=== PATIENT | male | born 1940 | race Caucasian/White ===

== ENCOUNTER 2017-06-04 10:59 | Emergency (ER) | payer MEDICARE, SELFPAY ==
[2017-06-04 11:00] VITALS: BP 137/68; PULSE 82; RESP 16; TEMP 36.9; O2SAT 97; BMI 31.2
--- NOTE | 2017-06-04 11:42 | VDLE_ITS ---
Reason For Study: LEG SWELLING Procedure LEFT Exam performed portable in ED. GSV is normal. A preliminary report was called and/or faxed CFV is compressible, spontaneous, phasic, to Dr. Reed. competent, and demonstrates normal augmentation. FV is compressible, spontaneous, phasic, competent and demonstrates normal augmentation. POP V is compressible, spontaneous, phasic, competent and demonstrates normal augmentation. T/P Trunk is compressible. PTV is compressible. LT PerV is compressible. Interpretation Summary Deep veins of the left lower extremity are patent and compressible segmentally. There is no evidence of left lower extremity deep vein thrombosis. Valvular competence appears intact within the proximal deep venous system on the left . The left greater saphenous vein appears patent and compressible segmentally. Ordering Physician: Azam Reed Referring Physician: Naveed Morton Performed By: Annelise Sandoval RVT
--- NOTE | 2017-06-04 12:13 | ED.VISSUMM ---
- ER Visit Summary Date of Service: 06/04/17 Chief Complaint: Swelling left lower extremity status post left hip total arthroplasty 6 days ago History of Present Illness: The patient is a 77 M was sent to the emergency department by his orthopedic surgeon because of swelling of his left lower extremity. He is postop day 6 from a left total hip arthroplasty. He denies chest pain. Denies shortness of breath. He denies leg pain. He has not been mobile. Past medical history of hypercholesterolemia, dysrhythmia. Per old records he was on Xarelto. Physical Examination: Is an elderly gentleman in no distress. Blood pressure slightly elevated 137/68. HEENT is unremarkable. Heart is regular without murmur, gallop or rub. S1 and S2 are normal. Lungs are clear to auscultation with good movement of air bilaterally. Abdomen soft nontender. The entire left lower extremity is swollen. There is no tenderness along the distribution deep venous system. The veins may be slightly more prominent on the left compared to the right. DP and PT pulses are diminished compared to the right secondary to the edema. Incision site looks well without evidence of infection. Test Results: His duplex study was interpreted as negative for DVT. Emergency Department Course and Treatment: Since patient is postop day 6 and has a well score for DVT of 3 a venous duplex study was obtained of the left lower extremity. Treatment Plan: Appropriate home-going instructions and elevation Disposition: Discharged to home in stable condition Impression: Lymphedema left lower extremity status post total hip arthroplasty This note was generated with [employer] dictation software. It may contain incorrect words, spelling, and punctuation that were not noted in review of the chart prior to signing ED Disposition - Plan for ED Patient: Disposition: Home or Assisted Living Chief Complaint: Edema Instructions: ED Lymphedema Referrals: Naveed Morton MD [Primary Care Provider] - As Needed
[2017-06-04 12:37] VITALS: BP 142/79; PULSE 83; RESP 22; O2SAT 97
--- NOTE | 2017-06-04 12:38 | ED.RN ---
THIS NURSE REVIEWED D/C INSTRUCTIONS WITH PT. PT VERBALIZED UNDERSTANDING OF INSTRUCTIONS. PT DENIES FURTHER QUESTIONS AT THIS TIME. PT ASSISTED TO VEHICLE VIA W/C
== END 2017-06-04 12:39 | disposition home or self-care (01) ==
PROVIDERS: Emergency Provider Emergency Medicine; Family Provider Family Medicine; PCP Family Medicine
DX: I89.0 Lymphedema, not elsewhere classified (principal); Z96.642 Presence of left artificial hip joint; E78.00 Pure hypercholesterolemia, unspecified; R03.0 Elevated blood-pressure reading, without diagnosis of hypertension; Z79.01 Long term (current) use of anticoagulants; Z79.82 Long term (current) use of aspirin; Z79.899 Other long term (current) drug therapy; Z87.891 Personal history of nicotine dependence
CPT/HCPCS: 93971; 99282; J7030

== ENCOUNTER 2017-08-29 07:00 | Outpatient (RCR) | payer MEDICARE, SELFPAY ==
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
--- NOTE | 2018-02-05 13:54 | HP.PT.NRP ---
HP - Discharge Summary (1) - Patient Information ARIANNE BOYER was seen in my office for initial evaluation on 08/01/17. The following Plan of Care was established for this patient: Initial Frequency: 3x /Week Initial Duration: 4 Weeks - Anticipated Interventions Patient/Client Instruction: Educate patient on: Benefits of Fitness Program For the Purpose of:: To improve performance and independence with ADL's Therapeutic Exercise to Include: Strength training, Endurance training, Balance training, Agility training, Body mechanics, Postural training, Flexibilty training, Scapular Strength/Stabilization For the Purpose of:: To improve muscle performance and motor function TENS: Yes Cryotherapy (ice pack, ice massage): Yes Thermo therapy (hot pack): Yes Ultrasound (thermal/non thermal): No For the Purpose of:: To decrease pain This patient was last seen in our office . Pertinent comments regarding their Physical therapy will appear below: Patient is I with HEP and doing well- Patient has not attended physical therapy in over 8 weeks. At this time patient is appropriate for d/c and return to MD as needed. At this point I will be discontinuing this patient from physical therapy. I would be happy to see this patient again in the future if found appropriate by the physician. Thank you! Margaret Tyler
== END 2017-08-29 19:00 | disposition home or self-care (01) ==
LOC: PT 07:00
PROVIDERS: Family Provider Family Medicine; PCP Family Medicine
DX: Z96.649 Presence of unspecified artificial hip joint (principal)
CPT/HCPCS: 97110; 97162

== ENCOUNTER 2018-06-09 09:34 | Emergency (ER) | payer MEDICARE, SELFPAY ==
[2018-06-09] VITALS (7 sets, daily range): BP systolic 113–136; BP diastolic 61–84; PULSE 67–72; RESP 12–18; TEMP 36.6; O2SAT 77–97; BMI 29.3
--- NOTE | 2018-06-09 09:40 | RAD_ITS ---
STUDY: X-RAY - RIGHT HIP REASON FOR EXAM: Male, 78 years old. Possible dislocation. TECHNIQUE: Single AP view of the hip. COMPARISON: None. FINDINGS: Limited view. There is evidence of a dislocation of the prosthetic hip joint. RAD/Hip 1 view with Pelvis IMPRESSION: Dislocation of the prosthetic hip joint. Limited examination. Electronically Signed: Sj Renee MD at 10:41 EST , Service support ,
[2018-06-09] MEDS: 0.9% Normal Saline 1,000 ML 1000 ML IV (09:48)
[2018-06-09] MEDS: Ondansetron 4 MG/2 ML Vial IV (09:49)
[2018-06-09] MEDS: morphine 8 MG/ML Syringe IV (09:49)
[2018-06-09] MEDS: Propofol 200 MG/20 ML Vial IV BOLUS (11:18)
--- NOTE | 2018-06-09 11:42 | RAD_ITS ---
STUDY: X-RAY - RIGHT HIP REASON FOR EXAM: Male, 78 years old. Post reduction of the right hip. TECHNIQUE: 2 views of the hip. COMPARISON: Comparison is made with prior study done earlier in the day. FINDINGS: The patient is status post bilateral hip replacement. There is satisfactory postreduction of the right prosthetic hip joint. RAD/HIP, UNI W/ Pelvis 2-3 Views IMPRESSION: Satisfactory reduction of the right prosthetic hip joint. Electronically Signed: Sj Renee MD at 12:31 EST , Service support ,
--- NOTE | 2018-06-09 12:56 | ED.DCSUM_ITS ---
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 He apparently lost his balance and his hip popped out. He is 10 weeks status post right hip arthroplasty by Dr. Wally Villarreal at the [facility]. He is presently complaining of right hip pain. He presents by ambulance with flexion and internal rotation of the hip. He last had something to eat and drink at 08: 3 0. He denied head trauma. No loss conscious. He is taking Xarelto because of history of paroxysmal atrial fib and stroke precaution. He denies cardiac respiratory symptoms. He denies nausea vomiting. He has no other complaints please read written note Physical Examination: Patient is in obvious discomfort. Head is atraumatic normocephalic. Pupils are equal round reactive. Extraocular muscles are intact. TMs are pearly white with landmarks noted. Nares patent with no drainage. Posterior pharynx without erythema or exudate. Uvula is midline. There is no dysphonia or dysphasia. Trachea is midline. There is no stridor with auscultation of the neck. Heart is regular without murmur, gallop or rub. S1 and S2 are normal. Lungs are clear to auscultation with good movement of air bilaterally. DP and PT pulses are palpable. He has obvious deformity of the right hip. There is no neurovascular compromise of the right lower extremity. Test Results: Patient was medicated with 4 mg of Zofran and 8 mg of morphine sulfate IV push. He is still complained of discomfort. Portable 1 view x-ray confirms dislocation of prosthetic right hip. Emergency Department Course and Treatment: IV was established. He was medicated. Patient was advised risk benefits of procedural sedation with propofol and need for reduction. He was given opportunity to ask questions. None were asked. He denies allergies to soy products or milk products. Treatment Plan: Patient was placed on a monitor. Written consent was obtained. He was on continuous monitor and oxygen supplementation. Total of 20 mg propofol was administered by me. Initial attempt to reduce by Dr. Julien using the [place] technique unsuccessful. Next attempt using monitor technique unsuccessful. She then applied traction up forward with slight internal rotation which resulted in successful reduction. Postreduction films were obtained and normal. Patient did desaturate to the mid 80s. Question if accurate since he was not cyanotic and waveform was not appropriate. He was reassessed afterwards. Total time of deep sedation by me 8.[address] Maryuri Julien. Patient was placed in a knee immobilizer. Dr. Britt Villarreal was made aware. He would like patient to call office today for an appointment next week. Disposition: Discharged home in stable improved condition Impression: 1. Posterior right prosthetic hip dislocation 2. Deep procedural sedation (8.5 minutes) 3. Reduction of prosthetic hip dislocation, by Dr. Maryuri Julien This note was generated with [employer] dictation software. It may contain incorrect words, spelling, and punctuation that were not noted in review of the chart prior to signing ED Disposition - Plan for ED Patient: Disposition: Home or Assisted Living Instructions: ED Hip Replace Dislocation Reduc Referrals: Naveed Morton MD [Primary Care Provider] - Additional Instructions: Call Dr. Wally Bañuelos's office today to be seen next week.
== END 2018-06-09 14:32 | disposition home or self-care (01) ==
PROVIDERS: Emergency Provider Emergency Medicine; Family Provider Family Medicine; PCP Family Medicine
DX: T84.020A Dislocation of internal right hip prosthesis, initial encounter (principal); I25.10 Atherosclerotic heart disease of native coronary artery without angina pectoris; I48.0 Paroxysmal atrial fibrillation; I10 Essential (primary) hypertension; Z79.01 Long term (current) use of anticoagulants; Z79.82 Long term (current) use of aspirin; Z79.899 Other long term (current) drug therapy; Z87.891 Personal history of nicotine dependence
CPT/HCPCS: 27265; 73501; 73502; 96361; 96374; 96375; 99152; 99285; J7030; A4216; J2405

== ENCOUNTER → 2018-08-11 12:47 | Outpatient (CLI) | payer MEDICARE, SELFPAY ==
[2018-08-05 15:52] VITALS: BMI 30.7
--- NOTE | 2018-08-11 12:49 | CDU_ITS ---
Reason For Study: vertigo Rt. Velocities/BP Lt. Velocities/BP Prox CCA 100.8/17.3 cm/sec. Prox CCA 81.6/17.9 cm/sec. Mid CCA 95.6/17.3 cm/sec. Mid CCA 90.4/23.4 cm/sec. Dist CCA 81.2/18.6 cm/sec. Dist CCA 70.6/12.4 cm/sec. Prox ICA 86.0/20.1 cm/sec. Prox ICA 66.2/15.7 cm/sec. Mid ICA 75.0/20.1 cm/sec. Mid ICA 65.1/22.3 cm/sec. Dist ICA 75.0/20.1 cm/sec. Dist ICA 72.8/21.2 cm/sec. Rt. ICA/CCA = .9. Lt. ICA/CCA = .8. Prox ECA 122.9/15.2 cm/sec. Prox ECA 72.8/11.3 cm/sec. Rt. Vert. 58.6/15.7 cm/sec. Lt. Vert. 43.2/8.0 cm/sec. Right Extracranial There is intimal thickening but no significant atherosclerotic plaque noted in the right common carotid artery. There is heterogeneous, irregular atherosclerotic plaque noted in the right internal carotid artery. There is intimal thickening but no significant atherosclerotic plaque noted in the right external carotid artery. Antegrade flow is noted in the right vertebral artery. Left Extracranial There is intimal thickening but no significant atherosclerotic plaque noted in the left common carotid artery. There is intimal thickening but no significant atherosclerotic plaque noted in the left internal carotid artery. There is intimal thickening but no significant atherosclerotic plaque noted in the left external carotid artery. Antegrade flow is noted in the left vertebral artery. Procedure Carotid Duplex 28964. The exam was diagnostic. Exam performed in department. Interpretation Summary Irregular plague at the proximal right internal carotid with <50% stenosis No significant plague at the proximal right external carotid with <50% stenosis No significant plague at the proximal left internal carotid with <50% stenosis. No significant plague at the proximal left external carotid with <50% stenosis. Patent and antegrade vertebrals bilaterally Ordering Physician: Jay Lambert Performed By: Elbert Larkin RVT
== END ==
PROVIDERS: Family Provider Family Medicine; PCP Family Medicine; Referring Provider Internal Medicine Cardiovascular Disease; Visit Provider Internal Medicine Cardiovascular Disease
DX: R09.89 Other specified symptoms and signs involving the circulatory and respiratory systems (principal)
CPT/HCPCS: 93880

== ENCOUNTER 2018-08-13 07:30 | Outpatient (RCR) | payer MEDICARE, SELFPAY ==
--- NOTE | 2018-04-27 16:11 | HP.PTEVAL_ITS ---
Patient's Visit Information ARIANNE BOYER is a 78 year old M referred to Physical Therapy by DEBBIE FREED with a diagnosis of R THR. Date of Evaluation: 04/27/18 Physical Therapist: Mark Busby, PT, LAYLA, SCS, CSCS - Visit Plan Frequency: 2x /Week Duration: 4-6 Weeks Plan: Continue to work on ROM, Strength, balance and GAIT - Subjective Findings: Mr Boyer is a pleasant 78 yo who was referred to our care by Dr Freed at [facility]. Tulio said that he is doing well not taking any pain meds or tylenol since two days after his R THR sx on 03.26.18. He has been released to drive and is ambulating with cane on his left side. He is not scheduled to RTD. - Pain Right Hip Pain Intensity (Out of 10): 1 Pain Intensity Range: 2 - Objective Mr. Boyer presents ambulating with a cane in his left hand, with a slower than expected gait with decrease stance time and hip ext on his right hip. R HIP extension is 5 degrees, hip abduction 25, all other deferred secondary to hip precautions at this time. Incision site is healing well no seepage or drainage. MMT. Hip Flexion R 20 L 35.6. Knee ext R 36.2 L 38.6. Knee FlexionR 27.5 L 29.6. able to perform a sidling R hip abduction vs gravity times 5. LLD will check next visit. - Goals Goal 1:: Able to walk household distances without cane Goal Time Frame: 2 Weeks Goal 2:: Improve strength with 10% of univolved side Goal Time Frame: 4-6 Weeks Goal 3:: Ascend/Descend steps with handrail Goal Time Frame: 4-6 Weeks - Rehabilitation Potential Physical Therapy Diagnosis: R THR with accompanying decreased ROM and MMT. Rehabilitation Potential: Excellent - Anticipated Interventions Patient/Client Instruction: Educate patient on: Condition, Plan of Care, Risk Factors For the Purpose of:: To increase ROM, To improve ability to perform ADL's, To improve ability of physical actions for home/community/work/leisure, To improve gait and locomotor functions Therapeutic Exercise to Include: Strength training, Endurance training, Balance training, Coordination, Gait and locomotor training Functional Training to Include: ADL Training For the Purpose of:: To improve ability of physical actions for home/community/work/leisure, To improve safety with gait Manual Therapy Techniques to Include: Mobilization, Passive ROM, Soft tissue mobilization For the Purpose of:: To decrease pain, To improve ability to perform ADL's, To improve ability of physical actions for home/community/work/leisure, To improve endurance Thank you for the opportunity to evaluate your patient. For Medicare and Medicare HMO plans, please review the plan of care and approve it. It will need to be FAXED BACK to us at [phone] for Medicare purposes. For Medicare only, by signing this I certify the plan of care. Please let me know if there are questions or concerns regarding this plan of care. Physician Sign ature: Date:
[2018-06-09 09:35] VITALS: BMI 29.3
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
== END 2018-08-13 19:00 | disposition home or self-care (01) ==
LOC: PT 07:30
PROVIDERS: Family Provider Family Medicine; PCP Family Medicine
DX: T84.029A Dislocation of unspecified internal joint prosthesis, initial encounter (principal); Z96.641 Presence of right artificial hip joint
CPT/HCPCS: 97014; 97035; 97110; 97124; 97161; G0283

== ENCOUNTER → 2018-11-23 11:46 | Outpatient (CLI) | payer MEDICARE, OTHER, SELFPAY ==
[2018-08-05 15:52] VITALS: BMI 30.7
--- NOTE | 2018-11-23 11:47 | CT_ITS ---
STUDY: CT ABDOMEN AND PELVIS WITH CONTRAST REASON FOR EXAM: Male, 78 years old. Left groin swelling. Lymphadenopathy. RADIATION DOSAGE (If Supplied By Facility): CTDIvol = ( 19.25 ) mGy, DLP = ( 1713.11 ) mGycm TECHNIQUE: Transaxial images were obtained from the dome of the diaphragm to the symphysis pubis with oral contrast. 100 ml of Isovue 300 contrast was administered. Sagittal and coronal images were reconstructed. Individualized dose optimization techniques were used for this CT. COMPARISON: None. FINDINGS: There is atelectasis at the lung bases. The visualized portions of the heart and pericardium are within normal limits. There are no calcified gallstones present. There are simple cysts noted in the liver. The spleen is normal in size. The pancreas is within normal limits. There is a 1.2 cm indeterminate left adrenal nodule. The right adrenal gland is within normal limits. There are no renal or ureteral stones. There is no hydronephrosis. There are multiple bilateral renal cysts. Normal visualized stomach. There is no bowel obstruction or inflammation. There is a large amount of stool in the colon, consistent with constipation The appendix is visualized and appears normal. The aorta is normal in caliber. There is no abdominal or pelvic free air, free fluid, fluid collection or lymphadenopathy. There is a 3.8 x 3.1 cm left inguinal lymph node noted. There are no destructive osseous lesions. The patient is status post bilateral hip arthroplasty. There are degenerative changes noted in the spine. CT/Abdomen/Pelvis WITH Contrast IMPRESSION: 3.8 x 3.1 cm left inguinal lymph node. Consider further evaluation with PET/CT or tissue diagnosis to exclude malignancy. No additional enlarged lymph nodes identified in the abdomen or pelvis. 1.2 cm indeterminate left adrenal nodule. No bowel obstruction or inflammation. Normal appendix. Constipation. Hepatic and renal cysts. Electronically Signed: Serjio Connors, at 14:36 EDT Tel , Service support ,
[2018-11-23 14:01] LABS: CREATININE FINGERSTICK < 0.6 mg/dL (0.70-1.30); EGFR FINGERSTICK > 60.0000 mL/min (>60)
== END ==
PROVIDERS: Family Provider Family Medicine; PCP Family Medicine; Referring Provider Surgery; Visit Provider Surgery
DX: R59.1 Generalized enlarged lymph nodes (principal)
CPT/HCPCS: 74177; Q9967

== ENCOUNTER 2018-11-24 11:29 | Day surgery (SDC) | payer MEDICARE, OTHER, SELFPAY ==
--- NOTE | 2018-11-24 | IMM_PTH ---
PATIENT: ARIANNE BOYER LOC: [facility] [place] U#:[id number] AGE/SX: 78/M ROOM: RE11/24/[address]: Dr. Eric Kaur MD : 1940 BED: DIS: 11/24/2018 SPEC #: [id number] RECD: 11/25/18 13:05 STATUS: LOUIS REQ #: [id number] DIEGO: 11/24/18 00:[address]: Eric Kaur DEPT: IMMUNOHISTOCHEMISTRY RECD BY: Peri Alexander ENTERED: 11/25/18 13:06 SP TYPE: IMMUNO OTHR DR: Dr. Naveed Morton MD Tissues: Inguinal lymph node, NOS Procedures: Synapto (add) CD56 (add) CHROMO (add) CK20 (add) CK7 (add) CK8 (add) KI-67 (add) P53 (add) TTF1 (add) Pankeratin (add) CD45 (initial) PHYSICIAN & INSTITUTION [address] [address] SPECIMEN INFORMATION: Tissue Source: Left inguinal lymph node, biopsy Clinical Info: Lymphoma of left inguinal region Specimen Number: [id number] #1 CPT code: 21917, 38779 x10 METHODOLOGY: Deparaffinized sections of prefer/formalin-fixed tissue or PAP/DQ stained slides are incubated with monoclonal/polyclonal antibodies/oligonucleotide probes. Localization is made via biotin free immunoperoxidase method. Appropriate controls are performed and reacted as expected. Results on target cell population are indicated in the following table: RESULTS: ANTIBODY / CLONE RESULT Block 1 CD45 (RP2/18) negative AE1-3 (AE1/AE3/PCK26) positive CK8 (17wxknH32) positive CK7 (OV-TL12/30) negative CK20 (KS20.8) positive TTF-1 (8G7G3/1) negative Chromo (LK2H10) positive Synapto (polyclonal) positive CD56 (123C3.D5) positive Ki-67 (30-9) positive, high P53 (DO-7) positive, a few cells These tests were developed and their performance characteristics determined by [facility]. They may not have been cleared or approved by the U.S. Food and Drug Administration. The FDA has determined that such clearance or approval is not necessary. INTERPRETATION: Left inguinal lymph node, biopsy: Consistent with metastatic poorly differentiated neuroendocrine carcinoma, with large cell morphology, favor Madi cell carcinoma. SJ:evette 11/26/18 Case has been reviewed in consultation with Dr. Sanford who concurs with the above diagnosis. IDC:AM
[2018-11-24 08:31] VITALS: BMI 30.7
--- NOTE | 2018-11-24 09:31 | PCM.HP.BLA ---
Problem List (1) Lymphoma of left inguinal region Status: Acute History and Physical Date of Admission: 11/24/18 Intake Vital Signs 11/24/18 Body Mass Index (BMI) 30.7 11/24/18 Height 6 ft 3 in 11/24/18 Weight: 241 lb 11/24/18 Body Mass Index (BMI) 30.1 11/24/18 Blood Pressure 138/74 H 11/24/18 Blood Pressure Location Rt brachial 11/24/18 Respiratory Rate 16 Intake Visit Reasons: Lymph node groin area/CT 11/23 Environmental Air Specialist Required: No Is patient in pain?: No Allergies No Known Allergies Allergy (Verified 11/24/18 08:29) Medications Ascorbic Acid [Vitamin C] 1,000 mg PO DAILY@0800 05/04/13 [History Confirmed 11/24/18] Aspirin [Aspirin, Baby] 81 mg PO DAILY@0800 05/04/13 [History Confirmed 11/24/18] Atorvastatin Calcium [Lipitor] 10 mg PO QHS 05/04/13 [History Confirmed 11/24/18] Ginseng 100 mg PO DAILY 05/04/13 [History Confirmed 11/24/18] Multivitamins,Therapeutic [Multivitamin] 1 tab PO DAILY 05/04/13 [History Confirmed 11/24/18] Rivaroxaban [Xarelto] 20 mg PO DAILY 05/04/13 [History Confirmed 11/24/18] Gabapentin [Neurontin] 900 mg PO TID 06/04/17 [History Confirmed 11/24/18] Alendronate Sodium [Fosamax] 70 mg PO Q7D@0700 06/09/18 [History Confirmed 11/24/18] Calcium Carbonate/Vitamin D3 [Calcium 500-Vit D3 600 Tablet] 1 ea PO DAILY 06/09/18 [History Confirmed 11/24/18] dofetilide 500 mcg capsule 500 mcg PO Q12H 08/03/18 [History Confirmed 11/24/18] metoprolol succinate ER 25 mg tablet,extended release 24 hr 25 mg PO DAILY 90 Days #90 tab 08/03/18 [History Confirmed 11/24/18] alpha lipoic acid 200 mg capsule 400 mg PO .QD cap 08/05/18 [History Confirmed 11/24/18] melatonin 5 mg capsule mg PO cap 08/05/18 [History Confirmed 11/24/18] PFSH Medical History Mitral annular calcification (Chronic) Abdominal aortic aneurysm (AAA) (Chronic) Paroxysmal atrial fibrillation (Chronic) Atherosclerosis of coronary artery of [place] heart 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) Hyperlipidemia (Chronic) Thoracic aortic aneurysm without rupture (Chronic) Adrenal adenoma (Chronic) Anemia (Chronic) 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) Hyperplastic colon polyp (Chronic) Lumbosacral spondylosis (Chronic) Obesity (Chronic) Obstructive sleep apnea (Chronic) Osteoarthritis (Chronic) Polyneuropathy (Chronic) Spinal stenosis (Chronic) History of non-ST elevation myocardial infarction (NSTEMI) (Resolved 2006) Surgical History History of coronary artery stent placement (Chronic 04/2006) History of open reduction and internal fixation (ORIF) procedure (Chronic) History of bilateral knee replacement (Resolved) History of cardioversion (Resolved 2013) History of cervical spinal arthrodesis (Resolved) History of left hip replacement (Resolved) History of lumbar laminectomy (Resolved) History of right hip replacement (Resolved 03/2018) Family History (Updated 11/24/18 @ 08:32 by Margaret August) Aunt Sudden cardiac age 63 Mother Colon cancer Father Colon cancer Sister Cancer Social History (Updated 11/24/18 @ 09:30 by Eric Kaur MD) Smoking Status: Former smoker quit date: 06/19/82 alcohol intake: former year quit: 2001 HPI HPI HPI: ARIANNE BOYER, is a 78 M who presents to the office today for HPI HPI HPI: ARIANNE BOYER, is a 78 M who presents to the office today for swollen left groin lymph node. Patient reports for the last month his left groin has had a bulge. It is nontender. He does not report any trauma or insect bites to the area. Does not report any cat bites or scratches. He is not having any fevers or chills or weight loss or gain. He has no history of malignancy. ROS General General: No weight change or fatigue Cardio Cardiovascular: Yes heart disease, atrial fibrillation, heart attack and heart stent; no murmur, pacemaker, high blood pressure, palpitations, shortness of breat with exertion or chest pain Psych Psychiatric: No depression or anxiety Resp Respiratory: No shortness of breath, Yes sleep apnea, No cough, No COPD, No asthma, No emphysema, No wheezing Gastro Gastrointestinal: No abdominal pain, No nausea or vomiting, No diarrhea, No constipation, No blood in stool, No acid reflux, No hemorrhoids, No ulcers, No gallbladder problem, No black,tarry stools Justin Hematologic: Yes blood thinners Exam Const General: cooperative Orientation: alert, oriented x3 Resp Effort & Inspection: normal respiratory effort Auscultation: clear to auscultation bilaterally Cardio Rate: regular rate Rhythm: regular rhythm Heart Sounds: no murmurs GI Inspection: non-distended Palpation: soft, nontender Musc Other: Patient has a mobile enlarged left lymph node Assessment & Plan Problems 1. Inguinal lymphadenopathy R59.0 Plan The patient has an enlarged left inguinal lymph node which measures over [address] scan performed yesterday. There are no other enlarged lymph nodes. I explained this is likely reactive but the radiologist recommends tissue diagnosis versus PET scan. The patient would like this excised. I discussed needle biopsy as well as excisional biopsy. The patient opts for excisional biopsy. I explained excisional biopsy the patient in detail. I explained the risks including but not limited to bleeding, infection, seroma formation, hematoma formation. The patient is on Xarelto and aspirin which have been held. Patient understands the risks and is willing to proceed with surgery. Eric Kaur MD Pager: [facility] [address] [place] [address], [address] [place] [address] Office:
[2018-11-24 12:18] VITALS: BP 107/70; PULSE 61; RESP 16; TEMP 36.6; O2SAT 96; BMI 29.5
[2018-11-24] MEDS: Cefazolin 2 GM in 0.9% Normal Saline 100 ML IV (13:10)
[2018-11-24] MEDS: Bupiv/Epi 0.25% 30 ML Vial (13:23)
--- NOTE | 2018-11-24 13:30 | LYMN_PTH ---
PATIENT: ARIANNE BOYER LOC: [facility] [place] U#:[id number] AGE/SX: 78/M ROOM: RE11/24/[address]: Dr. Eric Kaur MD : 1940 BED: DIS: 11/24/2018 SPEC #: [id number] RECD: 11/24/18 13:57 STATUS: [place] RU #: [id number] DIEGO: 11/24/18 13:[address]: Eric Kaur DEPT: SURGICAL PATHOLOGY RECD BY: Gil Galo ENTERED: 11/24/18 14:17 SP TYPE: LYMPH NODE OTHR DR: Dr. 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 See comment. GRIS:evette 11/26/18 COMMENT The specimen is evaluated at the time of procedure by Dr. Peoples. Immediate Evaluation = Numerous atypical large cells are noted. Immunohistochemistry ([id number]) supports the above diagnosis. Flow cytometry study from [facility] is pending at this time. This case is discussed with Dr. Kaur on 11/26/18. Case has been reviewed in consultation with Dr. Sanford who concurs with the above diagnosis. IDC:AM MICROSCOPIC DESCRIPTION Slides are reviewed. GROSS DESCRIPTION Received fresh for lymphoma protocol labeled with the patient's name is a specimen designated left inguinal lymph node. The specimen consists of an ovoid to slightly irregular nodule consistent with enlarged lymph node measuring 5 x 4.5 x 3 cm. Serial sections reveal focal fleshy cut surfaces. Textile Machine Operator sections are also submitted for flow cytometry study. Four touch imprints are prepared (two stained with Diff-Quick, two stained with H & E stain). Textile Machine Operator sections are submitted in six cassettes. / GRIS:evette 8/6/19 TC:0 CPT: 91866, 25248 ADDENDUM ADDENDUM ADDENDUM ADDENDUM ADDENDUM ADDENDUM ADDENDUM 11/27/2018 10:15 ADDENDUM 12/10/2018 08:53 ADDENDUM 11/27/2018 10:15 ADDENDUM 11/27/2018 10:15 ADDENDUM 11/27/2018 10:15 ADDENDUM 11/27/2018 10:15 FLOW CYTOMETERY REPORT FROM [facility] FLOW INTERPRETATION: No immunophenotypic evidence of a monoclonal B cell or aberrant T cell population detected. Please see complete report in e-chart or EMR for further details This addendum is added to incorporate an outside pathology consultation report. The case was examined at [facility] (#[id number]) and the following diagnosis was rendered. Lymph node, left inguinal lymph node, excisional biopsy: Metastatic [place] cell carcinoma. Please see complete above mentioned consultation report in EMR
[2018-11-24 13:55] VITALS: BP 107/70; BP 115/63; PULSE 67; RESP 18; TEMP 36.3; O2SAT 94
--- NOTE | 2018-11-24 13:58 | PCM.OPRPT ---
Problem List (1) Lymphoma of left inguinal region Status: Acute Report of Operation Date of Procedure: 11/24/18 Pre-Operative Diagnosis: Lymphadenopathy of the left groin Post-Operative Diagnosis: Same Surgery/Procedure Performed:: Excisional biopsy of left inguinal lymph node Specimen's removed: Left inguinal lymph node Description of Procedure: Patient was brought back to the operating room and MAC anesthesia was induced. The left groin was prepped and draped in usual sterile fashion. An incision was marked over the palpable lymph node. Next a mixture of lidocaine and Marcaine were injected into the skin. An incision was made with a scalpel and deepened to the lymph node using electrocautery. The lymph node was dissected free using electrocautery and blunt dissection. Any lymphatic ducts or blood vessels were clipped with medium clips. The lymph node was removed from the left groin. The lymph node was approximately 5 cm in length. It was sent for fresh dissection. Next the cavity was irrigated and packed with a gauze. The gauze was removed and hemostasis was obtained using electrocautery and clips. The cavity was irrigated once more and appeared hemostatic. The deep tissue was closed with interrupted 3-0 Vicryl sutures. The skin was closed with a running 4-0 Monocryl suture as well as Dermabond glue. Patient tolerated the procedure well was brought to PACU in stable condition. - Admit VTE Documentation VTE Mechan Device Prophylaxis: SCD's
[2018-11-24 14:00] VITALS: BP 107/70; BP 117/70; PULSE 68; RESP 18; O2SAT 94
[2018-11-24 14:05] VITALS: BP 107/70; BP 123/72; PULSE 66; RESP 16; O2SAT 94
--- NOTE | 2018-11-24 14:05 | DCINST_ITS ---
- Discharge Diagnoses Current Active Problems: Current Active and Chronic Problems (Last Reviewed 11/24/18 @ 08:28 by Margaret August) Lymphadenopathy, inguinal (Acute) You will use the following diet at home:: No restrictions, Regular Your food should be the consistency of: Regular Your liquids should be the consistency of: Regular/Thin Discharge Activity: No Restrictions, May Not Drive - for 24 hours or while on narcotic pain medications, May Shower - tomorrow Lifting Restrictions: 10 lbs for 1 week Call your doctor if your incision/area has: Continuous Slow Oozing, Sudden Increased Bleeding, Increased Pain/ Swelling, Increased Redness, Foul Smelling Discharge, Swelling at the incision site Call your doctor if you observe: Fever of 101 or Higher Cleanse incision/area with: Soap & Water Additional Instructions: Resume aspirin and Xarelto tomorrow evening as long as there is no swelling in the area. Allergies/Adverse Reactions: Allergies No Known Allergies Allergy (Verified 11/24/18 08:29) Medications to take at Discharge Ascorbic Acid [Vitamin C] 1,000 mg PO DAILY@0800 05/04/13 Aspirin [Aspirin, Baby] 81 mg PO DAILY@0800 05/04/13 Atorvastatin Calcium [Lipitor] 10 mg PO QHS 05/04/13 Ginseng 100 mg PO DAILY 05/04/13 Multivitamins,Therapeutic [Multivitamin] 1 tab PO DAILY 05/04/13 Rivaroxaban [Xarelto] 20 mg PO DAILY 05/04/13 Gabapentin [Neurontin] 900 mg PO TID 06/04/17 Alendronate Sodium [Fosamax] 70 mg PO Q7D@0700 06/09/18 Calcium Carbonate/Vitamin D3 [Calcium 500-Vit D3 600 Tablet] 1 ea PO DAILY 06/09/18 dofetilide 500 mcg capsule 500 mcg PO Q12H 08/03/18 metoprolol succinate ER 25 mg tablet,extended release 24 hr 25 mg PO DAILY 90 Days #90 tab 08/03/18 alpha lipoic acid 200 mg capsule 400 mg PO .QD cap 08/05/18 melatonin 5 mg capsule 5 mg PO QHS cap 08/05/18 Oxycodone HCl/Acetaminophen [Percocet 5/325] 1 - 2 tablet PO Q4H PRN PRN 7 Days #15 tablet 11/24/18 The following prescriptions were given: Oxycodone HCl/Acetaminophen [Percocet 5/325] 1 - 2 tablet PO Q4H PRN PRN 7 Days #15 tablet PRN Reason: Pain Transmission Status: Sent to [facility] Primary Care Physician: Naveed Morton MD [Primary Care Provider] - Test Results: Test results from this visit will be discussed in further detail at your follow- up appointment, if applicable. Please Follow Up With: Eric Kaur MD When: Patient is to call in follow-up on [phone]
[2018-11-24 14:11] VITALS: BP 107/70; BP 123/74; PULSE 66; RESP 18; TEMP 36.6; O2SAT 94
[2018-11-24 14:59] VITALS: BP 107/70
== END 2018-11-24 15:21 | disposition home or self-care (01) ==
LOC: SDC 11:32 → AC 11:33
PROVIDERS: Family Provider Family Medicine; PCP Family Medicine; Referring Provider Surgery; Visit Provider Surgery
PROC: (CPT 38500; principal; 2018-11-24 13:15)
DX: R59.0 Localized enlarged lymph nodes (principal); I48.0 Paroxysmal atrial fibrillation; I71.2 Thoracic aortic aneurysm, without rupture; I25.10 Atherosclerotic heart disease of native coronary artery without angina pectoris; I10 Essential (primary) hypertension; E78.5 Hyperlipidemia, unspecified; M19.90 Unspecified osteoarthritis, unspecified site; G47.30 Sleep apnea, unspecified; I25.2 Old myocardial infarction; Z79.82 Long term (current) use of aspirin; Z79.01 Long term (current) use of anticoagulants; Z79.899 Other long term (current) drug therapy; Z87.891 Personal history of nicotine dependence; Z96.653 Presence of artificial knee joint, bilateral; Z96.643 Presence of artificial hip joint, bilateral; Z95.5 Presence of coronary angioplasty implant and graft
CPT/HCPCS: 38500; 88305; 88341; 88342; J7120

== ENCOUNTER 2019-02-26 18:49 | Emergency (ER) | payer MEDICARE, OTHER, SELFPAY ==
[2018-12-31 08:49] VITALS: BMI 29.5
[2019-02-26] VITALS (10 sets, daily range): BP systolic 125–171; BP diastolic 68–87; PULSE 64–77; RESP 12–18; TEMP 36.4–36.7; O2SAT 91–97; BMI 29.3
[2019-02-26] MEDS: Morphine 4 MG/ML Syringe IV (19:10)
[2019-02-26] MEDS: Ondansetron 4 MG/2 ML Vial IV (19:10)
--- NOTE | 2019-02-26 19:35 | RAD_ITS ---
STUDY: X-RAY - PELVIS AND RIGHT HIP REASON FOR EXAM: Male, 79 years old. Fall with dislocation TECHNIQUE: 3 views of the pelvis and hip. COMPARISON: June 09, 2018 FINDINGS: Hip prosthesis is noted on the right with acute dislocation. Left hip prosthesis appears within normal limits. No evidence of fracture. RAD/HIP, UNI W/ Pelvis 2-3 Views IMPRESSION: Right hip prosthesis dislocation Electronically Signed: Antoine Irwin DO at 20:01 EST Tel , Service support ,
--- NOTE | 2019-02-26 19:50 | ED.VIS.GEN ---
History of Present Illness Chief Complaint: Lower Extremity Injury Detail of Chief Complaint: Dislocated prosthetic right hip Informant: Patient Onset: Today Context: Sudden Onset Timing: Continuous Quality: Pain right hip Location: Right hip Current Severity: Moderate Maximum Severity: Severe Worsened by: Any movement Relieved by: Nothing Associated Symptoms: No other symptoms Narrative: She is an elderly male who had a right total hip arthroplasty performed March 2018. He presents after he dislocated his hip. States he bent over. He felt the hip go out. The procedure was done by orthopedic surgeon at [facility]. He denies paresthesia, anesthesia motors. He has not had anything to eat or drink for the past several hours. He has no other complaints. He denies complications to anesthetic. He denies egg or soy product allergy. Prior similar symptoms: Yes Recent Illness/Hospitalization: No - Past Medical History (1) [place] cell carcinoma Status: Acute (2) Peripheral artery disease Status: Acute Comment: left femoral artery (3) Abdominal aortic aneurysm (AAA) Status: Chronic (4) History of coronary artery stent placement Status: Chronic Comment: [id number] 04/2006 (5) Hyperlipidemia Status: Chronic (6) Paroxysmal atrial fibrillation Status: Chronic Past Medical History - Allergies and Home Meds Allergies/Adverse Reactions: Allergies No Known Allergies Allergy (Verified 02/26/19 18:51) Primary Care Physician: Naveed Morton MD [Primary Care Provider] - Prior records reviewed: Yes Lives: Spouse/ Significant Other Smoking Status: Former smoker Alcohol: Rare Drugs: None Review of Systems Cardiovascular: Denies: Chest pain Respiratory: Denies: Dyspnea Gastrointestinal: Denies: Nausea, Vomiting Musculoskeletal: Reports: Extremity Pain. Denies: Myalgias, Arthralgias, Neck pain, Back pain, Swelling, -, - Skin: Denies: Rash, Wounds Neurological: Denies: Weakness, Parasthesia, Numbness Hematologic: Denies: Easy bruising, Easy bleeding Allergy: Denies: Uticaria, Swelling of the mouth Physical Exam Vital Signs/Narrative: Vital Signs Temp Pulse Resp BP Pulse Ox 02/26/19 18:51 97.5 F L 69 14 125/68 H 96 General: Well nourished, Well developed, Acute Distress Head: Normocephalic, Atraumatic Eyes: Perrl, EOMI ENT: Moist mucous membranes, No rhinorrhea Neck: Supple, Nontender Cardiovascular: Regular rate, Regular rhythm, No murmurs Respiratory: No distress, CTA bilaterally, Chest nontender Abdomen: Soft, Nontender, Nondistended, Normal bowel sounds Back: Nontender, Normal Inspection Extremities: No edema, - - His hip is flexed and slightly internally rotated consistent with a dislocation. Skin: Normal color, No rash Neurological: Alert, Oriented x3, Cranial nerves II-XII grossly intact, Normal Strength, Normal Sensation Psychological: Normal affect, Normal Mood Diagnostic/Tx/Re-eval Chest X-Ray - ED: Read by ED Physician, - - View x-ray of the hip was obtained which reveals a dislocation of the right prosthetic hip. - Medical Decision Making X-ray was obtained to confirm suspicion for prosthetic dislocation of right hip arthroplasty. This was confirmed. Attempted closed reduction using deep sedation was unsuccessful. Spoke with orthopedist drawer in stitch bonding machine. She informed me that she does not perform total hip arthroplasty and is reluctant to attempt reduction. Recommended transfer to [facility] where he had procedure by Dr. Wally Villarreal. Spoke with his partner Dr. Byrd who recommended that I speak with the ER. Spoke with ER physician. After he was made aware of patient's past medical history the fact that he became hypoxic he is stated patient would need to be admitted to orthopedic service. Patient was accepted by orthopedic service. Procedures Procedure(s): She was consented for deep sedation using propofol and closed reduction of prosthetic right total hip arthroplasty. Patient was informed of risk benefits of using propofol. He was informed of potential complications. He denies allergy to soy products or milk products. He was given opportunity ask questions none were asked. Patient was informed that I will attempt to reduce the right hip after he is sedated. He understood. Consent was signed for both deep sedation and closed reduction. Patient was placed on oxygen and monitor. He received aliquots of propofol. Once appropriate anesthesia was achieved attempted closed reduction was made by multiple techniques. Unsuccessful in moving the dislocated right prosthetic hip. Patient desaturated and procedure was aborted. He required bag valve ventilation. Total time I was in the room with patient 12 minutes 45 seconds. ED Disposition - Plan for ED Patient: Disposition: [facility] - Main Diagnosis: Dislocation of hip joint prosthesis Referrals: Naveed Morton MD [Primary Care Provider] -
[2019-02-26] MEDS: Propofol 200 MG/20 ML Vial IV BOLUS (20:03)
--- NOTE | 2019-02-26 20:18 | ED.RN ---
2008 pt's o2 sat at 78%,pt not breathing ,pt assisted with ambu bag.
[2019-02-26] MEDS: HYDROmorphone 1 MG/ML Syringe IV (20:45)
[2019-02-26] MEDS: HYDROmorphone 0.5 MG/0.5 ML SYRINGE IV ×2 (21:19→22:27)
== END 2019-02-26 23:25 | disposition short-term general hospital (02) ==
PROVIDERS: Emergency Provider Emergency Medicine; Family Provider Family Medicine; PCP Family Medicine
DX: T84.020A Dislocation of internal right hip prosthesis, initial encounter (principal); Y79.2 Prosthetic and other implants, materials and accessory orthopedic devices associated with adverse incidents; R09.02 Hypoxemia; Z53.8 Procedure and treatment not carried out for other reasons; I71.4 Abdominal aortic aneurysm, without rupture; I48.0 Paroxysmal atrial fibrillation; E78.5 Hyperlipidemia, unspecified; I73.9 Peripheral vascular disease, unspecified; Z79.01 Long term (current) use of anticoagulants; Z79.82 Long term (current) use of aspirin; Z79.899 Other long term (current) drug therapy; Z85.821 Personal history of Merkel cell carcinoma; Z87.891 Personal history of nicotine dependence; Z95.5 Presence of coronary angioplasty implant and graft
CPT/HCPCS: 27265; 73502; 96374; 96375; 96376; 99285; J7030; A4216; J2405

== ENCOUNTER 2019-04-07 11:50 | Day surgery (SDC) | payer MEDICARE, OTHER, SELFPAY ==
[2018-12-31 08:49] VITALS: BMI 29.5
[2019-02-26 18:51] VITALS: BMI 29.3
--- NOTE | 2019-04-06 18:42 | HP.PCM_ITS ---
History and Physical Date of Admission: 04/07/19 HISTORY AND PHYSICAL ? Alberto Ran Prado 1940 ? REFERRING PHYSICIAN: ??Naveed Morton MD ? CHIEF COMPLAINT: ??Consult ? HPI: The patient is a 78 year old male referred for endoscopy. ?Alberto notes personal history of colon polyps and family history of colon cancer.??He notes some constipation for which he uses dulcolax and prunes.??Patient denies any change in bowel habits, weight changes, blood in stools, black tarry stools or abdominal pain. ? ? The patient notes no upper GI complaints. ? Alberto?has??undergone prior endoscopy 01/20/[address] Scott with removal of benign colon polyps. ? 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 ?Patient has ?radiation treatment scheduled for the next few weeks and would like to postpone endoscopy until that is completed. ?Past medical history is also signidicant for hyperlipidemia, abdominal aortic aneurysm, atrial fibrillation, past UT, coronary artery disease, obstructive sleep apnea, adrenal adenoma ? ? PAST MEDICAL HISTORY PAST MEDICAL HISTORY Diagnosis Date ? AAA (abdominal aortic aneurysm) (HCC) ? ? none seen 01/31 ? Adrenal adenoma 01/2013 ? elected not to reimage. seen again in 2019. appears same size. ? Allergic rhinitis, cause unspecified ? ? Anemia, unspecified ? ? Atrial fibrillation (HCC) 06/29/2013 ? Coronary atherosclerosis of unspecified type of vessel, [place] or graft ? ? S/P BMS to OM1 on 04/27 ? Displacement of lumbar intervertebral disc without myelopathy 09/24/2005 ? Fracture ? ? left clavicle ? Hyperplastic colon polyp ? ? Lumbosacral spondylosis without myelopathy 09/24/2005 ? Myocardial infarct, old ? ? 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 CARRILLO (obstructive sleep apnea) 07/07/2013 ? D[facility] [place] ? Other and unspecified hyperlipidemia ? ? Polyneuropathy ? ? Primary localized osteoarthrosis, lower leg ? ? Psychosexual dysfunction with inhibited sexual excitement ? ? Spinal stenosis, lumbar region, without neurogenic claudication 09/24/2005 ? PAST SURGICAL HISTORY PAST SURGICAL HISTORY Procedure Laterality Date ? ANTERIOR INTERBODY FUSION, CERVICAL ? 06/2012 ? CATARACT SURGERY, COMPLEX ? 2011 ? bilateral ? COLONOSCOP W/ OR W/O [facility] SPEC ? 01/04/09 ? Colonoscopy ? COLONOSCOP W/ OR W/O [facility] SPEC ? 01/20/2014 ? Colonoscopy ? COLONOSCOPY ? 01/23/01 ? LAMINECTOMY,LUMBAR ? 01/23/06 ? Laminectomy, lumbar and fusion, Jake Eli MD ? PAST SURGICAL HISTORY OF ? 2006 ? cardiac cath ??stent placed ? PAST SURGICAL HISTORY OF ? 06/2011 ? Lt clavicle repaired ?plates placed ? REPAIR ING HERNIA,5+Y/O,REDUCIBL ? 10/30/2011 ? Hernia repair, inguinal ?Lap Rt inguinal repair ? TOTAL HIP REPLACEMENT ? 1996 ? left ? TOTAL HIP REPLACEMENT Right 03/26/2018 ? Dr. Wally Licea hip replacement ? TOTAL KNEE REPLACEMENT ? 04/27 ? bilateral ?knee replacements ? Current Outpatient Medications: rivaroxaban (XARELTO) 20 mg tablet Take 1 tablet by mouth once daily. VITAMIN E ORAL Take 400 Units by mouth once daily. dofetilide (TIKOSYN) 500 mcg capsule Take 500 mcg by mouth twice daily. HYDROcodone-acetaminophen (NORCO) 5-325 mg per tablet Take 1 tablet by mouth every 6 hours as needed for Pain. docusate sodium (COLACE) 100 mg capsule Take 1 capsule by mouth twice daily. gabapentin (NEURONTIN) 300 mg capsule TAKE 3 CAPSULES BY MOUTH 3 TIMES A DAY alendronate (FOSAMAX) 70 mg tablet Take 1 tablet by mouth once each week. Take with a full glass of water, on an empty stomach; do NOT lie down for 30minutes. calcium carbonate-vitamin D (OS-MOOSE 250 W/D) 250 (625)-125 mg-unit tab Take 1 tablet by mouth twice daily. metoprolol succinate ER (TOPROL XL) 25 mg 24 hr tablet Take 1 tablet by mouth once daily. atorvastatin (LIPITOR) 10 mg tablet TAKE 1 TABLET BY MOUTH EVERY DAY melatonin 5 mg tablet Take 5 mg by mouth daily at bedtime. alpha lipoic acid 200 mg cap Take 400 mg by mouth once daily. (Patient taking differently: Take 600 mg by mouth once daily. patient reports takin 600 mg) Aspirin 81 mg Tab Take 1 tablet by mouth once daily. OK to restart on postoperative day # 7. ascorbic acid(VITAMIN C 1,000 MG TAB) Take one(1) tablet daily. GINSENG 100 MG CAP Take one(1) tablet daily. MULTIVITAMIN TAB Take one(1) tablet daily. dofetilide (TIKOSYN) 500 mcg capsule Take 1 capsule by mouth every 12 hours. ? No current facility-administered medications for this visit.? ? ALLERGIES:?Patient has no known allergies. ? 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 [id number] ??Social Needs ?Financial resource strain: Not on file ?Food insecurity: ?Worry: Not on file ?Inability: Not on file ?Transportation needs: ?Medical: Not on file ?Non-medical: Not on file ??Tobacco Use ?Smoking status: Former Smoker ?Years: 20.00 ?Types: Pipe ?Quit date: 06/19/1982 ?Years since quittin.6 ?Smokeless tobacco: Never Used ??Substance and Sexual Activity ?Alcohol use: No ?Comment: quit 08/12/2001 ?Drug use: No ?Sexual activity: Not on file ??Lifestyle ?Physical activity: ?Days per week: Not on file ?Minutes per session: Not on file ?Stress: Not on file ??Relationships ?Social connections: ?Talks on phone: Not on file ?Gets together: Not on file ?Attends jain service: Not on file ?Active member of club or organization: Not on file ?Attends meetings of clubs or organizations: Not on file ?Relationship status: Not on file ?Intimate partner violence: ?Fear of current or ex partner: Not on file ?Emotionally abused: Not on file ?Physically abused: Not on file ?Forced sexual activity: Not on file ??Other Topics ?Concerns: ?Not on file ??Social History Narrative ?Not on file ?? ? FAMILY HISTORY:? FAMILY HISTORY FAMILY HISTORY Problem Relation Age of Onset ? other (bipolar) Brother ? ? Colon Cancer Father ? ? Colon Cancer Mother ? ? Stroke Mother ? ? Cancer Sister ?skin ? other (SCD) Maternal Aunt ? at age 63 ? ? REVIEW OF SYSTEMS GENERAL:?No weight loss, malaise or fevers HEENT:?Negative for frequent or significant headaches, No changes in hearing or vision, no nose bleeds or other nasal problems NECK:?Negative for lumps, goiter, pain and significant neck swelling RESPIRATORY:?Negative for cough, hemoptysis, wheezing, COPD, dyspnea or shortness of breath CARDIOVASCULAR:?Negative for chest pain, leg swelling, hypertension, CHF or palpitations GI:?No nausea, vomiting, or diarrhea SKIN:?Negative for lesions, rash, and itching HEMATOLOGY/LYMPHOLOGY:?See HPI ? ? PHYSICAL EXAMINATION: ? General: ?The patient is 78 year old male, well nourished, well hydrated in no acute distress. ?The patient is oriented to time, place, and person. ? VITALS:?Blood pressure 112/78, pulse 78, temperature 36.8 ?C (98.2 ?F), temperature source Temporal Artery, height 187 cm (6' 1.62), weight 109 kg (240 lb 6.4 oz), SpO2 94 %.?Body mass index is 31.18 kg/m?.? ? HEENT: ?Normal cephalic, ataumatic, pupils are equally round, sclera are anicteric, mucous membranes are moist, oropharynx is clear. ?Neck has no masses, asymmetry or lymphadenopathy. ? ? Respiratory: ?Clear to auscultation and percussion. ?Normal respiratory excursion and pattern. ? Cardiac: ?Examination is regular rate and rhythm. ?Normal S1/S2 ? Abdominal exam: ?Soft, nontender, ?with no palpable masses. ?No hepatospleno megaly. ?No palpable hernias. ? Extremities: ?no clubbing, cyanosis or edema. ?No adenopathy. ? LABORATORY VALUES: As Noted ? RADIOLOGIC STUDIES: ?As Noted ? ? Assessment ? IMPRESSION:?encounter for screening colonoscopy, high risk due to personal history of polyps and family history of colon cancer ? PLAN: ?I have reviewed my findings with the surgeon. ?Will plan for lowe r?endoscopy. ??We discussed the risks and benefits of the planned endoscopy. ?I have informed the patient that complications can occur including failure to complete the endoscopy and perforation. ?The patient had the opportunity to ask questions concerning the planned endoscopy. ?My staff has also explained the procedure to the patient in understandable terms and has given the patient printed material concerning the procedure. ?The patient freely consents to surgery. ? I plan to use?Golytely?bowel preparation ? We will plan for Monitored Anesthetic Care. ? ? Diagnoses:?(Z80.0) Family history of colon cancer ?(primary encounter diagnosis) (Z85.038) Personal history of colon cancer (Z12.11) Encounter for screening for malignant neoplasm of colon ? ? Nicki Gonzalez PA-C
[2019-04-07 12:20] VITALS: BP 122/80; PULSE 70; RESP 16; TEMP 37.1; O2SAT 94; BMI 29.5
[2019-04-07] MEDS: Lactated Ringers 1,000 ML 100 ML IV (12:29)
--- NOTE | 2019-04-07 13:24 | OP.COLON_ITS ---
Patient Name: Alberto Prado Procedure Date: 04/07/2019 12:52 PM Date of : 1940 Age: 79 Procedure: Colonoscopy Indications: High risk colon cancer surveillance: Personal history of colonic polyps, Family history of colon cancer in a first-degree relative Providers: David Castro MD Referring MD: Naveed Morton Medicines: Monitored Anesthesia Care Patient Profile: This is a 79 year old male. Refer to note in patient chart for documentation of history and physical. Last Colonoscopy: 5 years ago. Complications: No immediate complications. Procedure: Pre-Anesthesia Assessment: - Prior to the procedure, a History and Physical was performed, and patient medications and allergies were reviewed. The patient is competent. The risks and benefits of the procedure and the sedation options and risks were discussed with the patient. All questions were answered and informed consent was obtained. Patient identification and proposed procedure were verified by the physician, the nurse and the vp clinical in the procedure room. Mental Status Examination: alert and oriented. Airway Examination: normal oropharyngeal airway and neck mobility. Respiratory Examination: clear to auscultation. CV Examination: normal. Prophylactic Antibiotics: The patient does not require prophylactic antibiotics. Prior Anticoagulants: The patient has taken Xarelto (rivaroxaban), last dose was 1 day prior to procedure. ASA Grade Assessment: III - A patient with severe systemic disease. After reviewing the risks and benefits, the patient was deemed in satisfactory condition to undergo the procedure. The anesthesia plan was to use monitored anesthesia care (MAC). Immediately prior to administration of medications, the patient was re-assessed for adequacy to receive sedatives. The heart rate, respiratory rate, oxygen saturations, blood pressure, adequacy of pulmonary ventilation, and response to care were monitored throughout the procedure. The physical status of the patient was re-assessed after the procedure. After I obtained informed consent, the scope was passed under direct vision. Throughout the procedure, the patient's blood pressure, pulse, and oxygen saturations were monitored continuously. The Colonoscope was introduced through the anus and advanced to the cecum, identified by the appendiceal orifice, ileocecal valve and palpation. The colonoscopy was performed without difficulty. The patient tolerated the procedure well. The quality of the bowel preparation was good. Scope In: 12:57:36 PM Scope Withdrawal Time 0 hours 5 minutes 36 seconds Scope Out: 1:21:10 PM Total Procedure Duration Time 0 hours 23 minutes 34 seconds Findings: The perianal and digital rectal examinations were normal. The entire examined colon appeared normal on direct and retroflexion views. Impression: - The entire examined colon is normal on direct and retroflexion views. - No specimens collected. Recommendation: - Discharge patient to home. - Resume previous diet. - Continue present medications. - Repeat colonoscopy in 5 years for screening purposes. David Castro MD 04/07/2019 1:24:00 PM This report has been signed electronically. Number of Addenda: 0 Note Initiated On: 04/07/2019 12:52 PM
[2019-04-07 13:27] VITALS: BP 116/85; BP 122/80; PULSE 71; RESP 16; TEMP 36.4; O2SAT 96
[2019-04-07 13:31] VITALS: BP 111/72; BP 122/80; PULSE 73; RESP 16; O2SAT 95
[2019-04-07 13:35] VITALS: BP 122/80; BP 128/79; PULSE 68; RESP 16; O2SAT 98
[2019-04-07 13:39] VITALS: BP 122/80; BP 124/72; PULSE 61; RESP 16; TEMP 36.5; O2SAT 98
[2019-04-07 14:06] VITALS: BP 122/80
== END 2019-04-07 14:07 | disposition home or self-care (01) ==
LOC: EN 11:50 → AC 11:52
PROVIDERS: Family Provider Family Medicine; PCP Family Medicine; Referring Provider Family Medicine; Visit Provider Surgery
PROC: 0DJD8ZZ Inspection of Lower Intestinal Tract, Via Natural or Artificial Opening Endoscopic (ICD-10-PCS; CPT 45378; principal; 2019-04-07 12:40)
DX: Z12.11 Encounter for screening for malignant neoplasm of colon (principal); Z86.010 Personal history of colon polyps; Z80.0 Family history of malignant neoplasm of digestive organs; I25.10 Atherosclerotic heart disease of native coronary artery without angina pectoris; I73.9 Peripheral vascular disease, unspecified; I48.0 Paroxysmal atrial fibrillation; I25.2 Old myocardial infarction; I10 Essential (primary) hypertension; C4A.72 Merkel cell carcinoma of left lower limb, including hip; D64.9 Anemia, unspecified; E78.5 Hyperlipidemia, unspecified; I71.4 Abdominal aortic aneurysm, without rupture; D35.00 Benign neoplasm of unspecified adrenal gland; K59.00 Constipation, unspecified; G47.33 Obstructive sleep apnea (adult) (pediatric); G62.9 Polyneuropathy, unspecified; Z79.01 Long term (current) use of anticoagulants; Z79.82 Long term (current) use of aspirin; Z79.899 Other long term (current) drug therapy; Z87.891 Personal history of nicotine dependence
CPT/HCPCS: G0105; J7120

== ENCOUNTER 2019-06-14 12:04 | Outpatient (RCR) | payer MEDICARE, OTHER, SELFPAY ==
[2019-06-21 12:38] LABS: Absolute Lymphocyte Count 0.88 X10^3/uL (0.83-4.51); Absolute Neutrophil Count 6.1 X10^3/uL (2.0-7.7); Basophil# 0.04 X10^3/uL; Basophil% 0.5 % (0-1); Eosinophil# 0.64 X10^3/uL; Eosinophils% 7.6 % (0-5); Hematocrit 36.2 % (40-54); Hemoglobin 11.2 g/dL (13.0-16.5); Lymphocyte # 0.88 X10^3/ul (4.0); Lymphocyte % 10.4 % (19-41); Mean Corp Hgb Conc 30.9 g/dL (32-36); Mean Corpuscular Volume 93.8 fL (80-94); Monocyte% 8.3 % (0-10); NRBC Flagged by Analyzer 0 % (0-5); Neutrophil # 6.12 X10^3/uL (2.7-7.7); Neutrophil % 72.6 % (47-70); Platelet Count 387 K/mm3 (150-450); RBC Distribution Width CV 14.4 % (11.6-14.6); Red Blood Count 3.86 M/mm3 (4.6-6.2); White Blood Count 8.4 K/mm3 (4.4-11.0)
[2019-06-21 12:50] LABS: Creatinine, Serum 0.76 mg/dL (0.70-1.30); EST Glomerular Filtration Rate 105 mL/min (>60); Est Glom Filt Rate - Afr Amer 127 mL/min (>60)
== END 2019-06-19 23:59 ==
LOC: HHLAB 12:04
PROVIDERS: PCP Family Medicine
DX: Z95.2 Presence of prosthetic heart valve (principal); T84.52XA Infection and inflammatory reaction due to internal left hip prosthesis, initial encounter; B95.4 Other streptococcus as the cause of diseases classified elsewhere; T84.091D Other mechanical complication of internal left hip prosthesis, subsequent encounter; C4A.72 Merkel cell carcinoma of left lower limb, including hip; I25.10 Atherosclerotic heart disease of native coronary artery without angina pectoris; I25.2 Old myocardial infarction; I48.91 Unspecified atrial fibrillation; M47.12 Other spondylosis with myelopathy, cervical region; M48.061 Spinal stenosis, lumbar region without neurogenic claudication; G62.9 Polyneuropathy, unspecified; I89.0 Lymphedema, not elsewhere classified; M47.816 Spondylosis without myelopathy or radiculopathy, lumbar region; M51.36 Other intervertebral disc degeneration, lumbar region; D64.9 Anemia, unspecified; G47.33 Obstructive sleep apnea (adult) (pediatric); E78.5 Hyperlipidemia, unspecified; Z79.2 Long term (current) use of antibiotics; Z51.81 Encounter for therapeutic drug level monitoring; Z96.643 Presence of artificial hip joint, bilateral; Z79.01 Long term (current) use of anticoagulants; Z79.82 Long term (current) use of aspirin; Z96.653 Presence of artificial knee joint, bilateral; Z87.891 Personal history of nicotine dependence; Z86.718 Personal history of other venous thrombosis and embolism
CPT/HCPCS: 82565; 85025; 86140

== ENCOUNTER 2019-06-26 10:26 | Emergency (ER) | payer MEDICARE, OTHER, SELFPAY ==
[2019-06-26 10:27] VITALS: BP 138/82; PULSE 72; RESP 16; TEMP 36.3; O2SAT 97; BMI 28.8
--- NOTE | 2019-06-26 10:42 | ED.VISSUMM ---
- ER Visit Summary Date of Service: 06/26/19 Chief Complaint: PICC line clogged History of Present Illness: The patient is a [address] Morton. He had a PICC line placed 2 weeks ago due to an infected left hip arthroplasty at the [facility]. He sees Dr. Case, and infectious disease specialist, at the [facility]. He has been getting 2 g of Rocephin a day for his hip. He had a dose yesterday by the home health nurse without any difficulty. States that today he is unable to flush his PICC line. Patient denies any complaints. Reports that his left hip pain is actually improving. He denies any fever, chills, nausea, vomiting, or other constitutional symptoms. Physical Examination: Vitals: Stable. Afebrile. General: Well-nourished and well-developed. Head: Normocephalic atraumatic. Neck: Supple, no lymphadenopathy. No JVD. Nontender. Cardiovascular: Regular rate and rhythm. No murmurs. Respiratory: No respiratory distress. Clear to auscultation bilaterally. Abdominal: Soft, nontender, nondistended, normal bowel sounds. No guarding, rebound, or peritoneal signs. Back: Nontender. Extremities: Nontender, no edema. PICC line is in the right arm. There is no surrounding erythema. No induration or fluctuance. Skin: Normal color, no rash. Neurologic: Alert and oriented ?3. Cranial nerves II through XII are intact. Normal strength and sensation. Psych: Normal affect. Emergency Department Course and Treatment: Patient had alteplase placed in his PICC line. Is now flushed without any difficulty. Treatment Plan: Patient be discharged with instructions to continue his antibiotics as previously prescribed. Follow-up with his infectious disease specialist as previously directed. Return to the emergency department for any worsening symptoms. Disposition: To home in improved and stable condition. Impression: 1. PICC line malfunction. This note was generated with [employer] software. It may contain incorrect words, spelling, and punctuation that were not noted in review of the chart prior to signing ED Disposition - Plan for ED Patient: Instructions: Picc Line Care Referrals: Naveed Morton MD [Primary Care Provider] - As Needed
[2019-06-26] MEDS: Alteplase 2 MG/2 ML Vial IV (11:12)
== END 2019-06-26 11:48 | disposition home or self-care (01) ==
PROVIDERS: Emergency Provider Emergency Medicine; PCP Family Medicine
DX: T82.898A Other specified complication of vascular prosthetic devices, implants and grafts, initial encounter (principal); I25.10 Atherosclerotic heart disease of native coronary artery without angina pectoris; Z79.82 Long term (current) use of aspirin
CPT/HCPCS: 96374; 99282; J2997; A4216

== ENCOUNTER 2019-06-28 13:00 | Outpatient (RCR) | payer MEDICARE, OTHER, SELFPAY ==
[2019-06-28 13:32] LABS: Absolute Lymphocyte Count 0.79 X10^3/uL (0.83-4.51); Absolute Neutrophil Count 6.3 X10^3/uL (2.0-7.7); Basophil# 0.03 X10^3/uL; Basophil% 0.3 % (0-1); Eosinophil# 0.73 X10^3/uL; Eosinophils% 8.5 % (0-5); Hematocrit 34.9 % (40-54); Hemoglobin 10.9 g/dL (13.0-16.5); Lymphocyte # 0.79 X10^3/ul (4.0); Lymphocyte % 9.2 % (19-41); Mean Corp Hgb Conc 31.2 g/dL (32-36); Mean Corpuscular Volume 92.8 fL (80-94); Mean Platelet Vol. 9.4 fl (6.2-12.0); Monocyte# 0.67 X10^3/uL; Monocyte% 7.8 % (0-10); NRBC Flagged by Analyzer 0 % (0-5); Neutrophil # 6.31 X10^3/uL (2.7-7.7); Neutrophil % 73.6 % (47-70); Platelet Count 309 K/mm3 (150-450); RBC Distribution Width CV 14.7 % (11.6-14.6); RBC Distribution Width SD 50.7 fl (35.1-43.9); Red Blood Count 3.76 M/mm3 (4.6-6.2); White Blood Count 8.6 K/mm3 (4.4-11.0)
[2019-06-28 13:39] LABS: Creatinine, Serum 0.72 mg/dL (0.70-1.30); EST Glomerular Filtration Rate 113 mL/min (>60); Est Glom Filt Rate - Afr Amer 137 mL/min (>60)
== END 2019-06-28 18:00 | disposition home or self-care (01) ==
LOC: HHLAB 13:00
PROVIDERS: PCP Family Medicine
DX: Z45.2 Encounter for adjustment and management of vascular access device (principal); T84.52XA Infection and inflammatory reaction due to internal left hip prosthesis, initial encounter; B95.4 Other streptococcus as the cause of diseases classified elsewhere; T84.091D Other mechanical complication of internal left hip prosthesis, subsequent encounter; C4A.72 Merkel cell carcinoma of left lower limb, including hip; I25.10 Atherosclerotic heart disease of native coronary artery without angina pectoris; I25.2 Old myocardial infarction; I48.91 Unspecified atrial fibrillation; M47.12 Other spondylosis with myelopathy, cervical region; M48.061 Spinal stenosis, lumbar region without neurogenic claudication; G62.9 Polyneuropathy, unspecified; I89.0 Lymphedema, not elsewhere classified; M47.816 Spondylosis without myelopathy or radiculopathy, lumbar region; M51.36 Other intervertebral disc degeneration, lumbar region; D64.9 Anemia, unspecified; G47.33 Obstructive sleep apnea (adult) (pediatric); E78.5 Hyperlipidemia, unspecified; Z79.2 Long term (current) use of antibiotics; Z51.81 Encounter for therapeutic drug level monitoring; Z96.643 Presence of artificial hip joint, bilateral; Z79.01 Long term (current) use of anticoagulants; Z79.82 Long term (current) use of aspirin; Z96.653 Presence of artificial knee joint, bilateral; Z87.891 Personal history of nicotine dependence; Z86.718 Personal history of other venous thrombosis and embolism
CPT/HCPCS: 82565; 85025; 86140

== ENCOUNTER → 2019-07-02 12:50 | Outpatient (CLI) | payer MEDICARE, OTHER, SELFPAY ==
[2019-06-26 10:27] VITALS: BMI 28.8
[2019-07-02] MEDS: 0.9% Saline Lock 10 ML Syringe IV (13:00)
[2019-07-02 13:25] LABS: Absolute Lymphocyte Count 1.08 X10^3/uL (0.83-4.51); Absolute Neutrophil Count 4.3 X10^3/uL (2.0-7.7); Basophil# 0.04 X10^3/uL; Basophil% 0.6 % (0-1); Eosinophil# 1.15 X10^3/uL; Hemoglobin 11.1 g/dL (13.0-16.5); Lymphocyte # 1.08 X10^3/ul (4.0); Mean Corp Hgb Conc 31.7 g/dL (32-36); Mean Corpuscular Hgb 29.3 pg (27.0-32.0); Mean Corpuscular Volume 92.3 fL (80-94); Mean Platelet Vol. 8.6 fl (6.2-12.0); Monocyte# 0.58 X10^3/uL; NRBC Flagged by Analyzer 0 % (0-5); Neutrophil # 4.34 X10^3/uL (2.7-7.7); Neutrophil % 60.1 % (47-70); Platelet Count 293 K/mm3 (150-450); RBC Distribution Width CV 14.8 % (11.6-14.6); RBC Distribution Width SD 50.1 fl (35.1-43.9); Red Blood Count 3.79 M/mm3 (4.6-6.2); White Blood Count 7.2 K/mm3 (4.4-11.0)
[2019-07-02 13:41] LABS: Creatinine, Serum 0.87 mg/dL (0.70-1.30); EST Glomerular Filtration Rate 90 mL/min (>60); Est Glom Filt Rate - Afr Amer 109 mL/min (>60)
== END ==
PROVIDERS: PCP Family Medicine
DX: T84.50XA Infection and inflammatory reaction due to unspecified internal joint prosthesis, initial encounter (principal)
CPT/HCPCS: 36592; 82565; 85025; 86140; A4216

== ENCOUNTER → 2019-07-09 16:26 | Outpatient (CLI) | payer MEDICARE, OTHER, SELFPAY ==
[2019-06-26 10:27] VITALS: BMI 28.8
[2019-07-09] MEDS: 0.9% NaCl PICC Flush IV ×2 (16:35→16:54)
[2019-07-09 17:10] LABS: Absolute Lymphocyte Count 1.02 X10^3/uL (0.83-4.51); Absolute Neutrophil Count 4.9 X10^3/uL (2.0-7.7); Basophil# 0.04 X10^3/uL; Basophil% 0.5 % (0-1); Eosinophil# 0.65 X10^3/uL; Eosinophils% 8.8 % (0-5); Hematocrit 35.1 % (40-54); Hemoglobin 11.2 g/dL (13.0-16.5); Lymphocyte # 1.02 X10^3/ul (4.0); Lymphocyte % 13.9 % (19-41); Mean Corp Hgb Conc 31.9 g/dL (32-36); Mean Corpuscular Hgb 29.2 pg (27.0-32.0); Mean Corpuscular Volume 91.6 fL (80-94); Mean Platelet Vol. 9.1 fl (6.2-12.0); Monocyte# 0.73 X10^3/uL; Monocyte% 9.9 % (0-10); NRBC Flagged by Analyzer 0 % (0-5); Neutrophil % 66.6 % (47-70); Platelet Count 266 K/mm3 (150-450); RBC Distribution Width CV 14.7 % (11.6-14.6); RBC Distribution Width SD 49.2 fl (35.1-43.9); Red Blood Count 3.83 M/mm3 (4.6-6.2); White Blood Count 7.4 K/mm3 (4.4-11.0)
[2019-07-09 17:15] LABS: Creatinine, Serum 0.91 mg/dL (0.70-1.30); EST Glomerular Filtration Rate 86 mL/min (>60); Est Glom Filt Rate - Afr Amer 104 mL/min (>60)
== END ==
PROVIDERS: PCP Family Medicine
DX: T84.50XA Infection and inflammatory reaction due to unspecified internal joint prosthesis, initial encounter (principal)
CPT/HCPCS: 36592; 82565; 85025; 86140; A4216

== ENCOUNTER → 2019-07-16 10:06 | Outpatient (CLI) | payer MEDICARE, OTHER, SELFPAY ==
[2019-06-26 10:27] VITALS: BMI 28.8
[2019-07-16] MEDS: 0.9% NaCl PICC Flush IV (10:42)
[2019-07-16 11:12] LABS: Absolute Lymphocyte Count 1.03 X10^3/uL (0.83-4.51); Absolute Neutrophil Count 4.6 X10^3/uL (2.0-7.7); Basophil# 0.05 X10^3/uL; Basophil% 0.7 % (0-1); Eosinophil# 0.57 X10^3/uL; Eosinophils% 8.2 % (0-5); Hematocrit 37.3 % (40-54); Hemoglobin 11.7 g/dL (13.0-16.5); Lymphocyte # 1.03 X10^3/ul (4.0); Lymphocyte % 14.9 % (19-41); Mean Corp Hgb Conc 31.4 g/dL (32-36); Mean Corpuscular Hgb 28.5 pg (27.0-32.0); Monocyte# 0.62 X10^3/uL; NRBC Flagged by Analyzer 0 % (0-5); Neutrophil # 4.62 X10^3/uL (2.7-7.7); Neutrophil % 66.9 % (47-70); Platelet Count 312 K/mm3 (150-450); RBC Distribution Width CV 14.6 % (11.6-14.6); White Blood Count 6.9 K/mm3 (4.4-11.0)
[2019-07-16 11:42] LABS: Creatinine, Serum 0.79 mg/dL (0.70-1.30); EST Glomerular Filtration Rate 101 mL/min (>60); Est Glom Filt Rate - Afr Amer 122 mL/min (>60)
== END ==
PROVIDERS: PCP Family Medicine
DX: T84.50XA Infection and inflammatory reaction due to unspecified internal joint prosthesis, initial encounter (principal)
CPT/HCPCS: 36592; 82565; 85025; 86140; A4216

== ENCOUNTER → 2019-07-23 10:27 | Outpatient (CLI) | payer MEDICARE, OTHER, SELFPAY ==
[2019-06-26 10:27] VITALS: BMI 28.8
[2019-07-23] MEDS: 0.9% NaCl PICC Flush IV (10:46)
[2019-07-23 10:52] LABS: Absolute Lymphocyte Count 1.14 X10^3/uL (0.83-4.51); Absolute Neutrophil Count 4.2 X10^3/uL (2.0-7.7); Basophil# 0.05 X10^3/uL; Basophil% 0.7 % (0-1); Eosinophil# 0.87 X10^3/uL; Eosinophils% 12.4 % (0-5); Hematocrit 37.5 % (40-54); Hemoglobin 11.8 g/dL (13.0-16.5); Lymphocyte # 1.14 X10^3/ul (4.0); Lymphocyte % 16.2 % (19-41); Mean Corp Hgb Conc 31.5 g/dL (32-36); Mean Corpuscular Hgb 28.7 pg (27.0-32.0); Mean Corpuscular Volume 91.2 fL (80-94); Mean Platelet Vol. 8.7 fl (6.2-12.0); Monocyte# 0.73 X10^3/uL; Monocyte% 10.4 % (0-10); NRBC Flagged by Analyzer 0 % (0-5); Neutrophil # 4.24 X10^3/uL (2.7-7.7); Neutrophil % 60.2 % (47-70); Platelet Count 254 K/mm3 (150-450); RBC Distribution Width CV 14.6 % (11.6-14.6); RBC Distribution Width SD 48.8 fl (35.1-43.9); Red Blood Count 4.11 M/mm3 (4.6-6.2)
[2019-07-23 11:00] LABS: CRP 8.29 mg/L (0.0-3.0); Creatinine, Serum 0.74 mg/dL (0.70-1.30); EST Glomerular Filtration Rate 108 mL/min (>60); Est Glom Filt Rate - Afr Amer 130 mL/min (>60)
[2019-07-23 18:45] LABS: Xtra Tube EP Lab EXTRA TUBE
== END ==
PROVIDERS: PCP Family Medicine
DX: T84.50XA Infection and inflammatory reaction due to unspecified internal joint prosthesis, initial encounter (principal)
CPT/HCPCS: 36592; 82565; 85025; 86140; A4216

== ENCOUNTER → 2020-03-09 13:57 | Outpatient (CLI) | payer MEDICARE, OTHER, SELFPAY ==
[2020-03-01 11:55] VITALS: BMI 29.3
--- NOTE | 2020-03-09 13:58 | ECHODONC_ITS ---
Version 3 Reason For Study: CAD Procedure This was a 2D Doppler, Color Flow transthoracic echocardiogram. Myocardial strain analysis was performed in this exam to aid in the assessment of cardiac function. Scanned supine due to left hip prosthesis infection (pain). Exam performed in department. Left Ventricle Normal LV size. Left ventricular systolic function is normal. The estimated ejection fraction is 57 %. Stage 1 diastolic dysfunction. No regional wall motion abnormalities noted. Right Ventricle Normal RV size. Normal systolic function. Atria Normal left atrium. Normal right atrium. Mitral Valve Normal mitral valve. Trivial eccentric mitral valve insufficiency. Tricuspid Valve Normal tricuspid valve. Mild tricuspid valve insufficiency. Pulmonary artery systolic pressure is 30 mmHg. Aortic Valve Normal aortic valve. Trisinus/trileaflet aortic valve. Pulmonic Valve Normal pulmonic valve. Great Vessels Mildly dilated aortic root. The pulmonary artery is normal size. Normal inferior vena cava. Pericardium/Pleural No pericardial effusion. MMode/2D Measurements & Calculations LVIDd: 4.3 cm IVSd: 1.0 cm Ao root diam: 4.2 cm LVIDs: 3.1 cm LVPWd: 0.81 cm RVDd: 3.8 cm FS: 26.8 % LAV(MOD-bp): 70.1 ml LVAd ap4: 34.2 cm2 SV(MOD-sp4): 56.1 ml LAV(MOD-bp) Indexed: 30.4 ml/m2 EDV(MOD-sp4): 111.8 ml LAV(MOD-sp2): 81.8 ml EDV(sp4-el): 115.8 ml LAV(MOD-sp4): 57.4 ml LVAs ap4: 21.6 cm2 ESV(MOD-sp4): 55.7 ml ESV(sp4-el): 55.7 ml EF(MOD-sp4): 50.2 % EF(sp4-el): 51.9 % SV(sp4-el): 60.2 ml LA A4 area: 19.2 cm2 LA dimension(2D): 4.1 cm RA A4 area: 20.6 cm2 Time Measurements MV dec time: 0.28 sec Doppler Measurements & Calculations MV E max jhonny: 69.5 cm/sec Lat Peak E' Jhonny: 9.6 cm/sec Med Peak E' Jhonny: 5.6 cm/sec MV A max jhonny: 74.1 cm/sec E/E' lat: 7.3 E/E' med: 12.5 MV E/A: 0.94 Ao V2 max: 99.1 cm/sec LV V1 max: 90.1 cm/sec TR max jhonny: 255.3 cm/sec Ao max P.9 mmHg LV V1 max P.3 mmHg TR max P.1 mmHg Interpretation Summary Normal LV size. Left ventricular systolic function is normal. The estimated ejection fraction is 57 %. Pulmonary artery systolic pressure is 30 mmHg. Stage 1 diastolic dysfunction. The global longitudinal strain is normal. The global longitudinal strain = -20.3 % (normal). Ordering Physician: Jay Lambert Referring Physician: JULITA HILLIARD Performed By: Yeny Montejo, SHAZIA, RVT
== END ==
PROVIDERS: PCP Family Medicine; Referring Provider Internal Medicine Cardiovascular Disease; Visit Provider Internal Medicine Cardiovascular Disease
DX: I25.10 Atherosclerotic heart disease of native coronary artery without angina pectoris (principal); I34.0 Nonrheumatic mitral (valve) insufficiency
CPT/HCPCS: 93306; 93356

== ENCOUNTER → 2021-09-10 | Outpatient (CLI) | payer MEDICARE, OTHER, SELFPAY ==
--- NOTE | 2021-09-10 08:47 | ECHODONC_ITS ---
Reason For Study: ATRIAL FIB-FLUTTER Procedure This was a 2D Doppler, Color Flow transthoracic echocardiogram. Myocardial strain analysis was performed in this exam to aid in the assessment of cardiac function. The study was technically difficult. Exam performed in department. Left Ventricle Normal LV size. Left ventricular systolic function is normal. The estimated ejection fraction is 55 %. Stage 1 diastolic dysfunction. No regional wall motion abnormalities noted. Right Ventricle Normal RV size. Normal systolic function. Atria Normal left atrium. Normal right atrium. Mitral Valve Normal mitral valve. Tricuspid Valve Normal tricuspid valve. Aortic Valve Trisinus/trileaflet aortic valve. Pulmonic Valve Normal pulmonic valve. Great Vessels Normal aortic root. The pulmonary artery is normal size. Normal inferior vena cava. Pericardium/Pleural No pericardial effusion. MMode/2D Measurements & Calculations LVIDd: 4.4 cm IVSd: 1.0 cm Ao root diam: 3.8 cm LVIDs: 3.2 cm LVPWd: 1.0 cm RVDd: 3.5 cm FS: 29.0 % LAV(MOD-bp): 55.4 ml LVAd ap4: 41.0 cm2 SV(MOD-sp4): 84.1 ml LAV(MOD-bp) Indexed: 24.3 ml/m2 LVLd ap4: 9.6 cm LAV(MOD-sp2): 51.9 ml EDV(MOD-sp4): 145.2 ml LAV(MOD-sp4): 53.0 ml EDV(sp4-el): 149.0 ml LVAs ap4: 22.5 cm2 LVLs ap4: 7.4 cm ESV(MOD-sp4): 61.1 ml ESV(sp4-el): 58.2 ml EF(MOD-sp4): 57.9 % EF(sp4-el): 60.9 % SV(sp4-el): 90.8 ml LA A4 area: 19.4 cm2 LA dimension(2D): 3.9 cm RA A4 area: 15.6 cm2 Time Measurements MV dec time: 0.36 sec Doppler Measurements & Calculations MV E max jhonny: 66.3 cm/sec Lat Peak E' Jhonny: 9.7 cm/sec Med Peak E' Jhonny: 7.0 cm/sec MV A max jhonny: 92.9 cm/sec E/E' lat: 6.8 E/E' med: 9.5 MV E/A: 0.71 Ao V2 max: 176.5 cm/sec LV V1 max: 104.7 cm/sec PA V2 max: 111.5 cm/sec Ao max P.5 mmHg LV V1 max P.4 mmHg ECHO/ONC Echo Complete Interpretation Summary Normal LV size. Left ventricular systolic function is normal. The estimated ejection fraction is 55 %. Stage 1 diastolic dysfunction. Structurally normal valves. The global longitudinal strain is normal. The globa l longitudinal strain = -19.8 % (normal). Ordering Physician: Jay Lambert Referring Physician: JULITA HILLIARD Performed By: Nancy Bliss RDCS
== END | disposition home or self-care (01) ==
LOC: CVS 08:45
PROVIDERS: PCP Family Medicine; Visit Provider Internal Medicine Cardiovascular Disease
DX: I34.0 Nonrheumatic mitral (valve) insufficiency (principal)
CPT/HCPCS: 93306; 93356

== ENCOUNTER → 2022-02-14 | Outpatient (CLI) | payer MEDICARE, OTHER, SELFPAY ==
[2022-02-14 11:52] LABS: AST(SGOT) 20 U/L (15-37); Alanine Aminotransfer ALT/SGPT 24 U/L (16-61); Albumin, Serum 3.2 g/dL (3.2-5.0); Alkaline Phosphatase 43 U/L (45-117); Anion Gap 2 (5-15); BUN 12 mg/dL (7-18); Bilirubin, Direct 0.18 mg/dL (0.00-0.30); Chloride 106 mmol/L (98-107); Cholesterol 114 mg/dL (200); EST Glomerular Filtration Rate 99 mL/min (>60); Est Glom Filt Rate - Afr Amer 119 mL/min (>60); Globulin 2.9 g/dL (2.2-4.2); Glucose 89 mg/dL (74-106); High Density Lipoprotein 41 mg/dL; Potassium 4.3 mmol/L (3.5-5.1); Protein, Total 6.1 g/dL (6.4-8.2); Sodium Level 141 mmol/L (136-145); Triglycerides 69 mg/dL; Very Low Density Lipoprotein 14 mg/dL (5-40)
== END | disposition home or self-care (01) ==
LOC: LAB 09:44
PROVIDERS: PCP Family Medicine; Visit Provider Internal Medicine Cardiovascular Disease
DX: I71.20 Thoracic aortic aneurysm, without rupture, unspecified (principal); E78.5 Hyperlipidemia, unspecified; Z95.5 Presence of coronary angioplasty implant and graft
CPT/HCPCS: 36415; 80048; 80061; 80076

== ENCOUNTER → 2022-03-05 | Outpatient (CLI) | payer MEDICARE, OTHER, SELFPAY ==
--- NOTE | 2022-03-05 17:44 | STRESSREP ---
Stress Test Report Pharmacologic [place] area perfusion stress test. 82-year-old man with a history of coronary artery disease for preoperative cardiac evaluation. Stress protocol: Resting KG demonstrates sinus bradycardia with a rate of 53 bpm normal intervals are noted resting blood pressure is 110/60 mmHg. 0.4 mg of regadenoson was infused per usual protocol followed by wrap intravenous saline flush injection continuous EKG monitoring was performed. The maximum heart rate attained was 76 bpm which was 54% of max impacted heart rate the maximum workload was 1 metabolic equivalent. At rest there were no ST or T wave changes noted to suggest ischemia and at peak infusion nonspecific ST changes were noted with did not meet the criteria for ischemia. No clinical angina was noted the test was terminated due to completion of the protocol. Myocardial perfusion protocol. 8.7 mCi of technetium 99m sestamibi was injected at rest. 0.4 mg of regadenoson was infused per usual protocol. At peak infusion 31.8 mCi of technetium 99m sestamibi was injected stress images were obtained stress and rest images were reconstructed and compared in the short axis vertical long and horizontal long axis. Gated images were also obtained Perfusion SPECT analysis: Review of the stress images demonstrate a normal cardiac silhouette size. There is a small area in the mid to distal anterior wall with mildly reduced perfusion on the stress images with improvement on the resting images demonstrating a mild amount of mid to distal anterior ischemia and a small to medium size zone. The rest of the turcios appear to be normally perfused. There is a very small portion of the lateral wall which appears to have a persistent perfusion defect. Small old infarct cannot be completely excluded. Gated SPECT analysis: The gated ejection fraction is 50%. Conclusion: Mildly abnormal pharmacologic myocardial perfusion stress test with mild mid to distal anterior ischemia. Low normal ejection fraction.
== END | disposition home or self-care (01) ==
LOC: CVS 06:17
PROVIDERS: PCP Family Medicine; Visit Provider Internal Medicine Cardiovascular Disease
DX: I25.10 Atherosclerotic heart disease of native coronary artery without angina pectoris (principal); Z95.5 Presence of coronary angioplasty implant and graft
CPT/HCPCS: 78452; 93017; A9500; A4216; J2785

== ENCOUNTER → 2022-03-08 | Outpatient (CLI) | payer MEDICARE, OTHER, SELFPAY ==
--- NOTE | 2022-03-08 06:48 | RAD_ITS ---
INDICATION: for heart cath EXAMINATION/TECHNIQUE: X-RAY - XR Chest 2 Views COMPARISON: CT November 21, 2018. FINDINGS: LINES/DEVICES: None. LUNGS: Chronic elevation of the right hemidiaphragm with bowel interposed between liver and diaphragm. Small layering left effusion. No gross consolidation. No pneumothorax. MEDIASTINUM AND CARDIOVASCULAR STRUCTURES: Cardiac silhouette not enlarged. Mild aortic atherosclerosis. BONES AND SOFT TISSUES: Unremarkable. RAD/Chest PA and Lateral IMPRESSION: Small layering left effusion. No evidence of focal consolidation or florid edema. Chronic elevated right hemidiaphragm with colon just underneath the diaphragm, interposed between liver and anterior diaphragm/abdominal wall Electronically Signed: Cristofer Hilliard MD at 7:32 EST ,
[2022-03-08 07:36] LABS: Hematocrit 38.9 % (40-54); Hemoglobin 12.8 g/dL (13.0-16.5); Mean Corp Hgb Conc 32.9 g/dL (32-36); Mean Corpuscular Hgb 31.1 pg (27.0-32.0); Mean Corpuscular Volume 94.4 fL (80-94); Mean Platelet Vol. 9.5 fl (6.2-12.0); Platelet Count 220 K/mm3 (150-450); RBC Distribution Width CV 13.1 % (11.6-14.6); RBC Distribution Width SD 44.8 fl (35.1-43.9); Red Blood Count 4.12 M/mm3 (4.6-6.2); White Blood Count 5.4 K/mm3 (4.4-11.0)
[2022-03-08 07:57] LABS: International Normalized Ratio 1.4; Prothrombin Time (Protime)PT. 16.5 SECONDS (11.7-14.9)
== END | disposition home or self-care (01) ==
LOC: RAD 06:44
PROVIDERS: PCP Family Medicine; Visit Provider Internal Medicine Cardiovascular Disease
DX: I71.20 Thoracic aortic aneurysm, without rupture, unspecified (principal); I48.0 Paroxysmal atrial fibrillation; D64.9 Anemia, unspecified
CPT/HCPCS: 36415; 71046; 85027; 85610; 85730

== ENCOUNTER 2022-03-11 06:59 | Day surgery (SDC) | payer MEDICARE, OTHER, SELFPAY ==
[2022-03-08 07:31] VITALS: BMI 29.6
--- NOTE | 2022-03-11 10:25 | CL.D_ITS ---
Patient Name: ARIANNE BOYER Study Date: 03/11/2022 Performing: Jay Lambert MD Ht: 74 inches 187.96 cm : 1940 Wt: 231 lbs 104.78 kg Age: 82 Gender: male BSA: 2.31 PROCEDURE(S) PERFORMED [id number])[facility] CLINICAL PROFILE AND INDICATIONS Indications: Suspected CAD Heart Failure: None Stress/Imaging Date: 03/05/22Stress Test with SPECT MPI: Positive Low Risk CAD Presentations: No Sxs, no angina. CONCLUSIONS Non Obstructive coronary disease with previously placed stent in the ramus intermedius which is patent and mild disease noted with preserved ejection fraction RECOMMENDATIONS Medical therapy DESCRIPTION OF PROCEDURE The patient arrived to the procedure lab. The risks and benefits of the procedure as well as a full description of our services here and current unavailability of surgical backup were fully explained to the patient and/or their significant other prior to the catheterization. The Timeout was completed, verifying the correct patient and procedure. The patient's procedural site was prepped and draped in the usual fashion. Local anesthetic was given subcutaneously to right radial region with Lidocaine 2%. Using a modified Seldinger technique, arterial access was obtained via the right radial artery, a 6Fr sheath was inserted. Left Coronary Artery selective angiography was performed in multiple views using a 5 Fr. 4.0 [place] catheter. Right Coronary Artery selective angiography was then performed in multiple views using a 5 Fr. 4.0 [place] catheter. Right Coronary Artery selective angiography was then performed in multiple views using a 5 Fr. JR 5 catheter.The arterial sheath was pulled and a TR Band was applied for hemostasis w/ 12ml air CORONARY ANGIOGRAPHY DOMINANCE: Right Dominant LEFT HEART ASSESSMENT Left Ventricular Ejection Fraction: by Echo 55 % Normal LV wall motion Normal Left Ventricular systolic function LEFT MAIN: Angiographically normal LEFT ANTERIOR DESCENDING ARTERY: Mild luminal irregularities less than 30% CIRCUMFLEX ARTERY: Mild luminal irregularities RAMUS: Previously placed stent is patent RIGHT CORONARY ARTERY: Mild luminal irregularities COMPLICATIONS No Complications PROCEDURE MEDICATIONS Versed 1 mg IV Fentanyl 50 mcg IV Versed 1 mg IV Oxygen: 2 L/min via nasal cannula Heparin given IA 03/11/2022 08:20:13 Verapamil 2.5mg, Ntg 100mcgs, 3000 units of Heparin given IA 03/11/2022 08:20:13 SUMMARY OF HEMODYNAMIC DATA Time AIR REST ECG 07:26:34 AO 104/54 (77) SA 08:21:46 Signed By Jay Lambert MD On 03/11/2022 10:25:28 Signed By Jay Lambert MD On 03/11/2022 08:42:07 Jay Lambert MD
== END 2022-03-11 10:30 | disposition home or self-care (01) ==
LOC: CLSP 07:00
PROVIDERS: PCP Family Medicine; Referring Provider Internal Medicine Cardiovascular Disease; Visit Provider Internal Medicine Cardiovascular Disease
DX: I25.10 Atherosclerotic heart disease of native coronary artery without angina pectoris (principal); I48.0 Paroxysmal atrial fibrillation; E78.5 Hyperlipidemia, unspecified; I25.2 Old myocardial infarction; G47.33 Obstructive sleep apnea (adult) (pediatric); Z95.5 Presence of coronary angioplasty implant and graft; Z79.82 Long term (current) use of aspirin; Z79.899 Other long term (current) drug therapy; Z79.01 Long term (current) use of anticoagulants; Z87.891 Personal history of nicotine dependence
CPT/HCPCS: 93454; 99152; 99153; C1894; C1769; Q9967

== ENCOUNTER 2023-09-08 06:00 | Observation (INO) | payer MEDICARE, OTHER, SELFPAY ==
[2023-09-08 06:03] VITALS: BP 106/72; PULSE 60; RESP 16; TEMP 36.6; O2SAT 93; BMI 30.1
--- NOTE | 2023-09-08 06:24 | CT_ITS ---
EXAM: CT HEAD WITHOUT INTRAVENOUS CONTRAST CLINICAL INDICATION: head injury TECHNIQUE: Multiple axial images were obtained of the head without intravenous contrast. This CT exam was performed using one or more of the following dose reduction techniques: automated exposure control, adjustment of the mA and/or kV according to patient size, and/or use of iterative reconstruction technique. RADIATION DOSE: CTDIvol = 44.99 mGy, DLP = 880.47 mGy-cm COMPARISON: No relevant prior studies available. FINDINGS: BRAIN AND EXTRA-AXIAL SPACES: Hernan cisterna magna. Mild generalized atrophy. Mild low density bilaterally in the deep white matter. No intra- or extra-axial hemorrhage. No evidence of acute infarct. No intracranial mass or mass effect. There is preservation of the desouza/white matter interface. Posterior fossa structures are unremarkable. No hydrocephalus. BONES/JOINTS: Unremarkable. No discrete lytic or blastic abnormalities. SINUSES: Unremarkable as visualized. Clear. MASTOID AIR CELLS: Unremarkable. Clear. ORBITS: Visualized globes, extraocular muscles, optic nerves and retrobulbar fat appear unremarkable. CT/Brain/Head without Contrast IMPRESSION: 1. Mild generalized atrophy. Mild low density bilaterally in the deep white matter. This likely represents chronic small vessel ischemic changes in the deep white matter. 2. Hernan cisterna magna. 3. No acute intracranial abnormality. Electronically Signed: Adrian Kumar MD at 7:05 EDT ,
--- NOTE | 2023-09-08 06:24 | CT_ITS ---
EXAM: CT CERVICAL SPINE WITHOUT INTRAVENOUS CONTRAST CLINICAL INDICATION: injury TECHNIQUE: Helically acquired images were obtained of the cervical spine without intravenous contrast. 2D reformatted images were reviewed. This CT exam was performed using one or more of the following dose reduction techniques: automated exposure control, adjustment of the mA and/or kV according to patient size, and/or use of iterative reconstruction technique. RADIATION DOSE: CTDIvol = 24.76 mGy, DLP = 471.40 mGy-cm COMPARISON: No relevant prior studies available. FINDINGS: VERTEBRAE: Marked spondylosis C6-C7. Bilateral multilevel facet arthropathy. Extensive bilateral multilevel facet arthropathy. No fracture. No traumatic subluxation. No discrete lytic or blastic abnormality. Normal alignment. Normal craniocervical junction and cervicothoracic junction. DISCS/SPINAL CANAL/NEURAL FORAMINA: Anterior cervical fusion C3-C6 with plate and screw fixation and bone graft. No critical stenosis. SOFT TISSUES: Unremarkable. No prevertebral soft tissue swelling. LYMPH NODES: Unremarkable. No cervical adenopathy. LUNG APICES: Unremarkable as visualized. Clear. CT/Spine Cervical without Contras IMPRESSION: 1. Anterior cervical fusion C3-C6 with plate and screw fixation and bone graft. 2. Degenerative changes. No acute fractures or subluxations. Electronically Signed: Adrian Kumar MD at 7:06 EDT ,
[2023-09-08] MEDS: Acetaminophen 500 MG Tablet 1000 MG PO (06:27)
--- NOTE | 2023-09-08 06:40 | RAD_ITS ---
EXAM: XR LEFT HIP WITH PELVIS WHEN PERFORMED, 4 OR MORE VIEWS CLINICAL INDICATION: pain TECHNIQUE: Four or more views of the left hip with pelvis when performed. COMPARISON: No relevant prior studies available. FINDINGS: BONES/JOINTS: Bilateral total hip arthroplasties. Components appear well seated. Numerous spiral tacks overlying the right side of the pelvis pelvis. Extensive heterotopic bone above the left greater trochanter. No displaced fracture. No destructive or sclerotic lesions. Note that overlapping bowel shadows may however obscure fine detail. Sacroiliac joint is unremarkable. No widening of the pubic symphysis. SOFT TISSUES: Unremarkable. No soft tissue swelling or gas. RAD/HIP, UNI W/ Pelvis 2-3 Views IMPRESSION: 1. Extensive heterotopic bone above the left greater trochanter. 2. No acute abnormality. Electronically Signed: Adrian Kumar MD at 7:13 EDT ,
[2023-09-08 08:00] VITALS: BP 152/105; PULSE 69
--- NOTE | 2023-09-08 08:34 | NURSING ---
DR WHITE FOR DR GALLEGO
--- NOTE | 2023-09-08 08:48 | EDS_ITS ---
HPI History of Present Illness Chief Complaint: Fall Informant: patient and EMS Narrative Narrative: Patient is a 83-year-old male with past medical history of CAD as well as paroxysmal atrial fibrillation currently on Xarelto. He states he was working out this morning and as he went to lift the bar lost his balance and fell backwards striking the ground. He states he struck the back of his head and hit his left side on the floor. He denies any loss of consciousness but states that since the injury he has not been able to ambulate secondary to pain in the left hip. 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 Hyperplastic colon polyp Anemia Adrenal adenoma Obesity History of non-ST elevation myocardial infarction (NSTEMI) (2006) Abdominal aortic aneurysm (AAA) Paroxysmal atrial fibrillation Atherosclerosis of coronary artery of [place] heart without angina pectoris Hyperlipidemia Obstructive sleep apnea Home Medications ?Medication ?Instructions ?Recorded ?Last Taken ?Type ascorbic acid (vitamin C) 500 mg 1,000 mg PO DAILY@0800 05/04/13 05/04/13 History tablet aspirin 81 mg chewable tablet 81 mg PO DAILY@0800 05/04/13 03/11/22 History ginseng 100 mg capsule 100 mg PO DAILY 05/04/13 05/04/13 History multivitamin with folic acid 400 1 tab PO DAILY 05/04/13 05/04/13 History mcg tablet calcium carbonate 500 mg-vitamin 1 ea PO DAILY 06/09/18 Unknown History D3 15 mcg (600 unit) tablet acetaminophen 500 mg tablet 500 mg PO Q6H PRN Pain 02/29/20 Unknown History alendronate 70 mg tablet 70 mg PO Q7D@0700 03/01/20 Unknown History cephalexin 500 mg capsule 500 mg PO BID 05/30/20 Unknown History alpha lipoic acid 200 mg capsule 600 mg PO DAILY 01/01/21 Unknown History gabapentin 300 mg capsule 900 mg PO TID 02/11/23 Unknown History dofetilide 500 mcg capsule 500 mcg PO BID #180 caps 03/07/23 Unknown Rx atorvastatin 10 mg tablet See Rx Instructions .Route 03/18/23 Unknown Rx .COMPLEX #90 tabs rivaroxaban 20 mg tablet (Xarelto) See Rx Instructions .Route 04/28/23 Unknown Rx .COMPLEX #90 tabs metoprolol succinate 25 mg 12.5 mg (1/2 x 25 mg) PO DAILY #45 07/07/23 Unknown Rx tablet,extended release 24 hr TABLETS GI102 09/08/23 Unknown History Allergy/AdvReac Type Severity Reaction Status Date / Time No Known Allergies Allergy Verified 09/08/23 06:16 Family History Aunt Sudden cardiac age 63 Mother Colon cancer Father Colon cancer Sister Cancer Surgical History Excisional biopsy of left inguinal lymph node (11/24/18) History of bilateral knee replacement History of cardioversion (07/01/13) History of cervical spinal arthrodesis History of coronary artery stent placement (04/2006) History of left heart catheterization (03/11/22) History of left hip replacement History of lumbar laminectomy History of open reduction and internal fixation (ORIF) procedure History of right hip replacement (03/2018) Social History Smoking Status: Former smoker quit date: 06/19/82 alcohol intake: former year quit: 2001 caffeine: Yes Type: coffee Number of servings: 2 ROS ROS ED Constitutional Constitutional ED: Denies chills or fever(s) Eyes Eyes: Denies change in vision ENT ENT ED: Denies sore throat Cardiovascular Cardiovascular: Denies chest pain Respiratory/Chest Respiratory/Chest: Denies cough or dyspnea Gastrointestinal Gastrointestinal: Denies abdominal pain, diarrhea, nausea or vomiting Genitourinary Genitourinary ED: Denies dysuria Musculoskeletal Musculoskeletal: Reports other Details: Positive left hip pain ; Denies back pain or neck pain Integumentary Reports other Details: Positive scalp laceration Neurologic Neurologic: Denies headache(s) or paresthesias Hematologic/Lymphatic Hematologic/Lymphatic: Reports easy bleeding and easy bruising EXAM Physical Exam Const Vital Signs: 09/08/23 06:03 09/08/23 06:09 09/08/23 08:00 Temperature 97.9 F Temperature Source Temporal Pulse Rate 60 69 Respiratory Rate 16 Respiratory Effort Normal Blood Pressure 106/72 152/105 H Blood Pressure Mean 83 120 Pulse Ox 93 Oxygen Delivery Method Room Air Room Air Positive well nourished and well developed General Appearance ED: well developed HEENT HEENT Narrative: Patient has a 1 x 2 cm hematoma to the occipital portion of his scalp. There is a small approximately half centimeter dermal layer deep laceration in the center of this with mild ooze of blood. Otherwise no signs of depressed or basilar skull fracture Eyes PERRL and EOMs intact bilaterally Neck supple Neck Narrative: No bony deformity or step-off of the cervical spine no midline tenderness to palpation Chest Wall palpation of chest normal Chest Narrative: No bony deformity or crepitance noted Resp normal respiratory effort and clear to auscultation bilaterally Cardio regular rate and regular rhythm GI normal to inspection, nondistended, normoactive bowel sounds, non-tender, non- distended and no masses Auscultation: normoactive bowel sounds Palpation: soft Back/Spine Back/Spine Narrative: No bony deformity or step-off of the thoracic or lumbar spine no midline tenderness to palpation Extremity Extremity Narrative: Pelvis is stable there is no shortening or external rotation of either lower extremity. There is pain on palpation along the greater trochanter of the left hip. Pain worsens with external rotation and abduction. Remainder of the exam is normal Neuro oriented x3, CN's II-XII intact bilaterally and no sensory deficits noted Sensorium / Orientation: alert Psych mental status grossly normal Skin no rashes or lesions noted Skin Narrative: Hematoma with superficial scalp laceration as documented above MDM MDM MDM Narrative Medical decision making narrative: Patient presented to the ER with stable vitals and reported mechanical fall so there is no need for cardiac or syncope workup. He did strike the occipital portion of his scalp however and with his history of blood thinner use there is concern for subdural or subarachnoid hemorrhage. He denies any midline neck tenderness but based on the fall and his advanced age there is also concern for compression fracture or spondylolisthesis. The patient does not have any obvious signs of bony injury but as he cannot move or bear weight there is concern for hip fracture versus contusion so an x-ray of the left hip will be obtained. Patient CT scans revealed no signs of acute trauma. The official left hip x-ray documented the hardware to be intact and in place with no obvious fracture. However the patient could not walk with time or treatment and therefore the case was discussed with orthopedics on-call. They reviewed the films and feel that there is a new periprosthetic fracture which would correlate with his fall and inability to ambulate and pain location. They informed us that this is a nonsurgical fracture but that secondary to the pain it may take 1 or 2 days for the patient to be able to bear weight and therefore they recommend admission. The case was then discussed with medicine on-call who agrees accept the patient to the hospital at this time History & Record Review Discussion w/independent historian: Patient and Family Radiography Diagnostic Testing: Clinical Impression(s) from Imaging Studies Brain CT 09/08/23 06:24 IMPRESSION: 1. Mild generalized atrophy. Mild low density bilaterally in the deep white matter. This likely represents chronic small vessel ischemic changes in the deep white matter. 2. Hernan cisterna magna. 3. No acute intracranial abnormality. Electronically Signed: Adrian Kumar MD at 7:05 EDT Reading Location ID and State: [employer] [facility] [employer] Tel , Service support , Cervical Spine CT 09/08/23 06:24 IMPRESSION: 1. Anterior cervical fusion C3-C6 with plate and screw fixation and bone graft. 2. Degenerative changes. No acute fractures or subluxations. Electronically Signed: Adrian Kumar MD at 7:06 EDT Reading Location ID and State: [employer] [facility] [employer] Tel , Service support , Hip/Pelvis X-Ray 09/08/23 06:40 IMPRESSION: 1. Extensive heterotopic bone above the left greater trochanter. 2. No acute abnormality. Electronically Signed: Adrian Kumar MD at 7:13 EDT Reading Location ID and State: [employer] [facility] [employer] Tel , Service support , X-ray of the left hip with 1 view pelvis as interpreted by the emergency medicine physician reveals a new greater trochanter periprosthetic fracture with hardware to be intact and in place Discharge Plan Triage Chief Complaint: Fall ED Provider: Wilmar aHrvey Dx/Rx/DC Orders Clinical Impression: Periprosthetic fracture around internal prosthetic left hip joint, initial encounter, Paroxysmal atrial fibrillation, Inability to walk, Current use of penitentiary anticoagulation, Hematoma of occipital region of scalp Prescriptions: No Action acetaminophen 500 mg tablet 500 mg PO Q6H PRN (Reason: Pain) cephalexin 500 mg capsule 500 mg PO BID alpha lipoic acid 200 mg capsule 600 mg PO DAILY gabapentin 300 mg capsule 900 mg PO TID ginseng 100 MG capsule 100 mg PO DAILY ascorbic acid (vitamin C) 500 MG tablet 1,000 mg PO DAILY@0800 aspirin 81 MG tablet,chewable 81 mg PO DAILY@0800 multivitamin with folic acid 1 TABLET tablet 1 tab PO DAILY calcium carbonate-vitamin D3 1 EACH tablet 1 ea PO DAILY alendronate 70 mg tablet 70 mg PO Q7D@0700 [id number] Patient Comments: CLINICAL TRIAL dofetilide 500 mcg capsule 500 mcg PO BID Qty: 180 3RF atorvastatin 10 mg tablet See Rx Instructions .ROUTE .COMPLEX Qty: 90 3RF Dose Instruction: TAKE ONE TABLET BY MOUTH NIGHTLY AT BEDTIME Rx Instructions: TAKE ONE TABLET BY MOUTH NIGHTLY AT BEDTIME Xarelto 20 mg tablet See Rx Instructions .ROUTE .COMPLEX Qty: 90 3RF Dose Instruction: TAKE 1 TABLET BY MOUTH DAILY Rx Instructions: TAKE 1 TABLET BY MOUTH DAILY metoprolol succinate 25 mg tablet extended release 24 hr 12.5 mg PO DAILY Qty: 45 3RF Primary Care Provider: Naveed Morton Referrals: Naveed Morton MD [Primary Care Provider] - Print Language: Eritrean Disposition Disposition: Acute Care Hospital [facility]
--- NOTE | 2023-09-08 08:53 | NURSING ---
MED SURG OBS CHRISTOPHER LEFT HIP PERIPROSTETIC FRACTURE
[2023-09-08 09:31] VITALS: BP 147/100; PULSE 85; RESP 19; TEMP 36.8; O2SAT 97
[2023-09-08 09:31] LABS: Bacteria 0 SEEN /hpf (None Seen); Mucous, Urine 0 SEEN /hpf (<or=2+); Red Blood Cells-Urine 0 SEEN /hpf (0-5); Squamous Epithelial Cells - UA 0 SEEN /hpf (0-5); White Blood Cells 0 SEEN /hpf (0-5)
[2023-09-08 09:32] LABS: Absolute Lymphocyte Count 6.15 X10^3/uL (0.83-4.51); Absolute Neutrophil Count 3.5 X10^3/uL (2.0-7.7); Basophil# 0.04 X10^3/uL; Basophil% 0.4 % (0-1); Eosinophil# 0.32 X10^3/uL; Eosinophils% 3.1 % (0-5); Hematocrit 38.1 % (40-54); Hemoglobin 12.1 g/dL (13.0-16.5); Lymphocyte # 6.15 X10^3/ul (0.83-4.51); Lymphocyte % 59.1 % (19-41); Mean Corp Hgb Conc 31.8 g/dL (32-36); Mean Corpuscular Hgb 29.4 pg (27.0-32.0); Mean Corpuscular Volume 92.7 fL (80-94); Mean Platelet Vol. 9.2 fl (6.2-12.0); Monocyte% 3.8 % (0-10); NRBC Flagged by Analyzer 0 % (0-5); Neutrophil # 3.46 X10^3/uL (2.7-7.7); Neutrophil % 33.3 % (47-70); POSITIVE DIFFERENTIAL YES; POSITIVE MORPHOLOGY YES; Platelet Count 176 K/mm3 (150-450); RBC Distribution Width CV 15.1 % (11.6-14.6); RBC Distribution Width SD 51.7 fl (35.1-43.9); Red Blood Count 4.11 M/mm3 (4.6-6.2); White Blood Count 10.4 K/mm3 (4.4-11.0)
[2023-09-08 09:37] LABS: Differential Indicated SCAN CRITERIA MET
[2023-09-08 09:48] VITALS: BMI 29.4
[2023-09-08 09:48] LABS: International Normalized Ratio 1.3; Prothrombin Time (Protime)PT. 16.5 SECONDS (11.7-14.9)
[2023-09-08 09:49] VITALS: BP 108/68; PULSE 85; RESP 16; TEMP 36.9; O2SAT 96
[2023-09-08 09:49] LABS: Partial Thromboplast Time 34.6 Seconds (24.1-36.2)
[2023-09-08 10:00] LABS: Reactive Lymphocyte 2+
[2023-09-08 10:03] LABS: Color, Urine Yellow (Yellow); Glucose, Dipstick Normal (Normal); Ketone-Dipstick Negative (Negative); Leukocyte Esterase-Dipstick Negative /ul (Negative); Nitrite-Dipstick Negative (Negative); Occult Blood-Urine Negative /ul (Negative); Protein-Dipstick Negative (Negative); Specific Gravity, Urine 1.005 (1.002-1.030); Urine Bilirubin Dipstick Negative (Negative); Urine Clarity Clear (Clear); Urine Urobilinogen Normal (Normal)
[2023-09-08 12:07] LABS: ALB/GLOB Ratio 0.9 RATIO (0.9-2.4); AST(SGOT) 41 U/L (15-37); Alanine Aminotransfer ALT/SGPT 58 U/L (16-61); Albumin, Serum 3.2 g/dL (3.2-5.0); Alkaline Phosphatase 62 U/L (45-117); Anion Gap 4 (5-15); BUN 11 mg/dL (7-18); BUN/Creat Ratio 17.7 RATIO (10-20); Calcium,Total 8.8 mg/dL (8.5-10.1); Chloride 105 mmol/L (98-107); Creatinine, Serum 0.62 mg/dL (0.70-1.30); EST Glomerular Filtration Rate 131 mL/min (>60); Est Glom Filt Rate - Afr Amer 159 mL/min (>60); Estimated Creatinine Clearance 88.99 ml/min; Globulin 3.4 g/dL (2.2-4.2); Glucose 111 mg/dL (74-106); Potassium 3.9 mmol/L (3.5-5.1); Protein, Total 6.6 g/dL (6.4-8.2); Sodium Level 139 mmol/L (136-145)
--- NOTE | 2023-09-08 14:07 | HP.PCM.HOS_ITS ---
HPI - General General Date of Admission: 09/08/23 HPI Narrative ARIANNE BOYER, is a 83 M who presents to the hospital after mechanical fall at home. He was working out and stood up and lost his balance and fell down and hit the back of his head. He did not lose consciousness and the fall was mechanical. He does have a history of peripheral neuropathy that he takes gabapentin for, and he states that overworked the [facility] and they were not able to find a definitive diagnosis for his neuropathy. He is never done any physical therapy for his neuropathy either. 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 Hyperplastic colon polyp Anemia Adrenal adenoma Obesity History of non-ST elevation myocardial infarction (NSTEMI) (2006) Abdominal aortic aneurysm (AAA) Paroxysmal atrial fibrillation Atherosclerosis of coronary artery of [place] heart without angina pectoris Hyperlipidemia Obstructive sleep apnea Home Medications ?Medication ?Instructions ?Recorded ?Last Taken ?Type ascorbic acid (vitamin C) 500 mg 1,000 mg PO DAILY@0800 05/04/13 05/04/13 History tablet aspirin 81 mg chewable tablet 81 mg PO DAILY@0800 05/04/13 03/11/22 History ginseng 100 mg capsule 100 mg PO DAILY 05/04/13 05/04/13 History multivitamin with folic acid 400 1 tab PO DAILY 05/04/13 05/04/13 History mcg tablet calcium carbonate 500 mg-vitamin 1 ea PO DAILY 06/09/18 Unknown History D3 15 mcg (600 unit) tablet acetaminophen 500 mg tablet 500 mg PO Q6H PRN Pain 02/29/20 Unknown History alendronate 70 mg tablet 70 mg PO Q7D@0700 03/01/20 Unknown History cephalexin 500 mg capsule 500 mg PO BID 05/30/20 Unknown History alpha lipoic acid 200 mg capsule 600 mg PO DAILY 01/01/21 Unknown History gabapentin 300 mg capsule 900 mg PO TID 02/11/23 Unknown History dofetilide 500 mcg capsule 500 mcg PO BID #180 caps 03/07/23 Unknown Rx atorvastatin 10 mg tablet See Rx Instructions .Route 03/18/23 Unknown Rx .COMPLEX #90 tabs rivaroxaban 20 mg tablet (Xarelto) See Rx Instructions .Route 04/28/23 Unknown Rx .COMPLEX #90 tabs metoprolol succinate 25 mg 12.5 mg (1/2 x 25 mg) PO DAILY #45 07/07/23 Unknown Rx tablet,extended release 24 hr TABLETS GI102 09/08/23 09/02/23 History Allergy/AdvReac Type Severity Reaction Status Date / Time No Known Allergies Allergy Verified 09/08/23 06:16 Family History Aunt Sudden cardiac age 63 Mother Colon cancer Father Colon cancer Sister Cancer Surgical History Excisional biopsy of left inguinal lymph node (11/24/18) History of bilateral knee replacement History of cardioversion (07/01/13) History of cervical spinal arthrodesis History of coronary artery stent placement (04/2006) History of left heart catheterization (03/11/22) History of left hip replacement History of lumbar laminectomy History of open reduction and internal fixation (ORIF) procedure History of right hip replacement (03/2018) Social History Smoking Status: Former smoker quit date: 06/19/82 alcohol intake: former year quit: 2001 caffeine: Yes Type: coffee Number of servings: 2 ROS Constitutional Constitutional: Denies chills, fatigue, fever(s) or malaise Eyes Eyes: Denies blurry vision ENT HEENT: Denies headache(s) or nasal discharge Cardiovascular Cardiovascular: Denies chest pain, dyspnea on exertion or syncope Respiratory/Chest Respiratory/Chest: Denies cough, shortness of breath at rest or shortness of breath with exertion Gastrointestinal Gastrointestinal: Denies constipation, diarrhea, nausea or vomiting Genitourinary Genitourinary: Denies dysuria Musculoskeletal Musculoskeletal: Reports joint pain Neurologic Neurologic: Denies focal weakness, numbness or tremor(s) Psychiatric Psychiatric: Denies anxiety or depression Vital Signs Vital Signs Vital Signs: 09/08/23 06:03 09/08/23 06:09 09/08/23 08:00 Temperature 97.9 F Temperature Source Temporal Pulse Rate 60 69 Respiratory Rate 16 Respiratory Effort Normal Blood Pressure 106/72 152/105 H Blood Pressure Mean 83 120 Blood Pressure Source Blood Pressure Position Blood Pressure Location Pulse Ox 93 Oxygen Delivery Method Room Air Room Air 09/08/23 09:31 09/08/23 09:49 Temperature 98.2 F 98.4 F Temperature Source Temporal Pulse Rate 85 85 Respiratory Rate 19 H 16 Respiratory Effort Blood Pressure 147/100 H 108/68 Blood Pressure Mean 115 81 Blood Pressure Source Monitor Blood Pressure Position Semi-Fowlers Blood Pressure Location Right Arm Pulse Ox 97 96 Oxygen Delivery Method Room Air Weight Weight: 222 lb 14.197 oz Body Mass Index (BMI) 29.4 Physical Exam Narrative General: Alert, Oriented x3, Cooperative, No apparent distress HEENT: Atraumatic, PERRLA, EOMI, Normocephalic Oral: Moist Mucosa Neck: Supple, No JVD Lungs: Diminished, Normal air movement, No rhonchi, No wheeze, No rales Cardiovascular: Regular rate, Regular Rhythm, Normal S1, Normal S2, No murmurs Abdomen: Soft, Non Tender, Non-Distended, No Hepato-splenomegaly Extremities: No edema, Capillary Refill Less than 3 Seconds Skin: No rashes, No breakdown Musculoskeletal: Left hip pain to palpation Neurological: No focal neurological deficits, Motor Exam 5/5 strength throughout, Sensory exam intact to light touch and pain Psych/Mental Status: Normal Affect, Appropriate Results Lab / Micro Data 09/08/23 09:20 09/08/23 08:55 Labs: Laboratory Results - last 24 hr 09/08/23 08:55: Sodium 139, Potassium 3.9, Chloride 105, Carbon Dioxide 30.0, A nion Gap 4 L, BUN 11, Creatinine 0.62 L, Estim Creat Clear Calc 88.99, Est GFR (MDRD) Af Amer 159, Est GFR (MDRD) Non-Af 131, BUN/Creatinine Ratio 17.7, G lucose 111 H, Calcium 8.8, Total Bilirubin 1.10 H, AST 41 H, ALT 58, Alkaline Phosphatase 62, Total Protein 6.6, Albumin 3.2, Globulin 3.4, Albumin/Globulin Ratio 0.9 09/08/23 09:20: WBC 10.4, RBC 4.11 L, Hgb 12.1 L, Hct 38.1 L, MCV 92.7, MCH 29.4, MCHC 31.8 L, RDW Std Deviation 51.7 H, RDW Coeff of Susana 15.1 H, Plt Count 176, MPV 9.2, Immature Gran % (Auto) 0.300, Neut % (Auto) 33.3 L, Lymph % (Auto) 59.1 H, [place] % (Auto) 3.8, Eos % (Auto) 3.1, Baso % (Auto) 0.4, Absolute Neuts (auto) 3.5, Absolute Lymphs (auto) 6.15 H, Nucleated RBC % 0, Reactive Lymphocytes 2+, PT 16.5 H, INR 1.3, APTT 34.6 09/08/23 09:29: Urine Color Yellow, Urine Clarity Clear, Urine pH 7.0, Ur Specific [place] 1.005, Urine Protein Negative, Urine Glucose (UA) Normal, Urine Ketones Negative, Urine Occult Blood Negative, Urine Nitrite Negative, Urine Bilirubin Negative, Urine Urobilinogen Normal, Ur Leukocyte Esterase Negative, Urine RBC 0 SEEN, Urine WBC 0 SEEN, Ur Squamous Epith Cells 0 SEEN, Urine Bacteria 0 SEEN, Urine Mucus 0 SEEN Imaging Radiology Impression Brain CT 09/08/23 06:24 IMPRESSION: 1. Mild generalized atrophy. Mild low density bilaterally in the deep white matter. This likely represents chronic small vessel ischemic changes in the deep white matter. 2. Hernan cisterna magna. 3. No acute intracranial abnormality. Electronically Signed: Adrian Kumar MD at 7:05 EDT , Cervical Spine CT 09/08/23 06:24 IMPRESSION: 1. Anterior cervical fusion C3-C6 with plate and screw fixation and bone graft. 2. Degenerative changes. No acute fractures or subluxations. Electronically Signed: Adrian Kumar MD at 7:06 EDT , Hip/Pelvis X-Ray 09/08/23 06:40 IMPRESSION: 1. Extensive heterotopic bone above the left greater trochanter. 2. No acute abnormality. Electronically Signed: Adrian Kumar MD at 7:13 EDT , Assessment & Plan Assessment/Plan (1) Periprosthetic fracture around internal prosthetic left hip joint, initial encounter: (2) Inability to walk: PLAN: Plan 1. Periprosthetic fracture after mechanical fall nondisplaced/peripheral neuropathy ? He does have significant pain with ambulation ? It is nonoperative candidate ? Appreciate orthopedic surgery's assistance ? PT/OT ? May need placement, CT of the head and neck was negative for an acute fracture ? Continue with gabapentin ? Will continue with Keflex 500 mg p.o. twice daily that was started as an outpatient for his hip 2. CAD status post stent/essential HTN/paroxysmal A-fib/HLD ? Can resume his home blood pressure medications ? Continue with dofetilide ? Continue with Lipitor ? We will monitor make adjustments as necessary ? Continue with Xarelto DVT: Xarelto 75 minutes was spent on direct patient care, including documentation as well as chart review and collaboration with colleagues Charges/Coding Visit Charges Inpatient E&M: 74062 Init Hosp L3
[2023-09-08] MEDS: Senna/Docusate Sodium 1 Tablet 2 TABLET PO (14:19)
[2023-09-08] MEDS: Polyethylene Glycol 3350 17 GM PACKET PO (14:20)
[2023-09-08] MEDS: Gabapentin 300 MG Capsule 900 MG PO (16:36)
[2023-09-08] MEDS: Rivaroxaban 20 MG Tablet PO (16:36)
[2023-09-08 16:59] VITALS: BP 126/80; PULSE 54; RESP 16; TEMP 37.1; O2SAT 97
--- NOTE | 2023-09-08 17:18 | CON.PCM.OR_ITS ---
HPI Consult Data Date of Consult: 09/08/23 HPI Narrative Reason for Consultation: Left hip fracture HPI Narrative: ARIANNE BOYER, is a 83 M who presents after a mechanical fall at home this morning. Patient was exercising lifting weights and lost his balance. Patient has a history of peripheral neuropathy and has had history of falls. Patient attempted to sit on his desk chair but unfortunately the desk chair rolled causing him to fall onto his left side and subsequently onto his head. Patient was able to call 911 and was brought to the hospital emergency department. CT scan of his head and neck were unremarkable for acute process. Patient has a history of revision left total hip arthroplasty in the remote past. Surgery was performed at [facility]. He states he has been doing well with his left hip. He has been ambulating with a rollator due to his neuropathy and weakness. At this time, patient reports pain in his left hip. He did otherwise denies any new symptoms. 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 Hyperplastic colon polyp Anemia Adrenal adenoma Obesity History of non-ST elevation myocardial infarction (NSTEMI) (2006) Abdominal aortic aneurysm (AAA) Paroxysmal atrial fibrillation Atherosclerosis of coronary artery of [place] heart without angina pectoris Hyperlipidemia Obstructive sleep apnea Home Medications ?Medication ?Instructions ?Recorded ?Last Taken ?Type ascorbic acid (vitamin C) 500 mg 1,000 mg PO DAILY@0800 05/04/13 05/04/13 History tablet aspirin 81 mg chewable tablet 81 mg PO DAILY@0800 05/04/13 03/11/22 History ginseng 100 mg capsule 100 mg PO DAILY 05/04/13 05/04/13 History multivitamin with folic acid 400 1 tab PO DAILY 05/04/13 05/04/13 History mcg tablet calcium carbonate 500 mg-vitamin 1 ea PO DAILY 06/09/18 Unknown History D3 15 mcg (600 unit) tablet acetaminophen 500 mg tablet 500 mg PO Q6H PRN Pain 02/29/20 Unknown History alendronate 70 mg tablet 70 mg PO Q7D@0700 03/01/20 Unknown History cephalexin 500 mg capsule 500 mg PO BID 05/30/20 Unknown History alpha lipoic acid 200 mg capsule 600 mg PO DAILY 01/01/21 Unknown History gabapentin 300 mg capsule 900 mg PO TID 02/11/23 Unknown History dofetilide 500 mcg capsule 500 mcg PO BID #180 caps 03/07/23 Unknown Rx atorvastatin 10 mg tablet See Rx Instructions .Route 03/18/23 Unknown Rx .COMPLEX #90 tabs rivaroxaban 20 mg tablet (Xarelto) See Rx Instructions .Route 04/28/23 Unknown Rx .COMPLEX #90 tabs metoprolol succinate 25 mg 12.5 mg (1/2 x 25 mg) PO DAILY #45 07/07/23 Unknown Rx tablet,extended release 24 hr TABLETS GI102 09/08/23 09/02/23 History Allergy/AdvReac Type Severity Reaction Status Date / Time No Known Allergies Allergy Verified 09/08/23 06:16 Family History Aunt Sudden cardiac age 63 Mother Colon cancer Father Colon cancer Sister Cancer Surgical History Excisional biopsy of left inguinal lymph node (11/24/18) History of bilateral knee replacement History of cardioversion (07/01/13) History of cervical spinal arthrodesis History of coronary artery stent placement (04/2006) History of left heart catheterization (03/11/22) History of left hip replacement History of lumbar laminectomy History of open reduction and internal fixation (ORIF) procedure History of right hip replacement (03/2018) Social History Smoking Status: Former smoker quit date: 06/19/82 alcohol intake: former year quit: 2001 caffeine: Yes Type: coffee Number of servings: 2 ROS ROS Narrative 12 point review of systems obtained, negative unless otherwise noted in HPI. Vital Signs Vital Signs Vital Signs: 09/08/23 06:03 09/08/23 06:09 09/08/23 08:00 Temperature 97.9 F Temperature Source Temporal Pulse Rate 60 69 Respiratory Rate 16 Respiratory Effort Normal Blood Pressure 106/72 152/105 H Blood Pressure Mean 83 120 Blood Pressure Source Blood Pressure Position Blood Pressure Location Pulse Ox 93 Oxygen Delivery Method Room Air Room Air 09/08/23 09:31 09/08/23 09:49 09/08/23 16:59 Temperature 98.2 F 98.4 F 98.8 F Temperature Source Temporal Oral Pulse Rate 85 85 54 L Respiratory Rate 19 H 16 16 Respiratory Effort Blood Pressure 147/100 H 108/68 126/80 H Blood Pressure Mean 115 81 95 Blood Pressure Source Monitor Monitor Blood Pressure Position Semi-Fowlers Semi-Fowlers Blood Pressure Location Right Arm Right Arm Pulse Ox 97 96 97 Oxygen Delivery Method Room Air Room Air Weight Weight: 222 lb 14.197 oz Body Mass Index (BMI) 29.4 Physical Exam Narrative General -A&Ox3, NAD, appears stated age. Vital signs stable, afebrile. Respiratory -normal work of breathing, no intercostal retractions. CV -pulses regular, brisk capillary refill ?4 limbs. Abdomen-soft, nontender, nondistended. No guarding, rigidity, rebound tenderness. Musculoskeletal/neurologic -full range of motion nontender throughout bilateral upper extremities, right lower extremity with full sensation and strength in all dermatomes and myotomes. No midline cervical tenderness. Left lower extremity-no obvious deformity. Minimal pain with logroll of the left lower extremity. Tenderness to palpation left greater trochanter. Nontender throughout the left knee femoral shaft, tibial shaft and left foot/ankle. Brisk capillary refill. Sensation intact light touch L3-S1 dermatomes. DF, PF, EHL intact. DP, PT 2+. Pelvis is stable, nontender. Skin is intact without lacerations, abrasions. No ecchymosis noted. Lab / Micro Data 09/08/23 09:20 09/08/23 08:55 Labs: Laboratory Results - last 24 hr 09/08/23 08:55: Sodium 139, Potassium 3.9, Chloride 105, Carbon Dioxide 30.0, A nion Gap 4 L, BUN 11, Creatinine 0.62 L, Estim Creat Clear Calc 88.99, Est GFR (MDRD) Af Amer 159, Est GFR (MDRD) Non-Af 131, BUN/Creatinine Ratio 17.7, G lucose 111 H, Calcium 8.8, Total Bilirubin 1.10 H, AST 41 H, ALT 58, Alkaline Phosphatase 62, Total Protein 6.6, Albumin 3.2, Globulin 3.4, Albumin/Globulin Ratio 0.9 09/08/23 09:20: WBC 10.4, RBC 4.11 L, Hgb 12.1 L, Hct 38.1 L, MCV 92.7, MCH 29.4, MCHC 31.8 L, RDW Std Deviation 51.7 H, RDW Coeff of [place]ana 15.1 H, Plt Count 176, MPV 9.2, Immature Gran % (Auto) 0.300, Neut % (Auto) 33.3 L, Lymph % (Auto) 59.1 H, [place] % (Auto) 3.8, Eos % (Auto) 3.1, Baso % (Auto) 0.4, Absolute Neuts (auto) 3.5, Absolute Lymphs (auto) 6.15 H, Nucleated RBC % 0, Reactive Lymphocytes 2+, PT 16.5 H, INR 1.3, APTT 34.6 09/08/23 09:29: Urine Color Yellow, Urine Clarity Clear, Urine pH 7.0, Ur Specific [place] 1.005, Urine Protein Negative, Urine Glucose (UA) Normal, Urine Ketones Negative, Urine Occult Blood Negative, Urine Nitrite Negative, Urine Bilirubin Negative, Urine Urobilinogen Normal, Ur Leukocyte Esterase Negative, Urine RBC 0 SEEN, Urine WBC 0 SEEN, Ur Squamous Epith Cells 0 SEEN, Urine Bacteria 0 SEEN, Urine Mucus 0 SEEN Imaging Radiology Impression Brain CT 09/08/23 06:24 IMPRESSION: 1. Mild generalized atrophy. Mild low density bilaterally in the deep white matter. This likely represents chronic small vessel ischemic changes in the deep white matter. 2. Hernan cisterna magna. 3. No acute intracranial abnormality. Electronically Signed: Adrian Kumar MD at 7:05 EDT , Cervical Spine CT 09/08/23 06:24 IMPRESSION: 1. Anterior cervical fusion C3-C6 with plate and screw fixation and bone graft. 2. Degenerative changes. No acute fractures or subluxations. Electronically Signed: Adrian Kumar MD at 7:06 EDT , Hip/Pelvis X-Ray 09/08/23 06:40 IMPRESSION: 1. Extensive heterotopic bone above the left greater trochanter. 2. No acute abnormality. Electronically Signed: Adrian Kumar MD at 7:13 EDT , Assessment & Plan Assessment/Plan (1) Periprosthetic fracture around internal prosthetic left hip joint, initial encounter: PLAN: X-rays reviewed 09/08/2023. Compared to x-rays in 2019, there appears to be an acute fracture of the transverse at the greater trochanter of the left hip. The prosthesis appears stable. This consistent with a [employer] fracture. I recommend nonsurgical treatment in the form of weightbearing as tolerated left lower extremity with no active abduction of the left hip x 6 weeks. I suspect patient will benefit from convalescence at a care home facility. PT/OT has been ordered by primary service. I would recommend follow- up with myself in approximately 2 weeks for repeat x-rays. I will sign off at this time. Please not hesitate to call if any questions or concerns arise.
[2023-09-08] MEDS: Atorvastatin Calcium 10 MG Tablet PO (21:09)
[2023-09-08] MEDS: Cephalexin 500 MG Capsule PO (21:09)
[2023-09-08 21:10] VITALS: BP 144/74; PULSE 50; RESP 16; TEMP 37.2; O2SAT 96
[2023-09-08] MEDS: Dofetilide 250 MCG Capsule 500 MCG PO (21:10)
[2023-09-09] MEDS: Dofetilide 250 MCG Capsule 500 MCG PO (06:24)
[2023-09-09 06:27] VITALS: BP 142/81; PULSE 76; RESP 16; TEMP 36.9; O2SAT 95
[2023-09-09 06:42] LABS: Absolute Lymphocyte Count 5.32 X10^3/uL (0.83-4.51); Absolute Neutrophil Count 2.5 X10^3/uL (2.0-7.7); Basophil# 0.04 X10^3/uL; Basophil% 0.5 % (0-1); Eosinophils% 4.6 % (0-5); Hematocrit 33.7 % (40-54); Hemoglobin 11.1 g/dL (13.0-16.5); Lymphocyte # 5.32 X10^3/ul (0.83-4.51); Lymphocyte % 61.6 % (19-41); Mean Corp Hgb Conc 32.9 g/dL (32-36); Mean Corpuscular Hgb 30.2 pg (27.0-32.0); Mean Corpuscular Volume 91.8 fL (80-94); Mean Platelet Vol. 9.2 fl (6.2-12.0); Monocyte# 0.33 X10^3/uL; Monocyte% 3.8 % (0-10); NRBC Flagged by Analyzer 0 % (0-5); Neutrophil # 2.52 X10^3/uL (2.7-7.7); Neutrophil % 29.3 % (47-70); POSITIVE DIFFERENTIAL YES; Platelet Count 174 K/mm3 (150-450); RBC Distribution Width CV 15.3 % (11.6-14.6); RBC Distribution Width SD 51.3 fl (35.1-43.9); Red Blood Count 3.67 M/mm3 (4.6-6.2); White Blood Count 8.6 K/mm3 (4.4-11.0)
[2023-09-09 07:04] LABS: Differential Indicated SCAN CRITERIA MET
[2023-09-09 07:18] LABS: Anion Gap 3 (5-15); BUN 14 mg/dL (7-18); BUN/Creat Ratio 20.2 RATIO (10-20); Calcium,Total 8.4 mg/dL (8.5-10.1); Chloride 104 mmol/L (98-107); Creatinine, Serum 0.69 mg/dL (0.70-1.30); EST Glomerular Filtration Rate 116 mL/min (>60); Est Glom Filt Rate - Afr Amer 140 mL/min (>60); Estimated Creatinine Clearance 88.99 ml/min; Glucose 104 mg/dL (74-106); Potassium 3.9 mmol/L (3.5-5.1); Sodium Level 137 mmol/L (136-145)
[2023-09-09] MEDS: Aspirin 81 MG TAB.CHEW PO (07:59)
[2023-09-09] MEDS: Gabapentin 300 MG Capsule 900 MG PO ×2 (07:59→12:17)
[2023-09-09] MEDS: Ascorbic Acid 500 MG Tablet 1000 MG PO (07:59)
--- NOTE | 2023-09-09 09:22 | PN.HOSP_ITS ---
Subjective Subjective Doing well, has little bit of pain in his left hip. Difficulty with PT yesterday with placement Objective Data Objective Data Vital Signs: Vital Signs Temp Pulse Resp BP Pulse Ox O2 Del Method 98.5 F 76 16 142/81 H 95 Room Air 09/09/23 06:27 09/09/23 06:27 09/09/23 06:27 09/09/23 06:27 09/09/23 06:27 09/09/23 06:27 Oxygen Delivery Method Room Air Weight: 222 lb 14.197 oz Body Mass Index (BMI) 29.4 Intake & Output: Intake and Output for Last 24 Hours 09/08/23 09/09/23 09/10/23 03:59 03:59 03:59 Output Total 975 / 975 Balance -975 / -975 Lab / Micro Data 09/09/23 05:36 09/09/23 05:36 Labs: Laboratory Results - last 24 hr 09/08/23 08:55: Sodium 139, Potassium 3.9, Chloride 105, Carbon Dioxide 30.0, A nion Gap 4 L, BUN 11, Creatinine 0.62 L, Estim Creat Clear Calc 88.99, Est GFR (MDRD) Af Amer 159, Est GFR (MDRD) Non-Af 131, BUN/Creatinine Ratio 17.7, G lucose 111 H, Calcium 8.8, Total Bilirubin 1.10 H, AST 41 H, ALT 58, Alkaline Phosphatase 62, Total Protein 6.6, Albumin 3.2, Globulin 3.4, Albumin/Globulin Ratio 0.9 09/08/23 09:20: WBC 10.4, RBC 4.11 L, Hgb 12.1 L, Hct 38.1 L, MCV 92.7, MCH 29.4, MCHC 31.8 L, RDW Std Deviation 51.7 H, RDW Coeff of [place] 15.1 H, Plt Count 176, MPV 9.2, Immature Gran % (Auto) 0.300, Neut % (Auto) 33.3 L, Lymph % (Auto) 59.1 H, [place] % (Auto) 3.8, Eos % (Auto) 3.1, Baso % (Auto) 0.4, Absolute Neuts (auto) 3.5, Absolute Lymphs (auto) 6.15 H, Nucleated RBC % 0, Reactive Lymphocytes 2+, PT 16.5 H, INR 1.3, APTT 34.6 09/08/23 09:29: Urine Color Yellow, Urine Clarity Clear, Urine pH 7.0, Ur Specific [place] 1.005, Urine Protein Negative, Urine Glucose (UA) Normal, Urine Ketones Negative, Urine Occult Blood Negative, Urine Nitrite Negative, Urine Bilirubin Negative, Urine Urobilinogen Normal, Ur Leukocyte Esterase Negative, Urine RBC 0 SEEN, Urine WBC 0 SEEN, Ur Squamous Epith Cells 0 SEEN, Urine Bacteria 0 SEEN, Urine Mucus 0 SEEN 09/09/23 05:36: WBC 8.6, RBC 3.67 L, Hgb 11.1 L, Hct 33.7 L, MCV 91.8, MCH 30.2, MCHC 32.9, RDW Std Deviation 51.3 H, RDW Coeff of [place] 15.3 H, Plt Count 174, MPV 9.2, Immature Gran % (Auto) 0.200, Neut % (Auto) 29.3 L, Lymph % (Auto) 61.6 H, [place] % (Auto) 3.8, Eos % (Auto) 4.6, Baso % (Auto) 0.5, Absolute Neuts (auto) 2.5, Absolute Lymphs (auto) 5.32 H, Nucleated RBC % 0, Sodium 137, Potassium 3.9, Chloride 104, Carbon Dioxide 30.0, Anion Gap 3 L, BUN 14, Creatinine 0.69 L , Estim Creat Clear Calc 88.99, Est GFR (MDRD) Af Amer 140, Est GFR (MDRD) Non- Af 116, BUN/Creatinine Ratio 20.2 H, Glucose 104, Calcium 8.4 L Physical Exam Narrative General: Alert, Oriented x3, Cooperative, No apparent distress HEENT: Atraumatic, PERRLA, EOMI, Normocephalic Oral: Moist Mucosa Neck: Supple, No JVD Lungs: Diminished, Normal air movement, No rhonchi, No wheeze, No rales Cardiovascular: Regular rate, Regular Rhythm, Normal S1, Normal S2, No murmurs Abdomen: Soft, Non Tender, Non-Distended, No Hepato-splenomegaly Extremities: No edema, Capillary Refill Less than 3 Seconds Skin: No rashes, No breakdown Musculoskeletal: Left hip pain to palpation Neurological: No focal neurological deficits, Motor Exam 5/5 strength throughout, Sensory exam intact to light touch and pain Psych/Mental Status: Normal Affect, Appropriate Assessment & Plan Assessment/Plan (1) Periprosthetic fracture around internal prosthetic left hip joint, initial encounter: (2) Inability to walk: PLAN: Plan 1. Periprosthetic fracture after mechanical fall nondisplaced/peripheral neuropathy ? He does have significant pain with ambulation ? It is nonoperative candidate ? Appreciate orthopedic surgery's assistance ? PT/OT, he does have separate longterm insurance apparently ? May need placement, CT of the head and neck was negative for an acute fracture ? Continue with gabapentin ? Will continue with Keflex 500 mg p.o. twice daily that was started as an outpatient for his hip 2. CAD status post stent/essential HTN/paroxysmal A-fib/HLD ? Can resume his home blood pressure medications ? Continue with dofetilide ? Continue with Lipitor ? We will monitor make adjustments as necessary ? Continue with Xarelto DVT: Xarelto Charges/Coding Visit Charges Inpatient E&M: 75481 Subs Hosp L2
--- NOTE | 2023-09-09 10:15 | CASEMGMT ---
RN?CM?FIELD ARTILLERY RADAR OPERATOR?CM?to room to meet with patient for initial transition planning/care coordination?assessment.?RN?CM?introduced self and role at [facility].? Pt voices understanding and consents to?assessment?at this time.? Pt resting in bed in no distress at this time.? Pt is A/O at this time and answers all questions appropriately.?? Care providers, pharmacy, and demographics verified/updated at this time. PCP: Dr Morton Specialists: Dr Lambert-internet webmaster, Dr Keene-oncologist @ [facility], floor tiling professional Preferred Pharmacy: [facility] Insurance: [facility], AARP Prescription Benefit:?yes LNOK: , [place] Living Arrangements: Lives w/ in one-story w/3 steps to enter. Independent prior to fall/injury. Transportation:?Pt and both drive. DME: States has the following DME:?shower chair, TSR, RTS, cane, grab bars, rollator, CPAP thru [employer] (in pt's room). ?Pt states no need for further DME at this time.? HHC/SNF: No hx. Pt states he would like to go to [facility] or [facility] as his 1st preferences and list of other options not required at this time. A referral has already been made to [facility] and pt has been accepted. He was made aware and that he will discharge there today. He voices appreciation. Pt voices no further concerns/needs at this time.? Advised pt to ask for?CM?if any further questions/concerns/needs arise.? Voices understanding. PLAN:??[facility] ANGELICA GUAJARDON?RN?CM
--- NOTE | 2023-09-09 10:15 | CASEMGMT ---
Addendum entered by Evita Joaquin 09/09/23 10:56: Social Work SW spoke w/pt and , confirmed plan for rehab. SW educated pt and on Medicare coverage for rehab and for nursing home facility. Both state understanding. SW spoke w/them about pt's clinical trial. explains pt goes to [facility] every three weeks for an infusion. She states the next infusion is September 21 and she will take him up there herself on September 21. SW communicated this information to inpt rehab. Physician discharging pt today, pt to inpt rehab sometime today. MANUEL Ramos Original Note: Social Work Pt agreeable to go to rehab today as per CM, and rehab can accept. SW let physician know. List of rehabs not given as not needed, pt agreeable to [facility] inpt rehab. Pt to be d/c to inpt rehab, today. MANUEL Ramos
[2023-09-09 10:16] VITALS: BP 111/71; PULSE 70; RESP 16; TEMP 36.7; O2SAT 93
--- NOTE | 2023-09-09 10:19 | TREXTCAR_ITS ---
Diet Diet Order/Speech Therapy: 09/08/23 12:11 Diet: Cardiac - Heart Healthy Is pt able to select menu?: Yes Routine Orders/Code Status Routine Lab Work: CBC and BMP Code Status: Full Code Wound(s) post head: Wound Type: Laceration Therapies Physical Therapy: Eval and Treat Occupational Therapy: Eval and Treat Problem/Diagnosis (1) Periprosthetic fracture around internal prosthetic left hip joint, initial encounter: Status: Acute Code(s): M97.02XA - Periprosthetic fracture around internal prosthetic left hip joint, initial encounter (2) Inability to walk: Status: Acute Code(s): R26.2 - Difficulty in walking, not elsewhere classified Plan 1. Periprosthetic fracture after mechanical fall nondisplaced/peripheral neuropathy ? He does have significant pain with ambulation ? It is nonoperative candidate ? Appreciate orthopedic surgery's assistance ? PT/OT, he does have separate prison insurance apparently ? May need placement, CT of the head and neck was negative for an acute fracture ? Continue with gabapentin ? Will continue with Keflex 500 mg p.o. twice daily that was started as an outpatient for his hip 2. CAD status post stent/essential HTN/paroxysmal A-fib/HLD ? Can resume his home blood pressure medications ? Continue with dofetilide ? Continue with Lipitor ? We will monitor make adjustments as necessary ? Continue with Xarelto DVT: Xarelto Allergies/Procedures Done in Hospital Allergies No Known Allergies Allergy (Verified 09/08/23 06:16) Procedures: None Type of Care/Length of Stay Estimated LOS: Convalescent Care Less Than 30 days Type of Care Needed: Skilled Rehab Potential: Good Prognosis: Good Additional Orders/Day of Discharge Day of Discharge: 09/09/23 Discharge Plan Admission Admit Date/Time: 09/08/23 08:35 Attending Provider: Gilberto Box Primary Care Provider: Naveed Morton Consulting Providers: Gliberto Duggan Discharge Orders/Prescriptions Prescriptions: Continued acetaminophen 500 mg tablet 500 mg PO Q6H PRN (Reason: Pain) cephalexin 500 mg capsule 500 mg PO BID alpha lipoic acid 200 mg capsule 600 mg PO DAILY gabapentin 300 mg capsule 900 mg PO TID ginseng 100 MG capsule 100 mg PO DAILY ascorbic acid (vitamin C) 500 MG tablet 1,000 mg PO DAILY@0800 aspirin 81 MG tablet,chewable 81 mg PO DAILY@0800 multivitamin with folic acid 1 TABLET tablet 1 tab PO DAILY calcium carbonate-vitamin D3 1 EACH tablet 1 ea PO DAILY alendronate 70 mg tablet 70 mg PO Q7D@0700 GI102 Patient Comments: CLINICAL KBARD-zbvxzxzfbcrdh-ugdn dose September dofetilide 500 mcg capsule 500 mcg PO 0600,1800 Rx Instructions: 500 mcg orally; takes at 0600, 1800 atorvastatin 10 mg tablet See Rx Instructions .ROUTE .COMPLEX Qty: 90 3RF Dose Instruction: TAKE ONE TABLET BY MOUTH NIGHTLY AT BEDTIME Rx Instructions: TAKE ONE TABLET BY MOUTH NIGHTLY AT BEDTIME Xarelto 20 mg tablet See Rx Instructions .ROUTE .COMPLEX Qty: 90 3RF Dose Instruction: TAKE 1 TABLET BY MOUTH DAILY Rx Instructions: TAKE 1 TABLET BY MOUTH DAILY metoprolol succinate 25 mg tablet extended release 24 hr 12.5 mg PO DAILY Qty: 45 3RF Referrals / Follow Up: Naveed Morton MD [Primary Care Provider] - Disposition Disposition (needs filled in before D/C Order can be placed): Nursing Home Facility
[2023-09-09 10:28] VITALS: PULSE 70
[2023-09-09] MEDS: Cephalexin 500 MG Capsule PO (10:28)
[2023-09-09] MEDS: Metoprolol(XL)Succ 25 MG Tablet 12.5 MG PO (10:28)
[2023-09-09] MEDS: Senna/Docusate Sodium 1 Tablet 2 TABLET PO (10:28)
--- NOTE | 2023-09-09 10:36 | PHA.DC.MR.R ---
Pharmacy [place] Med Reconciliation Pharmacy Service has performed discharge medication reconciliation for this patient. The patient's discharge medication list was reviewed for discrepancies and discrepancies were resolved. Medications at Discharge Home Medications ascorbic acid (vitamin C) 500 mg tablet 1,000 mg PO DAILY@0800 05/04/13 aspirin 81 mg chewable tablet 81 mg PO DAILY@0800 05/04/13 ginseng 100 mg capsule 100 mg PO DAILY 05/04/13 multivitamin with folic acid 400 mcg tablet 1 tab PO DAILY 05/04/13 calcium carbonate 500 mg-vitamin D3 15 mcg (600 unit) tablet 1 ea PO DAILY 06/09/18 acetaminophen 500 mg tablet 500 mg PO Q6H PRN Pain 02/29/20 alendronate 70 mg tablet 70 mg PO Q7D@0700 03/01/20 cephalexin 500 mg capsule 500 mg PO BID 05/30/20 alpha lipoic acid 200 mg capsule 600 mg PO DAILY 01/01/21 gabapentin 300 mg capsule 900 mg PO TID 02/11/23 atorvastatin 10 mg tablet See Rx Instructions .Route .COMPLEX #90 tabs 03/18/23 rivaroxaban 20 mg tablet (Xarelto) See Rx Instructions .Route .COMPLEX #90 tabs 04/28/23 metoprolol succinate 25 mg tablet,extended release 24 hr 12.5 mg (1/2 x 25 mg) PO DAILY #45 TABLETS 07/07/23 GI102 09/08/23 dofetilide 500 mcg capsule 500 mcg PO 0600,1800 heart 09/09/23
--- NOTE | 2023-09-09 11:34 | DCINST_ITS ---
Discharge Instructions Diet Discharge Diet: Low fat / Low cholesterol Activity Discharge Activity: Return to Normal Activity Dressing / Incision Call your doctor if you observe: Fever of 101 or Higher, Shortness of breath, Dizziness, Fainting spells, Swelling in the ankles, Chest pain and Increased palpitations (irregular heartbeat) Follow Up Care Test Results: Test results from this visit will be discussed in further detail at your follow- up appointment, if applicable. Discharge Plan Admission Admit Date/Time: 09/08/23 08:35 Attending Provider: Gilberto Box Primary Care Provider: Naveed Morton Consulting Providers: Gilberto Duggan Discharge Orders/Prescriptions Prescriptions: Continued acetaminophen 500 mg tablet 500 mg PO Q6H PRN (Reason: Pain) cephalexin 500 mg capsule 500 mg PO BID alpha lipoic acid 200 mg capsule 600 mg PO DAILY gabapentin 300 mg capsule 900 mg PO TID ginseng 100 MG capsule 100 mg PO DAILY ascorbic acid (vitamin C) 500 MG tablet 1,000 mg PO DAILY@0800 aspirin 81 MG tablet,chewable 81 mg PO DAILY@0800 multivitamin with folic acid 1 TABLET tablet 1 tab PO DAILY calcium carbonate-vitamin D3 1 EACH tablet 1 ea PO DAILY alendronate 70 mg tablet 70 mg PO Q7D@0700 GI102 Patient Comments: CLINICAL YADHH-cvxuwinubamzz-qbrz dose September dofetilide 500 mcg capsule 500 mcg PO 0600,1800 Rx Instructions: 500 mcg orally; takes at 0600, 1800 atorvastatin 10 mg tablet See Rx Instructions .ROUTE .COMPLEX Qty: 90 3RF Dose Instruction: TAKE ONE TABLET BY MOUTH NIGHTLY AT BEDTIME Rx Instructions: TAKE ONE TABLET BY MOUTH NIGHTLY AT BEDTIME Xarelto 20 mg tablet See Rx Instructions .ROUTE .COMPLEX Qty: 90 3RF Dose Instruction: TAKE 1 TABLET BY MOUTH DAILY Rx Instructions: TAKE 1 TABLET BY MOUTH DAILY metoprolol succinate 25 mg tablet extended release 24 hr 12.5 mg PO DAILY Qty: 45 3RF Referrals / Follow Up: Naveed Morton MD [Primary Care Provider] - Disposition Disposition (needs filled in before D/C Order can be placed): Inpatient Rehab Unit/Facility
--- NOTE | 2023-09-09 11:47 | DS.PCM_ITS ---
Providers Date of Admission: 09/08/23 Primary Care Physician: Dr. Naveed Morton MD Consultations 09/08/23 18:14 Consult: Orthopedics Routine Consulting Provider: Gilberto Duggan Reason for Consult: left hip pain EMERGENT Consult: No MD Notified: Yes Date Notified: 09/08/23 Time Notified: 08:14 Method of Notification: ED Physician Initiated Reason For Visit: FALL Diagnosis Discharge Diagnosis (1) Periprosthetic fracture around internal prosthetic left hip joint, initial encounter: Status: Acute Code(s): M97.02XA - Periprosthetic fracture around internal prosthetic left hip joint, initial encounter (2) Inability to walk: Status: Acute Code(s): R26.2 - Difficulty in walking, not elsewhere classified Medications at Discharge Home Medications ascorbic acid (vitamin C) 500 mg tablet 1,000 mg PO DAILY@0800 05/04/13 aspirin 81 mg chewable tablet 81 mg PO DAILY@0800 05/04/13 ginseng 100 mg capsule 100 mg PO DAILY 05/04/13 multivitamin with folic acid 400 mcg tablet 1 tab PO DAILY 05/04/13 calcium carbonate 500 mg-vitamin D3 15 mcg (600 unit) tablet 1 ea PO DAILY 06/09/18 acetaminophen 500 mg tablet 500 mg PO Q6H PRN Pain 02/29/20 alendronate 70 mg tablet 70 mg PO Q7D@0700 03/01/20 cephalexin 500 mg capsule 500 mg PO BID 05/30/20 alpha lipoic acid 200 mg capsule 600 mg PO DAILY 01/01/21 gabapentin 300 mg capsule 900 mg PO TID 02/11/23 atorvastatin 10 mg tablet See Rx Instructions .Route .COMPLEX #90 tabs 03/18/23 rivaroxaban 20 mg tablet (Xarelto) See Rx Instructions .Route .COMPLEX #90 tabs 04/28/23 metoprolol succinate 25 mg tablet,extended release 24 hr 12.5 mg (1/2 x 25 mg) PO DAILY #45 TABLETS 07/07/23 GI102 09/08/23 dofetilide 500 mcg capsule 500 mcg PO 0600,1800 heart 09/09/23 Hospital Course Operations None Procedures None Summary of Care Provided Minutes Spent on Discharge: 35 Hospital Course: Per HPI: ARIANNE BOYER, is a 83 M who presents to the hospital after mechanical fall at home. He was working out and stood up and lost his balance and fell down and hit the back of his head. He did not lose consciousness and the fall was mechanical. He does have a history of peripheral neuropathy that he takes gabapentin for, and he states that overworked the [facility] and they were not able to find a definitive diagnosis for his neuropathy. He is never done any physical therapy for his neuropathy either. 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 He was having significant pain in the ER with ambulation so he was admitted for physical therapy and observation Hospital Course: 1. Nondisplaced periprosthetic fracture after mechanical fall with peripheral neuropathy?83-year-old male presented to the hospital after having mechanical fall at home. His prosthesis is seated well and is nonoperative in terms of a nondisplaced periprosthetic fracture. Orthopedic surgery was consulted and felt that he was weightbearing as tolerated but given the significant pain proceeded with potential discharge to rehab. I discussed with him the plan for discharge today he expressed understanding of the risk and benefits of going to the rehab facility he would like to go today. He states that he is on Keflex 500 mg p.o. twice daily now started on 08/26/2023 for 90 days secondary to possible hip infection, this will be continued on discharge. 2. Coronary artery disease status post stent, essential hypertension, paroxysmal A-fib, hyperlipidemia are all chronic medical conditions which complicate his care. His home medications were continued where appropriate Physical Exam Narrative General: Alert, Oriented x3, Cooperative, No apparent distress HEENT: Atraumatic, PERRLA, EOMI, Normocephalic Oral: Moist Mucosa Neck: Supple, No JVD Lungs: Diminished, Normal air movement, No rhonchi, No wheeze, No rales Cardiovascular: Regular rate, Regular Rhythm, Normal S1, Normal S2, No murmurs Abdomen: Soft, Non Tender, Non-Distended, No Hepato-splenomegaly Extremities: No edema, Capillary Refill Less than 3 Seconds Skin: No rashes, No breakdown Musculoskeletal: Left hip pain to palpation Neurological: No focal neurological deficits, Motor Exam 5/5 strength throughout, Sensory exam intact to light touch and pain Psych/Mental Status: Normal Affect, Appropriate Weight / BMI Weight Weight: 222 lb 14.197 oz Body Mass Index (BMI) 29.4 ABG / Lab / Microbiology Data 09/09/23 05:36 09/09/23 05:36 Laboratory: Laboratory Results - last 24 hr 09/08/23 08:55: Sodium 139, Potassium 3.9, Chloride 105, Carbon Dioxide 30.0, A nion Gap 4 L, BUN 11, Creatinine 0.62 L, Estim Creat Clear Calc 88.99, Est GFR (MDRD) Af Amer 159, Est GFR (MDRD) Non-Af 131, BUN/Creatinine Ratio 17.7, G lucose 111 H, Calcium 8.8, Total Bilirubin 1.10 H, AST 41 H, ALT 58, Alkaline Phosphatase 62, Total Protein 6.6, Albumin 3.2, Globulin 3.4, Albumin/Globulin Ratio 0.9 09/09/23 05:36: WBC 8.6, RBC 3.67 L, Hgb 11.1 L, Hct 33.7 L, MCV 91.8, MCH 30.2, MCHC 32.9, RDW Std Deviation 51.3 H, RDW Coeff of Susana 15.3 H, Plt Count 174, MPV 9.2, Immature Gran % (Auto) 0.200, Neut % (Auto) 29.3 L, Lymph % (Auto) 61.6 H, Nicholas % (Auto) 3.8, Eos % (Auto) 4.6, Baso % (Auto) 0.5, Absolute Neuts (auto) 2.5, Absolute Lymphs (auto) 5.32 H, Nucleated RBC % 0, Sodium 137, Potassium 3.9, Chloride 104, Carbon Dioxide 30.0, Anion Gap 3 L, BUN 14, Creatinine 0.69 L , Estim Creat Clear Calc 88.99, Est GFR (MDRD) Af Amer 140, Est GFR (MDRD) Non- Af 116, BUN/Creatinine Ratio 20.2 H, Glucose 104, Calcium 8.4 L D/C Instructions Discharge Diet: Low fat / Low cholesterol Call your doctor if you observe: Fever of 101 or Higher, Shortness of breath, Dizziness, Fainting spells, Swelling in the ankles, Chest pain and Increased palpitations (irregular heartbeat) Meaningful Use Info Meaningful Use Meaningful Use Diagnoses (Choose all that apply): None applicable Ischemic Stroke Statin Dosing Therapy Reference: STATIN DOSE THERAPY REFERENCE: * Patients > 75 years receive moderate or high dose statin therapy. * Patients 75 years or YOUNGER should receive HIGH intensity statin dose unless contraindicated. You will be required to document reason for non-treatment if statin daily dose does not meet guidelines. HIGH DOSE STATIN THERAPY DAILY Atorvastatin > than or = to 40 mg Rosuvastatin > than or = to 20 mg Amlodipine + Atorvastatin > than or = to 2.5/40 mg Ezetimibe + Simvastatin 10/80 mg Simvastatin 80mg Discharge Plan Admission Admit Date/Time: 09/08/23 08:35 Attending Provider: Gilberto Box Primary Care Provider: Naveed Morton Consulting Providers: Gilberto Duggan Discharge Orders/Prescriptions Prescriptions: Continued acetaminophen 500 mg tablet 500 mg PO Q6H PRN (Reason: Pain) cephalexin 500 mg capsule 500 mg PO BID alpha lipoic acid 200 mg capsule 600 mg PO DAILY gabapentin 300 mg capsule 900 mg PO TID ginseng 100 MG capsule 100 mg PO DAILY ascorbic acid (vitamin C) 500 MG tablet 1,000 mg PO DAILY@0800 aspirin 81 MG tablet,chewable 81 mg PO DAILY@0800 multivitamin with folic acid 1 TABLET tablet 1 tab PO DAILY calcium carbonate-vitamin D3 1 EACH tablet 1 ea PO DAILY alendronate 70 mg tablet 70 mg PO Q7D@0700 GI102 Patient Comments: CLINICAL PNXKW-rdpyiylvusubr-bvfu dose September dofetilide 500 mcg capsule 500 mcg PO 0600,1800 Rx Instructions: 500 mcg orally; takes at 0600, 1800 atorvastatin 10 mg tablet See Rx Instructions .ROUTE .COMPLEX Qty: 90 3RF Dose Instruction: TAKE ONE TABLET BY MOUTH NIGHTLY AT BEDTIME Rx Instructions: TAKE ONE TABLET BY MOUTH NIGHTLY AT BEDTIME Xarelto 20 mg tablet See Rx Instructions .ROUTE .COMPLEX Qty: 90 3RF Dose Instruction: TAKE 1 TABLET BY MOUTH DAILY Rx Instructions: TAKE 1 TABLET BY MOUTH DAILY metoprolol succinate 25 mg tablet extended release 24 hr 12.5 mg PO DAILY Qty: 45 3RF Referrals / Follow Up: Naveed Morton MD [Primary Care Provider] - Disposition Disposition (needs filled in before D/C Order can be placed): Inpatient Rehab Unit/Facility Charges/Coding Visit Charges Inpatient E&M: 62428 Disch Hosp >30min
== END 2023-09-09 14:08 ==
LOC: ED 08:43 → MS3 08:50
PROVIDERS: Admitting Provider Family Medicine; Emergency Provider Emergency Medicine; PCP Family Medicine; Visit Provider Family Medicine
DX: M97.02XA Periprosthetic fracture around internal prosthetic left hip joint, initial encounter (principal); I48.0 Paroxysmal atrial fibrillation; S00.03XA Contusion of scalp, initial encounter; Z79.82 Long term (current) use of aspirin; Z79.01 Long term (current) use of anticoagulants; I10 Essential (primary) hypertension; E78.5 Hyperlipidemia, unspecified; I25.10 Atherosclerotic heart disease of native coronary artery without angina pectoris; R26.2 Difficulty in walking, not elsewhere classified; Z87.891 Personal history of nicotine dependence; W07.XXXA Fall from chair, initial encounter; Z96.643 Presence of artificial hip joint, bilateral; G62.9 Polyneuropathy, unspecified; Z79.899 Other long term (current) drug therapy; G47.33 Obstructive sleep apnea (adult) (pediatric); R29.6 Repeated falls; Y93.B3 Activity, free weights; Y92.009 Unspecified place in unspecified non-institutional (private) residence as the place of occurrence of the external cause
CPT/HCPCS: 99283; 36415; 70450; 72125; 73502; 80048; 80053; 81001; 85025; 85610; 85730; 97162; 97166; 99221; G0378

== ENCOUNTER 2023-09-09 14:30 | Inpatient (IN) | payer MEDICARE, OTHER, SELFPAY ==
--- NOTE | 2023-09-09 14:52 | PCM.HP.STD ---
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 He struck his head but denied any loss of consciousness. CT scan of the brain revealed no acute findings. CT of the cervical spine showed an anterior cervical fusion at C3-C6 but no acute fractures or subluxations. X-ray of the left hip showed extensive heterotopic bone above the left greater trochanter with no acute abnormality. Patient was unable to ambulate so orthopedics was consulted by the emergency room physician and they felt he had a periprosthetic fracture. He was admitted to the hospitalist service and consultation was obtained with Dr. Duggan from orthopedics. Dr. Duggan compared x-rays done in 2019 with the acute x-rays and there appeared to be an acute fracture of the transverse at the greater trochanter of the left hip. The prosthesis appeared stable. Nonsurgical treatment was recommended in the form of weightbearing as tolerated to the left lower extremity with no active abduction of the hip for 6 weeks. Mr. Boyer was transferred to the acute inpatient rehab unit at [facility] on 09/09/2023 for 3 hours of therapy daily to restore function/independence at or near his level prior to the recent fall. He has peripheral neuropathy and generalized weakness on a chronic basis and uses a rollator for ambulation. All lab drawn this morning was personally reviewed. The white blood cell count is normal. Hemoglobin is decreased at 11.8 which is his baseline. Which is within his baseline. Platelets are within normal limits. Sodium is 137 and the potassium is 3.9. The BUN is 14 with a creatinine of 0.69 which is within his baseline. Calcium is 8.4 which is mildly low. LFTs were normal yesterday with the exception of a mildly increased bilirubin at 1.1. UA had no pyuria and no hematuria. Tells me that he did not sleep well last night. Pain increases with weight bearing. [facility] Medical History (Updated 09/09/23 @ 16:[address] 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 Hyperplastic colon polyp Adrenal adenoma Obesity History of non-ST elevation myocardial infarction (NSTEMI) (2006) Abdominal aortic aneurysm (AAA) Paroxysmal atrial fibrillation Atherosclerosis of coronary artery of [place] heart without angina pectoris Hyperlipidemia Obstructive sleep apnea Home Medications ?Medication ?Instructions ?Recorded ?Last Taken ?Type ascorbic acid (vitamin C) 500 mg 1,000 mg PO DAILY@0800 vitamin 05/04/13 05/04/13 History tablet aspirin 81 mg chewable tablet 81 mg PO DAILY@0800 heart 05/04/13 03/11/22 History ginseng 100 mg capsule 100 mg PO DAILY 05/04/13 05/04/13 History multivitamin with folic acid 400 1 tab PO DAILY 05/04/13 05/04/13 History mcg tablet calcium carbonate 500 mg-vitamin 1 ea PO DAILY vitamin 06/09/18 Unknown History D3 15 mcg (600 unit) tablet acetaminophen 500 mg tablet 500 mg PO Q6H PRN Pain 02/29/20 Unknown History alendronate 70 mg tablet 70 mg PO Q7D@0700 03/01/20 Unknown History cephalexin 500 mg capsule 500 mg PO BID atb 05/30/20 Unknown History alpha lipoic acid 200 mg capsule 600 mg PO DAILY 01/01/21 Unknown History gabapentin 300 mg capsule 900 mg PO TID 02/11/23 Unknown History metoprolol succinate 25 mg 12.5 mg (1/2 x 25 mg) PO DAILY #45 07/07/23 Unknown Rx tablet,extended release 24 hr TABLETS GI102 09/08/23 09/02/23 History atorvastatin 10 mg tablet 10 mg PO QHS cholesterol 09/09/23 Unknown History dofetilide 500 mcg capsule 500 mcg PO 0600,1800 heart 09/09/23 Unknown History rivaroxaban 20 mg tablet (Xarelto) 20 mg PO DAILY blood thinner 09/09/23 Unknown History Allergy/AdvReac Type Severity Reaction Status Date / Time No Known Allergies Allergy Verified 09/08/23 06:16 Family History Aunt Sudden cardiac age 63 Mother Colon cancer Father Colon cancer Sister Cancer Surgical History History of left heart catheterization (03/11/22) Excisional biopsy of left inguinal lymph node (11/24/18) History of bilateral knee replacement History of left hip replacement History of open reduction and internal fixation (ORIF) procedure History of lumbar laminectomy History of cervical spinal arthrodesis History of right hip replacement (03/2018) History of coronary artery stent placement (04/2006) History of cardioversion (07/01/13) Social History (Updated 09/09/23 @ 16:[address] Judy Kay DO) household members: spouse housing: other details: They are all on 1 floor. BR has a walk in shower. number of children: 4 current occupational status: retired pets and animals: No Smoking Status: Former smoker quit date: 06/19/82 alcohol intake: former year quit: 2001 caffeine: Yes Type: coffee Number of servings: 2 what type of physical activity do you participate in: weight training ROS Review of Systems ROS Unobtainable: Denies due to encephalopathy, due to endotracheal tube, due to mental condition or due to mental status Constitutional Constitutional: Reports fatigue, weakness and other Details: He is on a trial for Merkels cell tx and it started about 6 months ago. It makes him tired.......miesha for the first few days after the infusion and then it improves. [facility] an [facility] ; Denies anorexia, change in weight, chills, fever(s) or night sweats Eyes Eyes: Denies blurry vision, change in vision, eye pain or loss of vision ENT HEENT: Denies abnormal hearing, dysphagia, headache(s), hearing loss, nasal congestion or sore throat Cardiovascular Cardiovascular: Reports dyspnea on exertion, pedal edema and weakness in extremities; Denies chest pain, edema, lightheadedness, orthopnea, palpitations, paroxysmal nocturnal dyspnea or syncope Respiratory/Chest Respiratory/Chest: Reports shortness of breath with exertion; Denies cough, dyspnea, shortness of breath at rest or wheezing Gastrointestinal Gastrointestinal: Reports constipation; Denies abdominal pain, diarrhea, dyspepsia, hematemesis, hematochezia, nausea or vomiting Genitourinary Genitourinary: Reports nocturia; Denies dysuria, hematuria, urinary frequency, urinary hesitancy, urinary incontinence or urinary urgency Musculoskeletal Musculoskeletal: Reports joint pain; Denies back pain, joint swelling or neck pain Integumentary Integumentary: Reports dry skin and nail changes; Denies jaundice or rash Neurologic Neurologic: Reports paresthesias and other Details: Has peripheral neuropathy in the LE's ; Denies confusion, disequilibrium, dizziness, focal weakness, headache(s), seizures or tremor(s) Psychiatric Psychiatric: Denies anxiety, depression, homicidal ideation or suicidal ideation Endocrine Endocrinology: Denies change in body appearance, polydipsia or polyuria Hematologic/Lymphatic Hematologic/Lymphatic: Reports easy bruising; Denies easy bleeding or lymphadenopathy Allergic/Immunologic Allergic/Immunologic: Denies rhinitis, eczemia or asthma Physical Exam Const alert, oriented x3, no apparent distress, healthy appearing and well nourished General Appearance: cooperative, comfortable and well kempt HEENT normocephalic, head/scalp atraumatic, hearing grossly normal bilaterally and moist oral mucous membranes HEENT Narrative: No evidence of thrush There is a small bluish discoloration on the buccal mucosa on the left side inferior to the last molar. Denies pain and tells me that he never noticed this before. Eyes PERRL, EOMs intact bilaterally, conjunctivae normal and no scleral icterus Eyes Narrative: No discharge from the eyes and no mattering of the eyelashes. General Eye: normal appearance of both eyes Neck supple, no JVD, No nodes and no carotid bruits General: trachea midline Chest Chest: symmetrical chest wall rise Resp normal respiratory effort, normal air movement, no use of accessory muscles and clear to auscultation bilaterally Effort and Inspection: able to speak in complete sentences Cardio regular rate, regular rhythm, S1 normal heart sound, S2 normal heart sound, no murmurs, no rub and no gallops Cardio Narrative: No ectopy GI normal to inspection, nondistended, normoactive bowel sounds, soft to palpation and non-tender GI Narrative: No guarding with palpation Extremity no calf tenderness Extremity Narrative: He has pitting edema of both ankles. In the left lower extremity there is some pitting edema in the left posterior thigh and calf. He has superficial varicosities in both lower extremities. He normally wears a thigh-high compression stocking on the left lower extremity. The skin over the feet and distal lower extremities is dry. No openings in the skin. Dorsalis pedis pulses are +2 bilaterally. Radial pulses are +2 bilaterally. Skin no jaundice, no petechiae and no mottling General Skin Exam: no breakdown Rashes: no rashes Neuro oriented x3, CN's II-XII intact bilaterally and moves all extremities Psych mental status grossly normal, thought process normal, cooperative, affect normal, speech normal and denies suicidal ideation Appearance: grossly normal, appropriate and well kempt Attitude: calm Activity / Motor Behavior: appropriate eye contact Assessment & Plan Assessment/Plan (1) Physical debility: (2) Fall: QUALIFIERS: Encounter type: subsequent encounter Qualified Code(s): W19.XXXD - Unspecified fall, subsequent encounter PLAN: Ground-level fall with no loss of consciousness. (3) Periprosthetic fracture around internal prosthetic left hip joint, initial encounter: (4) Normochromic normocytic anemia: PLAN: Hemoglobin is stable. (5) Madi cell carcinoma: PLAN: Receives immunotherapy every 3 weeks at [facility] (6) Paroxysmal atrial fibrillation: PLAN: Patient is in sinus rhythm on Tikosyn. (7) Atherosclerosis of coronary artery of [place] heart without angina pectoris: (8) Current use of terminal carman anticoagulation: PLAN: Xarelto (9) Chronic antibiotic suppression: (10) Hyperbilirubinemia: PLAN: Has been normal in the past. Possible Gilbert's? Will recheck in a few days. PLAN: Plan PLAN PT for gait stability OT for ADL's Analgesics as needed - Encouraged him to take Oxy at HS to help with sleep. Will schedule tylenol 1,000 Q8H. Bowel protocol Fall precautions Assess for Anxiety/Depression GI prophylaxis -not necessary at this time. He denies a history of peptic ulcer disease and also denies nausea/vomiting/epigastric pain/heartburn. DVT prophylaxis with Xarelto 10 mg daily Follow up with Dr. Duggan following DC from [facility] Rehab AM lab including CMP, CBC, Mag and Phos - personally reviewed. Trazodone 50 mg PRN for insomnia His next immunotherapy infusion in September 21. Will DC prior to that. Will need routine follow up CT scans on , prior to the next chemotherapy. Charges/Coding Visit Charges Inpatient E&M: 11383 Init Hosp L2
[2023-09-09 14:54] VITALS: BP 133/79; PULSE 70; RESP 16; TEMP 36.7; O2SAT 95; BMI 30.5
[2023-09-09] MEDS: Dofetilide 250 MCG Capsule 500 MCG PO (17:08)
[2023-09-09] MEDS: Rivaroxaban 20 MG Tablet PO (17:09)
[2023-09-09 19:36] VITALS: BP 120/57; PULSE 80; RESP 17; TEMP 36.7; O2SAT 98
[2023-09-09] MEDS: Menthol/Lanolin/Calamine/Znox 113 GM Tube 1 APPLIC TOPICAL (20:35)
[2023-09-09] MEDS: Acetaminophen 500 MG Tablet 1000 MG PO (20:37)
[2023-09-09] MEDS: Gabapentin 300 MG Capsule 900 MG PO (20:37)
[2023-09-09] MEDS: Atorvastatin Calcium 10 MG Tablet PO (20:37)
[2023-09-09] MEDS: Cephalexin 500 MG Capsule PO (20:39)
[2023-09-09 20:46] VITALS: PULSE 80
[2023-09-10] MEDS: Acetaminophen 500 MG Tablet 1000 MG PO ×3 (05:20→21:10)
[2023-09-10] MEDS: Gabapentin 300 MG Capsule 900 MG PO ×3 (05:20→21:14)
[2023-09-10] MEDS: Dofetilide 250 MCG Capsule 500 MCG PO ×2 (05:20→17:10)
[2023-09-10] MEDS: Menthol/Lanolin/Calamine/Znox 113 GM Tube 1 APPLIC TOPICAL ×2 (05:21→21:09)
[2023-09-10] MEDS: 0.9% Saline Lock 10 ML Syringe IV (07:00)
[2023-09-10 07:29] VITALS: BP 131/75; PULSE 67; RESP 16; TEMP 36.6; O2SAT 93
[2023-09-10 08:24] VITALS: O2SAT 92
[2023-09-10 09:13] VITALS: BP 131/75; PULSE 67
[2023-09-10] MEDS: Metoprolol(XL)Succ 25 MG Tablet 12.5 MG PO (09:13)
[2023-09-10] MEDS: Multivitamins,Therapeutic Tablet 1 TABLET PO (09:13)
[2023-09-10] MEDS: Ascorbic Acid 500 MG Tablet 1000 MG PO (09:13)
[2023-09-10] MEDS: Calcium Carb/Vitamin D 1 TABLET Tablet PO (09:14)
[2023-09-10] MEDS: Cephalexin 500 MG Capsule PO ×2 (09:14→21:10)
[2023-09-10] MEDS: Aspirin 81 MG TAB.CHEW PO (09:14)
[2023-09-10] MEDS: Rivaroxaban 20 MG Tablet PO (17:10)
[2023-09-10 19:29] VITALS: BP 143/79; PULSE 71; RESP 16; TEMP 36.5; O2SAT 95
[2023-09-10] MEDS: Senna/Docusate Sodium 1 Tablet 2 TABLET PO (21:10)
[2023-09-10] MEDS: Atorvastatin Calcium 10 MG Tablet PO (21:10)
[2023-09-11] MEDS: Acetaminophen 500 MG Tablet 1000 MG PO ×4 (06:01→23:02)
[2023-09-11] MEDS: Gabapentin 300 MG Capsule 900 MG PO ×3 (06:01→20:39)
[2023-09-11] MEDS: Dofetilide 250 MCG Capsule 500 MCG PO ×2 (06:01→17:55)
[2023-09-11] MEDS: Menthol/Lanolin/Calamine/Znox 113 GM Tube 1 APPLIC TOPICAL ×2 (06:04→20:40)
[2023-09-11 08:06] VITALS: O2SAT 93
[2023-09-11 08:11] VITALS: BP 153/66; PULSE 66; RESP 18; TEMP 36.5; O2SAT 94
[2023-09-11] MEDS: Ascorbic Acid 500 MG Tablet 1000 MG PO (08:31)
[2023-09-11] MEDS: Aspirin 81 MG TAB.CHEW PO (08:31)
[2023-09-11] MEDS: Multivitamins,Therapeutic Tablet 1 TABLET PO (08:31)
[2023-09-11 08:32] VITALS: PULSE 66
[2023-09-11] MEDS: Cephalexin 500 MG Capsule PO ×2 (08:32→20:39)
[2023-09-11] MEDS: Calcium Carb/Vitamin D 1 TABLET Tablet PO (08:32)
[2023-09-11] MEDS: Metoprolol(XL)Succ 25 MG Tablet 12.5 MG PO (08:32)
[2023-09-11] MEDS: Senna/Docusate Sodium 1 Tablet 2 TABLET PO ×2 (08:33→20:39)
--- NOTE | 2023-09-11 11:07 | PN_ITS ---
Subjective Subjective Afebrile VSS -systolic blood pressure is mildly elevated but diastolics are within goal. Systolic has ranged from 1 20-1 53 since he has been on rehab. Maintaining appropriate oxygen saturation on RA Oral intake - FOOD good FLUIDS adequate Discussed with nursing - no problems that need addressed Reviewed the THERAPY notes Medication list reviewed. I got a message from PT that pain is limiting his ability to do therapy but, PT today says he is doing better. Alberto tells me that he is sleeping much better at night with the addition of Trazodone to the drug regimen. He denies lightheadedness, chest pain, palpitations, shortness of breath, orthopnea, paroxysmal nocturnal dyspnea, nausea/vomiting/abdominal pain, dysuria and calf tenderness. Objective Data Objective Data Vital Signs: Vital Signs Temp Pulse Resp BP Pulse Ox O2 Del Method 97.7 F L 66 18 153/66 H 94 Room Air 09/11/23 08:11 09/11/23 08:32 09/11/23 08:11 09/11/23 08:11 09/11/23 08:11 09/11/23 08:11 Oxygen Delivery Method Room Air Weight: 231 lb 7.766 oz Body Mass Index (BMI) 30.5 Intake & Output: Intake and Output for Last 24 Hours 09/09/23 09/10/23 09/11/23 23:59 23:59 23:59 Intake Total 750 / 750 1360 / 1360 360 / 360 Output Total 1750 / 2100 2250 / 2250 400 / 400 Balance -1000 / -1350 -890 / -890 -40 / -40 Lab / Micro Data 09/15/23 05:16 09/15/23 05:16 Physical Exam Const alert, oriented x3 and no apparent distress General Appearance: cooperative and comfortable Resp normal respiratory effort, normal air movement, no use of accessory muscles and clear to auscultation bilaterally Effort and Inspection: able to speak in complete sentences Cardio regular rate, regular rhythm, S1 normal heart sound, S2 normal heart sound, no murmurs, no rub and no gallops Cardio Narrative: No ectopy GI normal to inspection, nondistended, normoactive bowel sounds, soft to palpation and non-tender GI Narrative: No guarding with palpation Extremity no calf tenderness Skin General Skin Exam: no breakdown Rashes: no rashes Assessment & Plan Assessment/Plan (1) Physical debility: (2) Fall: QUALIFIERS: Encounter type: subsequent encounter Qualified Code(s): W19.XXXD - Unspecified fall, subsequent encounter (3) Periprosthetic fracture around internal prosthetic left hip joint, initial encounter: (4) Normochromic normocytic anemia: (5) [place] cell carcinoma: (6) Paroxysmal atrial fibrillation: (7) Atherosclerosis of coronary artery of [place] heart without angina pectoris: (8) Current use of rodent exterminator anticoagulation: (9) Chronic antibiotic suppression: (10) Hyperbilirubinemia: PLAN: Plan 1. Continue therapy 2. Increase acetaminophen to 1 g p.o. every 6 hours for the next 5 to 7 days for better pain relief. He prefers to avoid narcotics if possible. 3. He will check with the [facility] and Alberto is okay to take tramadol. In my opinion patient would do better with therapy if he had better pain control. After talking with occupational therapy he is still somewhat unsteady and leaning heavily because the hip hurts with weightbearing. Will start a low- dose of tramadol, 25 mg every morning. Charges/Coding Visit Charges Inpatient E&M: 63707 [facility] Hosp L1
--- NOTE | 2023-09-11 11:16 | REHABEVAL_ITS ---
Admission Information Primary Diagnosis:: Debility secondary to a fall with hip fracture Status Changes from Prescreening?: No changes Identified Actual Problem List:: Falls, Pain, ALteration in Cmfrt, Bowel, Constipation, Alteration in Sleep, Mobility Impaired, Self Care Deficit and Alteration-Leisure Activ. Potential Problem List:: DVT, Bleeding, Infection, UTI, Aspiration, Falls, Skin Integrity and Depression Risk of Complications DVT: REINALDO Hose and - (Xarelto) Bleeding: Monitor Lab Values, Nursing to Teach Precautions for anti-coagulation therapy., Wound, if applicable, to be assessed every shift. and Stroke patients assessed for lethargy or change in status. Infection: Clinical Staff to Monitor for S/S of infection: and S/S of infection include fever, redness, warmth, etc. Urinary Tract Infection: Monitor for frequency, burning, discomfort, or incontinence. and Nursing will obtain urine sample for urinalysis and C&S when ordered. Aspiration: Clinical staff will monitor for coughing, drooling, congestion., Speech will evaluate swallowing and dsyphasia. and Nursing will monitor patient swallowing during meals. Falls: Patient will be evaluated for Fall Precautions and Patient will be placed on Fall Precautions as indicated per protocol. Skin Breakdown: Nursing will assess skin daily using assessment tool. and Nursing will place on Skin Breakdown Precautions as indicated. Pain: Clinical staff will assess patient's pain level per protocol., Medications will be given, if needed, and the pain level reassessed. and Other methods: Massage, distraction, decrease stimulus, etc. used PRN. Plan of Care Patient requires physician specializing in physical medicine and rehab oversight to provide close medical supervision of rehab issues including: Pain Management, Sleep Problems, Bowel and Bladder, Medical and co-morbidity Management, DVT prophylaxis, Rehabilitation Leadership and Coordination of treatment team Patient needs Physical Therapy: For a minimum of 1 hour and At least 5 out of 7 days Patient needs Physical Therapy to improve:: Mobility, Strengthening, Transfers, Stretching, ROM, Endurance, Stairs, Gait and Balance Patient needs Occupational Therapy: For a minimum of 1 hour and At least 5 out of 7 days Patient needs Occupational Therapy to improve ADL's incl.: Eating, Grooming, Bathing, Dressing, Toileting, Toilet transfers, Community Reintegration, Higher functioning activities, Household tasks, Adaptive Equipment, Splinting and Other activities as determined Patient requires 24/ Rehabilitation Nursing for: Pain Issues, Identifying and preventing risk factors, Monitoring and reporting current medical conditions, Assisting with ambulation, transfer, and all ADL's, Teaching patients about disease process and medications, Family teaching, Providing safe environment, Bowel and Bladder Issues, Skin integrity and Medication Management Patient needs Confidential Investigator/ Case Management for: Discharge Planning, Arranging Home Equipment or Services and Family Interventions Patient needs Dietary and Nutrition Services for: Adequate Nutrition, Nutritional Supplements and Nutritional Education Goals Goals Patient will remain: free from falls Patient will perform eating at: MOD I level of assist. Patient will perform bed mobility at: MOD I level of assist. Patient will complete transfers from bed to chair at: MOD I level of assist. Patient will ambulate: - (225 feet with least restrictive device at mod I on various surfaces) Patient will complete upper body dressing at: MOD I level of assist. Patient will complete lower body dressing at: MOD I level of assist. Patient will complete toilet transfer at: MOD I level of assist. Patient will complete toileting at: MOD I level of assist. Patient will perform bathing at: MOD I level of assist. (With adaptive equipment as needed for lower body thoroughness) Patient will perform Tub/Shower transfer at: - (Supervision for the first 10 to 14 days at home.) Patient will complete grooming at: MOD I level of assist. Patient will achieve: - (3 steps with 1 handrail and the least restrictive device at contact-guard assist) Patient will have pain level of: of 3 or less Patient's skin will: remain intact Patient will receive: adequate nutrition. Discharge Planning Pt Prognosis for Sig. Practical Improv. w/in Reasonable Time: Good Estimated Length of stay (days): 21 Anticipated D/C Destination: Home with Home Health Was Preadmission Assessment Accurate?: Yes
[2023-09-11] MEDS: Polyethylene Glycol 3350 17 GM PACKET PO (13:22)
[2023-09-11] MEDS: Rivaroxaban 20 MG Tablet PO (17:55)
[2023-09-11 19:43] VITALS: BP 124/67; PULSE 58; RESP 14; TEMP 36.7; O2SAT 96
[2023-09-11] MEDS: Atorvastatin Calcium 10 MG Tablet PO (20:38)
[2023-09-11] MEDS: traZODone 50 MG Tablet PO (20:40)
[2023-09-12 06:00] VITALS: BMI 30.2
[2023-09-12] MEDS: Dofetilide 250 MCG Capsule 500 MCG PO ×2 (06:38→17:07)
[2023-09-12] MEDS: Gabapentin 300 MG Capsule 900 MG PO ×3 (06:38→21:12)
[2023-09-12] MEDS: Acetaminophen 500 MG Tablet 1000 MG PO ×3 (06:38→17:07)
[2023-09-12] MEDS: Menthol/Lanolin/Calamine/Znox 113 GM Tube 1 APPLIC TOPICAL (06:38)
[2023-09-12 07:33] VITALS: O2SAT 92
[2023-09-12 07:44] VITALS: BP 120/71; PULSE 73; RESP 18; TEMP 36.4; O2SAT 94
[2023-09-12] MEDS: Multivitamins,Therapeutic Tablet 1 TABLET PO (07:54)
[2023-09-12] MEDS: Ascorbic Acid 500 MG Tablet 1000 MG PO (07:54)
[2023-09-12] MEDS: Calcium Carb/Vitamin D 1 TABLET Tablet PO (07:54)
[2023-09-12] MEDS: Aspirin 81 MG TAB.CHEW PO (07:54)
[2023-09-12] MEDS: traMADol 50 MG Tablet 25 MG PO (07:54)
[2023-09-12] MEDS: Polyethylene Glycol 3350 17 GM PACKET PO (10:09)
[2023-09-12] MEDS: Cephalexin 500 MG Capsule PO ×2 (10:09→21:12)
[2023-09-12] MEDS: Senna/Docusate Sodium 1 Tablet 2 TABLET PO ×2 (10:09→21:12)
[2023-09-12 10:10] VITALS: PULSE 67
[2023-09-12] MEDS: Metoprolol(XL)Succ 25 MG Tablet 12.5 MG PO (10:10)
[2023-09-12] MEDS: Rivaroxaban 20 MG Tablet PO (17:06)
--- NOTE | 2023-09-12 17:25 | CASEMGMT ---
Social Work- Admit Note SW met with patient at bedside to complete initial intake assessment. SW introduced self and role. Patient confirmed demographics and emergency contact. Patient confirmed code status as Full Code. Patient has Advanced Directive and Living Will located in medical charts. Patient's is list as medical decision maker in case of emergency. SSW educated patient on Medicare coverage and benefits; anticipates discharge 09/24/2023. SW discussed discharge goals. Patient would like to return when appropriate. Pending functional status patient is amendable to home health care or outpatient therapy. Patient informed SW that he would prefer outpatient therapy. Patient has care plan meeting scheduled 09/15 SW will continue to monitor for discharge planning. KARL Del Toro
[2023-09-12 20:42] VITALS: BP 122/61; PULSE 60; RESP 20; TEMP 36.4; O2SAT 93
[2023-09-12] MEDS: Atorvastatin Calcium 10 MG Tablet PO (21:12)
[2023-09-13] MEDS: Dofetilide 250 MCG Capsule 500 MCG PO ×2 (06:07→17:08)
[2023-09-13] MEDS: Acetaminophen 500 MG Tablet 1000 MG PO ×4 (06:08→23:20)
[2023-09-13] MEDS: Gabapentin 300 MG Capsule 900 MG PO ×3 (06:09→20:46)
[2023-09-13 07:30] VITALS: BP 126/64; PULSE 62; RESP 16; TEMP 37.2; O2SAT 93
[2023-09-13] MEDS: traMADol 50 MG Tablet 25 MG PO (07:54)
[2023-09-13] MEDS: Aspirin 81 MG TAB.CHEW PO (07:54)
[2023-09-13] MEDS: Multivitamins,Therapeutic Tablet 1 TABLET PO (07:54)
[2023-09-13] MEDS: Calcium Carb/Vitamin D 1 TABLET Tablet PO (07:54)
[2023-09-13] MEDS: Cephalexin 500 MG Capsule PO ×2 (09:27→20:46)
[2023-09-13] MEDS: Senna/Docusate Sodium 1 Tablet 2 TABLET PO (09:27)
[2023-09-13] MEDS: Ascorbic Acid 500 MG Tablet 1000 MG PO (09:27)
[2023-09-13] MEDS: Polyethylene Glycol 3350 17 GM PACKET PO (09:28)
[2023-09-13 09:29] VITALS: PULSE 70
[2023-09-13] MEDS: Metoprolol(XL)Succ 25 MG Tablet 12.5 MG PO (09:29)
[2023-09-13] MEDS: Magnesium Hydroxide 30 ML UDC PO (17:08)
[2023-09-13] MEDS: Rivaroxaban 20 MG Tablet PO (17:08)
[2023-09-13 20:44] VITALS: BP 126/63; PULSE 61; RESP 16; TEMP 36.7; O2SAT 96
[2023-09-13] MEDS: Atorvastatin Calcium 10 MG Tablet PO (20:46)
[2023-09-14] MEDS: Gabapentin 300 MG Capsule 900 MG PO ×3 (05:56→20:55)
[2023-09-14] MEDS: Dofetilide 250 MCG Capsule 500 MCG PO ×2 (05:57→18:02)
[2023-09-14] MEDS: Alendronate Sodium 70 MG Tablet PO (06:07)
[2023-09-14] MEDS: Acetaminophen 500 MG Tablet 1000 MG PO ×4 (06:18→23:30)
[2023-09-14 07:00] VITALS: BP 131/62; PULSE 64; RESP 18; TEMP 37.1; O2SAT 94
[2023-09-14] MEDS: traMADol 50 MG Tablet 25 MG PO (08:14)
[2023-09-14 08:15] VITALS: PULSE 70
[2023-09-14] MEDS: Calcium Carb/Vitamin D 1 TABLET Tablet PO (08:15)
[2023-09-14] MEDS: Aspirin 81 MG TAB.CHEW PO (08:15)
[2023-09-14] MEDS: Cephalexin 500 MG Capsule PO ×2 (08:15→20:56)
[2023-09-14] MEDS: Ascorbic Acid 500 MG Tablet 1000 MG PO (08:15)
[2023-09-14] MEDS: Multivitamins,Therapeutic Tablet 1 TABLET PO (08:15)
[2023-09-14] MEDS: Metoprolol(XL)Succ 25 MG Tablet 12.5 MG PO (08:15)
[2023-09-14] MEDS: Rivaroxaban 20 MG Tablet PO (18:03)
[2023-09-14 19:13] VITALS: BP 127/67; PULSE 56; RESP 16; TEMP 36.4; O2SAT 95
[2023-09-14] MEDS: Atorvastatin Calcium 10 MG Tablet PO (20:56)
[2023-09-15 05:27] LABS: Hematocrit 31.7 % (40-54); Hemoglobin 10.1 g/dL (13.0-16.5); Mean Corp Hgb Conc 31.9 g/dL (32-36); Mean Corpuscular Hgb 29.4 pg (27.0-32.0); Mean Corpuscular Volume 92.4 fL (80-94); Mean Platelet Vol. 8.4 fl (6.2-12.0); Platelet Count 182 K/mm3 (150-450); RBC Distribution Width CV 15.1 % (11.6-14.6); RBC Distribution Width SD 51.2 fl (35.1-43.9); Red Blood Count 3.43 M/mm3 (4.6-6.2); White Blood Count 5.6 K/mm3 (4.4-11.0)
[2023-09-15 06:05] LABS: Anion Gap 5 (5-15); BUN 12 mg/dL (7-18); BUN/Creat Ratio 18.7 RATIO (10-20); Calcium,Total 8.8 mg/dL (8.5-10.1); Chloride 105 mmol/L (98-107); Creatinine, Serum 0.64 mg/dL (0.70-1.30); EST Glomerular Filtration Rate 127 mL/min (>60); Est Glom Filt Rate - Afr Amer 154 mL/min (>60); Estimated Creatinine Clearance 90.16 ml/min; Glucose 98 mg/dL (74-106); Potassium 4.2 mmol/L (3.5-5.1); Sodium Level 137 mmol/L (136-145)
[2023-09-15] MEDS: Gabapentin 300 MG Capsule 900 MG PO ×3 (06:34→20:19)
[2023-09-15] MEDS: Acetaminophen 500 MG Tablet 1000 MG PO ×4 (06:34→23:41)
[2023-09-15] MEDS: Dofetilide 250 MCG Capsule 500 MCG PO ×2 (06:34→17:55)
[2023-09-15 07:42] VITALS: BP 118/53; PULSE 61; RESP 17; TEMP 36.6; O2SAT 96
[2023-09-15 08:24] VITALS: BP 118/53; PULSE 61
[2023-09-15] MEDS: Multivitamins,Therapeutic Tablet 1 TABLET PO (08:24)
[2023-09-15] MEDS: Ascorbic Acid 500 MG Tablet 1000 MG PO (08:24)
[2023-09-15] MEDS: Calcium Carb/Vitamin D 1 TABLET Tablet PO (08:24)
[2023-09-15] MEDS: Metoprolol(XL)Succ 25 MG Tablet 12.5 MG PO (08:24)
[2023-09-15] MEDS: Cephalexin 500 MG Capsule PO ×2 (08:24→20:21)
[2023-09-15] MEDS: Aspirin 81 MG TAB.CHEW PO (08:24)
[2023-09-15] MEDS: traMADol 50 MG Tablet 25 MG PO (08:27)
[2023-09-15] MEDS: Rivaroxaban 20 MG Tablet PO (17:56)
[2023-09-15 19:32] VITALS: BP 136/72; PULSE 60; RESP 17; TEMP 36.7; O2SAT 94
[2023-09-15 20:15] VITALS: PULSE 61; RESP 16; O2SAT 96
[2023-09-15] MEDS: Atorvastatin Calcium 10 MG Tablet PO (20:25)
[2023-09-16] MEDS: Menthol/Lanolin/Calamine/Znox 113 GM Tube 1 APPLIC TOPICAL (05:22)
[2023-09-16] MEDS: Dofetilide 250 MCG Capsule 500 MCG PO ×2 (05:22→17:06)
[2023-09-16] MEDS: Gabapentin 300 MG Capsule 900 MG PO ×3 (05:25→20:57)
[2023-09-16 07:08] VITALS: BP 149/76; PULSE 67; RESP 16; TEMP 36.6; O2SAT 93
[2023-09-16] MEDS: Acetaminophen 500 MG Tablet 1000 MG PO ×3 (07:21→17:06)
[2023-09-16] MEDS: Ascorbic Acid 500 MG Tablet 1000 MG PO (09:13)
[2023-09-16] MEDS: traMADol 50 MG Tablet 25 MG PO ×2 (09:13→21:01)
[2023-09-16 09:14] VITALS: BP 149/76; PULSE 67
[2023-09-16] MEDS: Metoprolol(XL)Succ 25 MG Tablet 12.5 MG PO (09:14)
[2023-09-16] MEDS: Calcium Carb/Vitamin D 1 TABLET Tablet PO (09:14)
[2023-09-16] MEDS: Cephalexin 500 MG Capsule PO ×2 (09:14→20:58)
[2023-09-16] MEDS: Aspirin 81 MG TAB.CHEW PO (09:15)
[2023-09-16] MEDS: Multivitamins,Therapeutic Tablet 1 TABLET PO (09:16)
--- NOTE | 2023-09-16 12:04 | PN_ITS ---
Subjective Subjective Alberto was seen on team rounds today. His Radha was present in the room for rounds. Afebrile VSS - Maintaining appropriate oxygen saturation on RA Oral intake - FOOD good FLUIDS good Discussed with nursing - no problems that need addressed Reviewed the THERAPY notes Medication list reviewed. Has been refusing trazodone at at bedtime because he thinks it keeps him awake. Will discontinue. All lab from yesterday was personally reviewed. White blood cell count is normal at 5.6. Hemoglobin is 10.1 which is down from 11.1 on 09/09/2023 however he is better hydrated. Platelets are within normal limits. Sodium is stable at 137 and the potassium is 4.2. BUN is 12 and the creatinine is 0.64. Calcium is normal today. He went to ascend a step this AM with PT and his R leg buckled. Alberto tells me that he is sleeping well at night without an assistive medication. He denies cephalgia, lightheadedness, chest pain, palpitations, shortness of breath, cough, nausea/vomiting/abdominal pain, he complains that sometimes he is constipated and other times he is having loose stool. Has been refusing polyethylene glycol and senna. Objective Data Objective Data Vital Signs: Vital Signs Temp Pulse Resp BP Pulse Ox O2 Del Method 97.8 F 67 16 149/76 H 93 Room Air 09/16/23 07:08 09/16/23 09:14 09/16/23 07:08 09/16/23 09:14 09/16/23 07:08 09/16/23 07:08 Oxygen Delivery Method Room Air Weight: 229 lb 4.492 oz Body Mass Index (BMI) 30.2 Intake & Output: Intake and Output for Last 24 Hours 09/14/23 09/15/23 09/16/23 23:59 23:59 23:59 Intake Total 2720 / 2720 2860 / 2860 1030 / 1030 Output Total 1950 / 1950 2525 / 2525 1350 / 1350 Balance 770 / 770 335 / 335 -320 / -320 Lab / Micro Data 09/15/23 05:16 09/15/23 05:16 Physical Exam Const alert, oriented x3 and no apparent distress General Appearance: cooperative and comfortable Resp normal respiratory effort, normal air movement, no use of accessory muscles and clear to auscultation bilaterally Effort and Inspection: able to speak in complete sentences Cardio regular rate, regular rhythm, S1 normal heart sound, S2 normal heart sound, no murmurs, no rub and no gallops Cardio Narrative: No ectopy GI normal to inspection, nondistended, normoactive bowel sounds, soft to palpation and non-tender GI Narrative: No guarding with palpation Extremity no calf tenderness Skin General Skin Exam: no breakdown Rashes: no rashes Assessment & Plan Assessment/Plan (1) Physical debility: (2) Fall: QUALIFIERS: Encounter type: subsequent encounter Qualified Code(s): W19.XXXD - Unspecified fall, subsequent encounter (3) Periprosthetic fracture around internal prosthetic left hip joint, initial encounter: (4) Normochromic normocytic anemia: (5) [place] cell carcinoma: (6) Paroxysmal atrial fibrillation: (7) Atherosclerosis of coronary artery of [place] heart without angina pectoris: (8) Current use of shelter anticoagulation: (9) Chronic antibiotic suppression: (10) Hyperbilirubinemia: PLAN: Plan 1. Continue therapy 2. Increase Tramadol to 50 mg Q AM and add 25 mg Q6H PRN pain 4 or greater. Alberto is more receptive to taking pain medication at this time because he realizes that uncontrolled pain is contributing to performance with therapy. At this point in time [facility] would not be able to provide the assistance he needs. He has 2-3 steps to enter his home and he is not able to do steps at this time. 3. He is in a clinical trial for tx of [place] cell carcinoma at the [facility]. [facility] was able to delay his next treatment for a few days and he is now going to have CT scans on 09/24/53 and the immuno infusion on 09/26/2023. He generally gets very weak for a few days after the infusion and he was barely able to get up the steps at home even prior to the fx after the infusion. Depending on his progress over the next 10 days he may need to go to an SNF at [place] from rehab. Plans for DC will be an ongoing discussion as we see how he progresses in therapy. [facility] is going to look into getting a second HR put up for the steps from the garage into the house. At some point they may need to consider a ramp. 4. Change the polyethylene glycol and senna to as needed. If he gets constipated would like to avoid using laxatives. Would consider using Metamucil 1-2 times daily rather than senna or MiraLAX. Charges/Coding Visit Charges Inpatient E&M: 59175 Subs Hosp L2
--- NOTE | 2023-09-16 13:16 | CASEMGMT ---
Social Work IDT met with patient and Gissel at bedside to complete care planning. Discussed patient progress with therapy. Patient continues to progress with therapy (PT/OT) and nursing. Patient continues to progress with therapy ambulating 100ft with therapy; going up 1 step. During therapy patient buckled in his left leg causing concern for pain management and safety going up steps in home. Patient pain medications has been adjusted to control pain. SW educated patient on Medicare coverage and benefits; anticipated discharge date 09/24/2023. Patient is currently in clinical trial for immunotherapy. Patient has CT scheduled on 09/24 and immunotherapy on 09/25. Patient's goal is to return home. Physician expressed concerns for patient return home due to buckling on steps and concerns for significant debility post immunotherapy. Discussed patient going home with home health care, if recommended. In addition, team discussed patient transitioning to TCU on discharge from rehab to assist with patient continued rehab. Patient's will be meeting with therapy on Friday to do family teaching. Patient's expressed that she likes the options to support patient with transition to TCU. Patient would like to revisit discussion for discharge pending progress with therapy. Patient goal is to return home, but he is open to transitioning to TCU, if required for short term rehabilitation prior to return home. KARL Del Toro
[2023-09-16] MEDS: Rivaroxaban 20 MG Tablet PO (17:06)
[2023-09-16] MEDS: Atorvastatin Calcium 10 MG Tablet PO (20:58)
[2023-09-16 22:00] VITALS: BP 126/83; PULSE 54; PULSE 64; RESP 16; TEMP 36.7; O2SAT 95
[2023-09-17] MEDS: Acetaminophen 500 MG Tablet 1000 MG PO ×4 (00:57→17:40)
[2023-09-17] MEDS: Gabapentin 300 MG Capsule 900 MG PO ×3 (06:20→20:31)
[2023-09-17] MEDS: Dofetilide 250 MCG Capsule 500 MCG PO ×2 (06:20→17:37)
[2023-09-17] MEDS: Ascorbic Acid 500 MG Tablet 1000 MG PO (07:30)
[2023-09-17] MEDS: traMADol 50 MG Tablet PO ×2 (07:30→20:50)
[2023-09-17] MEDS: Aspirin 81 MG TAB.CHEW PO (07:30)
[2023-09-17] MEDS: Multivitamins,Therapeutic Tablet 1 TABLET PO (09:15)
[2023-09-17] MEDS: Calcium Carb/Vitamin D 1 TABLET Tablet PO (09:15)
[2023-09-17 09:16] VITALS: PULSE 63
[2023-09-17] MEDS: Cephalexin 500 MG Capsule PO ×2 (09:16→20:46)
[2023-09-17] MEDS: Metoprolol(XL)Succ 25 MG Tablet 12.5 MG PO (09:16)
--- NOTE | 2023-09-17 09:23 | CT_ITS ---
CT LEFT LOWER EXTREMITY WITH 3-D IMAGING CLINICAL INDICATION: Hip pain. TECHNIQUE: Axial CT images of the LEFT lower extremity was performed IV contrast material. Coronal and sagittal reformats were provided. The protocol utilizes one or more of the following dose reduction techniques: automated exposure control, adjustment of mA and/or kV according to patient size,and/or use of iterative reconstruction technique. RADIATION DOSAGE (If Supplied By Facility): CTDIvol = ( 18.22 ) mGy, DLP = ( 794.91 ) mGycm COMPARISON: Prior study dated: Left hip x-ray from September 08, 2023. FINDINGS: Bones: The patient is status post left total hip replacement. There is good alignment. Soft Tissues: Well-defined bony densities are seen in the surrounding soft tissues overlying the region of the greater trochanter most likely representing either myositis ossificans or residual bone from prior fracture. Overlying soft tissue swelling. CT/Extremity Lower without Contra IMPRESSION: Status post left total hip replacement. There is good alignment. Overlying soft tissue swelling most likely postoperative in nature. 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 Electronically Signed: Sj Renee MD at 10:34 EDT ,
[2023-09-17 10:00] VITALS: BP 130/94; PULSE 63; RESP 16; TEMP 36.8; O2SAT 94
--- NOTE | 2023-09-17 11:40 | PN_ITS ---
Subjective Subjective Afebrile VSS - Maintaining appropriate oxygen saturation on RA Oral intake - FOOD good FLUIDS good Discussed with nursing - no problems that need addressed Reviewed the THERAPY notes Medication list reviewed. He is c/o a dull achey pain in the L anterior thigh. Tells me the pain is worse today than yesterday. It increases with stretching the quadriceps muscle. Improved somewhat with massage. The pain at rest is a 1-2 but, it gets much worse with weight bearing. Only ambulated 6 feet with PT today. The pain is not burning or shock like. He has no pain in the Left buttock or radiating down below the knee. Denies calf tenderness. Denies any hx of DVT. He is chronically anticoagulated with Xarelto. Denies pain in the medial thigh. Denies chest pain, palpitations, shortness of breath. Denies night sweats or shaking chills. Slept well last night. CT of the L hip was done this AM and it showed good alignment of the left prosthetic hip. There was soft tissue swelling present. There were well- defined bony densities seen in the surrounding soft tissues overlying the region of the greater trochanter most likely representing myositis ossificans. No fracture was mentioned but, I reviewed the plain XRAY and the CT and I do see the periprosthetic fracture that Dr. Duggan was talking about. Objective Data Objective Data Vital Signs: Vital Signs Temp Pulse Resp BP Pulse Ox O2 Del Method 98.3 F 63 16 130/94 H 94 Room Air 09/17/23 10:00 09/17/23 10:00 09/17/23 10:00 09/17/23 10:00 09/17/23 10:00 09/17/23 10:00 Oxygen Delivery Method Room Air Weight: 229 lb 4.492 oz Body Mass Index (BMI) 30.2 Intake & Output: Intake and Output for Last 24 Hours 09/15/23 09/16/23 09/17/23 23:59 23:59 23:59 Intake Total 2860 / 2860 2300 / 2300 250 / 250 Output Total 2525 / 2525 2150 / 3050 1800 / 1800 Balance 335 / 335 150 / -750 -1550 / -1550 Lab / Micro Data 09/23/23 05:04 09/23/23 05:04 Radiography Diagnostic Testing: Radiology Impression Lower Extremity CT 09/17/23 09:23 IMPRESSION: Status post left total hip replacement. There is good alignment. Overlying soft tissue swelling most likely postoperative in nature. 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 Electronically Signed: Sj Renee MD at 10:34 EDT , Physical Exam Const alert, oriented x3 and no apparent distress Constitutional Narrative: No distress while sitting in the recliner but, when he is up and bearing weight he grimaces and is in obvious pain. General Appearance: cooperative Orientation / Consciousness: Negative for confused Resp clear to auscultation bilaterally Effort and Inspection: Negative for tachypneic, respiratory distress or labored Cardio regular rate and regular rhythm Cardio Narrative: No ectopy GI normal to inspection, nondistended, normoactive bowel sounds, soft to palpation and non-tender Extremity no calf tenderness Extremity Narrative: the left thigh is swollen circumferentially. Tissue is boggy to palpation. Compression stocking is in place on the left. No swelling or pain in the left calf. General Extremity: Negative for clubbing Skin General Skin Exam: no breakdown Rashes: no rashes Assessment & Plan Assessment/Plan (1) Physical debility: (2) Fall: QUALIFIERS: Encounter type: subsequent encounter Qualified Code(s): W19.XXXD - Unspecified fall, subsequent encounter (3) Periprosthetic fracture around internal prosthetic left hip joint, initial encounter: (4) Current use of [employer] anticoagulation: PLAN: Continue Xarelto 20 mg daily (5) Chronic antibiotic suppression: PLAN: Chronically on Keflex for suppression of infection Left hip. (6) Neuropathy: PLAN: Continue gabapentin 900 mg 3 times daily. (7) Hyperlipidemia: QUALIFIERS: Hyperlipidemia type: unspecified Qualified Code(s): E 78.5 - Hyperlipidemia, unspecified PLAN: Continue atorvastatin 10 mg nightly (8) Constipation: QUALIFIERS: Constipation type: drug induced constipation Q ualified Code(s): K59.03 - Drug induced constipation PLAN: Continue senna and MiraLAX. PLAN: Plan 1. Continue therapy 2. Increase the tramadol to 50 mg every 6 hours as needed pain 4-6 and 100 mg pain 7-10. Will give a dose every morning in preparation for therapy. 3. Start compounded arthritis cream containing baclofen, lidocaine and Voltaren 3 times daily to the left anterior thigh. Will continue stretching the quad to improve the ROM. 4. Has been refusing Senna and Miralax but, I encouraged him to take at least scheduled Senna since we are increasing the pain medication and it causes constipation. He is agreeable to taking Senna. 5. Continue Xarelto Charges/Coding Visit Charges Inpatient E&M: 41519 Subs Hosp L1
[2023-09-17] MEDS: Arthritis Pain Compound 60 CLICK TUBE TOPICAL ×2 (13:15→20:48)
[2023-09-17] MEDS: traMADol 50 MG Tablet 100 MG PO (14:50)
[2023-09-17] MEDS: Rivaroxaban 20 MG Tablet PO (17:36)
[2023-09-17 20:30] VITALS: BP 150/73; PULSE 55; RESP 16; TEMP 37; O2SAT 94
[2023-09-17] MEDS: Atorvastatin Calcium 10 MG Tablet PO (20:46)
[2023-09-18] MEDS: Acetaminophen 500 MG Tablet 1000 MG PO ×3 (01:10→17:44)
[2023-09-18] MEDS: Gabapentin 300 MG Capsule 900 MG PO ×3 (06:29→20:48)
[2023-09-18] MEDS: Arthritis Pain Compound 60 CLICK TUBE TOPICAL ×2 (06:29→20:45)
[2023-09-18] MEDS: Dofetilide 250 MCG Capsule 500 MCG PO ×2 (06:30→17:43)
[2023-09-18] MEDS: traMADol 50 MG Tablet PO ×3 (06:36→20:45)
[2023-09-18] MEDS: Cephalexin 500 MG Capsule PO ×2 (08:11→20:47)
[2023-09-18] MEDS: Multivitamins,Therapeutic Tablet 1 TABLET PO (08:11)
[2023-09-18] MEDS: Aspirin 81 MG TAB.CHEW PO (08:11)
[2023-09-18] MEDS: Calcium Carb/Vitamin D 1 TABLET Tablet PO (08:11)
[2023-09-18 08:12] VITALS: BP 117/61; PULSE 65
[2023-09-18] MEDS: Metoprolol(XL)Succ 25 MG Tablet 12.5 MG PO (08:12)
[2023-09-18] MEDS: Ascorbic Acid 500 MG Tablet 1000 MG PO (08:16)
[2023-09-18 08:22] VITALS: BP 117/64; PULSE 66; RESP 16; O2SAT 94
[2023-09-18] MEDS: Polyethylene Glycol 3350 17 GM PACKET PO (12:02)
[2023-09-18] MEDS: Rivaroxaban 20 MG Tablet PO (17:43)
[2023-09-18 20:00] VITALS: BP 122/61; PULSE 51; RESP 16; TEMP 37.2; O2SAT 96
[2023-09-18] MEDS: Atorvastatin Calcium 10 MG Tablet PO (20:48)
[2023-09-19 06:00] VITALS: BMI 31.0
[2023-09-19] MEDS: traMADol 50 MG Tablet PO (06:07)
[2023-09-19] MEDS: Gabapentin 300 MG Capsule 900 MG PO ×3 (06:07→20:44)
[2023-09-19] MEDS: Acetaminophen 500 MG Tablet 1000 MG PO ×4 (06:07→23:16)
[2023-09-19] MEDS: Dofetilide 250 MCG Capsule 500 MCG PO ×2 (06:08→17:40)
[2023-09-19] MEDS: Calcium Carb/Vitamin D 1 TABLET Tablet PO (08:49)
[2023-09-19] MEDS: Ascorbic Acid 500 MG Tablet 1000 MG PO (08:50)
[2023-09-19] MEDS: Aspirin 81 MG TAB.CHEW PO (08:50)
[2023-09-19] MEDS: Cephalexin 500 MG Capsule PO ×2 (08:50)
[2023-09-19] MEDS: Multivitamins,Therapeutic Tablet 1 TABLET PO (08:50)
[2023-09-19 08:51] VITALS: BP 114/79; PULSE 65
[2023-09-19] MEDS: Metoprolol(XL)Succ 25 MG Tablet 12.5 MG PO (08:51)
[2023-09-19] MEDS: Arthritis Pain Compound 60 CLICK TUBE TOPICAL ×2 (08:52→20:46)
[2023-09-19] MEDS: Polyethylene Glycol 3350 17 GM PACKET PO (09:06)
[2023-09-19 10:00] VITALS: BP 114/79; PULSE 65; RESP 15; TEMP 37.1; O2SAT 96
[2023-09-19] MEDS: Senna/Docusate Sodium 1 Tablet 2 TABLET PO ×2 (13:37→20:45)
[2023-09-19] MEDS: Rivaroxaban 20 MG Tablet PO (17:41)
[2023-09-19 20:00] VITALS: BP 133/92; PULSE 51; RESP 16; TEMP 37.3; O2SAT 96
[2023-09-19] MEDS: Atorvastatin Calcium 10 MG Tablet PO (20:41)
[2023-09-20] MEDS: Dofetilide 250 MCG Capsule 500 MCG PO ×2 (05:10→17:16)
[2023-09-20] MEDS: Gabapentin 300 MG Capsule 900 MG PO ×3 (05:15→21:26)
[2023-09-20] MEDS: Arthritis Pain Compound 60 CLICK TUBE TOPICAL ×2 (05:15→21:26)
[2023-09-20] MEDS: Acetaminophen 500 MG Tablet 1000 MG PO ×4 (06:20→23:21)
[2023-09-20 07:31] VITALS: BP 136/71; PULSE 67; RESP 18; TEMP 37.3; O2SAT 97
[2023-09-20] MEDS: Aspirin 81 MG TAB.CHEW PO (07:45)
[2023-09-20] MEDS: Multivitamins,Therapeutic Tablet 1 TABLET PO (07:47)
[2023-09-20] MEDS: Calcium Carb/Vitamin D 1 TABLET Tablet PO (07:47)
[2023-09-20] MEDS: Ascorbic Acid 500 MG Tablet 1000 MG PO (07:48)
[2023-09-20] MEDS: Cephalexin 500 MG Capsule PO ×2 (07:49→21:27)
[2023-09-20 07:50] VITALS: PULSE 67
[2023-09-20] MEDS: Metoprolol(XL)Succ 25 MG Tablet 12.5 MG PO (07:50)
[2023-09-20] MEDS: Polyethylene Glycol 3350 17 GM PACKET PO (11:23)
[2023-09-20] MEDS: Senna/Docusate Sodium 1 Tablet 2 TABLET PO (11:25)
[2023-09-20] MEDS: Rivaroxaban 20 MG Tablet PO (17:16)
[2023-09-20] MEDS: Magnesium Hydroxide 30 ML UDC PO (17:19)
[2023-09-20] MEDS: Atorvastatin Calcium 10 MG Tablet PO (21:26)
[2023-09-20 21:32] VITALS: BP 143/97; PULSE 96; RESP 16; TEMP 37.1; O2SAT 56
[2023-09-20 22:00] VITALS: PULSE 60; RESP 16; O2SAT 96
[2023-09-21] MEDS: Senna/Docusate Sodium 1 Tablet 2 TABLET PO ×2 (06:10→21:11)
[2023-09-21] MEDS: Gabapentin 300 MG Capsule 900 MG PO ×3 (06:10→21:11)
[2023-09-21] MEDS: Dofetilide 250 MCG Capsule 500 MCG PO ×2 (06:10→16:46)
[2023-09-21] MEDS: Acetaminophen 500 MG Tablet 1000 MG PO ×4 (06:11→23:43)
[2023-09-21] MEDS: Menthol/Lanolin/Calamine/Znox 113 GM Tube 1 APPLIC TOPICAL (06:12)
[2023-09-21] MEDS: Alendronate Sodium 70 MG Tablet PO (06:14)
[2023-09-21 07:41] VITALS: BP 149/72; PULSE 62; RESP 18; TEMP 36.9; O2SAT 94
[2023-09-21 08:29] VITALS: BP 149/72; PULSE 62
[2023-09-21] MEDS: Cephalexin 500 MG Capsule PO ×2 (08:29→21:11)
[2023-09-21] MEDS: Metoprolol(XL)Succ 25 MG Tablet 12.5 MG PO (08:29)
[2023-09-21] MEDS: Ascorbic Acid 500 MG Tablet 1000 MG PO (08:29)
[2023-09-21] MEDS: Multivitamins,Therapeutic Tablet 1 TABLET PO (08:29)
[2023-09-21] MEDS: Calcium Carb/Vitamin D 1 TABLET Tablet PO (08:30)
[2023-09-21] MEDS: Aspirin 81 MG TAB.CHEW PO (08:30)
[2023-09-21] MEDS: Rivaroxaban 20 MG Tablet PO (16:46)
[2023-09-21 19:22] VITALS: BP 114/62; PULSE 61; RESP 17; TEMP 36.2; O2SAT 97
[2023-09-21] MEDS: Atorvastatin Calcium 10 MG Tablet PO (21:11)
[2023-09-21] MEDS: Arthritis Pain Compound 60 CLICK TUBE TOPICAL (21:11)
[2023-09-21 22:00] VITALS: PULSE 60; RESP 16; O2SAT 97
[2023-09-22] MEDS: Gabapentin 300 MG Capsule 900 MG PO ×3 (05:58→21:06)
[2023-09-22] MEDS: Dofetilide 250 MCG Capsule 500 MCG PO ×2 (05:59→17:08)
[2023-09-22] MEDS: Acetaminophen 500 MG Tablet 1000 MG PO ×3 (05:59→17:08)
[2023-09-22 07:19] VITALS: BP 109/71; PULSE 69; RESP 16; TEMP 36.4; O2SAT 99
[2023-09-22 08:57] VITALS: PULSE 69
[2023-09-22] MEDS: Metoprolol(XL)Succ 25 MG Tablet 12.5 MG PO (08:57)
[2023-09-22] MEDS: Multivitamins,Therapeutic Tablet 1 TABLET PO (08:57)
[2023-09-22] MEDS: Cephalexin 500 MG Capsule PO ×2 (08:57→21:06)
[2023-09-22] MEDS: Aspirin 81 MG TAB.CHEW PO (08:57)
[2023-09-22] MEDS: Calcium Carb/Vitamin D 1 TABLET Tablet PO (08:58)
[2023-09-22] MEDS: Ascorbic Acid 500 MG Tablet 1000 MG PO (09:43)
--- NOTE | 2023-09-22 10:29 | PN_ITS ---
Subjective Subjective Afebrile VSS - Maintaining appropriate oxygen saturation on RA Oral intake - FOOD good FLUIDS good Discussed with nursing - no problems that need addressed Reviewed the THERAPY notes Medication list reviewed. Sleeping well at night with good appetite. Pain is adequately controlled. Denies CP, SOB, Palpitations, N/V/abd pain, dysuria and calf pain. Feeling like he wants to be doing more exercise and has been requesting the nurses walk with him when he is not doing therapy. Objective Data Objective Data Vital Signs: Vital Signs Temp Pulse Resp BP Pulse Ox O2 Del Method 97.6 F L 69 16 109/71 99 Room Air 09/22/23 07:19 09/22/23 08:57 09/22/23 07:19 09/22/23 07:19 09/22/23 07:19 09/22/23 07:19 Oxygen Delivery Method Room Air Weight: 235 lb 2 oz Body Mass Index (BMI) 31.0 Intake & Output: Intake and Output for Last 24 Hours 09/20/23 09/21/23 09/22/23 23:59 23:59 23:59 Intake Total 2810 / 2810 2059 / 2059 1979 / 1979 Output Total 4450 / 4450 4125 / 4125 1200 / 1200 Balance -1640 / -1640 -2064 / -2064 780 / 780 Lab / Micro Data 09/23/23 05:04 09/23/23 05:04 Physical Exam Const alert, oriented x3 and no apparent distress General Appearance: cooperative Orientation / Consciousness: Negative for confused HEENT moist oral mucous membranes Resp Resp Narrative: Few coarse crackles in the R base. No wheezes, not tachypneic. No cough with deep breathing Cardio regular rate, regular rhythm and no gallops GI normal to inspection, nondistended, normoactive bowel sounds, soft to palpation and non-tender Extremity no calf tenderness Extremity Narrative: Has some edema of the LLE. Compression stocking is in place. Skin General Skin Exam: no breakdown Rashes: no rashes Assessment & Plan Assessment/Plan (1) Physical debility: (2) Fall: QUALIFIERS: Encounter type: subsequent encounter Qualified Code(s): W19.XXXD - Unspecified fall, subsequent encounter (3) Periprosthetic fracture around internal prosthetic left hip joint, initial encounter: (4) Neuropathy: PLAN: Plan 1. Continue therapy 2. CBC and CMP in the a.m. 3. will work on car transfer today. If he is not able to do the car transfer with his will need to have WC transport to [facility] for his immune infusion on 09/26/23. Charges/Coding Visit Charges Inpatient E&M: 90812 Subs Hosp L1
[2023-09-22] MEDS: Polyethylene Glycol 3350 17 GM PACKET PO (11:55)
--- NOTE | 2023-09-22 13:29 | CASEMGMT ---
Social Work- TEAMS Meeting IDT met with patient and Gissel at bedside to complete care planning. Discussed patient progress with therapy (PT/OT) and nursing. Patient requires min A with ambulation up to 65ft before pain sets in. Patient requires continued therapy. Patient expressed concerns for lower extremity dressing. SW educated patient and of Medicare coverage and benefits; anticipates discharge 09/23 to TCU. SW discussed transition of care plans for patient to transfer to TCU. Patient's expressed goals for patient to be as independent as possible to complete ADLS; IADLS prior to returning home. Patient ordered for wheelchair. Patient informed SW that he would like to received some support for grooming and activities on TCU. Patient to remain NPO prior to CT. Patient has CT scheduled on 09/25/23 at Noon. Patient has Clinical Trial Infusion taking place on 09/26/2023 at 9A. SW will continue to follow to assist with discharge planning. KARL Del Toro
[2023-09-22] MEDS: Rivaroxaban 20 MG Tablet PO (17:08)
[2023-09-22 19:08] VITALS: BP 167/78; PULSE 52; RESP 16; TEMP 36.7; O2SAT 94
[2023-09-22] MEDS: Senna/Docusate Sodium 1 Tablet 2 TABLET PO (21:06)
[2023-09-22] MEDS: Atorvastatin Calcium 10 MG Tablet PO (21:06)
[2023-09-22 22:00] VITALS: PULSE 57; RESP 16; O2SAT 97
[2023-09-23 05:45] LABS: Hematocrit 38.9 % (40-54); Hemoglobin 12.4 g/dL (13.0-16.5); Mean Corp Hgb Conc 31.9 g/dL (32-36); Mean Corpuscular Hgb 29.6 pg (27.0-32.0); Mean Corpuscular Volume 92.8 fL (80-94); Mean Platelet Vol. 8.3 fl (6.2-12.0); Platelet Count 270 K/mm3 (150-450); RBC Distribution Width CV 15.1 % (11.6-14.6); RBC Distribution Width SD 51.8 fl (35.1-43.9); Red Blood Count 4.19 M/mm3 (4.6-6.2); White Blood Count 7.2 K/mm3 (4.4-11.0)
[2023-09-23 05:49] LABS: Scan Indicated on CBC? Y/N NO
[2023-09-23 06:08] LABS: ALB/GLOB Ratio 0.9 RATIO (0.9-2.4); AST(SGOT) 19 U/L (15-37); Alanine Aminotransfer ALT/SGPT 19 U/L (16-61); Albumin, Serum 3.5 g/dL (3.2-5.0); Alkaline Phosphatase 60 U/L (45-117); Anion Gap 3 (5-15); BUN 10 mg/dL (7-18); BUN/Creat Ratio 13.2 RATIO (10-20); Calcium,Total 9.1 mg/dL (8.5-10.1); Chloride 104 mmol/L (98-107); Creatinine, Serum 0.76 mg/dL (0.70-1.30); EST Glomerular Filtration Rate 105 mL/min (>60); Est Glom Filt Rate - Afr Amer 127 mL/min (>60); Estimated Creatinine Clearance 91.23 ml/min; Globulin 3.8 g/dL (2.2-4.2); Glucose 97 mg/dL (74-106); Potassium 4.1 mmol/L (3.5-5.1); Protein, Total 7.3 g/dL (6.4-8.2); Sodium Level 137 mmol/L (136-145)
[2023-09-23] MEDS: Dofetilide 250 MCG Capsule 500 MCG PO ×2 (06:45→17:11)
[2023-09-23] MEDS: Gabapentin 300 MG Capsule 900 MG PO ×3 (06:45→20:58)
[2023-09-23] MEDS: Acetaminophen 500 MG Tablet 1000 MG PO ×2 (06:45→17:11)
[2023-09-23 07:24] VITALS: BP 129/73; PULSE 59; RESP 16; TEMP 37; O2SAT 92
[2023-09-23] MEDS: Aspirin 81 MG TAB.CHEW PO (09:10)
[2023-09-23] MEDS: Cephalexin 500 MG Capsule PO ×2 (09:10→20:58)
[2023-09-23] MEDS: Ascorbic Acid 500 MG Tablet 1000 MG PO (09:10)
[2023-09-23] MEDS: Multivitamins,Therapeutic Tablet 1 TABLET PO (09:10)
[2023-09-23] MEDS: Calcium Carb/Vitamin D 1 TABLET Tablet PO (09:10)
[2023-09-23 09:11] VITALS: BP 129/73; PULSE 62
[2023-09-23] MEDS: Metoprolol(XL)Succ 25 MG Tablet 12.5 MG PO (09:11)
[2023-09-23] MEDS: Polyethylene Glycol 3350 17 GM PACKET PO (09:12)
[2023-09-23] MEDS: Senna/Docusate Sodium 1 Tablet 2 TABLET PO ×2 (09:13→20:58)
[2023-09-23] MEDS: Lactobacillis Acidophilus 1 CAP PO (09:14)
[2023-09-23] MEDS: Rivaroxaban 20 MG Tablet PO (17:10)
[2023-09-23 19:28] VITALS: BP 123/78; PULSE 64; RESP 15; TEMP 36.6; O2SAT 97
[2023-09-23] MEDS: Atorvastatin Calcium 10 MG Tablet PO (20:58)
[2023-09-23 22:00] VITALS: PULSE 64; RESP 16; O2SAT 97
[2023-09-24] MEDS: Dofetilide 250 MCG Capsule 500 MCG PO (06:46)
[2023-09-24] MEDS: Gabapentin 300 MG Capsule 900 MG PO ×2 (06:46→13:17)
[2023-09-24] MEDS: Calcium Carb/Vitamin D 1 TABLET Tablet PO (07:46)
[2023-09-24] MEDS: Lactobacillis Acidophilus 1 CAP PO (07:46)
[2023-09-24] MEDS: Multivitamins,Therapeutic Tablet 1 TABLET PO (07:46)
[2023-09-24] MEDS: Aspirin 81 MG TAB.CHEW PO (07:46)
[2023-09-24] MEDS: Ascorbic Acid 500 MG Tablet 1000 MG PO (07:46)
[2023-09-24] MEDS: Polyethylene Glycol 3350 17 GM PACKET PO (07:46)
[2023-09-24] MEDS: Cephalexin 500 MG Capsule PO (07:47)
[2023-09-24 07:48] VITALS: PULSE 64
[2023-09-24] MEDS: Metoprolol(XL)Succ 25 MG Tablet 12.5 MG PO (07:48)
[2023-09-24] MEDS: Senna/Docusate Sodium 1 Tablet 2 TABLET PO (07:51)
[2023-09-24 09:03] VITALS: BP 113/70; PULSE 64; RESP 16; TEMP 36.8; O2SAT 93
--- NOTE | 2023-09-24 13:40 | PCM.TXEXTCAR ---
Diet Diet Order/Speech Therapy: 09/09/23 15:40 Diet: Cardiac - Heart Healthy Is pt able to select menu?: Yes Routine Orders/Code Status Enema Type: Fleetz Enema Frequency: Daily PRN Suppository Type: Dulcolax 10mg Suppository Frequency: Daily PRN O2 Liters per Minute: 1-2 O2 Frequency: PRN Keep PO Greater than or Equal to (%): 90 Code Status: Full Code Wound(s) back of head: Wound Type: Laceration Therapies Weight Bearing: Weight bearing as tolerated (has a periprosthetic fx of the Left hip) Extremity Affected:: Left Lower Physical Therapy: Eval and Treat Occupational Therapy: Eval and Treat Problem/Diagnosis (1) Physical debility: Status: Acute Code(s): R53.81 - Other malaise Comment: Due to a fall with periprosthetic fracture of the left hip (2) Fall: Status: Acute Code(s): W19.XXXA - Unspecified fall, initial encounter Plan: Ground-level fall, no syncope. (3) Periprosthetic fracture around internal prosthetic left hip joint, initial encounter: Status: Acute Code(s): M97.02XA - Periprosthetic fracture around internal prosthetic left hip joint, initial encounter (4) Hematoma of occipital region of scalp: Status: Resolved Code(s): S00.03XA - Contusion of scalp, initial encounter (5) Normochromic normocytic anemia: Status: Chronic Code(s): D64.9 - Anemia, unspecified Plan: Hemoglobin is stable at 12.4 at the time of discharge. (6) Madi cell carcinoma: Status: Chronic Code(s): C4A.9 - Madi cell carcinoma, unspecified Plan: Treated at [facility]. Comment: completed 1 year of treatment with pembrolizumab 05/2021, will continue therapy. continue pembrolizumab until January 2023; (7) Paroxysmal atrial fibrillation: Status: Chronic Code(s): I48.0 - Paroxysmal atrial fibrillation Plan: Continue Xarelto. Continue Tikosyn. Has been in a regular rhythm for the duration of his stay on rehab. 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 (12) History of coronary artery stent placement: Status: Chronic Code(s): Z95.5 - Presence of coronary angioplasty implant and graft Comment: [id number] W/ 3.5 X 15 MM Vision 04/2006 (13) Thoracic aortic aneurysm (TAA): Status: Chronic Code(s): I71.2 - Thoracic aortic aneurysm, without rupture Comment: Stable ectasia of the ascending aorta which measures 4.5 cm in its mid segment. CT 01/14/2022 (14) Neuropathy: Status: Chronic Code(s): G62.9 - Polyneuropathy, unspecified Plan: Continue gabapentin 900 mg 3 times daily. (15) Hyperlipidemia: Status: Chronic Code(s): E78.5 - Hyperlipidemia, unspecified Plan: Continue atorvastatin 10 mg nightly (16) Constipation: Status: Acute Code(s): K59.00 - Constipation, unspecified Plan: Continue senna and MiraLAX. Plan 1. Transfer to transitional care unit today for additional therapy prior to returning home 2. His will transport him to the [facility] in [place] to have CT scans on 09/25/2023. 3. His will transport him to [facility] on 09/26/2023 for immuno infusion treatment of Madi cell carcinoma 4. Will return to transitional care unit following completion of the immuno infusion on 09/26/2023. 5. Has not taken any tramadol since 09/19/2023 but will continue as needed for pain. Allergies/Procedures Done in Hospital Allergies No Known Allergies Allergy (Verified 09/08/23 06:16) Procedures: None Type of Care/Length of Stay Estimated LOS: Convalescent Care Less Than 30 days Type of Care Needed: Skilled Rehab Potential: Good Prognosis: Good Additional Orders/Day of Discharge H&P will serve as current which was dated: 09/09/23 Day of Discharge: 09/24/23 Dietary and Speech Recommendations Dietitian Recommendations/Changes: Continue Cardiac diet to manage medical conditions. Follow Up Care Please follow up with your Primary Care Physician in: Dr. Morton-following discharge from TCU Please Follow Up With: [facility] oncology Please Follow Up With: Gilberto Duggan DO When: following Dc from TCU Discharge Plan Admission Admit Date/Time: 09/09/23 14:30 Primary Reason for Your Visit: Debility secondary to left hip fracture Attending Provider: Judy Kay Primary Care Provider: Naveed Morton Instructions Additional Instructions / Restrictions: 1. Patience is a virtue. I know from personal experience that are bodies do not heal as quickly as we age and you need to be patient. Overdoing will only increase pain and possible cause a setback in your recovery. 2. Be cautiously adventuresome! Don't do crazy things that are likely to cause injuries. We loved having you on rehab but, I do not think you want to have follow up visits here. 3. Take the pain medication if you need it........it can help you to tolerate therapy better so you can progress and get home. If your pain is 4 or > you should be taking something for pain. I am discharging you on Tylenol 1 GM TID (3X's a day). 4. Sleep is very important in the healing process........if pain is keeping you awake at night take a Tramadol at Bedtime. 5. It has been a pleasure meeting you and I have greatly enjoyed our conversations! Take care of yourself and be gentle with your body.......do not put it in harms way. Stay out of the hospital and keep your adventurous spirit but, temper that with common sense!!! 6. If you or Gissel have any questions after you leave rehab please do not hesitate to call me. OFFICE: [phone] CELL: [phone] Discharge Orders/Prescriptions Prescriptions: New acetaminophen 500 mg Tablet 1,000 mg PO TID Qty: 1 0RF Arthritis Pain Compound 3 click topical TID PRN (Reason: L anterior thigh pain) Qty: 1 0RF Rx Instructions: Apply to the left anterior thigh calcium carbonate-vitamin D3 [Oyster Shell Calcium-Vit D3] 500 mg-5 mcg (200 unit) Tablet 1 tab PO DAILYCM Qty: 1 0RF L.acidoph,saliva-B.bif-S.therm 175 mg Capsule 1 cap PO DAILY Qty: 1 0RF magnesium hydroxide 400 mg/5 mL Suspension 30 ml PO X1 PRN (Reason: Constipation) Qty: 30 0RF menthol-zinc oxide [Calmoseptine] 0.44-20.6 % Ointment 1 applic topical BID@0600,2200 Qty: 113 0RF Protocol: *Topical Application Instructions APPLICATION INSTRUCTIONS: buttocks multivitamin Tablet 1 tab PO DAILYCM Qty: 1 0RF sennosides-docusate sodium [Stool Softener-Stimulant Laxat] 8.6-50 mg Tablet 2 tab PO BID Qty: 1 0RF tramadol 50 mg Tablet 50 - 100 mg PO Q6H PRN PRN (Reason: Pain Score 4-10) 7 Days Qty: 20 0RF polyethylene glycol 3350 [Miralax] 17 gram/dose powder 17 g PO DAILY Qty: 119 0RF Continued cephalexin 500 mg capsule 500 mg PO BID alpha lipoic acid 200 mg capsule 600 mg PO DAILY gabapentin 300 mg capsule 900 mg PO TID ginseng 100 MG capsule 100 mg PO DAILY ascorbic acid (vitamin C) 500 MG tablet 1,000 mg PO DAILY@0800 aspirin 81 MG tablet,chewable 81 mg PO DAILY@0800 alendronate 70 mg tablet 70 mg PO Q7D@0700 dofetilide 500 mcg capsule 500 mcg PO 0600,1800 Rx Instructions: 500 mcg orally; takes at 0600, 1800 atorvastatin 10 mg tablet 10 mg PO QHS Rx Instructions: TAKE ONE TABLET BY MOUTH NIGHTLY AT BEDTIME Xarelto 20 mg tablet 20 mg PO DAILY Rx Instructions: TAKE 1 TABLET BY MOUTH DAILY metoprolol succinate 25 mg tablet extended release 24 hr 12.5 mg PO DAILY Qty: 45 3RF Discontinued acetaminophen 500 mg tablet 500 mg PO Q6H PRN (Reason: Pain) multivitamin with folic acid 1 TABLET tablet 1 tab PO DAILY calcium carbonate-vitamin D3 1 EACH tablet 1 ea PO DAILY No Action GI102 Patient Comments: CLINICAL [id number] dose September Referrals / Follow Up: Naveed Morton MD [Primary Care Provider] - Disposition Disposition (needs filled in before D/C Order can be placed): Senior Living Facility (2) Fall Qualifiers: Encounter type: subsequent encounter Qualified Code(s): W19.XXXD - Unspecified fall, subsequent encounter (8) Atherosclerosis of coronary artery of [place] heart without angina pectoris Qualifiers: Coronary Disease-Associated Artery/Lesion type: [place] artery Qualified Code(s): I25.10 - Atherosclerotic heart disease of [place] coronary artery without angina pectoris (15) Hyperlipidemia Qualifiers: Hyperlipidemia type: unspecified Qualified Code(s): E78.5 - Hyperlipidemia, unspecified (16) Constipation Qualifiers: Constipation type: drug induced constipation Qualified Code(s): K59.03 - Drug induced constipation
--- NOTE | 2023-09-24 14:19 | PCM.DC.SUM ---
Providers Date of Admission: 09/09/23 Date of Discharge: 09/24/23 Primary Care Physician: Dr. Naveed Morton MD Reason For Visit: LEFT HIP FRACTURE Diagnosis Discharge Diagnosis (1) Physical debility: Status: Acute Code(s): R53.81 - Other malaise (2) Fall: Status: Acute Code(s): W19.XXXA - Unspecified fall, initial encounter Qualifiers: Encounter type: subsequent encounter Qualified Code(s): W19.XXXD - Unspecified fall, subsequent encounter Plan: Ground-level fall, no syncope. (3) Periprosthetic fracture around internal prosthetic left hip joint, initial encounter: Status: Acute Code(s): M97.02XA - Periprosthetic fracture around internal prosthetic left hip joint, initial encounter Plan: Will follow-up with Dr. Duggan in the office postdischarge from TCU. (4) Hematoma of occipital region of scalp: Status: Resolved Code(s): S00.03XA - Contusion of scalp, initial encounter (5) Normochromic normocytic anemia: Status: Chronic Code(s): D64.9 - Anemia, unspecified Plan: Hemoglobin is stable at 12.4 at the time of discharge. (6) Madi cell carcinoma: Status: Chronic Code(s): C4A.9 - Madi cell carcinoma, unspecified Plan: Treated at [facility]. He is in a research protocol. Gets immunotherapy infusion every 3 weeks at [facility]. (7) Paroxysmal atrial fibrillation: Status: Chronic Code(s): I48.0 - Paroxysmal atrial fibrillation Plan: Continue Xarelto. Continue Tikosyn. Has been in a regular rhythm for the duration of his stay on rehab. (8) Atherosclerosis of coronary artery of [place] heart without angina pectoris: Status: Chronic Code(s): I25.10 - Atherosclerotic heart disease of [place] coronary artery without angina pectoris Qualifiers: Coronary Disease-Associated Artery/Lesion type: [place] artery Qualified Code(s): I25.10 - Atherosclerotic heart disease of [place] coronary artery without angina pectoris (9) Current use of [facility] anticoagulation: Status: Chronic Code(s): Z79.01 - [facility] (current) use of anticoagulants Plan: Continue Xarelto 20 mg daily (10) Chronic antibiotic suppression: Status: Acute Code(s): Z79.2 - [facility] (current) use of antibiotics Plan: Chronically on Keflex for suppression of infection Left hip. 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 (12) History of coronary artery stent placement: Status: Chronic Code(s): Z95.5 - Presence of coronary angioplasty implant and graft Plan: April 2006. (13) Thoracic aortic aneurysm (TAA): Status: Chronic Code(s): I71.2 - Thoracic aortic aneurysm, without rupture Qualifiers: Presence of rupture: without rupture Thoracic aorta location: unspecified Qualified Code(s): I71.20 - Thoracic aortic aneurysm, without rupture, unspecified (14) Neuropathy: Status: Chronic Code(s): G62.9 - Polyneuropathy, unspecified Plan: Continue gabapentin 900 mg 3 times daily. (15) Hyperlipidemia: Status: Chronic Code(s): E78.5 - Hyperlipidemia, unspecified Qualifiers: Hyperlipidemia type: unspecified Qualified Code(s): E78.5 - Hyperlipidemia, unspecified Plan: Continue atorvastatin 10 mg nightly (16) Constipation: Status: Acute Code(s): K59.00 - Constipation, unspecified Qualifiers: Constipation type: drug induced constipation Qualified Code(s): K59.03 - Drug induced constipation Plan: Continue senna and MiraLAX. (17) Obstructive sleep apnea: Status: Acute Code(s): G47.33 - Obstructive sleep apnea (adult) (pediatric) Plan 1. Transfer to transitional care unit today for additional therapy prior to returning home 2. His will transport him to the [facility] in [place] to have CT scans on 09/25/2023. 3. His will transport him to [facility] on 09/26/2023 for immuno infusion treatment of Madi cell carcinoma 4. Will return to transitional care unit following completion of the immuno infusion on 09/26/2023. 5. Has not taken any tramadol since 09/19/2023 but will continue as needed for pain. Medications at Discharge Home Medications ascorbic acid (vitamin C) 500 mg tablet 1,000 mg PO DAILY@0800 vitamin 05/04/13 aspirin 81 mg chewable tablet 81 mg PO DAILY@0800 heart 05/04/13 ginseng 100 mg capsule 100 mg PO DAILY vitamin 05/04/13 alendronate 70 mg tablet 70 mg PO Q7D@0700 bones 03/01/20 cephalexin 500 mg capsule 500 mg PO BID atb 05/30/20 alpha lipoic acid 200 mg capsule 600 mg PO DAILY vitamin 01/01/21 gabapentin 300 mg capsule 900 mg PO TID nerve pain 02/11/23 metoprolol succinate 25 mg tablet,extended release 24 hr 12.5 mg (1/2 x 25 mg) PO DAILY bp #45 TABLETS 07/07/23 GI102 09/08/23 atorvastatin 10 mg tablet 10 mg PO QHS cholesterol 09/09/23 dofetilide 500 mcg capsule 500 mcg PO 0600,1800 heart 09/09/23 rivaroxaban 20 mg tablet (Xarelto) 20 mg PO DAILY blood thinner 09/09/23 Arthritis Pain Compound 3 click topical TID PRN L anterior thigh pain #1 applic 09/24/23 L.acidophil,salivari-Bifido bifidum-Strep thermoph 175 mg capsule 1 cap PO DAILY #1 cap 09/24/23 acetaminophen 500 mg tablet 1,000 mg (2 x 500 mg) PO TID #1 TAB 09/24/23 calcium carbonate 500 mg-vitamin D3 5 mcg (200 unit) tablet (Oyster Shell Calcium-Vitamin D3) 1 tab PO DAILYCM #1 TAB 09/24/23 magnesium hydroxide 400 mg/5 mL oral suspension 30 ml PO X1 PRN Constipation #30 mL 09/24/23 menthol 0.44 %-zinc oxide 20.6 % topical ointment (Calmoseptine) 1 applic topical BID@0600,2200 #113 grams 09/24/23 multivitamin 1 tab PO DAILYCM #1 TAB 09/24/23 polyethylene glycol 3350 17 gram/dose oral powder (Miralax) 17 g PO DAILY #119 grams 09/24/23 sennosides 8.6 mg-docusate sodium 50 mg tablet (Stool Softener-Stimulant Laxative) 2 tab PO BID #1 TAB 09/24/23 tramadol 50 mg tablet 50 - 100 mg (1 - 2 x 50 mg) PO Q6H PRN PRN Pain Score 4-10 7 days #20 tabs 09/24/23 Hospital Course Operations None Procedures None Summary of Care Provided Minutes Spent on Discharge: 40 Hospital Course: ARIANNE BOYER, is a 83-year-old M with a past medical history of neurogenic claudication, lumbar canal stenosis, cervical canal stenosis, peripheral neuropathy, peripheral vascular disease, 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 He struck his head but denied any loss of consciousness. CT scan of the brain revealed no acute findings. CT of the cervical spine showed an anterior cervical fusion at C3-C6 but no acute fractures or subluxations. X-ray of the left hip showed extensive heterotopic bone above the left greater trochanter with no acute abnormality. Patient was unable to ambulate so orthopedics was consulted by the emergency room physician and they felt he had a periprosthetic fracture. He was admitted to the hospitalist service and consultation was obtained with Dr. Duggan from orthopedics. Dr. Duggan compared x-rays done in 2019 with the acute x-rays and there appeared to be an acute fracture of the transverse at the greater trochanter of the left hip. The prosthesis appeared stable. Nonsurgical treatment was recommended in the form of weightbearing as tolerated to the left lower extremity with no active abduction of the hip for 6 weeks. Mr. Boyer was transferred to the acute inpatient rehab unit at [facility] on 09/09/2023 for 3 hours of therapy daily to restore function/independence at or near his level prior to the recent fall. He has peripheral neuropathy and generalized weakness on a chronic basis and uses a rollator for ambulation. Tulio has been getting stronger with therapy and he is able to ambulate longer distances with a FWW but, ambulation is limited by pain. HE initiailly was placed on scheduled Tylenol and Tramadol was later added. The further we get away from the fall the better the pain gets. He has not had any tramadol since 09/19/2023. He is sleeping well at night and the pain is much more tolerable with weightbearing. At the time of DC from rehab Tulio has a new complaint of cough productive of sputum. The cough is off and on throughout the day. Cough is not associated with eating or drinking but, he thinks he may be having difficulty with swallowing. He denies post nasal drip. He denies sore throat and he has no hx of allergies. This is a new problem. The nose is not particularly congested. The throat has no injection and no exudates. The EAC BL are partially occluded with cerumen. He has a hearing aid in the left ear. Auscultation of the lungs reveals coarse crackles in the right base that persisted after several deep breaths. There is no wheezing. He has good air exchange. Not tachypneic and no conversational dyspnea. PA and LAT XRAY has been ordered and I will follow up on this. He was instructed to use the IS for 10 breaths every hour he is awake. Will order a ST eval for swallowing. He has not been febrile and he denies night sweats and shaking chills. He also denies CP. Tulio has done well with therapy but, he can not yet get up the steps into his home and ambulation with FWW is limited by pain. He is making good progress. He is being discharged to TCU for additional therapy prior to returning home. A ramp is being installed at his home so that he will not have to climb steps. Tulio is in a research trial at the [facility] for treatment of [place] cell carcinoma. He is being treated with immunotherapy and gets an infusion every 3 weeks. Prior to the infusion he has CT scans done. He will have CT scans done at [facility] on 09/25/2023 and then return to TCU. He will go to the [facility] on 09/26/2023 for his immunotherapy infusion. He generally has fevers and is very weak for 2 to 3 days following the immune infusion. His is not able to provide the type of assistance he will need after his infusion on Friday. Following the infusion he will return to the transitional care unit. Physical Exam Const alert, oriented x3, no apparent distress and well nourished General Appearance: cooperative and well developed Orientation / Consciousness: Negative for confused HEENT moist oral mucous membranes HEENT Narrative: The hematoma and small laceration over the occiput have healed. No evidence of thrush. The EAC are partially occluded with cerumen BL. He has a hearing aid he wears in the R ear. could not visualize the TM's well due to the cerumen. There is no purulent DC in the canal and he had no pain with traction on the ear lobes. The nose has no significant congestion and there is no DC from the nose. The posterior pharynx is not erythematous and has no exudate. Eyes PERRL and EOMs intact bilaterally Eyes Narrative: No scleral icterus, no conjunctival injection, no discharge from the eyes and no mattering of the eyelashes. Neck No nodes and no carotid bruits General: trachea midline Resp normal respiratory effort and normal air movement Resp Narrative: No conversational dyspnea. He has persistent coarse crackles in the right base even after several deep breaths. He did not cough with taking deep breaths. He denied chest pain. No wheezing. Effort and Inspection: Negative for tachypneic, respiratory distress or labored Cardio regular rate, regular rhythm, S1 normal heart sound, S2 normal heart sound, no murmurs, no rub and no gallops Cardio Narrative: No ectopy GI normal to inspection, nondistended, normoactive bowel sounds, soft to palpation and non-tender GI Narrative: No guarding with palpation. Bowels are moving well now that he has been taking the stool softeners as prescribed. Extremity no calf tenderness Extremity Narrative: He has chronic edema of the left lower extremity and wears a thigh-high compression stocking chronically. There is no pain with compression of the calf on either side or dorsiflexion of the foot. Both feet are warm to the touch. Dorsalis pedis pulses are +2 bilaterally and radial pulses are +2 bilaterally. There are no openings in the skin of the lower extremities. He has superficial varicosities. General Extremity: Negative for clubbing Skin General Skin Exam: no breakdown Rashes: no rashes Neuro CN's II-XII intact bilaterally and no focal motor deficits Neuro Narrative: He does have sensory deficits in the lower extremities secondary to peripheral neuropathy for which he takes gabapentin 900 3 times daily. Coordination / Balance: dvrbxe-sy-nglq test normal and qibr-ca-rhid test normal Speech: speech normal Motor Exam: general weakness Psych affect normal, denies homicidal ideation and denies suicidal ideation Appearance: appropriate Attitude: No agitated Mood & Affect: Negative for depressed or anxious Weight / BMI Weight Weight: 235 lb 2 oz Body Mass Index (BMI) 31.0 ABG / Lab / Microbiology Data 09/23/23 05:04 09/23/23 05:04 D/C Instructions Please Follow Up With: [facility] oncology Meaningful Use Info Meaningful Use Meaningful Use Diagnoses (Choose all that apply): None applicable Ischemic Stroke Statin Dosing Therapy Reference: STATIN DOSE THERAPY REFERENCE: * Patients > 75 years receive moderate or high dose statin therapy. * Patients 75 years or YOUNGER should receive HIGH intensity statin dose unless contraindicated. You will be required to document reason for non-treatment if statin daily dose does not meet guidelines. HIGH DOSE STATIN THERAPY DAILY Atorvastatin > than or = to 40 mg Rosuvastatin > than or = to 20 mg Amlodipine + Atorvastatin > than or = to 2.5/40 mg Ezetimibe + Simvastatin 10/80 mg Simvastatin 80mg Discharge Plan Admission Admit Date/Time: 09/09/23 14:30 Primary Reason for Your Visit: Debility secondary to left hip fracture Attending Provider: Judy Kay Primary Care Provider: Naveed Morton Instructions Additional Instructions / Restrictions: 1. Patience is a virtue. I know from personal experience that are bodies do not heal as quickly as we age and you need to be patient. Overdoing will only increase pain and possible cause a setback in your recovery. 2. Be cautiously adventuresome! Don't do crazy things that are likely to cause injuries. We loved having you on rehab but, I do not think you want to have follow up visits here. 3. Take the pain medication if you need it........it can help you to tolerate therapy better so you can progress and get home. If your pain is 4 or > you should be taking something for pain. I am discharging you on Tylenol 1 GM TID (3X's a day). 4. Sleep is very important in the healing process........if pain is keeping you awake at night take a Tramadol at Bedtime. 5. It has been a pleasure meeting you and I have greatly enjoyed our conversations! Take care of yourself and be gentle with your body.......do not put it in harms way. Stay out of the hospital and keep your adventurous spirit but, temper that with common sense!!! 6. If you or Gissel have any questions after you leave rehab please do not hesitate to call me. OFFICE: [phone] CELL: [phone] Discharge Orders/Prescriptions Prescriptions: New acetaminophen 500 mg Tablet 1,000 mg PO TID Qty: 1 0RF Arthritis Pain Compound 3 click topical TID PRN (Reason: L anterior thigh pain) Qty: 1 0RF Rx Instructions: Apply to the left anterior thigh calcium carbonate-vitamin D3 [Oyster Shell Calcium-Vit D3] 500 mg-5 mcg (200 unit) Tablet 1 tab PO DAILYCM Qty: 1 0RF L.acidoph,saliva-B.bif-S.therm 175 mg Capsule 1 cap PO DAILY Qty: 1 0RF magnesium hydroxide 400 mg/5 mL Suspension 30 ml PO X1 PRN (Reason: Constipation) Qty: 30 0RF menthol-zinc oxide [Calmoseptine] 0.44-20.6 % Ointment 1 applic topical BID@0600,2200 Qty: 113 0RF Protocol: *Topical Application Instructions APPLICATION INSTRUCTIONS: buttocks multivitamin Tablet 1 tab PO DAILYCM Qty: 1 0RF sennosides-docusate sodium [Stool Softener-Stimulant Laxat] 8.6-50 mg Tablet 2 tab PO BID Qty: 1 0RF tramadol 50 mg Tablet 50 - 100 mg PO Q6H PRN PRN (Reason: Pain Score 4-10) 7 Days Qty: 20 0RF polyethylene glycol 3350 [Miralax] 17 gram/dose powder 17 g PO DAILY Qty: 119 0RF Continued cephalexin 500 mg capsule 500 mg PO BID alpha lipoic acid 200 mg capsule 600 mg PO DAILY gabapentin 300 mg capsule 900 mg PO TID ginseng 100 MG capsule 100 mg PO DAILY ascorbic acid (vitamin C) 500 MG tablet 1,000 mg PO DAILY@0800 aspirin 81 MG tablet,chewable 81 mg PO DAILY@0800 alendronate 70 mg tablet 70 mg PO Q7D@0700 dofetilide 500 mcg capsule 500 mcg PO 0600,1800 Rx Instructions: 500 mcg orally; takes at 0600, 1800 atorvastatin 10 mg tablet 10 mg PO QHS Rx Instructions: TAKE ONE TABLET BY MOUTH NIGHTLY AT BEDTIME Xarelto 20 mg tablet 20 mg PO DAILY Rx Instructions: TAKE 1 TABLET BY MOUTH DAILY metoprolol succinate 25 mg tablet extended release 24 hr 12.5 mg PO DAILY Qty: 45 3RF Discontinued acetaminophen 500 mg tablet 500 mg PO Q6H PRN (Reason: Pain) multivitamin with folic acid 1 TABLET tablet 1 tab PO DAILY calcium carbonate-vitamin D3 1 EACH tablet 1 ea PO DAILY No Action GI102 Patient Comments: CLINICAL TRPLZ-fxzkztmfvweza-abgk dose September Referrals / Follow Up: Naveed Morton MD [Primary Care Provider] - Disposition Disposition (needs filled in before D/C Order can be placed): Nursing Home Facility Charges/Coding Visit Charges Inpatient E&M: 22607 Disch Hosp >30min
--- NOTE | 2023-09-24 14:55 | RAD_ITS ---
STUDY: X-RAY CHEST REASON FOR EXAM: Male, 83 years old. Coarse crackles in the right base. TECHNIQUE: Frontal and lateral views of the chest. COMPARISON: March 08, 2022 FINDINGS: Stable mild hyperinflation of the left lung with diffuse mild interstitial prominence. Elevation of the right hemidiaphragm with right basilar atelectasis. Mild diffuse interstitial pattern in the right lung, unchanged. Stable cardiomegaly. Normal mediastinum and florentin. Normal visualized pulmonary arteries. Aortic tortuosity with calcification unchanged. Thoracic osteopenia with diffuse moderate thoracic spondylosis. Normal visualized ribs, clavicles, and shoulders. No abnormality of the visualized soft tissue structures of the upper abdomen. RAD/Chest PA and Lateral IMPRESSION: Stable cardiomegaly, hyperinflation of the left lung with mild diffuse interstitial prominence, elevation of the right hemidiaphragm with right basilar atelectasis and mild diffuse interstitial pattern of the right lung. No interval development of an acute or emergent finding. Electronically Signed: Tee Nguyen MD at 15:11 EDT ,
== END 2023-09-24 14:56 | disposition skilled nursing facility (03) | DRG 561 ==
PROVIDERS: Admitting Provider Internal Medicine; PCP Family Medicine; Referring Provider Internal Medicine; Visit Provider Internal Medicine
DX: M97.02XD Periprosthetic fracture around internal prosthetic left hip joint, subsequent encounter (principal); C4A.9 Merkel cell carcinoma, unspecified; D64.9 Anemia, unspecified; E78.5 Hyperlipidemia, unspecified; E80.4 Gilbert syndrome; I48.0 Paroxysmal atrial fibrillation; G62.9 Polyneuropathy, unspecified; I25.10 Atherosclerotic heart disease of native coronary artery without angina pectoris; K59.03 Drug induced constipation; G47.33 Obstructive sleep apnea (adult) (pediatric); M60.859 Other myositis, unspecified thigh; W19.XXXD Unspecified fall, subsequent encounter; I71.20 Thoracic aortic aneurysm, without rupture, unspecified; S00.03XD Contusion of scalp, subsequent encounter; Z79.01 Long term (current) use of anticoagulants; G47.00 Insomnia, unspecified; Z98.1 Arthrodesis status; Z79.82 Long term (current) use of aspirin; Z95.5 Presence of coronary angioplasty implant and graft; Z79.899 Other long term (current) drug therapy; Z87.891 Personal history of nicotine dependence
CPT/HCPCS: 36415; 70450; 71046; 72125; 73502; 73700; 80048; 80053; 81001; 85025; 85027; 85610; 85730; 94668; 97110; 97112; 97116; 97129; 97140; 97162; 97166; 97530; 97535; 97542; 97802; 99221; 99283; A4216; G0378

== ENCOUNTER 2023-09-24 15:05 | Inpatient (IN) | payer MEDICARE, OTHER, SELFPAY ==
[2023-09-24 15:36] VITALS: PULSE 56; RESP 16; O2SAT 94
[2023-09-24 15:51] VITALS: BP 143/66; PULSE 56; RESP 16; TEMP 36.8; O2SAT 94
[2023-09-24] MEDS: Dofetilide 250 MCG Capsule 500 MCG PO (17:10)
[2023-09-24] MEDS: Rivaroxaban 20 MG Tablet PO (17:10)
--- NOTE | 2023-09-24 17:58 | HP.PCM_ITS ---
HPI - General General Date of Admission: 09/24/23 Date of Service: 09/24/23 Chief Complaint: Here for rehabilitation. HPI Narrative 09/08/2023 ARIANNE BOYER, is a 83 Male who presents to [facility] ED with fall, left hip pain. CT brain negative, CT cervical spine negative fracture, dislocation. X-ray left hip showed heterotopic bone, negative for fracture. Unable to walk, admit to [facility]. Dr. Duggan noted periprosthetic left hip fracture, no surgery recommended. 09/09/2023 Admit to [facility]. PT/OT, Tylenol, Oxycodone for left hip fracture. Xarelto 10mg daily for DVT prophylaxis. 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 09/16/2023 Stop Trazodone, keeps him awake at night. Refusing senna, Miralax. Increase Tramadol for pain control. [facility] for metastatic madi cell cancer, immunotherapy 09/26/2023. 09/17/2023 Left anterior thigh pain, walked [address] left hip showed good alignment left prosthetic hip. Tramadol, Arthritis cream, Baclofen, Lidocaine, Voltaren for left anterior thigh pain. 09/22/2023 Work on car transfer today. [facility] immunotherapy infusion 09/26/2023 for metastatic madi cell cancer. 09/24/2023 Admit to TCU with debility, here for rehabilitation, strengthening, prior to discharge home with . 09/26/2023 [facility] immunotherapy infusion 09/26/2023 for metastatic madi cell cancer. [facility] Medical History (Updated 09/24/23 @ 18:[address] 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 Hyperplastic colon polyp Adrenal adenoma Obesity History of non-ST elevation myocardial infarction (NSTEMI) (2006) Paroxysmal atrial fibrillation Atherosclerosis of coronary artery of [place] heart without angina pectoris Hyperlipidemia Obstructive sleep apnea Home Medications ?Medication ?Instructions ?Recorded ?Last Taken ?Type ascorbic acid (vitamin C) 500 mg 1,000 mg PO DAILY@0800 vitamin 05/04/13 09/24/23 07:45 History tablet aspirin 81 mg chewable tablet 81 mg PO DAILY@0800 heart 05/04/13 09/24/23 07:45 History ginseng 100 mg capsule 100 mg PO DAILY vitamin 05/04/13 05/04/13 History alendronate 70 mg tablet 70 mg PO Q7D@0700 bones 03/01/20 09/21/23 06:15 History cephalexin 500 mg capsule 500 mg PO BID atb 05/30/20 Unknown History alpha lipoic acid 200 mg capsule 600 mg PO DAILY vitamin 01/01/21 Unknown History gabapentin 300 mg capsule 900 mg PO TID nerve pain 02/11/23 09/24/23 13:20 History metoprolol succinate 25 mg 12.5 mg (1/2 x 25 mg) PO DAILY bp 07/07/23 09/24/23 07:45 Rx tablet,extended release 24 hr #45 TABLETS GI102 Immunotherapy 09/08/23 09/02/23 History atorvastatin 10 mg tablet 10 mg PO QHS cholesterol 09/09/23 09/23/23 History dofetilide 500 mcg capsule 500 mcg PO 0600,1800 heart 09/09/23 09/24/23 06:45 History rivaroxaban 20 mg tablet (Xarelto) 20 mg PO DAILY blood thinner 09/09/23 09/23/23 17:10 History Arthritis Pain Compound 3 click topical TID PRN L anterior 09/24/23 09/21/23 Rx thigh pain #1 applic L.acidophil,salivari-Bifido 1 cap PO DAILY Probiotic #1 cap 09/24/23 09/24/23 07:45 Rx bifidum-Strep thermoph 175 mg capsule acetaminophen 500 mg tablet 1,000 mg (2 x 500 mg) PO TID Pain 09/24/23 09/23/23 Rx #1 TAB calcium carbonate 500 mg-vitamin 1 tab PO DAILYCM Supplement #1 TAB 09/24/23 09/24/23 07:45 Rx D3 5 mcg (200 unit) tablet (Oyster Shell Calcium-Vitamin D3) magnesium hydroxide 400 mg/5 mL 30 ml PO X1 PRN Constipation #30 mL 09/24/23 09/20/23 Rx oral suspension menthol 0.44 %-zinc oxide 20.6 % 1 applic topical BID@0600,2200 09/24/23 Unknown Rx topical ointment (Calmoseptine) Skin #113 grams multivitamin 1 tab PO DAILYCM Supplement #1 TAB 09/24/23 09/24/23 07:45 Rx polyethylene glycol 3350 17 17 g PO DAILY Constipation #119 09/24/23 Unknown Rx gram/dose oral powder (Miralax) grams sennosides 8.6 mg-docusate sodium 2 tab PO BID Constipation #1 TAB 09/24/23 09/24/23 Rx 50 mg tablet (Stool Softener-Stimulant Laxative) tramadol 50 mg tablet 50 - 100 mg (1 - 2 x 50 mg) PO Q6H 09/24/23 09/19/23 Rx PRN PRN Pain Score 4-10 7 days #20 tabs Allergy/AdvReac Type Severity Reaction Status Date / Time No Known Allergies Allergy Verified 09/08/23 06:16 Family History Aunt Sudden cardiac age 63 Mother Colon cancer Father Colon cancer Sister Cancer Surgical History History of left heart catheterization (03/11/22) Excisional biopsy of left inguinal lymph node (11/24/18) History of bilateral knee replacement History of left hip replacement History of open reduction and internal fixation (ORIF) procedure History of lumbar laminectomy History of cervical spinal arthrodesis History of right hip replacement (03/2018) History of coronary artery stent placement (04/2006) History of cardioversion (07/01/13) Social History household members: spouse housing: other details: They are all on 1 floor. BR has a walk in shower. number of children: 4 current occupational status: retired pets and animals: No Smoking Status: Former smoker quit date: 06/19/82 alcohol intake: former year quit: 2001 caffeine: Yes Type: coffee Number of servings: 2 what type of physical activity do you participate in: weight training ROS Constitutional Constitutional: Reports fatigue and weakness; Denies chills, fever(s) or weight gain ENT HEENT: Denies headache(s), nasal congestion or nasal discharge Cardiovascular Cardiovascular: Denies chest pain or palpitations Respiratory/Chest Respiratory/Chest: Denies cough, excessive phlegm production or shortness of breath with exertion Gastrointestinal Gastrointestinal: Denies abdominal pain, nausea or vomiting Genitourinary Genitourinary: Denies dysuria Musculoskeletal Musculoskeletal: Denies joint pain or joint swelling Integumentary Integumentary: Denies rash or wounds Neurologic Neurologic: Denies focal weakness, numbness or tingling Psychiatric Psychiatric: Denies anxiety, auditory hallucinations, depression, homicidal ideation or suicidal ideation Vital Signs Vital Signs Vital Signs: 09/24/23 15:51 Temperature 98.2 F Temperature Source Temporal Pulse Rate 56 L Respiratory Rate 16 Blood Pressure 143/66 H Blood Pressure Mean 91 Blood Pressure Source Monitor Pulse Ox 94 Oxygen Delivery Method Room Air Physical Exam Const alert General Appearance: cooperative HEENT normocephalic Eyes PERRL and EOMs intact bilaterally Neck supple, no JVD and no carotid bruits Resp normal respiratory effort, normal air movement and clear to auscultation bilaterally Cardio regular rate and regular rhythm GI normal to inspection, nondistended, normoactive bowel sounds, non-tender and non-distended Extremity normal capillary refill General Extremity: Negative for edema Skin no rashes or lesions noted General Skin Exam: no breakdown Psych affect normal Appearance: appropriate Assessment & Plan Assessment/Plan (1) Debility: (2) Periprosthetic fracture around internal prosthetic left hip joint: (3) Lumbar stenosis: (4) Cervical spinal stenosis: (5) Lumbar radiculopathy: (6) Peripheral neuropathy: (7) PVD (peripheral vascular disease): (8) Austin cell carcinoma: (9) Osteoarthritis: (10) Atrial fibrillation: (11) Abdominal aortic aneurysm (AAA): (12) Hyperlipidemia: QUALIFIERS: Hyperlipidemia type: unspecified Qualified Code(s): E78.5 - Hyperlipidemia, unspecified (13) Coronary artery disease: (14) Obstructive sleep apnea: PLAN: Plan 83 year old male with below past medical history hospitalized for left periprosthetic hip fracture, treated non-operatively, admitted to [facility], then admitted to TCU with debility, here for rehabilitation, strengthening, prior to discharge home with . * Debility - PT/OT. * Pain - Tylenol 1000mg tid, Arthritis pain 3 click topical tid prn, tramadol 50mg to 100mg q6 prn. * Bowel - Miralax 17gm daily, senna/colace 2 tablets bid, Dulcolax 10mg pr x 1 prn, MOM 30ml po x 1 prn. * Adult immunization - Administer pneumonia vaccine, covid vaccine, flu vaccine as appropriate. * DVT prophylaxis - on Xarelto. * Madi cell cancer - immunotherapy at [facility] 09/26/2023, resident will have fever, fatigue, somnolence, weakness, debility, after infusion, will give supportive care. * Osteoporosis - Alendronate 70mg qweek. * Vitamin C deficiency - Vitamin C 1000mg daily. * Coronary artery disease - Metoprolol succinate 12.5mg daily, Aspirin 81mg daily. * Hyperlipidemia - Atorvastatin 10mg qhs. * Calcium deficiency - Calcium D 1 tablet daily. * Left periprosthetic hip fracture - Keflex 500mg bid thru 11/26/2023 for presumed left hip infection. * Atrial fibrillation - Metoprolol succinate 12.5mg daily, Tikosyn 500mg bid, Xarelto 20mg daily. * Peripheral neuropathy - Gabapentin 900mg tid. * GI prophylaxis - Lactobacillus 1 capsule daily. * Skin irritation - Calmoseptine topical bid. * Nutrition - MVI 1 tablet daily.
[2023-09-24] MEDS: Atorvastatin Calcium 10 MG Tablet PO (21:42)
[2023-09-24] MEDS: Gabapentin 300 MG Capsule 900 MG PO (21:42)
[2023-09-24] MEDS: Cephalexin 500 MG Capsule PO (21:42)
[2023-09-24] MEDS: Acetaminophen 500 MG Tablet 1000 MG PO (21:43)
[2023-09-24] MEDS: Menthol/Lanolin/Calamine/Znox 113 GM Tube 1 APPLIC TOPICAL (21:45)
[2023-09-25 05:59] LABS: Absolute Lymphocyte Count 2.13 X10^3/uL (0.83-4.51); Absolute Neutrophil Count 2.5 X10^3/uL (2.0-7.7); Basophil# 0.03 X10^3/uL; Basophil% 0.6 % (0-1); Eosinophil# 0.31 X10^3/uL; Eosinophils% 5.9 % (0-5); Hematocrit 38.4 % (40-54); Hemoglobin 12.3 g/dL (13.0-16.5); Lymphocyte # 2.13 X10^3/ul (0.83-4.51); Lymphocyte % 40.5 % (19-41); Mean Corpuscular Hgb 29.6 pg (27.0-32.0); Mean Corpuscular Volume 92.5 fL (80-94); Mean Platelet Vol. 8.5 fl (6.2-12.0); Monocyte% 5.7 % (0-10); NRBC Flagged by Analyzer 0 % (0-5); Neutrophil # 2.48 X10^3/uL (2.7-7.7); Neutrophil % 47.1 % (47-70); Platelet Count 255 K/mm3 (150-450); RBC Distribution Width SD 51.3 fl (35.1-43.9); Red Blood Count 4.15 M/mm3 (4.6-6.2); White Blood Count 5.3 K/mm3 (4.4-11.0)
[2023-09-25] MEDS: Gabapentin 300 MG Capsule 900 MG PO ×3 (06:07→20:57)
[2023-09-25] MEDS: Acetaminophen 500 MG Tablet 1000 MG PO ×3 (06:08→20:58)
[2023-09-25] MEDS: Dofetilide 250 MCG Capsule 500 MCG PO ×2 (06:08→17:16)
[2023-09-25] MEDS: Menthol/Lanolin/Calamine/Znox 113 GM Tube 1 APPLIC TOPICAL ×2 (06:09→20:59)
[2023-09-25 06:34] LABS: Anion Gap 5 (5-15); BUN 13 mg/dL (7-18); BUN/Creat Ratio 17.9 RATIO (10-20); Calcium,Total 8.9 mg/dL (8.5-10.1); Chloride 104 mmol/L (98-107); Creatinine, Serum 0.73 mg/dL (0.70-1.30); EST Glomerular Filtration Rate 110 mL/min (>60); Est Glom Filt Rate - Afr Amer 133 mL/min (>60); Estimated Creatinine Clearance 89.93 ml/min; Glucose 103 mg/dL (74-106); Potassium 3.9 mmol/L (3.5-5.1); Sodium Level 135 mmol/L (136-145)
[2023-09-25 09:16] VITALS: BP 114/73; PULSE 64
[2023-09-25] MEDS: Lactobacillis Acidophilus 1 CAP PO (09:16)
[2023-09-25] MEDS: Carbamide Peroxide 15 ML Bottle 2 DRP OTIC ×2 (09:16→20:59)
[2023-09-25] MEDS: Metoprolol(XL)Succ 25 MG Tablet 12.5 MG PO (09:16)
[2023-09-25] MEDS: Calcium Carb/Vitamin D 1 TABLET Tablet PO (09:16)
[2023-09-25] MEDS: Cephalexin 500 MG Capsule PO ×2 (09:16→20:57)
[2023-09-25] MEDS: Ascorbic Acid 500 MG Tablet 1000 MG PO (09:16)
[2023-09-25] MEDS: Aspirin 81 MG TAB.CHEW PO (09:17)
[2023-09-25] MEDS: Multivitamins,Therapeutic Tablet 1 TABLET PO (09:17)
[2023-09-25 11:21] VITALS: O2SAT 95
--- NOTE | 2023-09-25 12:04 | NURSING ---
Pt off unit went to CT appt at [facility].
--- NOTE | 2023-09-25 14:34 | NURSING ---
Returned from CT appt at [facility].
[2023-09-25] MEDS: Tuberculin,Purif.prot.deriv. 50 TU/ML Vial 0.1 ML ID (14:41)
[2023-09-25 15:32] VITALS: BP 146/60; PULSE 57; RESP 17; TEMP 36.4; O2SAT 95
[2023-09-25] MEDS: Rivaroxaban 20 MG Tablet PO (17:16)
[2023-09-25] MEDS: Senna/Docusate Sodium 1 Tablet 2 TABLET PO (20:58)
[2023-09-25] MEDS: Atorvastatin Calcium 10 MG Tablet PO (20:59)
--- NOTE | 2023-09-25 21:08 | NURSING ---
Patient requested HS meds earlier, requesting they be given at 1999. This nurse sent communication order to pharmacy requesting this change be made. Administered HS meds to patient.
[2023-09-26] MEDS: Dofetilide 250 MCG Capsule 500 MCG PO ×2 (05:38→18:50)
[2023-09-26] MEDS: Acetaminophen 500 MG Tablet 1000 MG PO ×3 (05:39→23:29)
[2023-09-26] MEDS: Gabapentin 300 MG Capsule 900 MG PO ×2 (05:39→18:49)
[2023-09-26] MEDS: Menthol/Lanolin/Calamine/Znox 113 GM Tube 1 APPLIC TOPICAL ×2 (05:40→18:50)
[2023-09-26 07:38] VITALS: PULSE 72
[2023-09-26] MEDS: Aspirin 81 MG TAB.CHEW PO (07:38)
[2023-09-26] MEDS: Metoprolol(XL)Succ 25 MG Tablet 12.5 MG PO (07:38)
[2023-09-26] MEDS: Cephalexin 500 MG Capsule PO ×2 (07:38→18:49)
[2023-09-26] MEDS: Ascorbic Acid 500 MG Tablet 1000 MG PO (07:38)
[2023-09-26] MEDS: Calcium Carb/Vitamin D 1 TABLET Tablet PO (07:38)
[2023-09-26] MEDS: Multivitamins,Therapeutic Tablet 1 TABLET PO (07:38)
--- NOTE | 2023-09-26 08:41 | NS ---
MST score = 1
--- NOTE | 2023-09-26 10:05 | PCM.PN.DRR ---
TCU RX Drug Regimen Review Subjective/Objective Subjective/Objective: Subjective: DN is a 83 YOM initially admitted to [facility] ED with a concern of left hip pain secondary to a fall on 09/08/23 with a periprosthetic fracture around the internal prosthetic left hip joint. He has been admitted to TCU for rehabilitation and strengthening prior to discharge home where he resides with his . Objective: Allergies No Known Allergies Allergy (Verified 09/08/23 06:16) Current Medications Generic Name Dose Route Start Last Admin Trade Name Freq PRN Reason Stop Dose Admin Acetaminophen 1,000 mg 09/26/23 06:00 09/26/23 05:39 Acetaminophen 500 Mg Tablet PO 1,000 mg 00,1399,1999 [facility] Administration Alendronate Sodium 70 mg 09/28/23 06:00 Alendronate Sodium 70 Mg Tablet PO Q7D@0600 [facility] Ascorbic Acid 1,000 mg 09/25/23 08:00 09/26/23 07:38 Ascorbic Acid 500 Mg Tablet PO 1,000 mg DAILYCM [facility] Administration Aspirin 81 mg 09/25/23 08:00 09/26/23 07:38 Asp[facility] 81 Mg [facility]w [facility] Atorvastatin Calcium 10 mg 09/26/23 20:00 Atorvastatin Calcium 10 Mg Tablet PO 1999 [facility] Bisacodyl 10 mg 09/24/23 15:48 Bisacodyl 10 Mg Suppository RC X1 PRN Constipation Calamine/Phenol 1 applic 09/26/23 06:00 09/26/23 05:40 Menthol/Lanolin/Calamine/Znox 113 Gm Tube TOPICAL 1 applic BID@ [facility] Administration Protocol Calcium/Vitamin D 1 tablet 09/25/23 08:00 09/26/23 07:38 Calcium Carb/Vitamin D 1 Tablet Tablet [facility] Carbamide Perox/Anhydrous Glycerin 2 drp 09/26/23 10:00 Carbamide Peroxide 15 Ml Bottle OTIC 10/01/23 20:01 999,1999 [facility] Cephalexin 500 mg 09/26/23 10:00 09/26/23 07:38 Cephalexin 500 Mg Capsule PO 11/26/23 20:01 500 mg 1000,1999 [facility] Administration Compound Med 3 click 09/24/23 15:53 Arthritis Pain Compound 60 Click Tube TOPICAL TID PRN L anterior thigh pain Dofetilide 500 mcg 09/24/23 18:00 09/26/23 05:38 Dofetilide 250 Mcg Capsule PO 500 mcg 0600,1800 [facility] Administration Gabapentin 900 mg 09/26/23 06:00 09/26/23 05:39 Gabapentin 300 Mg Capsule PO 900 mg 0600,1400,2000 [facility] Administration Magnesium Hydroxide 30 ml 09/24/23 15:43 Magnesium Hydroxide 30 Ml Udc PO X1 PRN Constipation Metoprolol Succinate 12.5 mg 09/25/23 10:00 09/26/23 07:38 Metoprolol(Xl)Succ 25 Mg Tablet PO 12.5 mg DAILY [facility] Administration Protocol Multivitamins 1 tablet 09/25/23 08:00 09/26/23 07:38 Multivitamins,Therapeutic Tablet PO 1 tablet DAILYCM [facility] Administration Polyethylene Glycol 17 gm 09/25/23 10:00 09/25/23 09:18 Polyethylene Glycol 3350 17 Gm Packet PO Not Given DAILY [facility] Rivaroxaban 20 mg 09/24/23 17:00 09/25/23 17:16 Rivaroxaban 20 Mg Tablet PO 20 mg DINNER [facility] Administration Senna/Docusate Sodium 2 tablet 09/26/23 10:00 Senna/Docusate Sodium 1 Tablet PO 1000,2000 [facility] Tramadol HCl 50 - 100 mg 09/24/23 15:46 Tramadol 50 Mg Tablet PO Q6H PRN PRN Pain Score 4-10 Tuberculin PPD 0.1 ml 10/02/23 10:00 Tuberculin,Purif.Prot.Deriv. 50 Tu/Ml Vial ID 10/02/23 10:01 X1 ONE Problem List Coronary artery disease (Acute) Atrial fibrillation (Acute) Abdominal aortic aneurysm (AAA) (Acute) Osteoarthritis (Acute) PVD (peripheral vascular disease) (Acute) Peripheral neuropathy (Acute) Lumbar radiculopathy (Acute) Cervical spinal stenosis (Acute) Lumbar stenosis (Acute) Periprosthetic fracture around internal prosthetic left hip joint (Acute) Debility (Acute) Obstructive sleep apnea (Acute) Hyperlipidemia (Chronic) Madi cell carcinoma (Chronic) Vital Signs Temp Pulse Resp BP Pulse Ox O2 Del Method 97.6 F L 72 17 146/60 H 95 Room Air 09/25/23 15:32 09/26/23 07:38 09/25/23 15:32 09/25/23 15:32 09/25/23 15:32 09/25/23 15:32 Oxygen Delivery Method Room Air Weight: 103.419 kg Body Mass Index (BMI) 30.0 Sodium 135 mmol/L (136-145) L 09/25/23 05:48 Potassium 3.9 mmol/L (3.5-5.1) 09/25/23 05:48 Chloride 104 mmol/L (98-107) 09/25/23 05:48 Carbon Dioxide 26.0 mmol/L (21.0-32.0) 09/25/23 05:48 Anion Gap 5 (5-15) 09/25/23 05:48 BUN 13 mg/dL (7-18) 09/25/23 05:48 Creatinine 0.73 mg/dL (0.70-1.30) 09/25/23 05:48 Est GFR (MDRD) Af Amer 133 mL/min (>60) 09/25/23 05:48 Est GFR (MDRD) Non-Af 110 mL/min (>60) 09/25/23 05:48 BUN/Creatinine Ratio 17.9 RATIO (10-20) 09/25/23 05:48 Glucose 103 mg/dL (74-106) 09/25/23 05:48 Assessment/Plan: 1. Atrial fibrillation- Toprol XL 12.5mg PO daily, Tikosyn 500mg PO BID, Xarelto 20mg PO Daily. Please continue to monitor BP (range 113-143/66-73), pulse (range 56-64), renal function (CrCl 90mL/min on 09/24), potassium (last 3.9 on 09/24), EKG (no QTc on file per EMR review.) 2. Coronary artery disease - Toprol XL 12.5mg PO Daily, Aspirin 81mg PO Daily. Please continue to monitor BP (range 113-143/66-73), pulse (range 56-64), S/S bleeding/bruising, H/H (hgb 12.3, Hct 38.4 on 09/24). 3. Pain - Tylenol 1000mg PO TID, Arthritis pain click topical TID PRN, Tramadol 50-100mg Q6H PO PRN pain 4-10. Please continue to monitor for S/S increased/decreased pain, PRN medication usage, AST&ALT (19 09/23/23 504). Tramadol is a Beers criteria medication known to increase the risk of falls. Pt was admitted with a recent history of falls. If patient starts using tramadol, please monitor closely for falls. - To date, the patient has not utilized any does of PRN Tramadol. pain appears managed at this time with current therapy. 4. Left periprosthetic hip fracture infection suppression - Keflex 500mg BID. Please monitor for signs of infection, CrCl (90 mL/min on 09/24), N/V/D. 5. Peripheral neuropathy - Gabapentin 900mg PO TID. Please continue to monitor renal function (CrCl 90mL/min on 09/24), oversedation. Gabapentin is a Beers criteria medication known to increase the risk of falls. Pt was admitted with a recent history of falls. Please evaluate for the appropriateness of continued use. 6. Bowel - Miralax 17gm PO QD, Senna/docusate 17.2/100mg PO BID, Dulcolax 10mg ID PRN, Milk of Magnesia PO PRN. Please continue to monitor for increased/decreased constipation and/or diarrhea. - The patient had 1 documented bowel movement 09/25/23 (diarrhea) 7. Osteoporosis - Alendronate 70mg PO once weekly. Please continue to monitor Serum Calcium (8.9 on 09/24), mineral bone density as clinically indicated. Please make sure patient does not lie down within 30 minutes after Fosamax administration. 8. Hyperlipidemia - Lipitor 10mg PO QHS. Please continue to monitor lipid panel (TG 69, TC 114, LDL 59, HDL 41 as of 02/14/22). Patient's last lipid panel completed >1 year ago, please consider obtaining a new lipid panel if clinically indicated, thank you. 9. Skin Irritation - Calmoseptine to affected area TID. Please monitor for signs of infection and increasing irritation or rash. 10. General Wellness - Multivitamin PO Daily, Vitamin C 1000mg PO Daily, Calcium Vitamin D 1 tablet PO Daily, Lactobacillus 1 capsule PO Daily. Assessment/Plan for indications treated with psychotropic medications: The patient is not currently being maintained on any psychotropic medications at time of medication list review. Medical chart and medication regimen reviewed. The following medication irregularities or issues were identified: 1. Patient is on Tikosyn, per EMR review, No QTc on file. Patient has a drug interaction with Keflex and Tikosyn (level 1- Increased risk of QTc Prolongation). Patient has been on this combo for quite some time, appears stable. In light of this, please consider obtaining an EKG if clinically indicated, thank you. 2. patient on Lipitor for hyperlipidemia. Lipid panel completed >1 year ago. please consider obtaining a new lipid panel if clinically indicated, thank you. 3. The patient has had documented diarrhea and has scheduled bowel regimen. Please consider changing scheduled dosing of Miralax and Senna-S to PRN if diarrhea persists, thank you. Date Date of Note:: 09/26/23
--- NOTE | 2023-09-26 16:02 | PCA ---
Patient called at 1600 and stated that [facility] computer system worldwide shut down for 1 1/2 hours today so he will return to unit at approximately [phone] instead of the [phone] as originally anticipated.
[2023-09-26 18:43] VITALS: BP 162/78; PULSE 67; RESP 18; TEMP 36.8; O2SAT 95
[2023-09-26] MEDS: Atorvastatin Calcium 10 MG Tablet PO (18:50)
[2023-09-26] MEDS: Rivaroxaban 20 MG Tablet PO (18:50)
--- NOTE | 2023-09-26 18:56 | NURSING ---
pt returned from [facility] after receiving investigational drug GI102 for [employer] cell CA. pt states that he will run a fever next few days, have increased fatigue and difficulty walking. This is his 11th dose[address] Kay in to see pt and requested tylenol order be changed to Q6hrs.
[2023-09-26] MEDS: Carbamide Peroxide 15 ML Bottle 2 DRP OTIC (23:30)
[2023-09-27] MEDS: Acetaminophen 500 MG Tablet 1000 MG PO ×4 (05:49→23:36)
[2023-09-27] MEDS: Gabapentin 300 MG Capsule 900 MG PO ×3 (05:49→20:06)
[2023-09-27] MEDS: Dofetilide 250 MCG Capsule 500 MCG PO ×2 (05:49→17:51)
[2023-09-27] MEDS: Menthol/Lanolin/Calamine/Znox 113 GM Tube 1 APPLIC TOPICAL ×2 (05:51→20:07)
[2023-09-27] MEDS: Ascorbic Acid 500 MG Tablet 1000 MG PO (09:13)
[2023-09-27] MEDS: Aspirin 81 MG TAB.CHEW PO (09:13)
[2023-09-27] MEDS: Lactobacillis Acidophilus 1 CAP PO (09:14)
[2023-09-27] MEDS: Multivitamins,Therapeutic Tablet 1 TABLET PO (09:14)
[2023-09-27] MEDS: Calcium Carb/Vitamin D 1 TABLET Tablet PO (09:14)
[2023-09-27] MEDS: Cephalexin 500 MG Capsule PO ×2 (09:15→20:06)
[2023-09-27 09:16] VITALS: BP 124/59; PULSE 67
[2023-09-27] MEDS: Metoprolol(XL)Succ 25 MG Tablet 12.5 MG PO (09:16)
[2023-09-27] MEDS: Carbamide Peroxide 15 ML Bottle 2 DRP OTIC ×2 (09:19→20:06)
[2023-09-27 12:50] VITALS: BP 124/59; PULSE 67; RESP 18; TEMP 36.3; O2SAT 91
[2023-09-27] MEDS: Rivaroxaban 20 MG Tablet PO (17:50)
[2023-09-27] MEDS: Atorvastatin Calcium 10 MG Tablet PO (20:06)
[2023-09-28] MEDS: Dofetilide 250 MCG Capsule 500 MCG PO ×2 (05:56→17:31)
[2023-09-28] MEDS: Alendronate Sodium 70 MG Tablet PO (05:56)
[2023-09-28] MEDS: Acetaminophen 500 MG Tablet 1000 MG PO ×2 (05:56→12:15)
[2023-09-28] MEDS: Gabapentin 300 MG Capsule 900 MG PO ×3 (05:58→20:39)
[2023-09-28] MEDS: Menthol/Lanolin/Calamine/Znox 113 GM Tube 1 APPLIC TOPICAL ×2 (06:04→20:40)
[2023-09-28 06:31] VITALS: PULSE 76; O2SAT 91
[2023-09-28] MEDS: Cephalexin 500 MG Capsule PO ×2 (08:57→20:39)
[2023-09-28] MEDS: Lactobacillis Acidophilus 1 CAP PO (08:57)
[2023-09-28 08:58] VITALS: BP 112/65; PULSE 78
[2023-09-28] MEDS: Metoprolol(XL)Succ 25 MG Tablet 12.5 MG PO (08:58)
[2023-09-28] MEDS: Multivitamins,Therapeutic Tablet 1 TABLET PO (08:58)
[2023-09-28] MEDS: Aspirin 81 MG TAB.CHEW PO (08:58)
[2023-09-28] MEDS: Senna/Docusate Sodium 1 Tablet 2 TABLET PO (08:58)
[2023-09-28] MEDS: Calcium Carb/Vitamin D 1 TABLET Tablet PO (08:58)
[2023-09-28] MEDS: Ascorbic Acid 500 MG Tablet 1000 MG PO (08:59)
[2023-09-28 14:53] VITALS: BP 112/65; PULSE 78; RESP 16; TEMP 36.6; O2SAT 96
[2023-09-28] MEDS: Rivaroxaban 20 MG Tablet PO (17:31)
[2023-09-28] MEDS: Atorvastatin Calcium 10 MG Tablet PO (20:39)
[2023-09-28] MEDS: Carbamide Peroxide 15 ML Bottle 2 DRP OTIC (20:40)
--- NOTE | 2023-09-28 21:53 | NURSING ---
Spoke w/ Dr. Coombs via phone after report received that resident is requesting scheduled Tylenol be changed to PRN. New orders received and read back for Tylenol 1000 mg po every 6 hours PRN pain.
[2023-09-29] MEDS: Gabapentin 300 MG Capsule 900 MG PO ×3 (06:05→21:18)
[2023-09-29] MEDS: Dofetilide 250 MCG Capsule 500 MCG PO ×2 (06:05→17:59)
[2023-09-29] MEDS: Menthol/Lanolin/Calamine/Znox 113 GM Tube 1 APPLIC TOPICAL ×2 (06:06→21:22)
[2023-09-29 08:13] VITALS: BP 125/66; PULSE 78; RESP 16; TEMP 36.8; O2SAT 94
[2023-09-29 08:16] VITALS: PULSE 78
[2023-09-29] MEDS: Metoprolol(XL)Succ 25 MG Tablet 12.5 MG PO (08:16)
[2023-09-29] MEDS: Ascorbic Acid 500 MG Tablet 1000 MG PO (08:17)
[2023-09-29] MEDS: Calcium Carb/Vitamin D 1 TABLET Tablet PO (08:17)
[2023-09-29] MEDS: Aspirin 81 MG TAB.CHEW PO (08:17)
[2023-09-29] MEDS: Multivitamins,Therapeutic Tablet 1 TABLET PO (08:17)
[2023-09-29] MEDS: Cephalexin 500 MG Capsule PO ×2 (08:20→21:14)
[2023-09-29] MEDS: Lactobacillis Acidophilus 1 CAP PO (08:20)
--- NOTE | 2023-09-29 09:30 | SP.MBSS_ITS ---
Modified Barium Swallow Patient Information Study Date: 09/29/23 Study Time: 10:30 Diagnosis: Gore cell carcinoma C4A.9; Peripheral neuropathy G62.9; M48.02 Referring Physician: Alexandr Coombs Chi Reason for Referral: Objectively assess swallow function, assess risk for aspiration, and determine recommendations for least restrictive diet textures and compensatory strategies to improve safety of swallow. Medical History: 09/08/2023 Patient presented to [facility] ED with fall, left hip pain. CT brain negative, CT cervical spine negative fracture, dislocation. X-ray left hip showed heterotopic bone, negative for fracture. Unable to walk, admit to [facility]. Dr. Duggan noted periprosthetic left hip fracture, no surgery recommended. ?09/09/2023 Admit to for PT/OT. Pt needing more rehab at discharge from . 09/24/2023 Admit to TCU with debility, here for rehabilitation, strengthening, prior to discharge home with . During stays on RU and TCU, he goes to [facility] for metastatic [place] cell cancer, immunotherapy. He was referred for ST consult by Dr. Kay due to coughing after meals and presence of RLL crackles towards end of stay on rehab and start of stay on TCU. GR[employer] CENTER MARKER recommended MBSS prior to BSE as the patient has not been having any reported overt s/s of aspiration with oral intake. PMH: AAA, Chronic antibiotic suppression, Normochromic normocytic anemia, Neurogenic claudication, Infection of prosthetic hip joint, Lumbar stenosis, Cervical spinal stenosis, Neuropathy, Pulmonary ossification, TAA, PAD, Gore cell carcinoma, Metastasis to lymph nodes, Neuroendocrine carcinoma of unknown origin, Lymphadenopathy (inguinal), Mitral annular calcification, Osteoarthritis, Polyneuropathy, Spinal stenosis, Lumbosacral spondylosis, Displ acement of lumbar intervertebral disc with myelopathy, Hyperplastic colon polyp, Adrenal adenoma, Obesity, NSTEMI, A fib, Atherosclerosis of coronary artery of [place] heart without angina pectoris, HLD, CARRILLO. Current Diet Ordered: Regular textures / Thin liquids Respiratory Status: Oxygenating on Room Air Penetration-Aspiration Scale Penetration-Aspiration Scale: OBJECTIVE ASSESSMENT OF SWALLOW FUNCTION (QUANTITATIVE ? PER TRIAL): PENETRATION / ASPIRATION SCALE (MATHIS): 1 = does not enter airway 2 = enters airway/above vocal folds/ejected 3 = enters airway/above vocal folds/not ejected 4 = enters airway/contacts vocal folds/ejected 5 = enters airway/contacts vocal folds/not ejected 6 = enters airway/below vocal folds/ejected 7 = enters airway/below vocal folds/not ejected despite effort 8 = enters airway/below vocal folds/no effort VIDEOFLOROSCOPIC SCALE SCORE (MATHIS): Grade I = aspiration of material that has penetrated into the laryngeal vestibule, intact cough reflex Grade II = aspiration < 10 % of the bolus, intact cough reflex Grade III = aspiration of < 10 % of the bolus, reduced cough reflex or aspiration of > 10 % of the bolus, intact cough reflex Grade IV = aspiration of > 10 % of the bolus, reduced cough reflex Diagnosis/Impression Diagnosis: Mild oropharyngeal dysphagia R13.12; Esophageal dysphagia R13.14 Recommendations Diet: Regular Textures and Thin Liquids Comment: STOP food/drink and resume at a later time if increased s/s of aspiration, sensation of retention, or sensation of reflux and resume food/drink at a later time. Compensatory Strategies: Small Bites, Small Sips, Slow Rate, Alternate bites/solids and sips/liquids (1:1 ratio), Sitting upright and Remain sitting upright for 30 minutes after PO intake (30-60min after meal) Recommend Repeat Modified Barium Swallow: No Need for Skilled Speech Therapy Services: Yes Comment: Dysphagia treatment (3X/week X2-3 weeks) to address mild oropharyngeal dysphagia. -Train the patient in use of strategies to decrease risk for aspiration and reflux aspiration. -Ongoing assessment of diet tolerance of recommended textures. -Train the patient in oropharyngeal exercise program to improve . Recommended Referrals: GI Consult (Esophageal retention of pudding, delayed coughing episodes reported following meals) Education Completed: 1. Described result of evaluation. and 2. Pt understands evaluation & agrees with goals and treatment plan. Status Active ST Patient: Active Contact Information [facility] Speech Therapy:: Marium Mccracken M.A. CCC-GRADE AND CENTER MARKER? Speech-Language Pathologist?? [facility] [address] [place] [address]? [email or web address]?? [phone]
--- NOTE | 2023-09-29 09:30 | ST.MBS ---
Modified Barium Swallow Patient Information Study Date: 09/29/23 Study Time: 10:30 Direct Billable Minutes: 79 Total Minutes procedure & reportin Diagnosis: Madi cell carcinoma C4A.9; Peripheral neuropathy G62.9; M48.02 Referring Physician: Alexandr Coombs Chi Reason for Referral: Objectively assess swallow function, assess risk for aspiration, and determine recommendations for least restrictive diet textures and compensatory strategies to improve safety of swallow. Medical History: 09/08/2023 Patient presented to [facility] ED with fall, left hip pain. CT brain negative, CT cervical spine negative fracture, dislocation. X-ray left hip showed heterotopic bone, negative for fracture. Unable to walk, admit to [facility]. Dr. Duggan noted periprosthetic left hip fracture, no surgery recommended. ?09/09/2023 Admit to for PT/OT. Pt needing more rehab at discharge from . 09/24/2023 Admit to TCU with debility, here for rehabilitation, strengthening, prior to discharge home with . During stays on RU and TCU, he goes to [facility] for metastatic madi cell cancer, immunotherapy. He was referred for ST consult by Dr. Kay due to coughing after meals and presence of RLL crackles towards end of stay on rehab and start of stay on TCU. VARYING EXCEPTIONALITIES TEACHER recommended MBSS prior to BSE as the patient has not been having any reported overt s/s of aspiration with oral intake. Patient reports coughing productive of phlegm throughout his day. 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 Current Diet Ordered: Regular textures / Thin liquids Dentition: WNL and Natural Teeth Mental Status: WNL Respiratory Status: Oxygenating on Room Air Penetration-Aspiration Scale Penetration-Aspiration Scale: OBJECTIVE ASSESSMENT OF SWALLOW FUNCTION (QUANTITATIVE ? PER TRIAL): PENETRATION / ASPIRATION SCALE (MATHIS): 1 = does not enter airway 2 = enters airway/above vocal folds/ejected 3 = enters airway/above vocal folds/not ejected 4 = enters airway/contacts vocal folds/ejected 5 = enters airway/contacts vocal folds/not ejected 6 = enters airway/below vocal folds/ejected 7 = enters airway/below vocal folds/not ejected despite effort 8 = enters airway/below vocal folds/no effort VIDEOFLOROSCOPIC SCALE SCORE (MATHIS): Grade I = aspiration of material that has penetrated into the laryngeal vestibule, intact cough reflex Grade II = aspiration < 10 % of the bolus, intact cough reflex Grade III = aspiration of < 10 % of the bolus, reduced cough reflex or aspiration of > 10 % of the bolus, intact cough reflex Grade IV = aspiration of > 10 % of the bolus, reduced cough reflex Penetration-Aspiration Scale Score Thin Liquid via teaspoon: Result: 2= enter airway/above vocal folds/ejected Thin Liquid via teaspoon Trial 2: Result: 2= enter airway/above vocal folds/ejected Thin Liquid via small single sip: cup: Result: 1= does not enter airway Thin Liquid via sequential sips: cup: Result: 2= enter airway/above vocal folds/ejected [place] Thick Liquid via large single sip: cup: Result: 2= enter airway/above vocal folds/ejected Comment: Prior to the swallow, trace barium in the laryngeal vestibule, which is likely residue from previous trial. This trace residue had SILENT aspiration during the nectar/mildly thick liquid trial. Pudding via teaspoon: Result: 1= does not enter airway Comment: Esophageal Screen - Retention of pudding throughout the esophagus with patient experiencing no sensation of retention. Cued cough and re-swallow after this trial to clear any trace residues remaining in the laryngeal vestibule. Thin Liquid via single sip: straw: Result: 1= does not enter airway Comment: Esophageal screen - Somewhat effective in clearing pudding residue from the esophagus. 1/2 Cookie: Result: 1= does not enter airway Thin Liquid via single sip: straw Trial 2: Result: 1= does not enter airway Comment: Esophageal screen - Minimal esophageal retention of this trial and previous trial. Oral Phase Labial Seal: No Labial Escape Tongue Control During Bolus Hold: Cohesive bolus between tongue to palatal seal Bolus Preparation/Mastication: Timely and efficient chewing and mashing Bolus Transport/Lingual Motion: Brisk tongue motion Oral Residue: Residue collection on oral structures Pharyngeal Phase Initiation of Pharyngeal Swallow: Bolus head in valleculae Soft Palate Elevation: Trace column of contrast/air between soft palate and pharyngeal wall Laryngeal Elevation: Comp. Superior move thyroid cart w/comp. apprx arytenoid cart-epig pet Anterior Hyoid Excursion: Complete anterior movement Epiglottic Movement: Complete inversion Laryngeal Vestibule Closure at Height of Swallow: Complete; no air/contrast in laryngeal vestibule Pharyngeal Stripping Wave: Present - diminished Pharyngoesophageal Segment Opening: Parital distension and partial duration; parital obstruction of flow Tongue Base Retraction: Narrow column of contrast between tongue base & post. pharyngeal wall Pharyngeal Residue: Collection of residue within or on pharyngeal structures Esophageal Phase Esophageal Clearance: Esophageal retention w/ retrograde flow through pharyngoesophageal seg Diagnosis/Impression Diagnosis: Mild pharyngeal dysphagia R13.13; Esophageal dysphagia R13.14 Impression: The pharyngeal phase is primarily marked by... -Mildly decreased tongue base retraction, pharyngeal stripping wave, and UES opening/duration with resulting trace-mild pharyngeal residues most notable with thicker textures. -Trace SILENT aspiration of residues of thin liquids via sequential straw sip observed during mildly thick liquid trial possibly due to spillage of trace pharyngeal residue to the laryngeal vestibule after the swallow. The esophageal phase is primarily marked by... -Trace retention of thin liquid via cup in the upper esophagus with retrograde flow through the UES. -Retention of pudding throughout the esophagus, which somewhat cleared with thin liquid wash. Patient had no sensation of esophageal retention. Recommendations Diet: Regular Textures and Thin Liquids Comment: STOP food/drink and resume at a later time if increased s/s of aspiration, sensation of retention, or sensation of reflux and resume food/drink at a later time. Compensatory Strategies: Small Bites, Small Sips, Slow Rate, Alternate bites/solids and sips/liquids (1:1 ratio), Sitting upright and Remain sitting upright for 30 minutes after PO intake (30-60min after meal) Recommend Repeat Modified Barium Swallow: No Need for Skilled Speech Therapy Services: Yes Comment: Dysphagia treatment (3X/week X2-3 weeks) to address mild pharyngeal dysphagia. -Train the patient in use of strategies to decrease risk for aspiration and reflux aspiration. -Ongoing assessment of diet tolerance of recommended textures. -Train the patient in oropharyngeal exercise program to improve tongue base retraction, pharyngeal contraction, and UES opening/duration ([place], Effortful, Radames). Recommended Referrals: GI Consult (Esophageal retention of pudding, delayed coughing episodes reported following meals) Education Completed: 1. Described result of evaluation. and 2. Pt understands evaluation & agrees with goals and treatment plan. Status Active ST Patient: Active Contact Information [facility] Speech Therapy:: Marium Mccracken M.A. CCC-VARYING EXCEPTIONALITIES TEACHER? Speech-Language Pathologist?? [facility] [address] [place] [address]? [email or web address]?? [phone]
[2023-09-29 10:00] VITALS: O2SAT 94
--- NOTE | 2023-09-29 11:31 | NURSING ---
Offered covid vaccine, VIS provided. Patient refuses at this time.
--- NOTE | 2023-09-29 11:41 | CASEMGMT ---
Social Work SW met with patient at bedside to complete initial intake assessment. SW introduced self and role. Patient was previously on Rehab unit. Patient confirmed demographics and contact information. Patient confirmed code status: Full Code. Patient informed SW that he has a an advance directive; , Gissel Prado is his primary decision maker. Patient informed SW that his goal is to return home when medically appropriate. Patient informed SW that he would like to transition from wheelchair to walker prior to discharge home. Patient is open to recommendation for home health care services. SW educated patient on Medicare coverage and benefits. Patient informed SW that he would like to discharge prior to 20th day on 10/13. Patient informed SW that he has next infusion scheduled for 10/12. SW will continue to monitor to support discharge planning. KARL Del Toro
[2023-09-29] MEDS: Rivaroxaban 20 MG Tablet PO (17:59)
[2023-09-29] MEDS: Carbamide Peroxide 15 ML Bottle 2 DRP OTIC (21:14)
[2023-09-29] MEDS: Atorvastatin Calcium 10 MG Tablet PO (21:15)
[2023-09-30] MEDS: Dofetilide 250 MCG Capsule 500 MCG PO ×2 (06:22→17:49)
[2023-09-30] MEDS: Gabapentin 300 MG Capsule 900 MG PO ×3 (06:22→19:54)
[2023-09-30] MEDS: Menthol/Lanolin/Calamine/Znox 113 GM Tube 1 APPLIC TOPICAL ×2 (06:25→19:54)
[2023-09-30] MEDS: Multivitamins,Therapeutic Tablet 1 TABLET PO (09:18)
[2023-09-30] MEDS: Aspirin 81 MG TAB.CHEW PO (09:18)
[2023-09-30] MEDS: Calcium Carb/Vitamin D 1 TABLET Tablet PO (09:18)
[2023-09-30] MEDS: Ascorbic Acid 500 MG Tablet 1000 MG PO (09:19)
[2023-09-30] MEDS: Lactobacillis Acidophilus 1 CAP PO (09:19)
[2023-09-30] MEDS: Cephalexin 500 MG Capsule PO ×2 (09:19→19:54)
[2023-09-30 09:20] VITALS: BP 120/71; PULSE 76
[2023-09-30] MEDS: Metoprolol(XL)Succ 25 MG Tablet 12.5 MG PO (09:20)
--- NOTE | 2023-09-30 12:37 | NURSING ---
Patient informed that another patient on unit tested positive for Covid today. He stated he will inform family.
[2023-09-30 13:57] VITALS: BP 120/71; PULSE 76; RESP 16; TEMP 36.8; O2SAT 95
[2023-09-30 14:59] VITALS: BMI 30.2
--- NOTE | 2023-09-30 16:35 | EX.PCM.CON.G ---
HPI Consult Data Date of Consult: 10/01/23 HPI Narrative Reason for Consultation: Esophageal dysphagia HPI Narrative: ARIANNE BOYER, is a 83 M who presented to the hospital after mechanical fall at home. He was working out and stood up and lost his balance and fell down and hit the back of his head. He did not lose consciousness and the fall was mechanical. He does have a history of peripheral neuropathy that he takes gabapentin for, and he states that overworked the [facility] and they were not able to find a definitive diagnosis for his neuropathy. He is never done any physical therapy for his neuropathy either. 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 He was having significant pain in the ER with ambulation so he was admitted for physical therapy and observation. He was diagnosed with 83-year-old male presented to the hospital after having mechanical fall at home. His prosthesis is seated well and is nonoperative in terms of a nondisplaced periprosthetic fracture. Orthopedic surgery was consulted and felt that he was weightbearing as tolerated but given the significant pain proceeded with potential discharge to rehab. There was some concern about possible aspiration or esophageal dysphagia so he underwent evaluation by speech therapy. He was diagnosed with mild pharyngeal dysphagia and moderate esophageal dysphagia. His esophageal dysphagia was defined by retention of pudding throughout the esophagus that cleared with liquid wash but patient had no sensation of regurgitation. [facility] Medical History (Updated 10/01/23 @ 13:[address] 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 Hyperplastic colon polyp Adrenal adenoma Obesity History of non-ST elevation myocardial infarction (NSTEMI) (2006) Paroxysmal atrial fibrillation Atherosclerosis of coronary artery of [place] heart without angina pectoris Hyperlipidemia Obstructive sleep apnea Home Medications ?Medication ?Instructions ?Recorded ?Last Taken ?Type ascorbic acid (vitamin C) 500 mg 1,000 mg PO DAILY@0800 vitamin 05/04/13 09/24/23 07:45 History tablet aspirin 81 mg chewable tablet 81 mg PO DAILY@0800 heart 05/04/13 09/24/23 07:45 History ginseng 100 mg capsule 100 mg PO DAILY vitamin 05/04/13 05/04/13 History alendronate 70 mg tablet 70 mg PO Q7D@0700 bones 03/01/20 09/21/23 06:15 History cephalexin 500 mg capsule 500 mg PO BID atb 05/30/20 Unknown History alpha lipoic acid 200 mg capsule 600 mg PO DAILY vitamin 01/01/21 Unknown History gabapentin 300 mg capsule 900 mg PO TID nerve pain 02/11/23 09/24/23 13:20 History metoprolol succinate 25 mg 12.5 mg (1/2 x 25 mg) PO DAILY bp 07/07/23 10/01/23 Rx tablet,extended release 24 hr #45 TABLETS GI102 Immunotherapy 09/08/23 09/02/23 History atorvastatin 10 mg tablet 10 mg PO QHS cholesterol 09/09/23 09/23/23 History dofetilide 500 mcg capsule 500 mcg PO 0600,1800 heart 09/09/23 09/24/23 06:45 History rivaroxaban 20 mg tablet (Xarelto) 20 mg PO DAILY blood thinner 09/09/23 09/23/23 17:10 History Arthritis Pain Compound 3 click topical TID PRN L anterior 09/24/23 09/21/23 Rx thigh pain #1 applic L.acidophil,salivari-Bifido 1 cap PO DAILY Probiotic #1 cap 09/24/23 09/24/23 07:45 Rx bifidum-Strep thermoph 175 mg capsule acetaminophen 500 mg tablet 1,000 mg (2 x 500 mg) PO TID Pain 09/24/23 09/23/23 Rx #1 TAB calcium carbonate 500 mg-vitamin 1 tab PO DAILYCM Supplement #1 TAB 09/24/23 09/24/23 07:45 Rx D3 5 mcg (200 unit) tablet (Oyster Shell Calcium-Vitamin D3) magnesium hydroxide 400 mg/5 mL 30 ml PO X1 PRN Constipation #30 mL 09/24/23 09/20/23 Rx oral suspension menthol 0.44 %-zinc oxide 20.6 % 1 applic topical BID@0600,2200 09/24/23 Unknown Rx topical ointment (Calmoseptine) Skin #113 grams multivitamin 1 tab PO DAILYCM Supplement #1 TAB 09/24/23 09/24/23 07:45 Rx polyethylene glycol 3350 17 17 g PO DAILY Constipation #119 09/24/23 Unknown Rx gram/dose oral powder (Miralax) grams sennosides 8.6 mg-docusate sodium 2 tab PO BID Constipation #1 TAB 09/24/23 09/24/23 Rx 50 mg tablet (Stool Softener-Stimulant Laxative) tramadol 50 mg tablet 50 - 100 mg (1 - 2 x 50 mg) PO Q6H 09/24/23 10/01/23 Rx PRN PRN Pain Score 4-10 7 days #20 tabs Allergy/AdvReac Type Severity Reaction Status Date / Time No Known Allergies Allergy Verified 10/01/23 12:28 Family History Aunt Sudden cardiac age 63 Mother Colon cancer Father Colon cancer Sister Cancer Surgical History History of left heart catheterization (03/11/22) Excisional biopsy of left inguinal lymph node (11/24/18) History of bilateral knee replacement History of left hip replacement History of open reduction and internal fixation (ORIF) procedure History of lumbar laminectomy History of cervical spinal arthrodesis History of right hip replacement (03/2018) History of coronary artery stent placement (04/2006) History of cardioversion (07/01/13) Social History household members: spouse housing: other details: They are all on 1 floor. BR has a walk in shower. number of children: 4 current occupational status: retired pets and animals: No Smoking Status: Former smoker quit date: 06/19/82 alcohol intake: former year quit: 2001 caffeine: Yes Type: coffee Number of servings: 2 what type of physical activity do you participate in: weight training ROS Constitutional Constitutional: Reports fatigue and weakness; Denies chills, fever(s) or weight gain ENT HEENT: Denies headache(s), nasal congestion or nasal discharge Cardiovascular Cardiovascular: Denies chest pain or palpitations Respiratory/Chest Respiratory/Chest: Denies cough, excessive phlegm production or shortness of breath with exertion Gastrointestinal Gastrointestinal: Denies abdominal pain, nausea or vomiting Genitourinary Genitourinary: Denies dysuria Musculoskeletal Musculoskeletal: Denies joint pain or joint swelling Integumentary Integumentary: Denies rash or wounds Neurologic Neurologic: Denies focal weakness, numbness or tingling Psychiatric Psychiatric: Denies anxiety, auditory hallucinations, depression, homicidal ideation or suicidal ideation Physical Exam Const alert General Appearance: cooperative HEENT normocephalic Eyes PERRL and EOMs intact bilaterally Neck supple, no JVD and no carotid bruits Resp normal respiratory effort, normal air movement and clear to auscultation bilaterally Cardio regular rate and regular rhythm GI normal to inspection, nondistended, normoactive bowel sounds, non-tender and non-distended Extremity normal capillary refill General Extremity: Negative for edema Skin no rashes or lesions noted General Skin Exam: no breakdown Psych affect normal Appearance: appropriate Lab / Micro Data 09/25/23 05:48 09/25/23 05:48 Assessment & Plan Assessment/Plan (1) Dysphagia: PLAN: 83-year-old gentleman with coronary artery disease, aortic aneurysm, peripheral artery disease, 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 His swallow study had revealed mild oropharyngeal dysphagia and moderate esophageal dysphagia. He does complain of intermittent problems with food bolus transfer into the esophagus and on occasion he has gotten food stuck. He has lost about 8 pounds. He does not notice any problems with pills. He has no history of smoking. He has not had any antibiotics recently or any iron products. His imaging did not show any signs of cervical lymphadenopathy. He has never had upper endoscopy previously. He does have a history of intermittent gastroesophageal reflux disease that he said is controlled on medicines. He denied any hematemesis or melena. He does have a abdominal aortic aneurysm but there is no known history of thoracic aortic aneurysm. Differential diagnosis for his esophageal dysphagia does include achalasia with pseudo achalasia secondary to his Madi cell lymphoma, esophageal web, esophageal ring, esophageal stricture. He should undergo an upper endoscopy to evaluate his upper GI tract. He was explained alternatives, risk, benefits include not withstanding bleeding, infection, sepsis, perforation, need for emergent urgent . He will have an ASA of 3. Charges/Coding Visit Charges Inpatient E&M: 68667 SNF Init L2
[2023-09-30] MEDS: Rivaroxaban 20 MG Tablet PO (17:48)
[2023-09-30] MEDS: Atorvastatin Calcium 10 MG Tablet PO (19:54)
[2023-09-30] MEDS: Carbamide Peroxide 15 ML Bottle 2 DRP OTIC (19:55)
[2023-09-30 20:15] VITALS: PULSE 64; RESP 16; O2SAT 94
[2023-10-01] MEDS: Dofetilide 250 MCG Capsule 500 MCG PO ×2 (05:26→18:03)
[2023-10-01] MEDS: Cephalexin 500 MG Capsule PO ×2 (05:26→20:54)
[2023-10-01] MEDS: Menthol/Lanolin/Calamine/Znox 113 GM Tube 1 APPLIC TOPICAL ×2 (05:27→20:53)
[2023-10-01 08:09] VITALS: BP 133/63; PULSE 55
[2023-10-01] MEDS: Metoprolol(XL)Succ 25 MG Tablet 12.5 MG PO (08:09)
--- NOTE | 2023-10-01 08:36 | NURSING ---
Requisition Approver Note; MDS for 10/01/2023 Complete
[2023-10-01] MEDS: traMADol 50 MG Tablet PO (10:30)
--- NOTE | 2023-10-01 13:08 | NURSING ---
Patient taken down for EGD at 1215.
--- NOTE | 2023-10-01 13:56 | NURSING ---
Return from EGD at this time. Patient tolerated well. Biopsies taken and esophagus stretched. Patient able to return to regular diet. Meal ordered after patient return per patient request.
--- NOTE | 2023-10-01 14:14 | NURSING ---
This nurse entered room and patient was self-transferring from the bed to the chair. Discussed with patient that though he feels ready to be ad arianne, therapy has not cleared him to self transfer and that he still needs to call us before transferring. Patient expressed understanding.
--- NOTE | 2023-10-01 14:15 | CASEMGMT ---
Social Work- Care Planning IDT met with patient at bedside to complete care planning. Discussed patient progress with therapy (PT/OT/ST), activities, and dietary. Patient has no needs for activities. Patient is on a cardiac diet; no meat except fish. Patient had a modified barium swallow and EGD. Patient is ambulating 800ft and walking up 13 steps with walker and contact guard/ SBA. Patient will require assistance with lower body dressing with mayuri hose. Patient's goal is to return home with home health. Patient informed ÁNGEL that he would like to discharge on 10/11/2023 prior to next infusion. SW inquired about home health care and outpatient therapy. Patient informed ÁNGEL that he would like to review discuss that with his , Gissel. ÁNGEL will continue to support discharge planning. KARL Del Toro
[2023-10-01 14:16] VITALS: BP 156/70; PULSE 58; RESP 16; TEMP 36.6; O2SAT 93
[2023-10-01] MEDS: Aspirin 81 MG TAB.CHEW PO (14:26)
[2023-10-01] MEDS: Ascorbic Acid 500 MG Tablet 1000 MG PO (14:26)
[2023-10-01] MEDS: Calcium Carb/Vitamin D 1 TABLET Tablet PO (14:26)
[2023-10-01] MEDS: Lactobacillis Acidophilus 1 CAP PO (14:26)
[2023-10-01] MEDS: Multivitamins,Therapeutic Tablet 1 TABLET PO (14:26)
[2023-10-01] MEDS: Gabapentin 300 MG Capsule 900 MG PO ×2 (14:27→20:59)
[2023-10-01] MEDS: Rivaroxaban 20 MG Tablet PO (18:03)
--- NOTE | 2023-10-01 19:14 | DS.PCM_ITS ---
Providers Date of Admission: 09/24/23 Primary Care Physician: Dr. Naveed Morton MD Consultations 09/29/23 17:28 Consult: Gastroenterology Routine Consulting Provider: [facility] Reason for Consult: ST noted esophageal retention. EMERGENT Consult: No MD Notified: Yes Date Notified: 09/30/23 Time Notified: 08:12 Method of Notification: Text Reason For Visit: LEFT HIP FRACTURE Diagnosis Discharge Diagnosis (1) Dysphagia: Status: Acute Code(s): R13.10 - Dysphagia, unspecified Plan 83 year old male with below past medical history hospitalized for left periprosthetic hip fracture, treated non-operatively, admitted to RU, then admitted to TCU with debility, here for rehabilitation, strengthening, prior to discharge home with . * Debility - PT/OT. * Pain - Tylenol 1000mg tid, Arthritis pain 3 click topical tid prn, tramadol 50mg to 100mg q6 prn. * Bowel - Miralax 17gm daily, senna/colace 2 tablets bid, Dulcolax 10mg pr x 1 prn, MOM 30ml po x 1 prn. * Adult immunization - Administer pneumonia vaccine, covid vaccine, flu vaccine as appropriate. * DVT prophylaxis - on Xarelto. 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 * Osteoporosis - Alendronate 70mg qweek. * Vitamin C deficiency - Vitamin C 1000mg daily. * Coronary artery disease - Metoprolol succinate 12.5mg daily, Aspirin 81mg daily. * Hyperlipidemia - Atorvastatin 10mg qhs. * Calcium deficiency - Calcium D 1 tablet daily. * Left periprosthetic hip fracture - Keflex 500mg bid thru 11/26/2023 for presumed left hip infection. * Atrial fibrillation - Metoprolol succinate 12.5mg daily, Tikosyn 500mg bid, Xarelto 20mg daily. * Peripheral neuropathy - Gabapentin 900mg tid. * GI prophylaxis - Lactobacillus 1 capsule daily. * Skin irritation - Calmoseptine topical bid. * Nutrition - MVI 1 tablet daily. Medications at Discharge Home Medications ascorbic acid (vitamin C) 500 mg tablet 1,000 mg PO DAILY@0800 vitamin 05/04/13 aspirin 81 mg chewable tablet 81 mg PO DAILY@0800 heart 05/04/13 ginseng 100 mg capsule 100 mg PO DAILY vitamin 05/04/13 alendronate 70 mg tablet 70 mg PO Q7D@0700 bones 03/01/20 alpha lipoic acid 200 mg capsule 600 mg PO DAILY vitamin 01/01/21 gabapentin 300 mg capsule 900 mg PO TID nerve pain 02/11/23 metoprolol succinate 25 mg tablet,extended release 24 hr 12.5 mg (1/2 x 25 mg) PO DAILY bp #45 TABLETS 07/07/23 GI102 Immunotherapy 09/08/23 atorvastatin 10 mg tablet 10 mg PO QHS cholesterol 09/09/23 dofetilide 500 mcg capsule 500 mcg PO 0600,1800 heart 09/09/23 rivaroxaban 20 mg tablet (Xarelto) 20 mg PO DAILY blood thinner 09/09/23 L.acidophil,salivari-Bifido bifidum-Strep thermoph 175 mg capsule 1 cap PO DAILY Probiotic #1 cap 09/24/23 calcium carbonate 500 mg-vitamin D3 5 mcg (200 unit) tablet (Oyster Shell Calcium-Vitamin D3) 1 tab PO DAILYCM Supplement #1 TAB 09/24/23 multivitamin 1 tab PO DAILYCM Supplement #1 TAB 09/24/23 cephalexin 500 mg capsule 500 mg PO 1000,2000 30 days #60 caps 10/01/23 tramadol 50 mg tablet 50 - 100 mg (1 - 2 x 50 mg) PO Q6H PRN PRN Pain Score 4-10 7 days #56 tabs 10/01/23 Hospital Course Operations None Procedures EGD Summary of Care Provided Minutes Spent on Discharge: 35 Hospital Course: 83 year old male with below past medical history hospitalized for left periprosthetic hip fracture, treated non-operatively, admitted to RU, then admitted to TCU with debility, here for rehabilitation, strengthening, prior to discharge home with . 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 10/01/2023 Dr. Wells EGD: Impressions : - Abnormal esophageal motility, suspicious for achalasia. Dilated. - Z-line irregular, 40 cm from the incisors. Biopsied. - Medium-sized hiatal hernia. - No gross lesions in the first portion of the duodenum. Keflex 500mg bid thru 11/26/2023 for presumed left hip infection per Ortho. Discharge home with 10/11/2023, Outpatient PT/OT/ST. Physical Exam Const alert General Appearance: cooperative HEENT normocephalic Eyes PERRL and EOMs intact bilaterally Neck supple, no JVD and no carotid bruits Resp normal respiratory effort, normal air movement and clear to auscultation bilaterally Cardio regular rate and regular rhythm GI normal to inspection, nondistended, normoactive bowel sounds, non-tender and non-distended Extremity normal capillary refill General Extremity: Negative for edema Skin no rashes or lesions noted General Skin Exam: no breakdown Psych affect normal Appearance: appropriate Weight / BMI Weight Weight: 103.929 kg Body Mass Index (BMI) 30.2 ABG / Lab / Microbiology Data 09/25/23 05:48 09/25/23 05:48 Microbiology: Microbiology 09/26/23 20:00 Nasal Secretion SARS-CoV-2 Antigen (Rapid) - Final D/C Instructions Discharge Diet: No restrictions Discharge Activity: Return to Normal Activity, May Shower and Use Walker Weight Bearing Status: Weight bearing as tolerated Call your doctor if you observe: Fever of 101 or Higher, Inability to urinate, Inability to have a bowel movement, Shortness of breath, Dizziness, Fainting spells, Swelling in the ankles, Chest pain and Uncontrolled pain Additional Instructions: Discharge home with 10/11/2023, Outpatient PT/OT/ST. Meaningful Use Info Meaningful Use Meaningful Use Diagnoses (Choose all that apply): None applicable Ischemic Stroke Statin Dosing Therapy Reference: STATIN DOSE THERAPY REFERENCE: * Patients > 75 years receive moderate or high dose statin therapy. * Patients 75 years or YOUNGER should receive HIGH intensity statin dose unless contraindicated. You will be required to document reason for non-treatment if statin daily dose does not meet guidelines. HIGH DOSE STATIN THERAPY DAILY Atorvastatin > than or = to 40 mg Rosuvastatin > than or = to 20 mg Amlodipine + Atorvastatin > than or = to 2.5/40 mg Ezetimibe + Simvastatin 10/80 mg Simvastatin 80mg Discharge Plan Admission Admit Date/Time: 09/24/23 15:05 Primary Reason for Your Visit: Debility. Attending Provider: Alexandr Coombs Chi Primary Care Provider: Naveed Morton Instructions Additional Instructions / Restrictions: Discharge home with 10/11/2023, Outpatient PT/OT/ST. Discharge Orders/Prescriptions Prescriptions: New tramadol 50 mg Tablet 50 - 100 mg PO Q6H PRN PRN (Reason: Pain Score 4-10) 7 Days Qty: 56 0RF cephalexin 500 mg Capsule 500 mg PO 999,1999 30 Days Qty: 60 0RF Continued alpha lipoic acid 200 mg capsule 600 mg PO DAILY gabapentin 300 mg capsule 900 mg PO TID ginseng 100 MG capsule 100 mg PO DAILY ascorbic acid (vitamin C) 500 MG tablet 1,000 mg PO DAILY@0800 aspirin 81 MG tablet,chewable 81 mg PO DAILY@0800 alendronate 70 mg tablet 70 mg PO Q7D@0700 GI102 Patient Comments: CLINICAL TJJHI-yxiogsiplvokk-udvo dose September dofetilide 500 mcg capsule 500 mcg PO 0600,1800 Rx Instructions: 500 mcg orally; takes at 0600, 1800 atorvastatin 10 mg tablet 10 mg PO QHS Rx Instructions: TAKE ONE TABLET BY MOUTH NIGHTLY AT BEDTIME Xarelto 20 mg tablet 20 mg PO DAILY Rx Instructions: TAKE 1 TABLET BY MOUTH DAILY calcium carbonate-vitamin D3 [Oyster Shell Calcium-Vit D3] 500 mg-5 mcg (200 unit) Tablet 1 tab PO DAILYCM Qty: 1 0RF L.acidoph,saliva-B.bif-S.therm 175 mg Capsule 1 cap PO DAILY Qty: 1 0RF multivitamin Tablet 1 tab PO DAILYCM Qty: 1 0RF metoprolol succinate 25 mg tablet extended release 24 hr 12.5 mg PO DAILY Qty: 45 3RF Discontinued cephalexin 500 mg capsule 500 mg PO BID acetaminophen 500 mg Tablet 1,000 mg PO TID Qty: 1 0RF Arthritis Pain Compound 3 click topical TID PRN (Reason: L anterior thigh pain) Qty: 1 0RF Rx Instructions: Apply to the left anterior thigh magnesium hydroxide 400 mg/5 mL Suspension 30 ml PO X1 PRN (Reason: Constipation) Qty: 30 0RF menthol-zinc oxide [Calmoseptine] 0.44-20.6 % Ointment 1 applic topical BID@0600,2200 Qty: 113 0RF Protocol: *Topical Application Instructions APPLICATION INSTRUCTIONS: buttocks sennosides-docusate sodium [Stool Softener-Stimulant Laxat] 8.6-50 mg Tablet 2 tab PO BID Qty: 1 0RF tramadol 50 mg Tablet 50 - 100 mg PO Q6H PRN PRN (Reason: Pain Score 4-10) 7 Days Qty: 20 0RF polyethylene glycol 3350 [Miralax] 17 gram/dose powder 17 g PO DAILY Qty: 119 0RF Referrals / Follow Up: Naveed Morton MD [Primary Care Provider] - Disposition Disposition (needs filled in before D/C Order can be placed): Home, Self Care
[2023-10-01] MEDS: Atorvastatin Calcium 10 MG Tablet PO (20:54)
[2023-10-01] MEDS: Carbamide Peroxide 15 ML Bottle 2 DRP OTIC (20:55)
[2023-10-02] MEDS: Gabapentin 300 MG Capsule 900 MG PO ×3 (05:27→20:11)
[2023-10-02] MEDS: Menthol/Lanolin/Calamine/Znox 113 GM Tube 1 APPLIC TOPICAL ×2 (05:28→20:17)
[2023-10-02] MEDS: Dofetilide 250 MCG Capsule 500 MCG PO ×2 (05:28→17:24)
[2023-10-02 05:30] LABS: Absolute Lymphocyte Count 4.79 X10^3/uL (0.83-4.51); Absolute Neutrophil Count 1.5 X10^3/uL (2.0-7.7); Basophil# 0.05 X10^3/uL; Basophil% 0.7 % (0-1); Eosinophil# 0.56 X10^3/uL; Eosinophils% 7.6 % (0-5); Hematocrit 31.8 % (40-54); Hemoglobin 10.2 g/dL (13.0-16.5); Lymphocyte # 4.79 X10^3/ul (0.83-4.51); Lymphocyte % 64.9 % (19-41); Mean Corp Hgb Conc 32.1 g/dL (32-36); Mean Corpuscular Hgb 29.6 pg (27.0-32.0); Mean Corpuscular Volume 92.2 fL (80-94); Mean Platelet Vol. 8.9 fl (6.2-12.0); Monocyte# 0.45 X10^3/uL; Monocyte% 6.1 % (0-10); NRBC Flagged by Analyzer 0 % (0-5); Neutrophil # 1.51 X10^3/uL (2.7-7.7); Neutrophil % 20.4 % (47-70); POSITIVE MORPHOLOGY YES; Platelet Count 129 K/mm3 (150-450); RBC Distribution Width CV 15.4 % (11.6-14.6); RBC Distribution Width SD 52.5 fl (35.1-43.9); Red Blood Count 3.45 M/mm3 (4.6-6.2); White Blood Count 7.4 K/mm3 (4.4-11.0)
[2023-10-02 05:41] LABS: Differential Indicated SCAN CRITERIA MET
[2023-10-02 06:16] LABS: Differential Comment SCANNED
[2023-10-02 06:29] LABS: Anion Gap 1 (5-15); BUN 13 mg/dL (7-18); BUN/Creat Ratio 17.7 RATIO (10-20); Calcium,Total 8.4 mg/dL (8.5-10.1); Chloride 103 mmol/L (98-107); Creatinine, Serum 0.74 mg/dL (0.70-1.30); EST Glomerular Filtration Rate 108 mL/min (>60); Est Glom Filt Rate - Afr Amer 131 mL/min (>60); Estimated Creatinine Clearance 90.13 ml/min; Glucose 96 mg/dL (74-106); Potassium 4.1 mmol/L (3.5-5.1); Sodium Level 136 mmol/L (136-145)
[2023-10-02] MEDS: Calcium Carb/Vitamin D 1 TABLET Tablet PO (07:49)
[2023-10-02] MEDS: Multivitamins,Therapeutic Tablet 1 TABLET PO (07:49)
[2023-10-02] MEDS: Ascorbic Acid 500 MG Tablet 1000 MG PO (07:49)
[2023-10-02] MEDS: Lactobacillis Acidophilus 1 CAP PO (07:50)
[2023-10-02] MEDS: Aspirin 81 MG TAB.CHEW PO (07:50)
[2023-10-02] MEDS: Cephalexin 500 MG Capsule PO ×2 (07:51→20:11)
[2023-10-02 07:52] VITALS: PULSE 69
[2023-10-02] MEDS: Metoprolol(XL)Succ 25 MG Tablet 12.5 MG PO (07:52)
[2023-10-02] MEDS: traMADol 50 MG Tablet PO (07:57)
[2023-10-02] MEDS: Tuberculin,Purif.prot.deriv. 50 TU/ML Vial 0.1 ML ID (09:15)
[2023-10-02 09:48] VITALS: BP 119/69; PULSE 69; RESP 18; TEMP 36.3; O2SAT 93
--- NOTE | 2023-10-02 10:34 | CASEMGMT ---
Social Work SW met with patient at bedside to complete MDS. Patient BIM () and PhQ-2 (1). Patient informed SW that he felt he had situational depression. Patient informed SW that he felt down yesterday due to missing out [place] time [place]. Patient informed SW that he understands why he has to be in rehab at this time, but he was sad about missing time with his grandchildren. SW reviewed discharge plan with patient. Patient informed SW that he spoke with his regarding request to discharge home on 10/11/2023. Patient informed SW that he and his decided that discharge would be best on 10/12/2023. SW inquired about patient discussion about home health care v. outpatient therapy. Patient informed SW that he did not discuss home health or outpatient therapy with his . Patient informed SW to follow up. SW completed Notice of Medicare Non-Coverage letter for current [facility] services will end date 10/11/2023. Patient provided verbal understanding of NOMNC; provided signature. A copy of NOMNC was left at bedside and placed in medical charts. Patient anticipates discharge on 10/12/2023. KARL Del Toro
--- NOTE | 2023-10-02 16:43 | PN.GI_ITS ---
Subjective Subjective Patient is doing very well. He underwent upper endoscopy yesterday for an abnormal video swallow. He was discovered to have narrowing at the distal esophagus suspicious for achalasia. This was dilated and biopsied. He is doing very well without any problems with his diet today. Objective Data Objective Data Vital Signs: Vital Signs Temp Pulse Resp BP Pulse Ox O2 Del Method 97.3 F L 69 18 119/69 93 Room Air 10/02/23 09:48 10/02/23 09:48 10/02/23 09:48 10/02/23 09:48 10/02/23 09:48 10/02/23 09:48 Oxygen Delivery Method Room Air Weight: 229 lb 2 oz Body Mass Index (BMI) 30.2 Intake & Output: Intake and Output for Last 24 Hours 09/30/23 10/01/23 10/02/23 23:59 23:59 23:59 Intake Total 1490 / 1490 120 / 120 460 / 460 Output Total 450 / 450 120 / 120 Balance 1040 / 1040 0 / 0 460 / 460 Lab / Micro Data 10/02/23 05:15 10/02/23 05:15 Labs: Laboratory Results - last 24 hr 10/02/23 05:15: WBC 7.4, RBC 3.45 L, Hgb 10.2 L, Hct 31.8 L, MCV 92.2, MCH 29.6, MCHC 32.1, RDW Std Deviation 52.5 H, RDW Coeff of Susana 15.4 H, Plt Count 129 L, MPV 8.9, Immature Gran % (Auto) 0.300, Neut % (Auto) 20.4 L, Lymph % (Auto) 64.9 H, Lynn % (Auto) 6.1, Eos % (Auto) 7.6 H, Baso % (Auto) 0.7, Absolute Neuts (auto) 1.5 L, Absolute Lymphs (auto) 4.79 H, Nucleated RBC % 0, Differential Comment SCANNED, Sodium 136, Potassium 4.1, Chloride 103, Carbon Dioxide 32.0, A nion Gap 1 L, BUN 13, Creatinine 0.74, Estim Creat Clear Calc 90.13, Est GFR (MDRD) Af Amer 131, Est GFR (MDRD) Non-Af 108, BUN/Creatinine Ratio 17.7, Glucose 96, Calcium 8.4 L Micro: Microbiology 09/26/23 20:00 Nasal Secretion SARS-CoV-2 Antigen (Rapid) - Final Physical Exam Const alert General Appearance: cooperative HEENT normocephalic Eyes PERRL and EOMs intact bilaterally Neck supple, no JVD and no carotid bruits Resp normal respiratory effort, normal air movement and clear to auscultation bilaterally Cardio regular rate and regular rhythm GI normal to inspection, nondistended, normoactive bowel sounds, non-tender and non-distended Extremity normal capillary refill General Extremity: Negative for edema Skin no rashes or lesions noted General Skin Exam: no breakdown Psych affect normal Appearance: appropriate Assessment & Plan Assessment/Plan (1) Dysphagia: PLAN: Findings: Abnormal motility was noted in the lower third of the esophagus. The cricopharyngeus was abnormal. There is a decrease in motility of the esophageal body. The distal esophagus/lower esophageal sphincter is spastic, but gives up passage to the endoscope. Primary peristaltic waves are noted. A guidewire was placed and the scope was withdrawn. Dilation was performed with a Savary dilator with no resistance at 54 Fr. The dilation site was examined and showed moderate improvement in luminal narrowing. The Z-line was irregular and was found 40 cm from the incisors. Biopsies were taken with a cold forceps for histology. Verification of patient identification for the specimen was done. Estimated blood loss was minimal. A medium-sized hiatal hernia was present. No gross lesions were noted in the first portion of the duodenum. Impression: - Abnormal esophageal motility, suspicious for achalasia. Dilated. - Z-line irregular, 40 cm from the incisors. Biopsied. - Medium-sized hiatal hernia. - No gross lesions in the first portion of the duodenum. Recommendation: -Omeprazole 40 mg p.o. twice daily and repeat upper endoscopy in approximately 3 months. - Advance diet as tolerated. - Continue present medications. - Await pathology results. Charges/Coding Visit Charges Inpatient E&M: [address] [facility] Subs L3
[2023-10-02] MEDS: Rivaroxaban 20 MG Tablet PO (17:24)
[2023-10-02 17:25] VITALS: BP 134/62
[2023-10-02] MEDS: Atorvastatin Calcium 10 MG Tablet PO (20:11)
--- NOTE | 2023-10-02 22:38 | NURSING ---
Patient requested this nurse look at his left hip. Left hip, thigh noted to be edematous, non-pitting. No redness or warmth noted. No pain noted. Patient does wear compression hose to left leg due to prior removal of lymph nodes. Will continue to monitor.
[2023-10-03] MEDS: Gabapentin 300 MG Capsule 900 MG PO ×3 (05:25→21:05)
[2023-10-03] MEDS: Dofetilide 250 MCG Capsule 500 MCG PO ×2 (05:25→17:14)
[2023-10-03] MEDS: Menthol/Lanolin/Calamine/Znox 113 GM Tube 1 APPLIC TOPICAL (05:26)
--- NOTE | 2023-10-03 06:33 | ED.RN ---
Patient request that the best orthopedist in [facility], Adrian Duggan evaluate his hip and consider a hip x ray. Will pass on to rounding Doctor.
[2023-10-03] MEDS: Calcium Carb/Vitamin D 1 TABLET Tablet PO (08:55)
[2023-10-03] MEDS: Multivitamins,Therapeutic Tablet 1 TABLET PO (08:55)
[2023-10-03] MEDS: Aspirin 81 MG TAB.CHEW PO (08:55)
[2023-10-03] MEDS: Cephalexin 500 MG Capsule PO ×2 (08:56→21:06)
[2023-10-03] MEDS: Lactobacillis Acidophilus 1 CAP PO (08:56)
[2023-10-03] MEDS: Ascorbic Acid 500 MG Tablet 1000 MG PO (08:56)
[2023-10-03 08:57] VITALS: BP 124/66; PULSE 65
[2023-10-03] MEDS: Metoprolol(XL)Succ 25 MG Tablet 12.5 MG PO (08:57)
[2023-10-03] MEDS: traMADol 50 MG Tablet PO ×2 (09:05→21:07)
[2023-10-03] MEDS: Acetaminophen 500 MG Tablet 1000 MG PO ×2 (09:05→21:06)
[2023-10-03 09:26] VITALS: BP 124/68; PULSE 67; RESP 16; TEMP 36.9; O2SAT 95
--- NOTE | 2023-10-03 13:28 | RAD_ITS ---
INDICATION: Increasing pain. EXAMINATION/TECHNIQUE: X-RAY - XR Hip Unilateral with Pelvis when performed; 2-3 Views COMPARISON: September 08, 2023 FINDINGS: PELVIC BONES: No displaced fracture, destructive or sclerotic lesions. Note that overlapping bowel shadows may however obscure fine detail. Sacroiliac joints are unremarkable. There are degenerative changes of the pubic symphysis. HIPS: There are stable bilateral hip arthroplasties in place. There is a radiolucency within the left greater trochanter with bony bridging suggestive of a healing fracture. SOFT TISSUES: There are surgical verónica projecting over the left inguinal region. There are coils projecting over the lower abdomen suggestive of prior anterior abdominal wall repair. RAD/HIP, UNI W/ Pelvis 2-3 Views IMPRESSION: Stable bilateral total hip arthroplasties. Electronically Signed: Daysi Melendez MD at 16:38 EDT ,
[2023-10-03] MEDS: Rivaroxaban 20 MG Tablet PO (17:14)
[2023-10-03] MEDS: Polyethylene Glycol 3350 17 GM PACKET PO (21:04)
[2023-10-03] MEDS: Atorvastatin Calcium 10 MG Tablet PO (21:06)
[2023-10-04] MEDS: Gabapentin 300 MG Capsule 900 MG PO ×3 (05:50→19:44)
[2023-10-04] MEDS: Dofetilide 250 MCG Capsule 500 MCG PO ×2 (05:55→17:36)
[2023-10-04 05:58] VITALS: BP 114/56; PULSE 63
--- NOTE | 2023-10-04 06:30 | NURSING ---
Resident completed an unassisted transfer and was starting to ambulate from room into hallway using rollator walker. Instructed resident to call for staff assist. Gait slow and slightly unsteady. Returned to room and supervised transfer to w/c. Call light w/ in reach. Will continue to monitor.
[2023-10-04 10:04] VITALS: BP 126/95; PULSE 55; RESP 16; TEMP 36.7; O2SAT 93
[2023-10-04] MEDS: Aspirin 81 MG TAB.CHEW PO (10:07)
[2023-10-04 10:08] VITALS: PULSE 55
[2023-10-04] MEDS: Metoprolol(XL)Succ 25 MG Tablet 12.5 MG PO (10:08)
[2023-10-04] MEDS: Ascorbic Acid 500 MG Tablet 1000 MG PO (10:08)
[2023-10-04] MEDS: Lactobacillis Acidophilus 1 CAP PO (10:08)
[2023-10-04] MEDS: Cephalexin 500 MG Capsule PO ×2 (10:08→19:45)
[2023-10-04] MEDS: Multivitamins,Therapeutic Tablet 1 TABLET PO (10:08)
[2023-10-04] MEDS: Calcium Carb/Vitamin D 1 TABLET Tablet PO (10:08)
[2023-10-04] MEDS: Polyethylene Glycol 3350 17 GM PACKET PO (10:14)
[2023-10-04] MEDS: Acetaminophen 500 MG Tablet 1000 MG PO ×2 (10:14→19:48)
--- NOTE | 2023-10-04 10:26 | NURSING ---
PT found up in BR w/out assistance using urinal. explained the importance of calling for assistance d/t risk of injury. pt verbalized understanding, will continue to monitor. Therapy notified and will assess whether pt safe enough to ambulate w/out assistance.
--- NOTE | 2023-10-04 10:32 | PCA ---
patient walked from from his room to kitchen area in the [facility] by himself without aid . director dance went to him and told him he was not to be walking by himself with out someone with him and walked him back to his room with use of his walker and told him to next time to call us if he needed anything he said ok . as i set him up for a shower i again before i left his room i again reminded him to call if he needs something not to get up with out help he said ok .
--- NOTE | 2023-10-04 12:55 | NURSING ---
therapy ok with pt being ad arianne in room and halls, pt updated on all and reminded to call for assistance if needed.
[2023-10-04] MEDS: Rivaroxaban 20 MG Tablet PO (17:36)
[2023-10-04] MEDS: Atorvastatin Calcium 10 MG Tablet PO (19:44)
[2023-10-04 20:05] VITALS: RESP 16; O2SAT 92
--- NOTE | 2023-10-04 20:33 | NURSING ---
Up ad arianne, requests assist with all ADLs
[2023-10-05] MEDS: Alendronate Sodium 70 MG Tablet PO (05:13)
[2023-10-05] MEDS: Gabapentin 300 MG Capsule 900 MG PO ×3 (06:49→19:54)
[2023-10-05] MEDS: Dofetilide 250 MCG Capsule 500 MCG PO ×2 (06:49→17:01)
[2023-10-05] MEDS: Ascorbic Acid 500 MG Tablet 1000 MG PO (08:26)
[2023-10-05] MEDS: Multivitamins,Therapeutic Tablet 1 TABLET PO (08:26)
[2023-10-05] MEDS: Aspirin 81 MG TAB.CHEW PO (08:26)
[2023-10-05] MEDS: Calcium Carb/Vitamin D 1 TABLET Tablet PO (08:26)
[2023-10-05 08:27] VITALS: BP 117/50; PULSE 65
[2023-10-05] MEDS: Cephalexin 500 MG Capsule PO ×2 (08:27→19:54)
[2023-10-05] MEDS: Lactobacillis Acidophilus 1 CAP PO (08:27)
[2023-10-05] MEDS: Metoprolol(XL)Succ 25 MG Tablet 12.5 MG PO (08:27)
[2023-10-05] MEDS: traMADol 50 MG Tablet PO (08:32)
[2023-10-05 08:36] VITALS: BP 117/50; PULSE 65
[2023-10-05 15:19] VITALS: BP 118/58; PULSE 64; RESP 18; TEMP 36.6; O2SAT 91
[2023-10-05] MEDS: Rivaroxaban 20 MG Tablet PO (17:00)
[2023-10-05 19:45] VITALS: RESP 18; O2SAT 97
[2023-10-05] MEDS: Atorvastatin Calcium 10 MG Tablet PO (19:54)
[2023-10-05] MEDS: Acetaminophen 500 MG Tablet 1000 MG PO (19:58)
[2023-10-06] MEDS: Dofetilide 250 MCG Capsule 500 MCG PO ×2 (06:30→17:00)
[2023-10-06] MEDS: Gabapentin 300 MG Capsule 900 MG PO ×3 (06:30→20:13)
[2023-10-06] MEDS: Calcium Carb/Vitamin D 1 TABLET Tablet PO (08:31)
[2023-10-06] MEDS: Ascorbic Acid 500 MG Tablet 1000 MG PO (08:31)
[2023-10-06] MEDS: Multivitamins,Therapeutic Tablet 1 TABLET PO (08:31)
[2023-10-06] MEDS: Lactobacillis Acidophilus 1 CAP PO (08:32)
[2023-10-06] MEDS: Cephalexin 500 MG Capsule PO ×2 (08:32→20:13)
[2023-10-06 08:33] VITALS: BP 115/53; PULSE 61
[2023-10-06] MEDS: Metoprolol(XL)Succ 25 MG Tablet 12.5 MG PO (08:33)
[2023-10-06 08:34] LABS: Mucous, Urine 0 SEEN /hpf (<or=2+); Squamous Epithelial Cells - UA 0 SEEN /hpf (0-5); White Blood Cells 0 SEEN /hpf (0-5)
[2023-10-06 08:37] LABS: Color, Urine Yellow (Yellow); Glucose, Dipstick Normal (Normal); Ketone-Dipstick Negative (Negative); Leukocyte Esterase-Dipstick Negative /ul (Negative); Nitrite-Dipstick Negative (Negative); Occult Blood-Urine 10 /ul (Negative); Protein-Dipstick Negative (Negative); Urine Bilirubin Dipstick Negative (Negative); Urine Clarity Sl. Cloudy (Clear); Urine Urobilinogen Normal (Normal)
[2023-10-06] MEDS: Pantoprazole Sodium 40 MG Tablet PO ×2 (08:37→20:13)
[2023-10-06] MEDS: traMADol 50 MG Tablet PO (08:41)
[2023-10-06 08:56] LABS: Bacteria 1+ /hpf (None Seen); Red Blood Cells-Urine 0 SEEN /hpf (0-5)
[2023-10-06 09:00] VITALS: BP 115/53; PULSE 61
[2023-10-06 09:12] LABS: Absolute Lymphocyte Count 2.95 X10^3/uL (0.83-4.51); Absolute Neutrophil Count 2.7 X10^3/uL (2.0-7.7); Basophil# 0.03 X10^3/uL; Basophil% 0.5 % (0-1); Eosinophil# 0.44 X10^3/uL; Hematocrit 35.3 % (40-54); Hemoglobin 11.5 g/dL (13.0-16.5); Lymphocyte # 2.95 X10^3/ul (0.83-4.51); Lymphocyte % 46.6 % (19-41); Mean Corp Hgb Conc 32.6 g/dL (32-36); Mean Corpuscular Volume 92.2 fL (80-94); Mean Platelet Vol. 8.8 fl (6.2-12.0); Monocyte# 0.22 X10^3/uL; Monocyte% 3.5 % (0-10); NRBC Flagged by Analyzer 0 % (0-5); Neutrophil # 2.68 X10^3/uL (2.7-7.7); Neutrophil % 42.2 % (47-70); Platelet Count 219 K/mm3 (150-450); RBC Distribution Width CV 15.4 % (11.6-14.6); RBC Distribution Width SD 51.6 fl (35.1-43.9); Red Blood Count 3.83 M/mm3 (4.6-6.2); White Blood Count 6.3 K/mm3 (4.4-11.0)
--- NOTE | 2023-10-06 10:13 | NURSING ---
PT ORDER FOR A CT W/CONTRAST FOR HEMATURIA AND PAULA CELL CANCER.
--- NOTE | 2023-10-06 11:56 | NURSING ---
IN [facility] CALLED AND NOTIFIED OF RESULTS BEING SENT TO HIM FROM ABDOMINAL AND PELVIC RESULTS FROM TODAY. OUR CT DEPARTMENT WAS SENDING. GIFTY AWARE
--- NOTE | 2023-10-06 15:09 | NURSING ---
Images from CT scan sent to [facility] system per radiology. Patient wanted to update his doctor that the images were there. He notified office staff for Dr. Fernando Pichardo.
[2023-10-06 15:38] VITALS: BP 130/50; PULSE 51; RESP 16; TEMP 36.6; O2SAT 94
[2023-10-06] MEDS: Rivaroxaban 20 MG Tablet PO (16:59)
[2023-10-06] MEDS: Atorvastatin Calcium 10 MG Tablet PO (20:13)
[2023-10-06] MEDS: Acetaminophen 500 MG Tablet 1000 MG PO (20:13)
[2023-10-06 20:15] VITALS: PULSE 58; O2SAT 92
[2023-10-07] MEDS: Gabapentin 300 MG Capsule 900 MG PO ×3 (05:32→20:09)
[2023-10-07] MEDS: Dofetilide 250 MCG Capsule 500 MCG PO ×2 (05:32→18:09)
[2023-10-07] MEDS: Calcium Carb/Vitamin D 1 TABLET Tablet PO (08:06)
[2023-10-07 08:07] VITALS: BP 141/76; PULSE 61
[2023-10-07] MEDS: Metoprolol(XL)Succ 25 MG Tablet 12.5 MG PO (08:07)
[2023-10-07] MEDS: Ascorbic Acid 500 MG Tablet 1000 MG PO (08:07)
[2023-10-07] MEDS: Lactobacillis Acidophilus 1 CAP PO (08:07)
[2023-10-07] MEDS: Pantoprazole Sodium 40 MG Tablet PO ×2 (08:07→20:10)
[2023-10-07] MEDS: Multivitamins,Therapeutic Tablet 1 TABLET PO (08:07)
[2023-10-07] MEDS: Cephalexin 500 MG Capsule PO ×2 (08:07→20:10)
[2023-10-07 09:05] VITALS: BMI 30.2
[2023-10-07 10:37] VITALS: BP 141/76; PULSE 61; RESP 16; TEMP 36.6
--- NOTE | 2023-10-07 11:26 | MDS.RN ---
Information for the MDS was obtained from review of the clinical record, interview of resident, staff, and direct observation of resident?s care.
[2023-10-07] MEDS: Acetaminophen 500 MG Tablet 1000 MG PO (14:21)
--- NOTE | 2023-10-07 15:32 | CASEMGMT ---
Social Work SW met with pt and to discuss discharge plan. Pt is planning on returning home on Friday10/12/23. is available to assist as needed and to provide needed transportation. Therapy is recommending outpt PT and pt is choosing to go to [facility]. Referral to [facility] who will in turn call pt's to set up an appointment for PT evaluation. Pt states he has all needed DME but a shower chair. Pt and notified that insurance does not cover this item and pt's will purchase one. Pt questioning if he cand drive at time of discharge and SW encouraged pt to speak with physician regarding this. Pt with no other dc needs. DC Date: 10/11 DC Disposition: Home with , outpt PT at [facility] DANNI Echavarria
[2023-10-07 18:25] VITALS: RESP 16; O2SAT 97
[2023-10-07] MEDS: Atorvastatin Calcium 10 MG Tablet PO (20:10)
[2023-10-08] MEDS: Gabapentin 300 MG Capsule 900 MG PO ×3 (06:31→19:49)
[2023-10-08] MEDS: Dofetilide 250 MCG Capsule 500 MCG PO ×2 (06:31→18:12)
[2023-10-08 09:12] VITALS: PULSE 67
[2023-10-08] MEDS: Metoprolol(XL)Succ 25 MG Tablet 12.5 MG PO (09:12)
[2023-10-08] MEDS: Pantoprazole Sodium 40 MG Tablet PO (09:12)
[2023-10-08] MEDS: Cephalexin 500 MG Capsule PO ×2 (09:12→19:49)
[2023-10-08] MEDS: Lactobacillis Acidophilus 1 CAP PO (09:12)
[2023-10-08] MEDS: Ascorbic Acid 500 MG Tablet 1000 MG PO (09:12)
[2023-10-08] MEDS: Calcium Carb/Vitamin D 1 TABLET Tablet PO (09:13)
[2023-10-08] MEDS: Multivitamins,Therapeutic Tablet 1 TABLET PO (09:13)
[2023-10-08] MEDS: Acetaminophen 500 MG Tablet 1000 MG PO (09:18)
[2023-10-08 10:00] VITALS: PULSE 68; RESP 18; O2SAT 96
[2023-10-08] MEDS: Polyethylene Glycol 3350 17 GM PACKET PO (11:47)
[2023-10-08 13:48] VITALS: BP 130/91; PULSE 59; RESP 14; TEMP 36.4; O2SAT 94
[2023-10-08] MEDS: Atorvastatin Calcium 10 MG Tablet PO (19:51)
[2023-10-09] MEDS: Gabapentin 300 MG Capsule 900 MG PO ×3 (05:05→19:40)
[2023-10-09] MEDS: Dofetilide 250 MCG Capsule 500 MCG PO ×2 (05:05→17:22)
[2023-10-09 05:22] LABS: Absolute Neutrophil Count 1.6 X10^3/uL (2.0-7.7); Basophil# 0.02 X10^3/uL; Basophil% 0.4 % (0-1); Eosinophil# 0.34 X10^3/uL; Eosinophils% 7.1 % (0-5); Hematocrit 34.4 % (40-54); Hemoglobin 11.2 g/dL (13.0-16.5); Lymphocyte % 52.5 % (19-41); Mean Corp Hgb Conc 32.6 g/dL (32-36); Mean Corpuscular Hgb 29.8 pg (27.0-32.0); Mean Corpuscular Volume 91.5 fL (80-94); Mean Platelet Vol. 8.4 fl (6.2-12.0); Monocyte# 0.29 X10^3/uL; Monocyte% 6.1 % (0-10); NRBC Flagged by Analyzer 0 % (0-5); Neutrophil # 1.59 X10^3/uL (2.7-7.7); Neutrophil % 33.5 % (47-70); Platelet Count 206 K/mm3 (150-450); RBC Distribution Width CV 15.2 % (11.6-14.6); RBC Distribution Width SD 50.4 fl (35.1-43.9); Red Blood Count 3.76 M/mm3 (4.6-6.2); White Blood Count 4.8 K/mm3 (4.4-11.0)
[2023-10-09 05:42] LABS: Anion Gap 4 (5-15); BUN 10 mg/dL (7-18); BUN/Creat Ratio 12.9 RATIO (10-20); Calcium,Total 8.7 mg/dL (8.5-10.1); Chloride 106 mmol/L (98-107); Creatinine, Serum 0.77 mg/dL (0.70-1.30); EST Glomerular Filtration Rate 102 mL/min (>60); Est Glom Filt Rate - Afr Amer 124 mL/min (>60); Estimated Creatinine Clearance 90.09 ml/min; Glucose 109 mg/dL (74-106); Potassium 4.2 mmol/L (3.5-5.1); Sodium Level 139 mmol/L (136-145)
[2023-10-09 08:13] VITALS: PULSE 63
[2023-10-09] MEDS: Metoprolol(XL)Succ 25 MG Tablet 12.5 MG PO (08:13)
[2023-10-09] MEDS: Multivitamins,Therapeutic Tablet 1 TABLET PO (08:13)
[2023-10-09] MEDS: Calcium Carb/Vitamin D 1 TABLET Tablet PO (08:13)
[2023-10-09] MEDS: Lactobacillis Acidophilus 1 CAP PO (08:14)
[2023-10-09] MEDS: Cephalexin 500 MG Capsule PO ×2 (08:14→19:41)
[2023-10-09] MEDS: Pantoprazole Sodium 40 MG Tablet PO ×2 (08:15→19:41)
[2023-10-09] MEDS: Ascorbic Acid 500 MG Tablet 1000 MG PO (08:15)
[2023-10-09 08:16] VITALS: BP 118/61; PULSE 63; RESP 16; TEMP 36.6; O2SAT 96
[2023-10-09] MEDS: Polyethylene Glycol 3350 17 GM PACKET PO (08:23)
[2023-10-09] MEDS: Rivaroxaban 20 MG Tablet PO (17:22)
[2023-10-09] MEDS: Magnesium Hydroxide 30 ML UDC PO (19:40)
[2023-10-09] MEDS: Atorvastatin Calcium 10 MG Tablet PO (19:41)
[2023-10-10] MEDS: Gabapentin 300 MG Capsule 900 MG PO ×3 (06:23→20:07)
[2023-10-10] MEDS: Polyethylene Glycol 3350 17 GM PACKET PO ×3 (06:23→20:08)
[2023-10-10] MEDS: Dofetilide 250 MCG Capsule 500 MCG PO ×2 (06:24→17:05)
--- NOTE | 2023-10-10 06:32 | NURSING ---
patient requests Miralax be increased to BID to promote bowel movement, milk of mag ineffective, patient refuses any other bowel stimulant other than miralax at this time, patient encouraged to accept alternative PRN if miralax ineffective this date, patient verbalizes understanding. A&Ox4. Written communication left for Dr. Coombs regarding patient request.
--- NOTE | 2023-10-10 09:20 | MDS.RN ---
MDS pain interview complete.
[2023-10-10 09:43] VITALS: BP 134/67; PULSE 61
[2023-10-10] MEDS: Metoprolol(XL)Succ 25 MG Tablet 12.5 MG PO (09:43)
[2023-10-10] MEDS: Calcium Carb/Vitamin D 1 TABLET Tablet PO (09:45)
[2023-10-10] MEDS: Cephalexin 500 MG Capsule PO ×2 (09:45→20:08)
[2023-10-10] MEDS: Multivitamins,Therapeutic Tablet 1 TABLET PO (09:45)
[2023-10-10] MEDS: Pantoprazole Sodium 40 MG Tablet PO ×2 (09:45→20:07)
[2023-10-10] MEDS: Ascorbic Acid 500 MG Tablet 1000 MG PO (09:46)
[2023-10-10] MEDS: Lactobacillis Acidophilus 1 CAP PO (09:46)
[2023-10-10] MEDS: Magnesium Hydroxide 30 ML UDC PO (10:58)
[2023-10-10] MEDS: Senna/Docusate Sodium 1 Tablet 2 TABLET PO (10:59)
[2023-10-10 11:20] VITALS: BP 134/67; PULSE 61; RESP 16; TEMP 36.8; O2SAT 94
--- NOTE | 2023-10-10 14:30 | CASEMGMT ---
Social Work Speech Therapist requesting outpt ST be added to pt's home going needs and that pt is agreeable. Physician notified and agreeable. New order for ST faxed to [facility]. DANNI Porras
[2023-10-10] MEDS: Rivaroxaban 20 MG Tablet PO (17:04)
--- NOTE | 2023-10-10 18:19 | CASEMGMT ---
BIMS () and PHQ9 () interviews completed on this date for MDS assessment. DANNI Echavarria
[2023-10-10] MEDS: Atorvastatin Calcium 10 MG Tablet PO (20:07)
[2023-10-11 06:40] VITALS: BP 107/65; PULSE 63
[2023-10-11] MEDS: Dofetilide 250 MCG Capsule 500 MCG PO ×2 (06:42→17:23)
[2023-10-11] MEDS: Gabapentin 300 MG Capsule 900 MG PO ×3 (06:44→20:18)
[2023-10-11] MEDS: Multivitamins,Therapeutic Tablet 1 TABLET PO (08:21)
[2023-10-11] MEDS: Calcium Carb/Vitamin D 1 TABLET Tablet PO (08:21)
[2023-10-11] MEDS: Ascorbic Acid 500 MG Tablet 1000 MG PO (08:21)
[2023-10-11] MEDS: Lactobacillis Acidophilus 1 CAP PO (10:48)
[2023-10-11 10:49] VITALS: PULSE 76
[2023-10-11] MEDS: Pantoprazole Sodium 40 MG Tablet PO ×2 (10:49→20:15)
[2023-10-11] MEDS: Metoprolol(XL)Succ 25 MG Tablet 12.5 MG PO (10:49)
[2023-10-11] MEDS: Cephalexin 500 MG Capsule PO ×2 (10:49→20:15)
[2023-10-11 13:39] VITALS: BP 129/64; PULSE 59; RESP 16; TEMP 36.9; O2SAT 94
[2023-10-11] MEDS: Rivaroxaban 20 MG Tablet PO (17:23)
[2023-10-11] MEDS: Atorvastatin Calcium 10 MG Tablet PO (20:15)
[2023-10-12] MEDS: Gabapentin 300 MG Capsule 900 MG PO (05:51)
[2023-10-12] MEDS: Alendronate Sodium 70 MG Tablet PO (05:51)
[2023-10-12] MEDS: Dofetilide 250 MCG Capsule 500 MCG PO (05:51)
[2023-10-12] MEDS: Multivitamins,Therapeutic Tablet 1 TABLET PO (09:23)
[2023-10-12] MEDS: Ascorbic Acid 500 MG Tablet 1000 MG PO (09:24)
[2023-10-12] MEDS: Calcium Carb/Vitamin D 1 TABLET Tablet PO (09:24)
[2023-10-12] MEDS: Lactobacillis Acidophilus 1 CAP PO (09:24)
[2023-10-12] MEDS: Cephalexin 500 MG Capsule PO (09:24)
[2023-10-12 09:25] VITALS: PULSE 57
[2023-10-12] MEDS: Metoprolol(XL)Succ 25 MG Tablet 12.5 MG PO (09:25)
[2023-10-12] MEDS: Pantoprazole Sodium 40 MG Tablet PO (09:25)
[2023-10-12 12:45] VITALS: BP 148/71; PULSE 52; RESP 16; TEMP 36.7; O2SAT 96
== END 2023-10-12 12:50 | disposition home or self-care (01) | DRG 560 ==
PROVIDERS: Admitting Provider Family Medicine Geriatric Medicine; PCP Family Medicine; Visit Provider Family Medicine Geriatric Medicine
DX: M97.02XD Periprosthetic fracture around internal prosthetic left hip joint, subsequent encounter (principal); C77.9 Secondary and unspecified malignant neoplasm of lymph node, unspecified; C4A.9 Merkel cell carcinoma, unspecified; I48.0 Paroxysmal atrial fibrillation; G62.9 Polyneuropathy, unspecified; E78.5 Hyperlipidemia, unspecified; I73.9 Peripheral vascular disease, unspecified; G47.33 Obstructive sleep apnea (adult) (pediatric); M19.90 Unspecified osteoarthritis, unspecified site; M48.02 Spinal stenosis, cervical region; I25.10 Atherosclerotic heart disease of native coronary artery without angina pectoris; M48.061 Spinal stenosis, lumbar region without neurogenic claudication; M54.16 Radiculopathy, lumbar region; K21.9 Gastro-esophageal reflux disease without esophagitis; K44.9 Diaphragmatic hernia without obstruction or gangrene; R13.12 Dysphagia, oropharyngeal phase; Z95.5 Presence of coronary angioplasty implant and graft; I71.40 Abdominal aortic aneurysm, without rupture, unspecified; Z79.82 Long term (current) use of aspirin; Z79.83 Long term (current) use of bisphosphonates; Z79.899 Other long term (current) drug therapy
CPT/HCPCS: 36415; 73502; 74230; 80048; 81001; 85025; 87086; 87811; 92526; 92610; 92611; 97110; 97116; 97162; 97166; 97530; 97535

== ENCOUNTER 2023-10-01 12:21 | Day surgery (SDC) | payer MEDICARE, OTHER, SELFPAY ==
[2023-10-01] VITALS (7 sets, daily range): BP systolic 124–130; BP diastolic 62–87; PULSE 50–59; RESP 14–16; TEMP 36.3–36.6; O2SAT 92–95
--- NOTE | 2023-10-01 | IMM_PTH ---
PATIENT: ARIANNE BOYER LOC: EN U#:[id number] AGE/SX: 83/M ROOM: RE10/01/[address]: Dr. Ortiz Wells DO : 1940 BED: DIS: 10/01/2023 SPEC #: [id number] RECD: 10/03/23 10:47 STATUS: [place] REQ #: [id number] DIEGO: 10/01/23 00:[address]: Ortiz Wells DEPT: IMMUNOHISTOCHEMISTRY RECD BY: [place] Cordero ENTERED: 10/03/23 10:47 SP TYPE: IMMUNO OTHR DR: Dr. Naveed Morton MD Tissues: Esophagus, NOS Procedures: P53 (initial) KI-67 (add) PHYSICIAN & INSTITUTION [place] [id number] SPECIMEN INFORMATION: Tissue Source: Distal esophagus biopsy Clinical Info: Dysphagia Specimen Number: [id number] CPT code: 47123,50576 METHODOLOGY: Deparaffinized sections of prefer/formalin-fixed tissue or PAP/DQ stained slides are incubated with monoclonal/polyclonal antibodies/oligonucleotide probes. Localization is made via biotin free immunoperoxidase method. Appropriate controls are performed and reacted as expected. Results on target cell population are indicated in the following table: RESULTS: ANTIBODY / CLONE RESULT P53 (DO-7) positive, indeterminate pattern Ki-67 (30-9) positive, low These tests were developed and their performance characteristics determined by [facility]. They may not have been cleared or approved by the U.S. Food and Drug Administration. The FDA has determined that such clearance or approval is not necessary. The above immunohistochemical/dualISH markers are ordered and reviewed by the Pathologist. INTERPRETATION: Distal esophagus, biopsy: Suspicious for low grade dysplasia. FELICITA/ 10/06/2023
--- NOTE | 2023-10-01 12:20 | EGD_PTH ---
PATIENT: ARIANNE BOYER LOC: EN U#:[id number] AGE/SX: 83/M ROOM: RE10/01/[address]: Dr. Ortiz Wells DO : 1940 BED: DIS: 10/01/2023 SPEC #: [id number] RECD: 10/01/23 16:27 STATUS: LOUIS RU #: [id number] DIEGO: 10/01/23 12:[address]: Ortiz Wells DEPT: SURGICAL PATHOLOGY RECD BY: Lexie Murrieta ENTERED: 10/02/23 07:03 SP TYPE: EGD BIOPSY CESARIO DR: Dr. Naveed Morton MD Tissues: Esophagus, NOS Procedures: Special Stain Group I Surgery Specimen Level IV Alcian Blue/PAS (control) HEADER OPERATION: EGD with biopsy PRE-OP DIAGNOSIS: Dysphagia TISSUE SUBMITTED: Distal esophagus biopsy MICROSCOPIC DIAGNOSIS Distal esophagus, biopsy: Gastroesophageal junctional mucosa with mild chronic inflammation. 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 Indefinite for low grade dysplasia. See comment. / 10/03/2023 COMMENT Alcian blue/PAS stain with matched control is used in the evaluation of the specimen. Immunohistochemistry ([id number]) for P53 and Ki-67 will be performed and results will be reported separately. MICROSCOPIC DESCRIPTION Slides are reviewed. GROSS DESCRIPTION Received in fixative is one container labeled with the patient's name and designated Distal esophagus biopsy. The specimen consists of two irregular fragments of light [place] soft tissue that in aggregate measure 0.8 x 0.4 x 0.1 cm. The specimen is totally submitted in one cassette. / 10/02/2023 TC:3 CPT:61147
--- NOTE | 2023-10-01 12:23 | PCM.HP.BLA ---
History and Physical Date of Admission: 10/01/23 ARIANNE BOYER, is a 83 M who presented to the hospital after mechanical fall at home. He was working out and stood up and lost his balance and fell down and hit the back of his head. He did not lose consciousness and the fall was mechanical. He does have a history of peripheral neuropathy that he takes gabapentin for, and he states that overworked the [facility] and they were not able to find a definitive diagnosis for his neuropathy. He is never done any physical therapy for his neuropathy either. 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 He was having significant pain in the ER with ambulation so he was admitted for physical therapy and observation. He was diagnosed with 83-year-old male presented to the hospital after having mechanical fall at home. His prosthesis is seated well and is nonoperative in terms of a nondisplaced periprosthetic fracture. Orthopedic surgery was consulted and felt that he was weightbearing as tolerated but given the significant pain proceeded with potential discharge to rehab. There was some concern about possible aspiration or esophageal dysphagia so he underwent evaluation by speech therapy. He was diagnosed with mild pharyngeal dysphagia and moderate esophageal dysphagia. His esophageal dysphagia was defined by retention of pudding throughout the esophagus that cleared with liquid wash but patient had no sensation of regurgitation. [facility] Medical History (Updated 10/01/23 @ 13:[address] 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 Hyperplastic colon polyp Adrenal adenoma Obesity History of non-ST elevation myocardial infarction (NSTEMI) (2006) Paroxysmal atrial fibrillation Atherosclerosis of coronary artery of [place] heart without angina pectoris Hyperlipidemia Obstructive sleep apnea Home Medications ?Medication ?Instructions ?Recorded ?Last Taken ?Type ascorbic acid (vitamin C) 500 mg 1,000 mg PO DAILY@0800 vitamin 05/04/13 09/24/23 07:45 History tablet aspirin 81 mg chewable tablet 81 mg PO DAILY@0800 heart 05/04/13 09/24/23 07:45 History ginseng 100 mg capsule 100 mg PO DAILY vitamin 05/04/13 05/04/13 History alendronate 70 mg tablet 70 mg PO Q7D@0700 bones 03/01/20 09/21/23 06:15 History cephalexin 500 mg capsule 500 mg PO BID atb 05/30/20 Unknown History alpha lipoic acid 200 mg capsule 600 mg PO DAILY vitamin 01/01/21 Unknown History gabapentin 300 mg capsule 900 mg PO TID nerve pain 02/11/23 09/24/23 13:20 History metoprolol succinate 25 mg 12.5 mg (1/2 x 25 mg) PO DAILY bp 07/07/23 10/01/23 Rx tablet,extended release 24 hr #45 TABLETS GI102 Immunotherapy 09/08/23 09/02/23 History atorvastatin 10 mg tablet 10 mg PO QHS cholesterol 09/09/23 09/23/23 History dofetilide 500 mcg capsule 500 mcg PO 0600,1800 heart 09/09/23 09/24/23 06:45 History rivaroxaban 20 mg tablet (Xarelto) 20 mg PO DAILY blood thinner 09/09/23 09/23/23 17:10 History Arthritis Pain Compound 3 click topical TID PRN L anterior 09/24/23 09/21/23 Rx thigh pain #1 applic L.acidophil,salivari-Bifido 1 cap PO DAILY Probiotic #1 cap 09/24/23 09/24/23 07:45 Rx bifidum-Strep thermoph 175 mg capsule acetaminophen 500 mg tablet 1,000 mg (2 x 500 mg) PO TID Pain 09/24/23 09/23/23 Rx #1 TAB calcium carbonate 500 mg-vitamin 1 tab PO DAILYCM Supplement #1 TAB 09/24/23 09/24/23 07:45 Rx D3 5 mcg (200 unit) tablet (Oyster Shell Calcium-Vitamin D3) magnesium hydroxide 400 mg/5 mL 30 ml PO X1 PRN Constipation #30 mL 09/24/23 09/20/23 Rx oral suspension menthol 0.44 %-zinc oxide 20.6 % 1 applic topical BID@0600,2200 09/24/23 Unknown Rx topical ointment (Calmoseptine) Skin #113 grams multivitamin 1 tab PO DAILYCM Supplement #1 TAB 09/24/23 09/24/23 07:45 Rx polyethylene glycol 3350 17 17 g PO DAILY Constipation #119 09/24/23 Unknown Rx gram/dose oral powder (Miralax) grams sennosides 8.6 mg-docusate sodium 2 tab PO BID Constipation #1 TAB 09/24/23 09/24/23 Rx 50 mg tablet (Stool Softener-Stimulant Laxative) tramadol 50 mg tablet 50 - 100 mg (1 - 2 x 50 mg) PO Q6H 09/24/23 10/01/23 Rx PRN PRN Pain Score 4-10 7 days #20 tabs Allergy/AdvReac Type Severity Reaction Status Date / Time No Known Allergies Allergy Verified 10/01/23 12:28 Family History Aunt Sudden cardiac age 63Mother Colon cancerFather Colon cancerSister Cancer Surgical History History of left heart catheterization (03/11/22) Excisional biopsy of left inguinal lymph node (11/24/18) History of bilateral knee replacement History of left hip replacement History of open reduction and internal fixation (ORIF) procedure History of lumbar laminectomy History of cervical spinal arthrodesis History of right hip replacement (03/2018) History of coronary artery stent placement (04/2006) History of cardioversion (07/01/13) Social History household members: spouse housing: other details: They are all on 1 floor. BR has a walk in shower. number of children: 4 current occupational status: retired pets and animals: No Smoking Status: Former smoker quit date: 06/19/82 alcohol intake: former year quit: 2001 caffeine: Yes Type: coffee Number of servings: 2 what type of physical activity do you participate in: weight training ROS Constitutional Constitutional: Reports fatigue and weakness; Denies chills, fever(s) or weight gain ENT HEENT: Denies headache(s), nasal congestion or nasal discharge Cardiovascular Cardiovascular: Denies chest pain or palpitations Respiratory/Chest Respiratory/Chest: Denies cough, excessive phlegm production or shortness of breath with exertion Gastrointestinal Gastrointestinal: Denies abdominal pain, nausea or vomiting Genitourinary Genitourinary: Denies dysuria Musculoskeletal Musculoskeletal: Denies joint pain or joint swelling Integumentary Integumentary: Denies rash or wounds Neurologic Neurologic: Denies focal weakness, numbness or tingling Psychiatric Psychiatric: Denies anxiety, auditory hallucinations, depression, homicidal ideation or suicidal ideation Physical Exam Const alert General Appearance: cooperative HEENT normocephalic Eyes PERRL and EOMs intact bilaterally Neck supple, no JVD and no carotid bruits Resp normal respiratory effort, normal air movement and clear to auscultation bilaterally Cardio regular rate and regular rhythm GI normal to inspection, nondistended, normoactive bowel sounds, non-tender and non-distended Extremity normal capillary refill General Extremity: Negative for edema Skin no rashes or lesions noted General Skin Exam: no breakdown Psych affect normal Appearance: appropriate Lab / Micro Data 09/25/23 05:48 09/25/23 05:48 Assessment & Plan Assessment/Plan (1) Dysphagia: PLAN: 83-year-old gentleman with coronary artery disease, aortic aneurysm, peripheral artery disease, 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 His swallow study had revealed mild oropharyngeal dysphagia and moderate esophageal dysphagia. He does complain of intermittent problems with food bolus transfer into the esophagus and on occasion he has gotten food stuck. He has lost about 8 pounds. He does not notice any problems with pills. He has no history of smoking. He has not had any antibiotics recently or any iron products. His imaging did not show any signs of cervical lymphadenopathy. He has never had upper endoscopy previously. He does have a history of intermittent gastroesophageal reflux disease that he said is controlled on medicines. He denied any hematemesis or melena. He does have a abdominal aortic aneurysm but there is no known history of thoracic aortic aneurysm. Differential diagnosis for his esophageal dysphagia does include achalasia with pseudo achalasia secondary to his Madi cell lymphoma, esophageal web, esophageal ring, esophageal stricture. He should undergo an upper endoscopy to evaluate his upper GI tract. He was explained alternatives, risk, benefits include not withstanding bleeding, infection, sepsis, perforation, need for emergent urgent . He will have an ASA of 3.
--- NOTE | 2023-10-01 12:25 | PCM.PRE.AN2 ---
ASA Classification* ASA Classification ASA Classification: 3 Assessment & Plan Anesthesia* Anesthesia Assessment Anesthesia Assessment: Discussed sedation and/or anesthesia options, risks, benefits, and alternatives with patient/parents/legal guardian/POA. Questions invited. The patient/parents/legal guardian/POA seems to understand and agrees to proceed with anesthesia plan. Reviewed the physical assessment, medical history, allergy history and patient home medications list prior to surgery/procedure/anesthetic and documented any changes. Performed airway and anesthesia risk assessments. Anesthesia Type Anesthesia Type: MAC Pre-Assessment Diagnosis/Proposed Procedure Planned Operative Procedure(s): EGD Anesthesia History Anesthesia History - director biomedical engineering: Anesthesia History - director biomedical engineering Hx Hospitalization Yes 06/26/19 10:38 Any Problems With Anesthesia No 11/24/18 12:01 Cholinesterase deficiency No 11/24/18 12:01 You/Your Family Experience No 11/24/18 12:01 fever (hyperthermia) with Relationship Recent Exposure to Contagious No 11/24/18 12:18 Disease Does patient have nerve No 11/24/18 12:01 stimulator Patient instructed to have device shut off --Does patient have Pacemaker or ICD? When Was Last Pacemaker Check QUESTION #4 FULL TEXT: You/Your Family Experience fever (hyperthermia) with Anesthesia Last Oral Intake Last Oral intake: Last Oral Intake NPO since Meds taken in AM with sips of water? Meds patient instructed to take am of surgery PONV PONV - director biomedical engineering: PONV - director biomedical engineering Female HX of Motion Sickness HX of N/V After Surgery Non-Smoker Duration of Surgery greater than 60 minutes Number of Risk Factors PONV Score Height & Weight Height & Weight: Anesthesia: Height & Weight Height 1.85 m 09/25/23 14:52 Respiratory Assessment Respiratory Assessment - director biomedical engineering: Respiratory Tract Infection Hx - director biomedical engineering Hx Respiratory Tract Infection No 11/24/18 12:01 STOP Sleep Apnea STOP Sleep Apnea - director biomedical engineering: STOP Sleep Apnea - director biomedical engineering Hx Hypertension No 09/25/23 11:21 Hx Sleep Apnea Yes 09/24/23 15:36 CPAP Yes 09/24/23 15:36 BIPAP No 09/24/23 15:36 Do you snore loudly (louder than talking or can be heard Do you often feel tired/ fatigued/ sleepy during daytime? Has anyone observed you stop breathing during sleep? STOP Results QUESTION #5 FULL TEXT : Do you snore loudly (louder than talking or can be heard through closed doors)? 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 Specify any problems Hx of Preganancy in last 3 Months Nurse Filling Out Transfusion & Questions: Date: Time: Patient unable to answer at this time (ie. confused, unrespo /Reproduction History /Reproductive History - director biomedical engineering: /Reproductive Hx- director biomedical engineering Hx Now Gestational Age (in weeks): EDC: Hx Hx Para Hx Section SAB Active Medications Active Medications: Current Medications Generic Name Dose Route Start Last Admin Trade Name Freq PRN Reason Stop Dose Admin Lactated Ringer's 1,000 mls @ 15 mls/hr 10/01/23 12:30 10/01/23 12:30 IV 15 mls/hr .Q48H GREG Administration Anesthesia Focused Assessment* Airway Assessment Mouth opens (cm): 3 Mallampati Score: I Focused Labs Anesthesia Preop lab: CBC WBC 5.3 K/mm3 (4.4-11.0) 09/25/23 05:48 RBC 4.15 M/mm3 (4.6-6.2) L 09/25/23 05:48 Hgb 12.3 g/dL (13.0-16.5) L 09/25/23 05:48 Hct 38.4 % (40-54) L 09/25/23 05:48 Plt Count 255 K/mm3 (150-450) 09/25/23 05:48 CHEMISTRY Potassium 3.9 mmol/L (3.5-5.1) 09/25/23 05:48 Sodium 135 mmol/L (136-145) L 09/25/23 05:48 BUN 13 mg/dL (7-18) 09/25/23 05:48 Creatinine 0.73 mg/dL (0.70-1.30) 09/25/23 05:48 Glucose 103 mg/dL (74-106) 09/25/23 05:48 COAG PT 16.5 SECONDS (11.7-14.9) H 09/08/23 09:20 Review of Systems (Anesthesia) ROS Narrative System reviewed and no additional complaints, except as documented. [facility] Medical History (Updated 09/24/23 @ 18:[address] 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 Hyperplastic colon polyp Adrenal adenoma Obesity History of non-ST elevation myocardial infarction (NSTEMI) (2006) Paroxysmal atrial fibrillation Atherosclerosis of coronary artery of [place] heart without angina pectoris Hyperlipidemia Obstructive sleep apnea Home Medications ?Medication ?Instructions ?Recorded ?Last Taken ?Type ascorbic acid (vitamin C) 500 mg 1,000 mg PO DAILY@0800 vitamin 05/04/13 09/24/23 07:45 History tablet aspirin 81 mg chewable tablet 81 mg PO DAILY@0800 heart 05/04/13 09/24/23 07:45 History ginseng 100 mg capsule 100 mg PO DAILY vitamin 05/04/13 05/04/13 History alendronate 70 mg tablet 70 mg PO Q7D@0700 bones 03/01/20 09/21/23 06:15 History cephalexin 500 mg capsule 500 mg PO BID atb 05/30/20 Unknown History alpha lipoic acid 200 mg capsule 600 mg PO DAILY vitamin 01/01/21 Unknown History gabapentin 300 mg capsule 900 mg PO TID nerve pain 02/11/23 09/24/23 13:20 History metoprolol succinate 25 mg 12.5 mg (1/2 x 25 mg) PO DAILY bp 07/07/23 10/01/23 Rx tablet,extended release 24 hr #45 TABLETS GI102 Immunotherapy 09/08/23 09/02/23 History atorvastatin 10 mg tablet 10 mg PO QHS cholesterol 09/09/23 09/23/23 History dofetilide 500 mcg capsule 500 mcg PO 0600,1800 heart 09/09/23 09/24/23 06:45 History rivaroxaban 20 mg tablet (Xarelto) 20 mg PO DAILY blood thinner 09/09/23 09/23/23 17:10 History Arthritis Pain Compound 3 click topical TID PRN L anterior 09/24/23 09/21/23 Rx thigh pain #1 applic L.acidophil,salivari-Bifido 1 cap PO DAILY Probiotic #1 cap 09/24/23 09/24/23 07:45 Rx bifidum-Strep thermoph 175 mg capsule acetaminophen 500 mg tablet 1,000 mg (2 x 500 mg) PO TID Pain 09/24/23 09/23/23 Rx #1 TAB calcium carbonate 500 mg-vitamin 1 tab PO DAILYCM Supplement #1 TAB 09/24/23 09/24/23 07:45 Rx D3 5 mcg (200 unit) tablet (Oyster Shell Calcium-Vitamin D3) magnesium hydroxide 400 mg/5 mL 30 ml PO X1 PRN Constipation #30 mL 09/24/23 09/20/23 Rx oral suspension menthol 0.44 %-zinc oxide 20.6 % 1 applic topical BID@0600,2200 09/24/23 Unknown Rx topical ointment (Calmoseptine) Skin #113 grams multivitamin 1 tab PO DAILYCM Supplement #1 TAB 09/24/23 09/24/23 07:45 Rx polyethylene glycol 3350 17 17 g PO DAILY Constipation #119 09/24/23 Unknown Rx gram/dose oral powder (Miralax) grams sennosides 8.6 mg-docusate sodium 2 tab PO BID Constipation #1 TAB 09/24/23 09/24/23 Rx 50 mg tablet (Stool Softener-Stimulant Laxative) tramadol 50 mg tablet 50 - 100 mg (1 - 2 x 50 mg) PO Q6H 09/24/23 10/01/23 Rx PRN PRN Pain Score 4-10 7 days #20 tabs Allergy/AdvReac Type Severity Reaction Status Date / Time No Known Allergies Allergy Verified 10/01/23 12:28 Family History Aunt Sudden cardiac age 63 Mother Colon cancer Father Colon cancer Sister Cancer Surgical History History of left heart catheterization (03/11/22) Excisional biopsy of left inguinal lymph node (11/24/18) History of bilateral knee replacement History of left hip replacement History of open reduction and internal fixation (ORIF) procedure History of lumbar laminectomy History of cervical spinal arthrodesis History of right hip replacement (03/2018) History of coronary artery stent placement (04/2006) History of cardioversion (07/01/13) Social History household members: spouse housing: other details: They are all on 1 floor. BR has a walk in shower. number of children: 4 current occupational status: retired pets and animals: No Smoking Status: Former smoker quit date: 06/19/82 alcohol intake: former year quit: 2001 caffeine: Yes Type: coffee Number of servings: 2 what type of physical activity do you participate in: weight training
[2023-10-01] MEDS: Lactated Ringers 1,000 ML 15 ML IV (12:30)
--- NOTE | 2023-10-01 12:57 | PCM.POST.ANE ---
Anesthesia: Postop Eval I Current Vital Signs Temperature: 97.3 F Pulse Rate: 54 Blood Pressure: 124/62 Respiratory Rate: 14 Pulse Ox: 94 Oxygen Delivery Method: Room Air Assessment Airway patent: Yes Spontaneous unlabored respirations: Yes Mental status: Awake and Calm nausea: No Vomiting: No Anesthesia Complication: No Fluid Hydration Crystalloid volume administer (ml): 400 Total IV fluid infused: 400 Progress Note Anesthesia document: Postop Eval 1 completed: Yes
--- NOTE | 2023-10-01 13:17 | OP.EGD_ITS ---
Patient Name: Alberto Prado Procedure Date: 10/01/2023 12:01 PM Date of : 1940 Age: 83 Procedure: Upper GI endoscopy Indications: Dysphagia Providers: Ortiz Wells DO Medicines: Monitored Anesthesia Care Patient Profile: This is an 83 year old male. Refer to note in patient chart for documentation of history and physical. Patient has symptoms of acute dysphagia. Complications: No immediate complications. Procedure: Pre-Anesthesia Assessment: - Prior to the procedure, a History and Physical was performed, and patient medications and allergies were reviewed. The patient is competent. The risks and benefits of the procedure and the sedation options and risks were discussed with the patient. All questions were answered and informed consent was obtained. Patient identification and proposed procedure were verified by the physician in the pre-procedure area. Mental Status Examination: alert and oriented. Airway Examination: normal oropharyngeal airway and neck mobility. Respiratory Examination: clear to auscultation. CV Examination: normal. Prophylactic Antibiotics: The patient does not require prophylactic antibiotics. Prior Anticoagulants: The patient has taken no anticoagulant or antiplatelet agents. ASA Grade Assessment: III - A patient with severe systemic disease. After reviewing the risks and benefits, the patient was deemed in satisfactory condition to undergo the procedure. The anesthesia plan was to use monitored anesthesia care (MAC). Immediately prior to administration of medications, the patient was re-assessed for adequacy to receive sedatives. The heart rate, respiratory rate, oxygen saturations, blood pressure, adequacy of pulmonary ventilation, and response to care were monitored throughout the procedure. The physical status of the patient was re-assessed after the procedure. After obtaining informed consent, the endoscope was passed under direct vision. Throughout the procedure, the patient's blood pressure, pulse, and oxygen saturations were monitored continuously. The Endoscope was introduced through the mouth, and advanced to the second part of duodenum. The upper GI endoscopy was accomplished without difficulty. The patient tolerated the procedure well. Scope In: 12:42:13 PM Scope Out: 12:48:23 PM Total Procedure Duration Time 0 hours 6 minutes 10 seconds Findings: Abnormal motility was noted in the lower third of the esophagus. The cricopharyngeus was abnormal. There is a decrease in motility of the esophageal body. The distal esophagus/lower esophageal sphincter is spastic, but gives up passage to the endoscope. Primary peristaltic waves are noted. A guidewire was placed and the scope was withdrawn. Dilation was performed with a Savary dilator with no resistance at 54 Fr. The dilation site was examined and showed moderate improvement in luminal narrowing. The Z-line was irregular and was found 40 cm from the incisors. Biopsies were taken with a cold forceps for histology. Verification of patient identification for the specimen was done. Estimated blood loss was minimal. A medium-sized hiatal hernia was present. No gross lesions were noted in the first portion of the duodenum. Impression: - Abnormal esophageal motility, suspicious for achalasia. Dilated. - Z-line irregular, 40 cm from the incisors. Biopsied. - Medium-sized hiatal hernia. - No gross lesions in the first portion of the duodenum. Recommendation: - Return patient to referring hospital for ongoing care. - Advance diet as tolerated. - Continue present medications. - Await pathology results. Procedure Code(s): --- Professional --- 00065, Esophagogastroduodenoscopy, flexible, transoral; with insertion of guide wire followed by passage of dilator(s) through esophagus over guide wire 06807, 59,51, Esophagogastroduodenoscopy, flexible, transoral; with biopsy, single or multiple CPT copyright 2021 [employer]. All rights reserved. The codes documented in this report are preliminary and upon non clinical advisor review may be revised to meet current compliance requirements. Ortiz Wells DO 10/01/2023 1:16:53 PM This report has been signed electronically. Number of Addenda: 0 Note Initiated On: 10/01/2023 12:01 PM
--- NOTE | 2023-10-01 13:17 | OP.CCLET_ITS ---
10/01/2023 Naveed Morton Re : Upper GI endoscopy procedure for Alberto Prado Deayuridia Morton This procedure was performed on Sunday, October 01, 2023. My impressions and recommendations are as follows: Impressions : - Abnormal esophageal motility, suspicious for achalasia. Dilated. - Z-line irregular, 40 cm from the incisors. Biopsied. - Medium-sized hiatal hernia. - No gross lesions in the first portion of the duodenum. Recommendations : - Return patient to referring hospital for ongoing care. - Advance diet as tolerated. - Continue present medications. - Await pathology results. My findings are described in the full procedure note, which is enclosed. If I can be of further assistance, please feel free to contact me at . Sincerely, Ortiz Wells, 10/01/2023 1:16:53 PM This report has been signed electronically.
--- NOTE | 2023-10-01 13:29 | NURSING ---
Report called to TCU. Report given to GIFTY Arenas. No further questions or concerns. Deepa stated it is okay to send patient back up to TCU at this time.
--- NOTE | 2023-10-01 13:30 | NURSING ---
Dr. Wells contacted via phone and asked if he would speak to patient about results of procedure. Dr. Wells stated he would be up to TCU later this afternoon to discuss procedure and findings with patient. Patient and TCU staff made aware of Dr. Wells coming up later this afternoon. All agreeable.
--- NOTE | 2023-10-01 14:50 | PCM.POSTANE2 ---
Anesthesia Postop Eval I Sum Postop Eval Completion status Anesthesia document: Postop Eval 1 completed: Yes Anesthesia Postop Eval I Summary Anesthesia Postop Eval I Summary: Anesthesia Postop Eval I: Assessment Summary Airway patent Yes 10/01/23 13:06 [email or web address] Spontaneous unlabored Yes 10/01/23 13:06 [email or web address] respirations Mental status Awake,Calm 10/01/23 13:06 [email or web address] nausea No 10/01/23 13:06 [email or web address] Vomiting No 10/01/23 13:06 [email or web address] Anesthesia Postop Eval I: Fluid Summary Crystalloid volume administer 400 10/01/23 13:06 [email or web address] (ml) Colloids volume administered ( ml) Blood Product volume administered (ml) Total IV fluid infused 400 10/01/23 13:06 [email or web address] Anesthesia Postop Eval I: Summary Notes Anesthesia Complication No 10/01/23 13:06 [email or web address] Anesthesia Complication Comment: Post-operative progress note Anesthesia: Postop Eval II Evaluation Mental status: Awake Pain Level: 0 nausea: No Vomiting: No Complications Anesthesia Complication: No
== END 2023-10-01 13:49 | disposition home or self-care (01) ==
LOC: EN 12:23 → AC 12:23
PROVIDERS: PCP Family Medicine; Referring Provider Family Medicine; Visit Provider Internal Medicine Gastroenterology
PROC: 0DJ08ZZ Inspection of Upper Intestinal Tract, Via Natural or Artificial Opening Endoscopic (ICD-10-PCS; CPT 43235; principal; 2023-10-01 12:15)
DX: K44.9 Diaphragmatic hernia without obstruction or gangrene (principal); I48.0 Paroxysmal atrial fibrillation; R13.10 Dysphagia, unspecified; E78.5 Hyperlipidemia, unspecified; Z79.82 Long term (current) use of aspirin; I25.10 Atherosclerotic heart disease of native coronary artery without angina pectoris; Z79.83 Long term (current) use of bisphosphonates; I25.2 Old myocardial infarction; G47.33 Obstructive sleep apnea (adult) (pediatric); Z96.643 Presence of artificial hip joint, bilateral
CPT/HCPCS: 43248; 43239; 88305; 88312; 88341; 88342; J7120; C1769; J2405

== ENCOUNTER → 2023-10-06 | Outpatient (CLI) | payer MEDICARE, OTHER, SELFPAY ==
--- NOTE | 2023-10-06 09:02 | CT_ITS ---
STUDY: CT ABDOMEN AND PELVIS WITH CONTRAST REASON FOR EXAM: Male, 83 years old. Hematuria, unspecified. History of Choudrant cell carcinoma with metastasis. Abdominal aortic aneurysm. RADIATION DOSAGE (If Supplied By Facility): CTDIvol = ( 21.24 ) mGy, DLP = ( 1770.45 ) mGycm TECHNIQUE: Transaxial images were obtained from the dome of the diaphragm to the symphysis pubis without oral contrast. IV 100mL Isovue-370 was administered. Sagittal and coronal images were reconstructed. Individualized dose optimization techniques were used for this CT. COMPARISON: Comparison is made with prior study November 23, 2018. FINDINGS: Stable increased markings at the lung bases suggestive of scarring. Coronary artery calcification. There is decreased attenuation of the liver consistent with steatosis. Scattered small hypodensities are seen in the liver suggestive of hepatic cysts. Normal gallbladder and extrahepatic biliary system. Normal spleen. Normal pancreas. Stable 1.2 cm hypodense nodule in the left adrenal gland. Stable multiple bilateral renal cysts. Normal visualized stomach. Normal small intestine. Normal colon. The appendix is visualized and appears normal. There is diffuse atherosclerotic calcification of the abdominal aorta, without a demonstrated aneurysm. Normal inferior vena cava. There is a new 2.4 cm x 2.8 cm nodule in the posterior left retroperitoneum just medial and adjacent to the lower aspect of the spleen. A metastatic deposit should be ruled out. Distended urinary bladder. There is enlargement of the prostate gland. The prostate measures 5.3 cm x 6.2 cm. Central calcification is seen. Surgical clips are seen in the region of the left groin. The previously seen soft tissue mass has been resected. Prior right inguinal hernia repair with a mesh. There are diffuse degenerative changes of the visualized lumbar spine. The patient is status post bilateral hip replacement. Retrolisthesis of L2 on L3. CT/Abdomen/Pelvis W IV Cont ONLY IMPRESSION: Fatty infiltration of the liver. Stable intrahepatic cysts as well as multiple bilateral renal cysts. Since prior study, there is a new 2.4 cm x 2.8 cm soft tissue nodule in the posterior left retroperitoneum medial and adjacent to the medial lower aspect of the spleen. The previously seen nodular density in the left groin has been resected. Stable 1.2 cm nodule in the left adrenal gland. Electronically Signed: Sj Renee MD at 10:02 EDT ,
== END | disposition home or self-care (01) ==
PROVIDERS: PCP Family Medicine; Referring Provider Family Medicine Geriatric Medicine; Visit Provider Family Medicine Geriatric Medicine
DX: C4A.9 Merkel cell carcinoma, unspecified (principal); R31.9 Hematuria, unspecified
CPT/HCPCS: 74177; Q9967

== ENCOUNTER 2023-10-31 09:30 | Outpatient (RCR) | payer MEDICARE, OTHER, SELFPAY ==
--- NOTE | 2023-10-17 11:24 | HP.PTEVAL ---
Patient's Visit Information Visit Information Visit Information: ARIANNE BOYER is a 83 year old M referred to Physical Therapy by Dr. Alexandr Coombs MD with a diagnosis of LEFT HIP FRACTURE. Date of Evaluation: 10/17/23 Physical Therapist: Fernando Reno PT, Cert MDT, OCS Visit Plan Frequency: 2x /Week Duration: 4 Weeks Plan: NO ACTIVE HIP ABDUCTION PT INNERVATIONS ROM ,STRENGTHENING QUADS/HAMS/HIP ( NO HIP ABDUCTION) ,GAIT /BALANCE TRAINING AND FUNCTIONAL STRENGTHENING Subjective Subjective: This 83 male presents to physical therapy with left hip fracture . Patient fell at home backwards September 07 . Patient went to ER via ambulance unable to stand. Patient had x-rays showed hip fracture with Left greater trochanter with bony bridging suggestive of a healing fracture. Patient eventually transferred to TCU for Rehab. Patient d/c to home 10/12 . Patient d/c to rollator. Patient lives in 1 story home with 2 steps. Bathroom with walk in shower and hand rails with seated. Patient is able to bath and dressing . Patient does cooking/cleaning. Patient has lateral hip walk/standing lateral hip.Alleviating factors . Patient has neuropathy with numbness in feet but used cane pior use rollator. No falls . Patient sleeping good. Patient condition affects and function. Patient goals to improve function less pain. 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 Left Hip: Pain Intensity (Out of 10): 4 Pain Intensity Range: 10 Objective Objective: POSTURE: mild forward posture ,trunk flexed NEURO: c/o paresthesia/tingling in feet GAIT: ambulates with rollator mild forward posture reciprocal pattern decrease step length BALANCE: fair+ with rollator MMT: ( peak force) left quads 19.8 ,right 20.2 ,hamstrings left 14.2,right 15.2 hip flexion right 13.6 ,left 12.8 ,ankle 4.5 hip abd NT AROM: knee flexion left 5-125 degrees ,hip flexion 90 degrees .,left hip abduction NT Balance/Special Test Scores Lower Extremity Functional Score: 7 TUG Test Time Seconds: 21.7 Goals Goal 1:: Patient to be I with HEP Goal Time Frame: 4-6 Weeks Goal 2:: Patient to improve peak force quads/hams/hip by 5-10 # TO IMPROVE GAIT Goal Time Frame: 4-6 Weeks Goal 3:: Patient to improve Tug score by 5 seconds to improve safe gait Goal Time Frame: 4-6 Weeks Goal 4:: Patient to improve LFES score by 5-10 points to improve QOL and function Goal Time Frame: 4-6 Weeks Goal 5:: Patient to demonstrate 50% improvement with less pain and improved function Goal Time Frame: 4-6 Weeks Rehabilitation Potential Physical Therapy Diagnosis: This patient has left hip fracture femur with h/o SUKHJINDER and fell backwards at home September 07 with extended hospital stay with pain decrease ,decrease gait,balance weakness thus benefit from skilled PT Rehabilitation Potential: Good Anticipated Interventions Patient/Client Instruction: Educate patient on: Condition and Plan of Care For the Purpose of:: To decrease pain, To increase ROM, To improve muscle performance and motor function, To improve ability to perform ADL's, To increase tolerance to activity/condition/position, To improve ability of physical actions for home/community/work/leisure, To improve gait and locomotor functions, To improve health of tissue, To decrease soft tissue restriction, To increase flexibility/ROM, To improve endurance, To improve balance and To improve tolerance to ADL's Therapeutic Exercise to Include: Strength training, Endurance training, Balance training, Postural training, Flexibilty training and Active ROM Comment: HIP/QUADS/HAMS For the Purpose of:: To decrease pain, To increase ROM, To improve muscle performance and motor function, To increase tolerance to activity/condition/position, To improve ability of physical actions for home/community/work/leisure, To improve gait and locomotor functions, To improve health of tissue, To decrease soft tissue restriction, To increase flexibility/ROM, To improve endurance, To improve balance and To improve tolerance to ADL's Text: Thank you for the opportunity to evaluate your patient. For Medicare and Medicare HMO plans, please review the plan of care and approve it. It will need to be FAXED BACK to us at [phone] for Medicare purposes. For Medicare only, by signing this I certify the plan of care. Please let me know if there are questions or concerns regarding this plan of care. Physician Signature: Date:
--- NOTE | 2023-10-17 12:30 | ST ---
[facility] Speech Pathology [address] [place] [address] Modified Barium Swallow Study MR#: [id number] Acct: [id number] Name: ARIANNE BOYER Rep #: [id number] : 1940 83 From: Marium Mccracken M.A., [facility]-GRAVITY PROSPECTOR Modified Barium Swallow Patient Information Study Date: 09/29/23 Study Time: 10:30 Direct Billable Minutes: 79 Total Minutes procedure & reportin Diagnosis: Fonda cell carcinoma C4A.9; Peripheral neuropathy G62.9; M48.02 Referring Physician: Alexandr Coombs Chi Reason for Referral: Objectively assess swallow function, assess risk for aspiration, and determine recommendations for least restrictive diet textures and compensatory strategies to improve safety of swallow. Medical History: 09/08/2023 Patient presented to [facility] ED with fall, left hip pain. CT brain negative, CT cervical spine negative fracture, dislocation. X-ray left hip showed heterotopic bone, negative for fracture. Unable to walk, admit to [facility]. Dr. Duggan noted periprosthetic left hip fracture, no surgery recommended. ?09/09/2023 Admit to for PT/OT. Pt needing more rehab at discharge from . 09/24/2023 Admit to TCU with debility, here for rehabilitation, strengthening, prior to discharge home with . During stays on [facility] and TCU, he goes to [facility] for metastatic tawanna cell cancer, immunotherapy. He was referred for ST consult by Dr. Kay due to coughing after meals and presence of RLL crackles towards end of stay on rehab and start of stay on TCU. GRAVITY PROSPECTOR recommended MBSS prior to BSE as the patient has not been having any reported overt s/s of aspiration with oral intake. Patient reports coughing productive of phlegm throughout his day. 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 Current Diet Ordered: Regular textures / Thin liquids Dentition: WNL and Natural Teeth Mental Status: WNL Respiratory Status: Oxygenating on Room Air Penetration-Aspiration Scale Penetration-Aspiration Scale: OBJECTIVE ASSESSMENT OF SWALLOW FUNCTION (QUANTITATIVE ? PER TRIAL): PENETRATION / ASPIRATION SCALE (MATHIS): 1 = does not enter airway 2 = enters airway/above vocal folds/ejected 3 = enters airway/above vocal folds/not ejected 4 = enters airway/contacts vocal folds/ejected 5 = enters airway/contacts vocal folds/not ejected 6 = enters airway/below vocal folds/ejected 7 = enters airway/below vocal folds/not ejected despite effort 8 = enters airway/below vocal folds/no effort VIDEOFLOROSCOPIC SCALE SCORE (MATHIS): Grade I = aspiration of material that has penetrated into the laryngeal vestibule, intact cough reflex Grade II = aspiration < 10 % of the bolus, intact cough reflex Grade III = aspiration of < 10 % of the bolus, reduced cough reflex or aspiration of > 10 % of the bolus, intact cough reflex Grade IV = aspiration of > 10 % of the bolus, reduced cough reflexPenetration-Aspiration Scale Score Thin Liquid via teaspoon: Result: 2= enter airway/above vocal folds/ejected Thin Liquid via teaspoon Trial 2: Result: 2= enter airway/above vocal folds/ejected Thin Liquid via small single sip: cup: Result: 1= does not enter airway Thin Liquid via sequential sips: cup: Result: 2= enter airway/above vocal folds/ejected [place] Thick Liquid via large single sip: cup: Result: 2= enter airway/above vocal folds/ejected Comment: Prior to the swallow, trace barium in the laryngeal vestibule, which is likely residue from previous trial. This trace residue had SILENT aspiration during the nectar/mildly thick liquid trial. Pudding via teaspoon: Result: 1= does not enter airway Comment: Esophageal Screen - Retention of pudding throughout the esophagus with patient experiencing no sensation of retention. Cued cough and re-swallow after this trial to clear any trace residues remaining in the laryngeal vestibule. Thin Liquid via single sip: straw: Result: 1= does not enter airway Comment: Esophageal screen - Somewhat effective in clearing pudding residue from the esophagus. 1/2 Cookie: Result: 1= does not enter airway Thin Liquid via single sip: straw Trial 2: Result: 1= does not enter airway Comment: Esophageal screen - Minimal esophageal retention of this trial and previous trial. Oral Phase Labial Seal: No Labial Escape Tongue Control During Bolus Hold: Cohesive bolus between tongue to palatal seal Bolus Preparation/Mastication: Timely and efficient chewing and mashing Bolus Transport/Lingual Motion: Brisk tongue motion Oral Residue: Residue collection on oral structures Pharyngeal Phase Initiation of Pharyngeal Swallow: Bolus head in valleculae Soft Palate Elevation: Trace column of contrast/air between soft palate and pharyngeal wall Laryngeal Elevation: Comp. Superior move thyroid cart w/comp. apprx arytenoid cart-epig pet Anterior Hyoid Excursion: Complete anterior movement Epiglottic Movement: Complete inversion Laryngeal Vestibule Closure at Height of Swallow: Complete; no air/contrast in laryngeal vestibule Pharyngeal Stripping Wave: Present - diminished Pharyngoesophageal Segment Opening: Parital distension and partial duration; parital obstruction of flow Tongue Base Retraction: Narrow column of contrast between tongue base & post. pharyngeal wall Pharyngeal Residue: Collection of residue within or on pharyngeal structures Esophageal Phase Esophageal Clearance: Esophageal retention w/ retrograde flow through pharyngoesophageal seg Diagnosis/Impression Diagnosis: Mild pharyngeal dysphagia R13.13; Esophageal dysphagia R13.14 Impression: The pharyngeal phase is primarily marked by... -Mildly decreased tongue base retraction, pharyngeal stripping wave, and UES opening/duration with resulting trace-mild pharyngeal residues most notable with thicker textures. -Trace SILENT aspiration of residues of thin liquids via sequential straw sip observed during mildly thick liquid trial possibly due to spillage of trace pharyngeal residue to the laryngeal vestibule after the swallow. The esophageal phase is primarily marked by... -Trace retention of thin liquid via cup in the upper esophagus with retrograde flow through the UES. -Retention of pudding throughout the esophagus, which somewhat cleared with thin liquid wash. Patient had no sensation of esophageal retention. Recommendations Diet: Regular Textures and Thin Liquids Comment: STOP food/drink and resume at a later time if increased s/s of aspiration, sensation of retention, or sensation of reflux and resume food/drink at a later time. Compensatory Strategies: Small Bites, Small Sips, Slow Rate, Alternate bites/solids and sips/liquids (1:1 ratio), Sitting upright and Remain sitting upright for 30 minutes after PO intake (30-60min after meal) Recommend Repeat Modified Barium Swallow: No Need for Skilled Speech Therapy Services: Yes Comment: Dysphagia treatment (3X/week X2-3 weeks) to address mild pharyngeal dysphagia. -Train the patient in use of strategies to decrease risk for aspiration and reflux aspiration. -Ongoing assessment of diet tolerance of recommended textures. -Train the patient in oropharyngeal exercise program to improve tongue base retraction, pharyngeal contraction, and UES opening/duration ([place], Effortful, Radames). Recommended Referrals: GI Consult (Esophageal retention of pudding, delayed coughing episodes reported following meals) Education Completed: 1. Described result of evaluation. and 2. Pt understands evaluation & agrees with goals and treatment plan. Status Active ST Patient: Active Contact Information [facility] Speech Therapy:: Marium Mccracken M.A. CCC-GRAVITY PROSPECTOR? Speech-Language Pathologist?? [facility] [address] [place] [id number]? [email or web address]?? [phone] 09/29/23 [id number] <Electronically signed by Marium Mccracken M.A. CCC-GRAVITY PROSPECTOR> Date/Time Marium Mccracken M.A. CCC-GRAVITY PROSPECTOR
--- NOTE | 2023-10-20 09:35 | HP.SP.EVAL ---
Visit History Visit Info Date of Eval: 10/17/23 Visit: 1 [employer]: FERNANDO History Attending Doctor: Referring Doctor: Reason for Referral: LT HIP FX/DYSPHAGIA. RX HERE Medical Diagnosis: mild pharyngeal & esophageal dysphagia Date of Onset of Diagnosis: 10/17/23 Previous speech therapy: Yes Results: Arianne is an 83 year old male who was seen at for a swallowing evaluation post hospital discharge for a hip fracture. Due to s/s of aspiration during his hospital admission, an MBSS was completed on 09/28 and pt was diagnosed mild pharyngeal & esophageal dysphagia. A diet of regular/thin, pharyngeal strengthening exercises, and compensatory strategies was recommended. Pt received speech therapy to address the dysphagia during his hospital admission. Pt was discharged from the hospital on 10/11 and is now back home. Pt has a diagnosis of madi cell carcinoma 5 years ago and is currently participating in a clinical trial through the [facility]. Pt stated that his doctors are very pleased with his response to the clinical trial medication (GI102). Pt has previously had radiation. Pt has worn hearing aids for the last 10 years. 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 Esophageal dilation completed during more recent hospital stay to address esophageal retention seen on the MBSS Smoking Status: Former smoker Diagnosis Diagnosis: mild pharyngeal and esophageal dysphagia Pain Is pain an issue with your current prescribed condition?: No Personal Preferred language: Slovak Patient Allergies Allergies Allergies: Allergies No Known Allergies Allergy (Verified 10/01/23 12:28) Subjective Dysphagia Symptoms Reported Symptoms/Problems with: Coughing and Hx of Aspiration Current Diet Solids Current Diet: Regular Current Diet Liquids Current Liquids: Thin Comments Pharyngeal Exercises: -: Pt was familiar with the recommended pharyngeal strengthening exercises due to his speech therapy sessions at the hospital. Pt completed Radames, Masko, and Effortful swallows 5-10x each with up to min cues during the evaluation. Compensatory strategies were reviewed re; slow rate, small sips & bites, alt. sips & bites, upright during and for 30/60 mins post P.O., frequent oral care. Objective Dysphagia Administered by Administered by: Self Thin Liquids Administred via: Cup Oral Transit: Delay > 1 seconds Bolus clearance: fully cleared Gagging: No Cough: none observed/unable to assess Pharyngeal phase: suspect pharyngeal deficits Patient Report: Pt consumed small sips of thin liquid (water) via an open cup in between pharyngeal exercises with no s/s of aspiration. An hx of aspiration was shown on an MBSS completed on 09/28 and regular/thin with compensatory strategies was recommended. Swallowing Impairment Contributing Factors to Swallowing Impairment: Reduced Laryngeal Excursion Impact Impact on Safety & Functioning: Risk for Aspiration Recommendations Modified Barium Swallow/Cookie Swallow Recommended: No Swallowing Treatment: Yes Diet Texture Recommendations Solids: Regular (Level 7) Liquids: Thin (Level 0) Safety Saftey Precautions/Swallowing Recommendations (Check all that Apply): Reduce Distractions, Upright Position at Least 30 Minutes After Meals, Small Sips & Bites when Eating and Alternate Liquids & Solids Results Swallowing Within Normal Limits: No Swallowing Diagnosis: Pharyngoesophageal Phase Dysphagia (R13.14) Severity: Mild Modified Barium Results Hx If Applicable Enter into a NOTE MBS Report Entered: Yes MBS Results (from prior exam): 10/17/23 12:30 Speech Therapy by Marium Bruno [facility] Speech Pathology [address] [place] [address] Modified Barium Swallow Study MR#: [id number] Acct: [id number] Name: ARIANNE BOYER Rep #: [id number] : 1940 83 From: Marium Mccracken M.A., [facility]-INSTALLER HELPER Modified Barium Swallow Patient Information Study Date: 09/29/23 Study Time: 10:30 Direct Billable Minutes: 79 Total Minutes procedure & reportin Diagnosis: Madi cell carcinoma C4A.9; Peripheral neuropathy G62.9; M48.02 Referring Physician: Alxeandr Coombs Chi Reason for Referral: Objectively assess swallow function, assess risk for aspiration, and determine recommendations for least restrictive diet textures and compensatory strategies to improve safety of swallow. Medical History: 09/08/2023 Patient presented to [facility] ED with fall, left hip pain. CT brain negative, CT cervical spine negative fracture, dislocation. X-ray left hip showed heterotopic bone, negative for fracture. Unable to walk, admit to [facility]. Dr. Duggan noted periprosthetic left hip fracture, no surgery recommended. ?09/09/2023 Admit to [facility] for PT/OT. Pt needing more rehab at discharge from [facility]. 09/24/2023 Admit to TCU with debility, here for rehabilitation, strengthening, prior to discharge home with . During stays on [facility] and TCU, he goes to [facility] for metastatic madi cell cancer, immunotherapy. He was referred for ST consult by Dr. Kay due to coughing after meals and presence of RLL crackles towards end of stay on rehab and start of stay on TCU. INSTALLER HELPER recommended MBSS prior to BSE as the patient has not been having any reported overt s/s of aspiration with oral intake. Patient reports coughing productive of phlegm throughout his day. 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 Current Diet Ordered: Regular textures / Thin liquids Dentition: WNL and Natural Teeth Mental Status: WNL Respiratory Status: Oxygenating on Room Air Penetration-Aspiration Scale Penetration-Aspiration Scale: OBJECTIVE ASSESSMENT OF SWALLOW FUNCTION (QUANTITATIVE ? PER TRIAL): PENETRATION / ASPIRATION SCALE (MATHIS): 1 = does not enter airway 2 = enters airway/above vocal folds/ejected 3 = enters airway/above vocal folds/not ejected 4 = enters airway/contacts vocal folds/ejected 5 = enters airway/contacts vocal folds/not ejected 6 = enters airway/below vocal folds/ejected 7 = enters airway/below vocal folds/not ejected despite effort 8 = enters airway/below vocal folds/no effort VIDEOFLOROSCOPIC SCALE SCORE (MATHIS): Grade I = aspiration of material that has penetrated into the laryngeal vestibule, intact cough reflex Grade II = aspiration < 10 % of the bolus, intact cough reflex Grade III = aspiration of < 10 % of the bolus, reduced cough reflex or aspiration of > 10 % of the bolus, intact cough reflex Grade IV = aspiration of > 10 % of the bolus, reduced cough reflexPenetration-Aspiration Scale Score Thin Liquid via teaspoon: Result: 2= enter airway/above vocal folds/ejected Thin Liquid via teaspoon Trial 2: Result: 2= enter airway/above vocal folds/ejected Thin Liquid via small single sip: cup: Result: 1= does not enter airway Thin Liquid via sequential sips: cup: Result: 2= enter airway/above vocal folds/ejected [place] Thick Liquid via large single sip: cup: Result: 2= enter airway/above vocal folds/ejected Comment: Prior to the swallow, trace barium in the laryngeal vestibule, which is likely residue from previous trial. This trace residue had SILENT aspiration during the nectar/mildly thick liquid trial. Pudding via teaspoon: Result: 1= does not enter airway Comment: Esophageal Screen - Retention of pudding throughout the esophagus with patient experiencing no sensation of retention. Cued cough and re-swallow after this trial to clear any trace residues remaining in the laryngeal vestibule. Thin Liquid via single sip: straw: Result: 1= does not enter airway Comment: Esophageal screen - Somewhat effective in clearing pudding residue from the esophagus. 1/2 Cookie: Result: 1= does not enter airway Thin Liquid via single sip: straw Trial 2: Result: 1= does not enter airway Comment: Esophageal screen - Minimal esophageal retention of this trial and previous trial. Oral Phase Labial Seal: No Labial Escape Tongue Control During Bolus Hold: Cohesive bolus between tongue to palatal seal Bolus Preparation/Mastication: Timely and efficient chewing and mashing Bolus Transport/Lingual Motion: Brisk tongue motion Oral Residue: Residue collection on oral structures Pharyngeal Phase Initiation of Pharyngeal Swallow: Bolus head in valleculae Soft Palate Elevation: Trace column of contrast/air between soft palate and pharyngeal wall Laryngeal Elevation: Comp. Superior move thyroid cart w/comp. apprx arytenoid cart-epig pet Anterior Hyoid Excursion: Complete anterior movement Epiglottic Movement: Complete inversion Laryngeal Vestibule Closure at Height of Swallow: Complete; no air/contrast in laryngeal vestibule Pharyngeal Stripping Wave: Present - diminished Pharyngoesophageal Segment Opening: Parital distension and partial duration; parital obstruction of flow Tongue Base Retraction: Narrow column of contrast between tongue base & post. pharyngeal wall Pharyngeal Residue: Collection of residue within or on pharyngeal structures Esophageal Phase Esophageal Clearance: Esophageal retention w/ retrograde flow through pharyngoesophageal seg Diagnosis/Impression Diagnosis: Mild pharyngeal dysphagia R13.13; Esophageal dysphagia R13.14 Impression: The pharyngeal phase is primarily marked by... -Mildly decreased tongue base retraction, pharyngeal stripping wave, and UES opening/duration with resulting trace-mild pharyngeal residues most notable with thicker textures. -Trace SILENT aspiration of residues of thin liquids via sequential straw sip observed during mildly thick liquid trial possibly due to spillage of trace pharyngeal residue to the laryngeal vestibule after the swallow. The esophageal phase is primarily marked by... -Trace retention of thin liquid via cup in the upper esophagus with retrograde flow through the UES. -Retention of pudding throughout the esophagus, which somewhat cleared with thin liquid wash. Patient had no sensation of esophageal retention. Recommendations Diet: Regular Textures and Thin Liquids Comment: STOP food/drink and resume at a later time if increased s/s of aspiration, sensation of retention, or sensation of reflux and resume food/drink at a later time. Compensatory Strategies: Small Bites, Small Sips, Slow Rate, Alternate bites/solids and sips/liquids (1:1 ratio), Sitting upright and Remain sitting upright for 30 minutes after PO intake (30-60min after meal) Recommend Repeat Modified Barium Swallow: No Need for Skilled Speech Therapy Services: Yes Comment: Dysphagia treatment (3X/week X2-3 weeks) to address mild pharyngeal dysphagia. -Train the patient in use of strategies to decrease risk for aspiration and reflux aspiration. -Ongoing assessment of diet tolerance of recommended textures. -Train the patient in oropharyngeal exercise program to improve tongue base retraction, pharyngeal contraction, and UES opening/duration ([place], Effortful, Radames). Recommended Referrals: GI Consult (Esophageal retention of pudding, delayed coughing episodes reported following meals) Education Completed: 1. Described result of evaluation. and 2. Pt understands evaluation & agrees with goals and treatment plan. Status Active ST Patient: Active Contact Information [facility] Speech Therapy:: Marium Mccracken M.A. CCC-INSTALLER HELPER? Speech-Language Pathologist?? [facility] [address] [place] [address]? [email or web address]?? [phone] 09/29/23 1158 <Electronically signed by Marium Mccracken M.A., CCC-INSTALLER HELPER> Date/Time Marium Mccracken M.A., CCC-INSTALLER HELPER Initialized on 10/17/23 12:30 - END OF NOTE Swallowing Performance Scale Swallowing Performance Scale Swallowing Performance Scale Result: 3 Mild Reference: Neuro-QoL instrument Radiation Oncology Patient Plan Plan Plan: Will rx Pt for skilled outpatient tx to address mild pharyngeal dysphagia. Pt would benefit from training and education re: diet tolerance checks, compensatory strategies and swallowing exercises to aid in pharyngeal strengthening. Without skilled intervention, Pt is at risk for consuming a restrictive diet putting them at risk for aspiration pneumonia and atrophy of laryngeal musculature. Recommendations Treatment Warranted: Yes Treatment Warranted: Dysphagia Progress Prognosis: Excellent Frequency Frequency: Every Other Week Duration: 4-6 Weeks Goals that are Established Determination:: Goals will be added/modified as deemed necessary and appropriate. Therapy will be discontinued when results of re-evaluation indicate therapy is no longer needed or lack of progress has been documented. Goal #1-5 Goal #1: Pt will utilize compensatory strategies re: slow rate, small sips & bites, alt. sips & bites, upright during and for 30/60 mins post P.O., frequent oral care independently during a meal analysis. Goal #2: Pt will complete pharyngeal strengthening and laryngeal elevation exercises (Effortful Swallow, Radames, Masko) independently during a therapy session. Education Patient has Indicated that the Following Identified Educational Needs: None The Patient has indicated that they have no educational or learning abilities that may effect their care.: Yes Patient Instruction Patient Education: Diagnosis, Treatment Plan, Goals, Safety Precautions, Diet Level and Home Exercise Program Person Taught: Patient Teaching Method: Discussion, Demonstration, Handout and Teach back Response to teaching: Verbalize understanding
== END 2023-10-31 19:00 | disposition home or self-care (01) ==
LOC: PT 09:30
PROVIDERS: PCP Family Medicine; Referring Provider Family Medicine Geriatric Medicine; Visit Provider Family Medicine Geriatric Medicine
DX: S72.002D Fracture of unspecified part of neck of left femur, subsequent encounter for closed fracture with routine healing (principal); R13.10 Dysphagia, unspecified
CPT/HCPCS: 92526; 92610; 97110; 97162

== ENCOUNTER 2024-10-16 21:21 | Inpatient (IN) | payer MEDICARE, OTHER, SELFPAY ==
[2024-10-16] VITALS (7 sets, daily range): BP systolic 135–155; BP diastolic 71–81; PULSE 93–101; RESP 23–24; TEMP 37.9–39.4; O2SAT 89–97; BMI 31.1
--- NOTE | 2024-10-16 21:39 | EKG12_ITS ---
Test Reason : DYSRHYTHMIA Blood Pressure : */* mmHG Vent. Rate : 94 BPM Atrial Rate : 94 BPM P-R Int : 170 ms QRS Dur : 96 ms QT Int : 362 ms P-R-T Axes : 58 22 48 degrees QTcB Int : 452 ms Sinus rhythm with Premature atrial complexes Otherwise normal ECG Confirmed by LULU ESPINOZA, SYEDA ([id number]), department editor IOANA MORENO ([id number]) on 10/19/2024 6:43:14 AM Referred By: Confirmed By: SYEDA LAWSON MD
--- NOTE | 2024-10-16 21:39 | RAD_ITS ---
PROCEDURE: CHEST PA AND LATERAL 10/16/2024 REASON FOR EXAM: FEVER 103 DEGREES, SLIGHT SHORTNESS OF BREATH TECHNIQUE: CHEST PA AND LATERAL COMPARISON: Chest radiograph 09/24/23. FINDINGS: Hardware: None Heart: Stable mild cardiomegaly with prominent vascular markings. Mediastinum: The mediastinal contour is stable. Lungs: Low lung volumes with elevation of the right hemidiaphragm. No large focal consolidation, pleural effusion or pneumothorax. Bones: Degenerative changes are identified within the thoracic spine. Arthrosis of the bilateral glenohumeral joints. Stable distention of the visualized colon. RAD/Chest PA and Lateral IMPRESSION: NO SIGNIFICANT CHANGE SINCE THE PRIOR EXAM. Reading Location: [id number]
[2024-10-16] MEDS: 0.9% Normal Saline (1000mL) 1,000 ML 1000 ML IV (21:46)
[2024-10-16 22:09] LABS: Hematocrit 35.1 % (40-54); Hemoglobin 11.8 g/dL (13.0-16.5); Immature Granulocytes Count 0.120 X10^3/uL (0.0-0.0); Mean Corp Hgb Conc 33.6 g/dL (32-36); Mean Corpuscular Volume 88.9 fL (80-94); Mean Platelet Vol. 10.2 fl (6.2-12.0); NRBC Flagged by Analyzer 0 % (0-5); POSITIVE COUNT YES; POSITIVE DIFFERENTIAL YES; Platelet Count 64 K/mm3 (150-450); RBC Distribution Width CV 14.6 % (11.6-14.6); RBC Distribution Width SD 46.8 fl (35.1-43.9); Red Blood Count 3.95 M/mm3 (4.6-6.2); White Blood Count 13.3 K/mm3 (4.4-11.0)
[2024-10-16 22:11] LABS: Differential Indicated SCAN CRITERIA MET
[2024-10-16 22:13] LABS: Prothrombin Time (Protime)PT. 16.3 SECONDS (11.7-14.9)
[2024-10-16 22:14] LABS: Partial Thromboplast Time 32.0 Seconds (24.1-36.2)
[2024-10-16 22:37] LABS: AST(SGOT) 32 U/L (<=37); Alanine Aminotransfer ALT/SGPT 11 U/L (<=46); Albumin, Serum 3.9 g/dL (3.4-4.8); Alkaline Phosphatase 47 U/L (40-129); Anion Gap 12 (5-15); BUN 17 mg/dL (4-19); BUN/Creat Ratio 20.2 RATIO (10-20); Calcium,Total 9.2 mg/dL (7.6-11.0); Carbon Dioxide 25.4 mmol/L (21.0-32.0); Chloride 100 mmol/L (98-108); Estimated Creatinine Clearance 84.55 ml/min (50-250); Globulin 2.9 g/dL (2.2-4.2); Glucose 126 mg/dL (70-99); Potassium 3.8 mmol/L (3.3-5.1)
--- NOTE | 2024-10-16 22:54 | EX.ED.DYSGE1 ---
HPI History of Present Illness Chief Complaint: Fever Detail of Chief Complaint: Fever, shaking chills and slight confusion Informant: patient and spouse/S.O. Onset/Context/Timing Onset: Hours Context: Sudden Onset Timing: Intermittent (Chills is intermittent. Fevers continues Tmax of 103 degrees) Quality: Infectious symptoms Location: Generalized. Current Severity: Moderate Maximum Severity: Moderate Worsened by: Nothing Relieved by: Nothing Associated Symptoms Associated Symptoms: Fever and shaking chills and runny nose at the restaurant Narrative Narrative: Patient states he he and his went to [facility] to have dinner. During dinner he developed shaking chills temperature up to 103. He has slight runny nose. He is no longer has runny nose. He has bitemporal pain. Eye double vision blurred vision change in vision. He denies light sensitivity. [place] neck pain or neck stiffness. He denies cough, shortness of breath or difficulty breathing. He denies chest discomfort. He denies abdominal pain, nausea, vomiting or diarrhea. He denies dysuria, frequency, urgency or hematuria. He states he has no skin lesions. 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 Lymphadenopathy, inguinal Mitral annular calcification Osteoarthritis Polyneuropathy Spinal stenosis Lumbosacral spondylosis 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 Hyperplastic colon polyp Adrenal adenoma Obesity History of non-ST elevation myocardial infarction (NSTEMI) (2006) Abdominal aortic aneurysm (AAA) Paroxysmal atrial fibrillation Atherosclerosis of coronary artery of [place] heart without angina pectoris Hyperlipidemia Obstructive sleep apnea Home Medications ?Medication ?Instructions ?Recorded ?Last Taken ?Type ascorbic acid (vitamin C) 500 mg 1,000 mg PO DAILY@0800 vitamin 05/04/13 09/24/23 07:45 History tablet aspirin 81 mg chewable tablet 81 mg PO DAILY@0800 heart 05/04/13 09/24/23 07:45 History ginseng 100 mg capsule 100 mg PO DAILY vitamin 05/04/13 05/04/13 History alendronate 70 mg tablet 70 mg PO Q7D@0700 bones 03/01/20 09/21/23 06:15 History alpha lipoic acid 200 mg capsule 600 mg PO DAILY vitamin 01/01/21 Unknown History gabapentin 300 mg capsule 900 mg PO TID nerve pain 02/11/23 09/24/23 13:20 History GI102 Immunotherapy 09/08/23 09/02/23 History L.acidophil,salivari-Bifido 1 cap PO DAILY Probiotic #1 cap 09/24/23 09/24/23 07:45 Rx bifidum-Strep thermoph 175 mg capsule calcium 500 mg (as 1 tab PO DAILYCM Supplement #1 TAB 09/24/23 09/24/23 07:45 Rx carbonate)-vitamin D3 5 mcg (200 unit) tablet (Oyster Shell Calcium-Vitamin D3) multivitamin 1 tab PO DAILYCM Supplement #1 TAB 09/24/23 09/24/23 07:45 Rx dofetilide 500 mcg capsule 500 mcg PO BID #180 caps 12/16/23 Unknown Rx atorvastatin 10 mg tablet 10 mg PO QHS cholesterol #90 tabs 04/26/24 Unknown Rx metoprolol succinate 25 mg 12.5 mg (1/2 x 25 mg) PO DAILY bp 08/05/24 Unknown Rx tablet,extended release 24 hr #45 TABLETS rivaroxaban 20 mg tablet (Xarelto) 20 mg PO DAILY blood thinner #90 09/27/24 Unknown Rx tabs albuterol sulfate 90 mcg/actuation 2 puff inhalation Q4H PRN PRN 10/16/24 Unknown History aerosol inhaler wheezing tamsulosin 0.4 mg capsule 0.4 mg PO QHS 10/16/24 Unknown History Allergy/AdvReac Type Severity Reaction Status Date / Time No Known Allergies Allergy Verified 10/16/24 21:22 Family History Aunt Sudden cardiac age 63 Mother Colon cancer Father Colon cancer Sister Cancer Surgical History History of left heart catheterization (03/11/22) Excisional biopsy of left inguinal lymph node (11/24/18) History of bilateral knee replacement History of left hip replacement History of open reduction and internal fixation (ORIF) procedure History of lumbar laminectomy History of cervical spinal arthrodesis History of right hip replacement (03/2018) History of coronary artery stent placement (04/2006) History of cardioversion (07/01/13) Social History household members: spouse housing: other details: They are all on 1 floor. BR has a walk in shower. number of children: 4 current occupational status: retired pets and animals: No Smoking Status: Former smoker quit date: 06/19/82 alcohol intake: former year quit: 2001 caffeine: Yes Type: coffee Number of servings: 2 what type of physical activity do you participate in: weight training ROS ROS ED Constitutional Constitutional ED: Reports chills and fever(s); Denies subjective or sweats Eyes Eyes: Denies blurry vision, change in vision or diplopia ENT ENT ED: Reports rhinorrhea; Denies ear pain or sore throat Cardiovascular Cardiovascular: Denies chest pain, orthopnea, palpitations or paroxysmal nocturnal dyspnea Respiratory/Chest Respiratory/Chest: Denies cough, dyspnea, dyspnea on exertion, orthopnea or paroxysmal nocturnal dyspnea Gastrointestinal Gastrointestinal: Denies abdominal pain, constipation, diarrhea, nausea or vomiting Genitourinary Genitourinary ED: Denies dysuria, hematuria or urinary frequency Musculoskeletal Musculoskeletal: Denies arthralgias, back pain, myalgias or neck pain Integumentary Denies Abrasions or rash Neurologic Neurologic: Reports headache(s) and weakness; Denies paresthesias Psychiatric Psychiatric: Denies anxiety or depression Hematologic/Lymphatic Hematologic/Lymphatic: Reports systems reviewed and no addt'l complaints, except as documented EXAM Physical Exam Const Vital Signs: 10/16/24 21:23 10/16/24 21:23 10/16/24 21:27 Temperature 102.9 F H 102.9 F H Temperature Source Oral Oral Pulse Rate 101 H 101 H Respiratory Rate 24 H 24 H Respiratory Effort Normal Respiratory Pattern Normal Blood Pressure 135/71 H 135/71 H Blood Pressure Mean 92 92 Pulse Ox 91 92 Oxygen Delivery Method Room Air Room Air Oxygen Flow Rate (L/min) 10/16/24 21:32 10/16/24 21:33 10/16/24 21:44 Temperature Temperature Source Pulse Rate Respiratory Rate Respiratory Effort Respiratory Pattern Blood Pressure Blood Pressure Mean Pulse Ox 89 95 93 Oxygen Delivery Method Room Air Nasal Cannula Nasal Cannula Oxygen Flow Rate (L/min) 2 2 10/16/24 22:27 Temperature 100.2 F H Temperature Source Oral Pulse Rate 93 Respiratory Rate 24 H Respiratory Effort Respiratory Pattern Blood Pressure 142/81 H Blood Pressure Mean 101 Pulse Ox 95 Oxygen Delivery Method Nasal Cannula Oxygen Flow Rate (L/min) 2 Positive well nourished and well developed Constitutional Narrative: Patient appears ill. He is tachycardic, tachypneic and febrile. Pulse ox is 91% on room air. General Appearance ED: well developed; Negative for cyanotic or diaphoretic Eyes PERRL and EOMs intact bilaterally General Eye ED: Negative for pale conjunctiva or scleral icterus Neck no lymphadenopathy, supple and no JVD Chest Wall inspection of chest normal and palpation of chest normal Resp normal respiratory effort and No clear to auscultation bilaterally Auscultation: rales bilateral base Cardio regular rhythm, S1 normal heart sound, S2 normal heart sound and no murmurs Rate: tachycardic GI normal to inspection, nondistended, normoactive bowel sounds, non-tender, non-distended and no masses; Negative for hepatosplenomegaly Back/Spine no CVA tenderness Thoracic Spine / Upper Back: Negative for thoracic spinal tenderness Lumbar Spine / Lower Back: Negative for lumbar spinal tenderness Extremity Extremity Narrative: Left leg is swollen compared to the right. Is always swollen. Once patient removed his compressive hose he was noted to have erythema anterior left thigh. There is no induration. It is warm. It does crystal. There is no inguinal lymphadenopathy. There is no fluctuance. Neuro oriented x3, CN's II-XII intact bilaterally and no sensory deficits noted Neuro Narrative: Patient stumbles with his words and is confused. He is normally alert and oriented x 3. He is awake but not necessarily alert. Sensorium / Orientation: alert Psych mental status grossly normal Skin Skin Narrative: Redness anterior left thigh as previously described MDM MDM MDM Narrative Medical decision making narrative: Differential diagnosis is fever of unknown etiology, fever due to cancer [place] cell carcinoma [place]/lymphoma. He had recent imaging that revealed 3 new lesions. Also need to rule out UTI, pneumonia patient denies any rash or lesions. Workup included CBC, competence of metabolic panel, lactate, chest x-ray UA. Source at this time is unknown. Since patient is having rigors is altered mental status antibiotics for unknown source was packed. This was changed to Unasyn when the nurse informed me that his leg is red. Lab Data Attestation: I reviewed the patient's lab results. Lab results narrative: White count is elevated 13.3 thousand with shift. Patient has mild anemia with H&H 1.8 and 35.1. Indices are normal. Competence of metabolic panel with slight elevation of BUN to creatinine ratio and glucose. CO2 anion gap are normal. Lactate is normal. Liver enzymes are normal. Labs: Laboratory Results - last 24 hr 10/16/24 21:47 WBC 13.3 H RBC 3.95 L Hgb 11.8 L Hct 35.1 L MCV 88.9 MCH 29.9 MCHC 33.6 RDW Std Deviation 46.8 H RDW Coeff of Susana 14.6 Plt Count 64 L MPV 10.2 Immature Gran % (Auto) 0.900 Neut % (Auto) 74.4 H Lymph % (Auto) 4.2 L [place] % (Auto) 19.3 H Eos % (Auto) 1.1 Baso % (Auto) 0.1 Absolute Neuts (auto) 9.9 H Absolute Lymphs (auto) 0.56 L Nucleated RBC % 0 PT 16.3 H INR 1.3 APTT 32.0 Sodium 137 Potassium 3.8 Chloride 100 Carbon Dioxide 25.4 Anion Gap 12 BUN 17 Creatinine 0.85 Estim Creat Clear Calc 84.55 Est GFR (MDRD) Non-Af 86 BUN/Creatinine Ratio 20.2 H Glucose 126 H Lactic Acid 1.3 Calcium 9.2 Total Bilirubin 1.10 AST 32 ALT 11 Alkaline Phosphatase 47 Total Protein 6.9 Albumin 3.9 Globulin 2.9 Albumin/Globulin Ratio 1.3 Radiography Chest X-Ray - ED: 2 View and Read by ED Physician (Chronic changes and unchanged from prior. There is no evidence of infiltrate, effusion. Right cardiac silhouette slightly obstructed due to elevated right hemidiaphragm. This is chronic. There is no acute findings with regards to his osseous structures.) Diagnostic Testing: Clinical Impression(s) from Imaging Studies Chest X-Ray 10/16/24 21:39 IMPRESSION: NO SIGNIFICANT CHANGE SINCE THE PRIOR EXAM. Reading Location: [facility] Management Discussion w/another healthcare provider: Hospitalist (Discussed case with hospitalist, Dr. Ambar Lin. Full admit MedSurg) Treatment and Re-Evaluation :: Patient removed his compressive hose. Patient has redness to the left thigh. There is swelling of the left lower extremity. This is chronic. states several years ago he had a skin infection and he was in the hospital for several days. There is no induration, lymphangitis or lymphadenopathy. Zosyn was discontinued and Unasyn was ordered. He will receive vancomycin. Comments:: He seems a little confused compared to baseline per . Suspect he has infectious encephalopathy. Will contact hospitalist for admission. Discharge Plan Triage Chief Complaint: Fever ED Provider: Azam Reed Dx/Rx/DC Orders Clinical Impression: Cellulitis of left thigh, Peripheral neuropathy, Abdominal aortic aneurysm (AAA), Acute encephalopathy, Madi cell carcinoma, Leukocytosis, Sinus tachycardia seen on color television console monitor Prescriptions: No Action alpha lipoic acid 200 mg capsule 600 mg PO DAILY gabapentin 300 mg capsule 900 mg PO TID ginseng 100 MG capsule 100 mg PO DAILY ascorbic acid (vitamin C) 500 MG tablet 1,000 mg PO DAILY@0800 aspirin 81 MG tablet,chewable 81 mg PO DAILY@0800 alendronate 70 mg tablet 70 mg PO Q7D@0700 tamsulosin 0.4 mg capsule 0.4 mg PO QHS albuterol sulfate 90 mcg/actuation HFA aerosol inhaler 2 puff inhalation Q4H PRN PRN (Reason: wheezing) GI102 Patient Comments: CLINICAL [id number]-[id number] dose September calcium carbonate-vitamin D3 [Oyster Shell Calcium-Vit D3] 500 mg-5 mcg (200 unit) Tablet 1 tab PO DAILYCM Qty: 1 0RF L.acidoph,saliva-B.bif-S.therm 175 mg Capsule 1 cap PO DAILY Qty: 1 0RF multivitamin Tablet 1 tab PO DAILYCM Qty: 1 0RF dofetilide 500 mcg capsule 500 mcg PO BID Qty: 180 4RF atorvastatin 10 mg tablet 10 mg PO QHS Qty: 90 3RF Rx Instructions: TAKE ONE TABLET BY MOUTH NIGHTLY AT BEDTIME metoprolol succinate 25 mg tablet extended release 24 hr 12.5 mg PO DAILY Qty: 45 3RF Xarelto 20 mg tablet 20 mg PO DAILY Qty: 90 3RF Rx Instructions: TAKE 1 TABLET BY MOUTH DAILY Primary Care Provider: Naveed Morton Referrals: Naveed Morton MD [Primary Care Provider] - Print Language: Lao Disposition Disposition: Acute Care Hospital [facility]
[2024-10-16] MEDS: Vancomycin HCl 2,000 MG in 0.9% Normal Saline (500mL Bag) 500 ML 250 MG IV (22:58)
[2024-10-16 22:59] LABS: Differential Comment SCANNED
[2024-10-16 23:01] LABS: Mucous, Urine 0 SEEN /hpf (<or=2+); Squamous Epithelial Cells - UA 0 SEEN /hpf (0-5)
[2024-10-16 23:08] LABS: Color, Urine Yellow (Yellow); Glucose, Dipstick Normal (Normal); Ketone-Dipstick Negative (Negative); Leukocyte Esterase-Dipstick Negative /ul (Negative); Nitrite-Dipstick Negative (Negative); Occult Blood-Urine 10 /ul (Negative); Protein-Dipstick 15 mg/dl (Negative); Specific Gravity, Urine 1.015 (1.002-1.030); Urine Bilirubin Dipstick Negative (Negative)
--- NOTE | 2024-10-16 23:18 | HP.PCM.HOS_ITS ---
HPI - General General Date of Admission: 10/16/24 Date of Service: 10/16/24 Chief Complaint: Fever, chills, mild confusion. 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 In the ED upon evaluation he had noted left lower extremity erythema and increased warmth with mild increased acute on chronic left lower extremity swelling thought to be the source. Workup in the ED included T102.9, heart rate 101, BP 135/71, respiratory rate 24, 91% on room air, 93% on 2 L nasal cannula, CBC with WC 13.3, hemoglobin 0.8, MCV 88.9, platelets 64 with left shift and lymphopenia, coags with PT 16.3, CMP with BUN/creatinine 17/0.5, GFR 86, glucose 126 otherwise unremarkable, lactic acid 1.3, chest x-ray with stable cardiomegaly, low lung volume with elevation of right hemidiaphragm with no acute cardiopulmonary findings, EKG with sinus rhythm with PAC. In the ED patient administered IV vancomycin and IV Unasyn in addition to 1 L normal saline. 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 Hyperplastic colon polyp Adrenal adenoma Obesity History of non-ST elevation myocardial infarction (NSTEMI) (2006) Abdominal aortic aneurysm (AAA) Paroxysmal atrial fibrillation Atherosclerosis of coronary artery of [place] heart without angina pectoris Hyperlipidemia Obstructive sleep apnea Home Medications ?Medication ?Instructions ?Recorded ?Last Taken ?Type ascorbic acid (vitamin C) 500 mg 1,000 mg PO DAILY@080 0 vitamin 05/04/13 09/24/23 07:45 History tablet aspirin 81 mg chewable tablet 81 mg PO DAILY@0800 hear t 05/04/13 09/24/23 07:45 History ginseng 100 mg capsule 100 mg PO DAILY vitamin 04/2105/04/13 History alendronate 70 mg tablet 70 mg PO Q7D@0700 bones 02/1909/21/23 06:15 History alpha lipoic acid 200 mg capsule 600 mg PO DAILY vitam in 01/01/21 Unknown History gabapentin 300 mg capsule 900 mg PO TID nerve pain 09/24/23 13:20 History GI102 Immunotherapy 09/08/2309/01 History L.acidophil,salivari-Bifido 1 cap PO DAILY Probiotic # 1 cap 09/24/23 09/24/23 07:45 Rx bifidum-Strep thermoph 175 mg capsule calcium 500 mg (as 1 tab PO DAILYCM Supplement #1 TAB 09/24/23 09/24/23 07:45 Rx carbonate)-vitamin D3 5 mcg (200 unit) tablet (Oyster Shell Calcium-Vitamin D3) multivitamin 1 tab PO DAILYCM Supplement #1 TAB 09/24/23 09/24/23 07:45 Rx dofetilide 500 mcg capsule 500 mcg PO BID #180 caps Unknown Rx atorvastatin 10 mg tablet 10 mg PO QHS cholesterol #90 tabs 04/26/24 Unknown Rx metoprolol succinate 25 mg 12.5 mg (1/2 x 25 mg) PO DA ELIJAH bp 08/05/24 Unknown Rx tablet,extended release 24 hr #45 TABLETS rivaroxaban 20 mg tablet (Xarelto) 20 mg PO DAILY bloo d thinner #90 09/27/24 Unknown Rx tabs albuterol sulfate 90 mcg/actuation 2 puff inhalation Q 4H PRN PRN 10/16/24 Unknown History aerosol inhaler wheezing tamsulosin 0.4 mg capsule 0.4 mg PO QHS 10/16/24 Unkno wn History Allergy/AdvReac Type Severity Reaction Status Date / Time No Known Allergies Allergy Verified 10/16/24 21:22 Family History Aunt Sudden cardiac age 63 Mother Colon cancer Father Colon cancer Sister Cancer Surgical History History of left heart catheterization (03/11/22) Excisional biopsy of left inguinal lymph node (11/24/18) History of bilateral knee replacement History of left hip replacement History of open reduction and internal fixation (ORIF) procedure History of lumbar laminectomy History of cervical spinal arthrodesis History of right hip replacement (03/2018) History of coronary artery stent placement (04/2006) History of cardioversion (07/01/13) Social History household members: spouse housing: other details: They are all on 1 floor. BR has a walk in shower. number of children: 4 current occupational status: retired pets and animals: No Smoking Status: Former smoker quit date: 06/19/82 alcohol intake: former year quit: 2001 caffeine: Yes Type: coffee Number of servings: 2 what type of physical activity do you participate in: weight training ROS ROS Narrative Admission Review of Systems: CONSTITUTIONAL: No weight loss, + fever, chills, weakness or fatigue. HEENT: Eyes: No visual loss, blurred vision, double vision or yellow sclerae. Ears, Nose, Throat: No hearing loss, sneezing, congestion, runny nose or sore throat. SKIN: No rash or itching, lesions, wounds except + left circumferential thigh erythema, increased swelling as well as increased warmth. CARDIOVASCULAR: No chest pain, chest pressure or chest discomfort, palpitations, edema, orthopnea, syncopal events. RESPIRATORY: No shortness of breath, cough or sputum, wheezing, hemoptysis. GASTROINTESTINAL: No anorexia, nausea, vomiting or diarrhea, abdominal pain, melena, BRBPR. GENITOURINARY: No dysuria, frequency, urgency or retention. NEUROLOGICAL: + Mild confusion onset. No headache, dizziness, syncope, paralysis, ataxia, numbness or tingling in the extremities, focal weakness, change in bowel or bladder control, seizure. MUSCULOSKELETAL: + muscle, back pain, joint pain or stiffness. HEMATOLOGIC: + Chronic anemia, easy bleeding/bruising. LYMPHATICS: No enlarged nodes. No history of splenectomy. PSYCHIATRIC: No history of depression or anxiety. ENDOCRINOLOGIC: No reports of sweating, cold or heat intolerance. No polyuria or polydipsia. ALLERGIES: No history of asthma, hives, eczema or rhinitis. Vital Signs Vital Signs Vital Signs: 10/16/24 21:23 10/16/24 21:23 10/16/24 21:27 Temperature 102.9 F H 102.9 F H Temperature Source Oral Oral Pulse Rate 101 H 101 H Respiratory Rate 24 H 24 H Respiratory Effort Normal Respiratory Pattern Normal Blood Pressure 135/71 H 135/71 H Blood Pressure Mean 92 92 Pulse Ox 91 92 Oxygen Delivery Method Room Air Room Air Oxygen Flow Rate (L/min) 10/16/24 21:32 10/16/24 21:33 10/16/24 21:44 Temperature Temperature Source Pulse Rate Respiratory Rate Respiratory Effort Respiratory Pattern Blood Pressure Blood Pressure Mean Pulse Ox 89 95 93 Oxygen Delivery Method Room Air Nasal Cannula Nasal Cannula Oxygen Flow Rate (L/min) 2 2 10/16/24 22:27 Temperature 100.2 F H Temperature Source Oral Pulse Rate 93 Respiratory Rate 24 H Respiratory Effort Respiratory Pattern Blood Pressure 142/81 H Blood Pressure Mean 101 Pulse Ox 95 Oxygen Delivery Method Nasal Cannula Oxygen Flow Rate (L/min) 2 Weight Weight: 236 lb 1.841 oz Body Mass Index (BMI) 31.1 Physical Exam Narrative Physical Examination: General: Awake, alert, oriented to self, place and recent events per discussion with patient and spouse, she does report that he was initially confused with onset but seems improved, remains cooperative, seated upright in the ED bed in no apparent distress. Skin: Normal color, normal turgor, no icterus, no cyanosis except for left lower extremity with mid to upper thigh circumferential erythema with increased warmth and mildly increased swelling with some chronic component of left lower extremity swelling baseline per discussion with patient and spouse with no induration or fluctuant regions. HEENT: AT/NC, EOMI, PERRLA, mildly dry MM, no carotid bruits or JVD noted. Lungs: CTA bilaterally, moderate effort, mild decrease BL bases, no rales, ronchi or wheezing. Heart: Mildly tachycardic with regular rhythm; no gallop, rub audible. Abdomen: Soft, NTTP, ND, mildly hyperactive BS, no appreciated HSM. Extremities: No cyanosis, no clubbing, see skin. Neurological: Patient awake, alert, oriented as noted, cognitive function improved, suspect nearing baseline intact; pupils equally reactive to light and accommodation, cranial nerves grossly normal, moving all 4 extremities, no focal deficits, strength severely globally decreased. Psychiatric: Affect appears fatigued otherwise normal, no acute evidence of depressive or anxiety feelings. Results Lab / Micro Data 10/16/24 21:47 10/16/24 21:47 Labs: Laboratory Results - last 24 hr 10/16/24 21:47: WBC 13.3 H, RBC 3.95 L, Hgb 11.8 L, Hct 35.1 L, MCV 88.9, MCH 29.9, MCHC 33.6, RDW Std Deviation 46.8 H, RDW Coeff of [place]ana 14.6, Plt Count 64 L , MPV 10.2, Immature Gran % (Auto) 0.900, Neut % (Auto) 74.4 H, Lymph % (Auto) 4.2 L, [place] % (Auto) 19.3 H, Eos % (Auto) 1.1, Baso % (Auto) 0.1, Absolute Neuts (auto) 9.9 H, Absolute Lymphs (auto) 0.56 L, Nucleated RBC % 0, Differential Comment SCANNED, Platelet Estimate MOD DEC, PT 16.3 H, INR 1.3, APTT 32.0, Sodium 137, Potassium 3.8, Chloride 100, Carbon Dioxide 25.4, Anion Gap 12, BUN 17, Creatinine 0.85, Estim Creat Clear Calc 84.55, Est GFR (MDRD) Non-Af 86, B UN/Creatinine Ratio 20.2 H, Glucose 126 H, Lactic Acid 1.3, Calcium 9.2, Total Bilirubin 1.10, AST 32, ALT 11, Alkaline Phosphatase 47, Total Protein 6.9, Albumin 3.9, Globulin 2.9, Albumin/Globulin Ratio 1.3 Imaging Radiology Impression Chest X-Ray 10/16/24 21:39 IMPRESSION: NO SIGNIFICANT CHANGE SINCE THE PRIOR EXAM. 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 #1. Acute Encephalopathy with chills, fever secondary to Acute LLE Cellulitis: Will admit to [facility] given stable vital signs, maintain on IV unasyn and vanc given immunosuppressive history with de-escalation as able, no obvious lesion/wound thus will not be able to obtain Cxs, continue judicious IVFs, plan repeat CBC in AM, continue affected extremity elevation above heart when seated and in bed, monitor erythema outline with VS checks, although low suspicion for VTE given chronic anticoagulation with Xarelto if not improving edema, given significant metastatic cancer history, could certainly consider LLE US assessment. #2. Thrombocytopenia, appears acute in chronicity: Admission platelet 64, baseline is primarily been normal, last noted previous to this 10/09/2023 platelets 206, possibly reactive given acute presentation #1, will repeat CBC in AM. Cautiously continue patient aspirin and Xarelto regimen. #3. Metastatic [place] cell carcinoma: Per A2B records patient with most recent imaging noted from clinic clinic with a stable small less than 6 mm pulmonary nodule, bronchiectasis with bronchial wall thickening and tiny branching hyperattenuating densities in the lower lobes likely sequelae of chronic aspiration unchanged. Most recent office visit noted 11/03/2023 from follow-up at the [facility], status post 12/14/2018 left groin dissection, sartorius myofascial flap with lymphovenous bypass and transitioning to phase 3 randomized trial with most recently noted 02/24/2023 new additional clinical trial for advanced or metastatic solid tumors with noted previous to this 02/04/2023 noted with new left adrenal metastases on PET/CT. Patient also per records also status post SBRT to mesenteric lymph nodes. Encourage continued follow-up with oncology as previously arranged. Magnesium and phosphorus levels requested. Notes plan for upcoming CC meeting to assess next steps in case given new lesions. #4. Chronic normocytic anemia: Admission hemoglobin 0.8, MCV 88.9, baseline hemoglobin primarily 11-12 range, stable, continue to trend. Most recent noted CT in the system 04/16/2024 #5. Chronic lumbar back pain with neuropathy: Patient with history of lumbar spinal fusion surgeries over the years with chronic neuropathy #6. CAD: Status post BMS to OM1 04/2006, will continue aspirin, Xarelto, statin therapy, metoprolol home regimen, not on FORREST inhibitor/ARB. #7. Chart reported history of thoracic aortic aneurysm: Noted history, no imaging available did note aneurysm specific location or type, encourage continued follow-up at [facility] as previously arranged. #8. Hypertension: Continue home regimen including metoprolol with hold from this as needed, PRN hydralazine. #9. Hyperlipidemia: Will continue patient on statin therapy. #10. PAF: Status post previous cardioversion per history, will continue patient on metoprolol, dofetilide and Xarelto home regimen. #11. Former tobacco use: Encourage continued tobacco cessation. #12. BPH with obstructive pathology: Will continue patient on Flomax regimen. #13. Chart reported history former alcohol dependence: Encourage continued sobriety. #14. CARRILLO: Clarifying PAP therapy. #15. DVT prophylaxis: Will continue patient home Xarelto regimen. #16. CODE status: Patient KOMAL is his who is present and living will is currently in place. Discussed CODE status at length including difference between FULL code, DNR-CCA and DNR-CC status. Following discussions about the differences in these status, requested Full Code status. Charges/Coding Visit Charges Inpatient E&M: 81160 Init Hosp L3
[2024-10-16 23:45] LABS: Red Blood Cells-Urine 5-10 SEEN /hpf (0-5)
[2024-10-16 23:48] LABS: Magnesium 1.9 mg/dL (1.5-2.2)
[2024-10-17] VITALS (8 sets, daily range): BP systolic 104–143; BP diastolic 58–73; PULSE 80–106; RESP 16–22; TEMP 36.6–37.7; O2SAT 92–100; BMI 30.1
[2024-10-17] MEDS: 0.9% Saline Lock 10 ML Syringe IV ×2 (01:07→19:52)
[2024-10-17] MEDS: 0.9% Normal Saline (1000mL) 1,000 ML 100 ML IV (01:07)
[2024-10-17] MEDS: Ampicillin/Sulbactam 3 GM in 0.9% Normal Saline (100mL MB+) 100 ML IV ×3 (01:07→11:59)
--- NOTE | 2024-10-17 01:10 | PCM.RX.CS ---
Consult Antibiotic Management Pharmacy has been consulted to manage selected antibiotic: Vancomycin Type of Intervention Type of Consult: New start Labs Labs: Sodium 137 mmol/L (133-145) 10/16/24 21:47 Potassium 3.8 mmol/L (3.3-5.1) 10/16/24 21:47 Chloride 100 mmol/L (98-108) 10/16/24 21:47 Carbon Dioxide 25.4 mmol/L (21.0-32.0) 10/16/24 21:47 Anion Gap 12 (5-15) 10/16/24 21:47 BUN 17 mg/dL (4-19) 10/16/24 21:47 Creatinine 0.85 mg/dL (0.70-1.20) 10/16/24 21:47 Est GFR (MDRD) Non-Af 86 (>60) 10/16/24 21:47 BUN/Creatinine Ratio 20.2 RATIO (10-20) H 10/16/24 21:47 Glucose 126 mg/dL (70-99) H 10/16/24 21:47 Dosing Weight Weight used for dosin.5 kg Estimated Creatinine Clearance Estimated Creatinine Clearance: 84.55 Goal Trough Goal Trough: 15-20 mcg/mL Pharmacy Plan for Drug Dosing Pharmacy Plan for Drug Dosing: Pharmacy Service will continue to monitor and adjust dosing as required. ER DOSE 2GM GIVEN 10/16 @ 7330. START `1750MG Q12H AND DRAW TROUGH PRIOR TO 4TH DOSE Follow-Up Labs Follow-Up Labs: Trough: Vancomycin Date/Time Labs Ordered Labs to be done on [date and time ordered]: 10/18 @ 1030
[2024-10-17] MEDS: MELATONIN 3 MG TABLET PO ×2 (01:11→20:06)
[2024-10-17 05:24] LABS: Hematocrit 35.1 % (40-54); Hemoglobin 11.8 g/dL (13.0-16.5); Immature Granulocytes Count 0.210 X10^3/uL (0.0-0.0); Mean Corp Hgb Conc 33.6 g/dL (32-36); Mean Corpuscular Volume 91.2 fL (80-94); Mean Platelet Vol. 10.4 fl (6.2-12.0); NRBC Flagged by Analyzer 0 % (0-5); POSITIVE COUNT YES; POSITIVE DIFFERENTIAL YES; Platelet Count 57 K/mm3 (150-450); RBC Distribution Width CV 14.8 % (11.6-14.6); RBC Distribution Width SD 49.0 fl (35.1-43.9); Red Blood Count 3.85 M/mm3 (4.6-6.2); White Blood Count 20.5 K/mm3 (4.4-11.0)
[2024-10-17 05:56] LABS: Differential Indicated SCAN CRITERIA MET
[2024-10-17 06:13] LABS: AST(SGOT) 36 U/L (<=37); Alanine Aminotransfer ALT/SGPT 12 U/L (<=46); Albumin, Serum 3.6 g/dL (3.4-4.8); Alkaline Phosphatase 42 U/L (40-129); Anion Gap 10 (5-15); BUN 17 mg/dL (4-19); BUN/Creat Ratio 20.6 RATIO (10-20); Calcium,Total 8.5 mg/dL (7.6-11.0); Carbon Dioxide 23.2 mmol/L (21.0-32.0); Chloride 104 mmol/L (98-108); Estimated Creatinine Clearance 85.21 ml/min (50-250); Globulin 2.9 g/dL (2.2-4.2); Glucose 121 mg/dL (70-99); Potassium 4.2 mmol/L (3.3-5.1)
[2024-10-17 06:32] LABS: Differential Comment SCANNED
[2024-10-17] MEDS: Metoprolol(XL)Succ 25 MG Tablet 12.5 MG PO (07:53)
[2024-10-17] MEDS: Vancomycin HCl 1,750 MG in 0.9% Normal Saline (500mL Bag) 500 ML 250 MG IV ×2 (10:48→23:35)
--- NOTE | 2024-10-17 16:03 | PN.HOSP_ITS ---
Reason for Visit Reason for Visit: Diagnoses Cellulitis of left lower limb (10/16/24) Subjective Subjective Patient was seen and examined today, his white blood cell count was elevated at 20.5. I talked to the patient's who was in his room at the time of my examination, evidently the patient had been hospitalized at [facility] in November 2023 for cellulitis-he was admitted on 12/10/2023 and blood cultures grew out bacillus species. Patient's states that he was released home on several weeks of antibiotics. I have made the decision today to change his Unasyn to meropenem in case he has a return of bacillus cellulitis. Objective Data Objective Data Vital Signs: Vital Signs Temp Pulse Resp BP Pulse Ox O2 Del Method O2 Flow Rate 99.8 F H 80 17 123/61 H 93 Room Air 2 10/17/24 14:46 10/17/24 14:46 10/17/24 14:46 10/17/24 14:46 10/17/24 14:46 10/17/24 14:46 10/17/24 07:10 Oxygen Flow Rate (L/min) 2 Oxygen Delivery Method Room Air Weight: 103.5 kg Body Mass Index (BMI) 30.1 Intake & Output: Intake and Output for Last 24 Hours 10/15/24 10/16/24 10/17/24 23:59 23:59 23:59 Intake Total 1000 / 1000 2375 / 2375 Output Total 300 / 300 Balance 1000 / 1000 2075 / 2075 Lab / Micro Data 10/17/24 05:10 10/17/24 05:10 Labs: Laboratory Results - last 24 hr 10/16/24 21:47: WBC 13.3 H, RBC 3.95 L, Hgb 11.8 L, Hct 35.1 L, MCV 88.9, MCH 29.9, MCHC 33.6, RDW Std Deviation 46.8 H, RDW Coeff of Susana 14.6, Plt Count 64 L , MPV 10.2, Immature Gran % (Auto) 0.900, Neut % (Auto) 74.4 H, Lymph % (Auto) 4.2 L, [place] % (Auto) 19.3 H, Eos % (Auto) 1.1, Baso % (Auto) 0.1, Absolute Neuts (auto) 9.9 H, Absolute Lymphs (auto) 0.56 L, Nucleated RBC % 0, Differential Comment SCANNED, Platelet Estimate MOD DEC, PT 16.3 H, INR 1.3, APTT 32.0, Sodium 137, Potassium 3.8, Chloride 100, Carbon Dioxide 25.4, Anion Gap 12, BUN 17, Creatinine 0.85, Estim Creat Clear Calc 84.55, Est GFR (MDRD) Non-Af 86, B UN/Creatinine Ratio 20.2 H, Glucose 126 H, Lactic Acid 1.3, Calcium 9.2, Phosphorus 3.0, Magnesium 1.9, Total Bilirubin 1.10, AST 32, ALT 11, Alkaline Phosphatase 47, Total Protein 6.9, Albumin 3.9, Globulin 2.9, Albumin/Globulin Ratio 1.3 10/16/24 22:41: Urine Color Yellow, Urine Clarity Clear, Urine pH 8.0, Ur Specific [place] 1.015, Urine Protein 15 H, Urine Glucose (UA) Normal, Urine Ketones Negative, Urine Occult Blood 10 H, Urine Nitrite Negative, Urine Bilirubin Negative, Urine Urobilinogen 1 H, Ur Leukocyte Esterase Negative, Urine RBC 5-10 SEEN, Urine WBC 0-5 SEEN, Ur Squamous Epith Cells 0 SEEN, Urine Bacteria RARE, Urine Mucus 0 SEEN 10/17/24 05:10: WBC 20.5 H, RBC 3.85 L, Hgb 11.8 L, Hct 35.1 L, MCV 91.2, MCH 30.6, MCHC 33.6, RDW Std Deviation 49.0 H, RDW Coeff of [place]ana 14.8 H, Plt Count 57 L, MPV 10.4, Immature Gran % (Auto) 1.000 H, Neut % (Auto) 68.6, Lymph % (Auto) 2.1 L, [place] % (Auto) 28.1 H, Eos % (Auto) 0.1, Baso % (Auto) 0.1, Absolute Neuts (auto) 14.1 H, Absolute Lymphs (auto) 0.43 L, Nucleated RBC % 0, Differential Comment SCANNED, Sodium 137, Potassium 4.2, Chloride 104, Carbon Dioxide 23.2, Anion Gap 10, BUN 17, Creatinine 0.83, Estim Creat Clear Calc 85.21, Est GFR (MDRD) Non-Af 87, BUN/Creatinine Ratio 20.6 H, Glucose 121 H, Calcium 8.5, Total Bilirubin 1.28, AST 36, ALT 12, Alkaline Phosphatase 42, Total Protein 6.5, Albumin 3.6, Globulin 2.9, Albumin/Globulin Ratio 1.3 Radiography Diagnostic Testing: Radiology Impression Chest X-Ray 10/16/24 21:39 IMPRESSION: NO SIGNIFICANT CHANGE SINCE THE PRIOR EXAM. Reading Location: [facility] Physical Exam Const alert, oriented x3 and no apparent distress Constitutional Narrative: Patient is hard of hearing General Appearance: cooperative, well kempt and well developed Orientation / Consciousness: awake, oriented to person, oriented to place and oriented to time HEENT normocephalic, head/scalp atraumatic and moist oral mucous membranes Eyes PERRL, EOMs intact bilaterally and conjunctivae normal Neck supple, no JVD, thyroid normal and no carotid bruits General: trachea midline Resp normal respiratory effort, no retractions, no use of accessory muscles and clear to auscultation bilaterally Auscultation: Negative for rales, rhonchi or wheezes Cardio regular rate, regular rhythm, S1 normal heart sound, S2 normal heart sound, no murmurs, no rub and no gallops GI normal to inspection, nondistended, normoactive bowel sounds, soft to palpation, non-tender and non-distended Extremity no clubbing, cyanosis or edema Skin Skin Narrative: Patient has a reddened area over his inner left thigh which is extensive, it is warmer to the touch than his other leg, there is no drainage or bullae visible over the area. Neuro oriented x3, CN's II-XII intact bilaterally, moves all extremities, no focal motor deficits and no sensory deficits noted Sensorium / Orientation: awake and alert Speech: speech normal Psych affect normal Assessment & Plan Assessment/Plan (1) Cellulitis of left thigh: PLAN: Plan 1. Cellulitis of the left thigh-patient will be maintained on IV vancomycin and I have added IV meropenem and stopped his Unasyn which she had been receiving. Repeat CBC will be obtained tomorrow, await blood culture. #2 [place] cell carcinoma-patient recently had a scan at the [facility] and is due to go back to his radiation oncologist. #3 paroxysmal atrial fib-patient is in normal sinus rhythm at this time, he remains on Tikosyn, metoprolol, and Xarelto. 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 Total clinical time spent by myself addressing the patient's medical issues, reviewing all of his data, and collaborating with patient's care team: 50 minutes Charges/Coding Visit Charges Inpatient E&M: 51821 Subs Hosp L3
[2024-10-17] MEDS: Meropenem 1 GM in 0.9% Normal Saline (100mL MB+) 100 ML IV (20:06)
[2024-10-18 06:00] VITALS: BMI 30.9
[2024-10-18 06:02] LABS: Hematocrit 33.9 % (40-54); Hemoglobin 11.2 g/dL (13.0-16.5); Immature Granulocytes Count 0.080 X10^3/uL (0.0-0.0); Mean Corp Hgb Conc 33.0 g/dL (32-36); Mean Corpuscular Volume 91.1 fL (80-94); Mean Platelet Vol. 9.8 fl (6.2-12.0); NRBC Flagged by Analyzer 0 % (0-5); POSITIVE COUNT YES; POSITIVE DIFFERENTIAL YES; RBC Distribution Width CV 15.4 % (11.6-14.6); RBC Distribution Width SD 51.4 fl (35.1-43.9); Red Blood Count 3.72 M/mm3 (4.6-6.2); White Blood Count 14.1 K/mm3 (4.4-11.0)
[2024-10-18 06:14] LABS: Differential Indicated SCAN CRITERIA MET; Platelet Count 47 K/mm3 (150-450)
[2024-10-18] MEDS: Meropenem 1 GM in 0.9% Normal Saline (100mL MB+) 100 ML IV ×3 (06:45→22:13)
[2024-10-18 06:49] LABS: Differential Comment SCANNED
[2024-10-18 06:56] VITALS: BP 116/58; PULSE 98; RESP 16; TEMP 37.1; O2SAT 94
[2024-10-18 09:04] VITALS: BP 102/54; PULSE 84; RESP 18; TEMP 36.6; O2SAT 97
[2024-10-18 11:46] LABS: Vancomycin, Trough Level 13.7 ug/mL (5.0-15.0)
--- NOTE | 2024-10-18 11:58 | PCM.RX.CS ---
Consult Antibiotic Management Pharmacy has been consulted to manage selected antibiotic: Vancomycin Type of Intervention Type of Consult: Follow-up Suspected Infection Suspected Infection: Skin/Soft tissue Prior Doses of Antibiotics Prior Doses of Antibiotics Received/Current Regimen: Vancomycin 1750 mg IV Q12H last dose given 10/17/24 @ 2336 Labs Labs: Sodium 137 mmol/L (133-145) 10/17/24 05:10 Potassium 4.2 mmol/L (3.3-5.1) 10/17/24 05:10 Chloride 104 mmol/L (98-108) 10/17/24 05:10 Carbon Dioxide 23.2 mmol/L (21.0-32.0) 10/17/24 05:10 Anion Gap 10 (5-15) 10/17/24 05:10 BUN 17 mg/dL (4-19) 10/17/24 05:10 Creatinine 0.83 mg/dL (0.70-1.20) 10/17/24 05:10 Est GFR (MDRD) Non-Af 87 (>60) 10/17/24 05:10 BUN/Creatinine Ratio 20.6 RATIO (10-20) H 10/17/24 05:10 Glucose 121 mg/dL (70-99) H 10/17/24 05:10 Vancomycin Trough 13.7 ug/mL (5.0-15.0) 10/18/24 10:15 Dosing Weight Weight used for dosin kg Estimated Creatinine Clearance Estimated Creatinine Clearance: ~ 85 Goal Trough Goal Trough: 15-20 mcg/mL Pharmacy Plan for Drug Dosing Pharmacy Plan for Drug Dosing: Vancomycin trough = 13.7, increase to 1250 mg Q8H Pharmacy Service will continue to monitor and adjust dosing as required. Follow-Up Labs Follow-Up Labs: Trough: Vancomycin Date/Time Labs Ordered Labs to be done on [date and time ordered]: 10/19/24 @ 0946
[2024-10-18] MEDS: Vancomycin HCl 1,250 MG in 0.9% Normal Saline (250mL Bag) 250 ML 167 MG IV ×2 (12:05→20:02)
--- NOTE | 2024-10-18 12:51 | PN.HOSP_ITS ---
Reason for Visit Reason for Visit: Diagnoses Cellulitis of left lower limb (10/16/24) Subjective Subjective Patient was seen and examined today, his area of cellulitis looks less reddened today and it is not causing him much discomfort. Patient's white blood cell count today was 14.1, platelet count was 47,000, I am not sure what is causing the drop in the platelet count, his CBC will be repeated tomorrow. Objective Data Objective Data Vital Signs: Vital Signs Temp Pulse Resp BP Pulse Ox O2 Del Method O2 Flow Rate 98 F 84 18 102/54 L 97 Room Air 2 10/18/24 09:04 10/18/24 09:04 10/18/24 09:04 10/18/24 09:04 10/18/24 09:04 10/18/24 09:04 10/17/24 07:10 Oxygen Flow Rate (L/min) 2 Oxygen Delivery Method Room Air Weight: 105.9 kg Body Mass Index (BMI) 30.9 Intake & Output: Intake and Output for Last 24 Hours 10/16/24 10/17/24 10/18/24 23:59 23:59 23:59 Intake Total 1000 / 1000 2695 / 2695 655 / 655 Output Total 830 / 830 Balance 1000 / 1000 1865 / 1865 655 / 655 Lab / Micro Data 10/18/24 04:48 10/17/24 05:10 Labs: Laboratory Results - last 24 hr 10/18/24 04:48: WBC 14.1 H, RBC 3.72 L, Hgb 11.2 L, Hct 33.9 L, MCV 91.1, MCH 30.1, MCHC 33.0, RDW Std Deviation 51.4 H, RDW Coeff of Susana 15.4 H, Plt Count 47 L*, MPV 9.8, Immature Gran % (Auto) 0.600, Neut % (Auto) 55.3, Lymph % (Auto) 8.4 L, Candler % (Auto) 35.5 H, Eos % (Auto) 0.1, Baso % (Auto) 0.1, Absolute Neuts (auto) 7.8 H, Absolute Lymphs (auto) 1.18, Nucleated RBC % 0, Differential Comment SCANNED 10/18/24 10:15: Vancomycin Trough 13.7 Micro: Microbiology 10/16/24 22:41 Urine, Random Urine Culture - Preliminary Coag Negative Staph Physical Exam Narrative alert, oriented x3 and no apparent distress Constitutional Narrative: Patient is hard of hearing General Appearance: cooperative, well kempt and well developed Orientation / Consciousness: awake, oriented to person, oriented to place and oriented to time HEENT normocephalic, head/scalp atraumatic and moist oral mucous membranes Eyes PERRL, EOMs intact bilaterally and conjunctivae normal Neck supple, no JVD, thyroid normal and no carotid bruits General: trachea midline Resp normal respiratory effort, no retractions, no use of accessory muscles and clear to auscultation bilaterally Auscultation: Negative for rales, rhonchi or wheezes Cardio regular rate, regular rhythm, S1 normal heart sound, S2 normal heart sound, no murmurs, no rub and no gallops GI normal to inspection, nondistended, normoactive bowel sounds, soft to palpation, non-tender and non-distended Extremity no clubbing, cyanosis or edema Skin Skin Narrative: Patient has a reddened area over his inner left thigh which is extensive, it is warmer to the touch than his other leg, there is no drainage or bullae visible over the area. Neuro oriented x3, CN's II-XII intact bilaterally, moves all extremities, no focal motor deficits and no sensory deficits noted Sensorium / Orientation: awake and alert Speech: speech normal Psych affect normal Assessment & Plan Assessment/Plan (1) Cellulitis of left thigh: PLAN: Plan 1. Cellulitis of the left thigh-patient will be maintained on IV vancomycin and I have added IV meropenem and stopped his Unasyn which she had been receiving. Repeat CBC will be obtained tomorrow, await blood culture. 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 #3 paroxysmal atrial fib-patient is in normal sinus rhythm at this time, he remains on Tikosyn, metoprolol, and Xarelto. 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 #6 thrombocytopenia-etiology unclear, CBC will be repeated tomorrow Total clinical time spent by myself addressing the patient's medical issues, reviewing all of his data, and collaborating with patient's care team: 50 minutes Charges/Coding Visit Charges Inpatient E&M: 38275 Subs Hosp L2
[2024-10-18 14:02] VITALS: BP 119/85; PULSE 98; RESP 18; TEMP 37; O2SAT 95
[2024-10-18 20:00] VITALS: BP 136/80; PULSE 91; RESP 18; TEMP 36.9; O2SAT 94
[2024-10-18] MEDS: 0.9% Normal Saline (250mL Bag) 250 ML 15 ML IV (22:14)
[2024-10-19 02:10] VITALS: BP 140/85; PULSE 74; RESP 18; TEMP 37.4; O2SAT 94
[2024-10-19] MEDS: Vancomycin HCl 1,250 MG in 0.9% Normal Saline (250mL Bag) 250 ML 167 MG IV (03:42)
[2024-10-19 05:26] VITALS: BMI 31.0
[2024-10-19] MEDS: Meropenem 1 GM in 0.9% Normal Saline (100mL MB+) 100 ML IV (05:26)
--- NOTE | 2024-10-19 07:57 | PCM.PN.HOSP ---
Reason for Visit Reason for Visit: Diagnoses Cellulitis of left lower limb (10/16/24) Objective Data Objective Data Vital Signs: Vital Signs Temp Pulse Resp BP Pulse Ox O2 Del Method O2 Flow Rate 99.3 F H 74 18 140/85 H 94 Room Air 2 10/19/24 02:10 10/19/24 02:10 10/19/24 02:10 10/19/24 02:10 10/19/24 02:10 10/19/24 07:43 10/17/24 07:10 Oxygen Flow Rate (L/min) 2 Oxygen Delivery Method Room Air Weight: 106.2 kg Body Mass Index (BMI) 31.0 Intake & Output: Intake and Output for Last 24 Hours 10/17/24 10/18/24 10/19/24 23:59 23:59 23:59 Intake Total 2695 / 2695 1325.25 / 1325.25 395 / 395 Output Total 830 / 830 200 / 200 600 / 600 Balance 1865 / 1865 1125.25 / 1125.25 -205 / -205 Lab / Micro Data 10/18/24 04:48 10/17/24 05:10 Labs: Laboratory Results - last 24 hr 10/18/24 10:15: Vancomycin Trough 13.7 Micro: Microbiology 10/16/24 22:16 Blood Culture (Wb) - Right Forearm Blood Culture - Preliminary No growth in 48 hours. 10/16/24 21:47 Blood Culture (Wb) - Anticubital Left Blood Culture - Preliminary No growth in 48 hours. 10/16/24 22:41 Urine, Random Urine Culture - Final Staphylococcus haemolyticus Assessment & Plan Assessment/Plan (1) Cellulitis of left thigh: PLAN: Plan 1. Cellulitis of the left thigh-patient will be maintained on IV vancomycin and I have added IV meropenem and stopped his Unasyn which she had been receiving. Repeat CBC will be obtained tomorrow, await blood culture. 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 #3 paroxysmal atrial fib-patient is in normal sinus rhythm at this time, he remains on Tikosyn, metoprolol, and Xarelto. 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 #6 thrombocytopenia-etiology unclear, CBC will be repeated tomorrow Total clinical time spent by myself addressing the patient's medical issues, reviewing all of his data, and collaborating with patient's care team: 50 minutes
[2024-10-19 08:49] VITALS: BP 124/77; PULSE 86; RESP 18; TEMP 36.5; O2SAT 93
--- NOTE | 2024-10-19 08:56 | CASEMGMT ---
SW assessment Face to Face with pt for initial transition planning/care coordination assessment. SW introduced self and role at [facility], pt voices understanding and consents to assessment. Pt is A&O x4 and answers all questions appropriately at this time. Care providers, pharmacy, and demographics verified/updated. Admitting Dx: LLE Cellulitis PCP: Naveed Morton Specialists: Modesto Razo, radiologist; Fernando Thompson, oncology Preferred Pharmacy: [facility] [place] Insurance: [facility], AARP Prescription Benefit: yes LNOK: Gissel, who is also HCPOA Living Arrangements: Pt lives with in single story home with 2 steps to enter; hand rails on both sides of steps. Pt reports that there are 15 stairs to basement which is a walk-out basement that pt utilizes. Transportation: Pt drives self and denies concerns with transportation. DME: Wheeled walker, grab bars. There is a built-in bench in shower, but pt does not use. HHC/SNF: Previous [facility]; if HHC is needed, pt would prefer to utilize [facility] again. Pt states no concerns with going home at time of d/c. Pt states no further concerns/needs. SW to follow. Advised pt to ask SW if any further questions/concerns/needs arise, voices understanding. Pt Goal: Home; prior level of function Plan: Home with . Pt open to HHC if needed. DANNI Zarate
[2024-10-19 08:57] LABS: Hematocrit 33.1 % (40-54); Hemoglobin 11.0 g/dL (13.0-16.5); Immature Granulocytes Count 0.100 X10^3/uL (0.0-0.0); Mean Corp Hgb Conc 33.2 g/dL (32-36); Mean Corpuscular Volume 90.2 fL (80-94); Mean Platelet Vol. 11.1 fl (6.2-12.0); NRBC Flagged by Analyzer 0 % (0-5); POSITIVE COUNT YES; POSITIVE DIFFERENTIAL YES; POSITIVE MORPHOLOGY YES; RBC Distribution Width CV 15.1 % (11.6-14.6); RBC Distribution Width SD 50.1 fl (35.1-43.9); Red Blood Count 3.67 M/mm3 (4.6-6.2); White Blood Count 11.2 K/mm3 (4.4-11.0)
[2024-10-19 09:25] LABS: Platelet Count 43 K/mm3 (150-450)
[2024-10-19 09:27] VITALS: BP 124/77; PULSE 86
[2024-10-19] MEDS: Metoprolol(XL)Succ 25 MG Tablet 12.5 MG PO (09:27)
[2024-10-19 09:37] LABS: Anion Gap 9 (5-15); BUN 13 mg/dL (4-19); BUN/Creat Ratio 20.3 RATIO (10-20); Calcium,Total 7.8 mg/dL (7.6-11.0); Carbon Dioxide 24.7 mmol/L (21.0-32.0); Chloride 102 mmol/L (98-108); Estimated Creatinine Clearance 89.48 ml/min (50-250); Glucose 130 mg/dL (70-99); Potassium 3.5 mmol/L (3.3-5.1)
--- NOTE | 2024-10-19 11:25 | DS.PCM_ITS ---
Providers Date of Admission: 10/16/24 Date of Discharge: 10/19/24 Primary Care Physician: Dr. Naveed Morton MD Reason For Visit: LLE CELLULITIS Diagnosis Discharge Diagnosis (1) Cellulitis of left thigh: Status: Acute Code(s): L03.116 - Cellulitis of left lower limb Plan Patient is an 84-year-old gentleman with history of Dyer cell carcinoma, paroxysmal atrial fibrillation presented with swelling and redness involving the left thigh and assessment of cellulitis was made admitted to regular nursing floor for further management 1. Cellulitis involving the left thigh ? Patient was managed with IV vancomycin and meropenem. Patient did respond to treatment. Cultures obtained had returned negative to date 2. Madi cell carcinoma ? Patient is currently undergoing treatment at [facility] patient to resume care following discharge 3. Thrombocytopenia -Patient had a mild drop in his platelet count from 10/09/2023 when it was 206 264 on admission and 43 on discharge. Requisition was given for patient to have a repeat platelet count to be performed by his primary care physician within 72 hours 4. Dyslipidemia ?Patient is on statin therapy, continued at home dose 5. Paroxysmal atrial fibrillation ? Patient is on dofetilide as well as systemic anticoagulation with apixaban. Did continue 6. Chronic osteomyelitis involving the left hip ? Patient is on Keflex 500 mg p.o. twice daily 7. DVT prophylaxis ? Patient is on apixaban Medications at Discharge Home Medications ascorbic acid (vitamin C) 500 mg tablet 1,000 mg PO DAILY@0800 vitamin 05/04/13 ginseng 100 mg capsule 100 mg PO DAILY vitamin 05/04/13 alendronate 70 mg tablet 70 mg PO Q7D@0700 bones 03/01/20 alpha lipoic acid 200 mg capsule 600 mg PO DAILY vitamin 01/01/21 gabapentin 300 mg capsule 900 mg PO TID nerve pain 02/11/23 GI102 Immunotherapy 09/08/23 L.acidophil,salivari-Bifido bifidum-Strep thermoph 175 mg capsule 1 cap PO DAILY Probiotic #1 cap 09/24/23 calcium 500 mg (as carbonate)-vitamin D3 5 mcg (200 unit) tablet (Oyster Shell Calcium-Vitamin D3) 1 tab PO DAILYCM Supplement #1 TAB 09/24/23 multivitamin 1 tab PO DAILYCM Supplement #1 TAB 09/24/23 dofetilide 500 mcg capsule 500 mcg PO BID #180 caps 12/16/23 atorvastatin 10 mg tablet 10 mg PO QHS cholesterol #90 tabs 04/26/24 metoprolol succinate 25 mg tablet,extended release 24 hr 12.5 mg (1/2 x 25 mg) PO DAILY bp #45 TABLETS 08/05/24 albuterol sulfate 90 mcg/actuation aerosol inhaler 2 puff inhalation Q4H PRN PRN wheezing 10/16/24 tamsulosin 0.4 mg capsule 0.4 mg PO QHS 10/16/24 cephalexin 500 mg capsule 500 mg PO BID MAINTENANCE 10/17/24 rivaroxaban 20 mg tablet (Xarelto) 20 mg PO QHS blood thinner 10/17/24 doxycycline hyclate 100 mg tablet 100 mg PO BID 14 days #28 tabs 10/19/24 Hospital Course Summary of Care Provided Minutes Spent on Discharge: 35 Physical Exam Narrative GENERAL: cooperative HEENT: Atraumatic; normocephalic EYES; Anicteric, Normal Conjunctiva NECK; supple, normal thyroid, RESPIRATORY: Diminished to auscultation CARDIOVASCULAR: Regular S1 S2, GI: soft, normoactive bowel sounds, : No Renal angle tenderness; EXTREMITIES: Some erythema and maculopapular rash involving the left lower extremity, MUSCULOSKELETAL: no muscle wasting NEURO: Awake; no lateralizing signs. SKIN: No Rash PSYCH; Flat affect Weight / BMI Weight Weight: 106.2 kg Body Mass Index (BMI) 31.0 ABG / Lab / Microbiology Data 10/19/24 08:24 10/19/24 08:24 Laboratory: Laboratory Results - last 24 hr 10/18/24 10:15: Vancomycin Trough 13.7 10/19/24 08:24: WBC 11.2 H, RBC 3.67 L, Hgb 11.0 L, Hct 33.1 L, MCV 90.2, MCH 30.0, MCHC 33.2, RDW Std Deviation 50.1 H, RDW Coeff of Susana 15.1 H, Plt Count 43 L*, MPV 11.1, Immature Gran % (Auto) 0.900, Neut % (Auto) 56.9, Lymph % (Auto) 7.4 L, [place]ombs % (Auto) 33.9 H, Eos % (Auto) 0.8, Baso % (Auto) 0.1, Absolute Neuts (auto) 6.4, Absolute Lymphs (auto) 0.83, Nucleated RBC % 0, Sodium 136, Potassium 3.5, Chloride 102, Carbon Dioxide 24.7, Anion Gap 9, BUN 13, C reatinine 0.66 L, Estim Creat Clear Calc 89.48, Est GFR (MDRD) Non-Af 93, B UN/Creatinine Ratio 20.3 H, Glucose 130 H, Calcium 7.8 Microbiology: Microbiology 10/16/24 22:16 Blood Culture (Wb) - Right Forearm Blood Culture - Preliminary No growth in 48 hours. 10/16/24 21:47 Blood Culture (Wb) - Anticubital Left Blood Culture - Preliminary No growth in 48 hours. 10/16/24 22:41 Urine, Random Urine Culture - Final Staphylococcus haemolyticus D/C Instructions Discharge Diet: No restrictions Discharge Activity: Return to Normal Activity Call your doctor if you observe: Fever of 101 or Higher, Shortness of breath, Fainting spells and Chest pain DC O2, CPAP, BIPAP Needs Home O2 Discharge instructions: No Meaningful Use Info Meaningful Use Meaningful Use Diagnoses (Choose all that apply): None applicable Ischemic Stroke Statin Dosing Therapy Reference: STATIN DOSE THERAPY REFERENCE: * Patients > 75 years receive moderate or high dose statin therapy. * Patients 75 years or YOUNGER should receive HIGH intensity statin dose unless contraindicated. You will be required to document reason for non-treatment if statin daily dose does not meet guidelines. HIGH DOSE STATIN THERAPY DAILY Atorvastatin > than or = to 40 mg Rosuvastatin > than or = to 20 mg Amlodipine + Atorvastatin > than or = to 2.5/40 mg Ezetimibe + Simvastatin 10/80 mg Simvastatin 80mg Discharge Plan Admission Admit Date/Time: 10/16/24 23:18 Attending Provider: Alberto Marcos Primary Care Provider: Naveed Morton Consulting Providers: Ambar Lin; Pillo Sherman Discharge Orders/Prescriptions Prescriptions: New doxycycline hyclate 100 mg tablet 100 mg PO BID 14 Days Qty: 28 0RF Continued alpha lipoic acid 200 mg capsule 600 mg PO DAILY gabapentin 300 mg capsule 900 mg PO TID ginseng 100 MG capsule 100 mg PO DAILY ascorbic acid (vitamin C) 500 MG tablet 1,000 mg PO DAILY@0800 alendronate 70 mg tablet 70 mg PO Q7D@0700 Rx Instructions: SUN tamsulosin 0.4 mg capsule 0.4 mg PO QHS albuterol sulfate 90 mcg/actuation HFA aerosol inhaler 2 puff inhalation Q4H PRN PRN (Reason: wheezing) cephalexin 500 mg capsule 500 mg PO BID Xarelto 20 mg tablet 20 mg PO QHS Rx Instructions: TAKE 1 TABLET BY MOUTH DAILY GI102 Patient Comments: CLINICAL RFFUV-pltuqmsyngeeq-zrhm dose September calcium carbonate-vitamin D3 [Oyster Shell Calcium-Vit D3] 500 mg-5 mcg (200 unit) Tablet 1 tab PO DAILYCM Qty: 1 0RF L.acidoph,saliva-B.bif-S.therm 175 mg Capsule 1 cap PO DAILY Qty: 1 0RF multivitamin Tablet 1 tab PO DAILYCM Qty: 1 0RF dofetilide 500 mcg capsule 500 mcg PO BID Qty: 180 4RF atorvastatin 10 mg tablet 10 mg PO QHS Qty: 90 3RF Rx Instructions: TAKE ONE TABLET BY MOUTH NIGHTLY AT BEDTIME metoprolol succinate 25 mg tablet extended release 24 hr 12.5 mg PO DAILY Qty: 45 3RF Other Ambulatory Orders: CBC W/Diff, Automated (Routine) Timeframe: 20241021 Facility: [facility] - Location: Laboratory Ordered By: Dr. Alberto Marcos Referrals / Follow Up: Naveed Morton MD [Primary Care Provider] - Within 1 Week Disposition Disposition (needs filled in before D/C Order can be placed): Home, Self Care Charges/Coding Visit Charges Inpatient E&M: 77546 Disch Hosp >30min
[2024-10-19 12:24] LABS: Acanthocytes 1+
[2024-10-19 13:14] LABS: Vancomycin, Trough Level 18.4 ug/mL (5.0-15.0)
--- NOTE | 2024-10-19 13:26 | PCM.RX.CS ---
Consult Antibiotic Management Pharmacy has been consulted to manage selected antibiotic: Vancomycin Type of Intervention Type of Consult: Follow-up Suspected Infection Suspected Infection: Skin/Soft tissue Prior Doses of Antibiotics Prior Doses of Antibiotics Received/Current Regimen: Vancomycin 1250 mg Q8H last dose 10/19/24 @ 5552 Labs Labs: Sodium 136 mmol/L (133-145) 10/19/24 08:24 Potassium 3.5 mmol/L (3.3-5.1) 10/19/24 08:24 Chloride 102 mmol/L (98-108) 10/19/24 08:24 Carbon Dioxide 24.7 mmol/L (21.0-32.0) 10/19/24 08:24 Anion Gap 9 (5-15) 10/19/24 08:24 BUN 13 mg/dL (4-19) 10/19/24 08:24 Creatinine 0.66 mg/dL (0.70-1.20) L 10/19/24 08:24 Est GFR (MDRD) Non-Af 93 (>60) 10/19/24 08:24 BUN/Creatinine Ratio 20.3 RATIO (10-20) H 10/19/24 08:24 Glucose 130 mg/dL (70-99) H 10/19/24 08:24 Vancomycin Trough 18.4 ug/mL (5.0-15.0) H 10/19/24 11:45 Microbiology Microbiology: Microbiology 10/16/24 22:16 Blood Culture (Wb) - Right Forearm Blood Culture - Preliminary No growth in 48 hours. 10/16/24 21:47 Blood Culture (Wb) - Anticubital Left Blood Culture - Preliminary No growth in 48 hours. 10/16/24 22:41 Urine, Random Urine Culture - Final Staphylococcus haemolyticus Dosing Weight Weight used for dosin kg Estimated Creatinine Clearance Estimated Creatinine Clearance: ~ 89 Goal Trough Goal Trough: 15-20 mcg/mL Pharmacy Plan for Drug Dosing Pharmacy Plan for Drug Dosing: Vancomycin trough = 18.4, continue current dosing , trough in 2 days Pharmacy Service will continue to monitor and adjust dosing as required. Follow-Up Labs Follow-Up Labs: Trough: Vancomycin Date/Time Labs Ordered Labs to be done on [date and time ordered]: 10/21/24 @ 9986
--- NOTE | 2024-10-19 15:04 | PHA.DC.MR.R ---
Pharmacy MD Med Reconciliation Pharmacy Service has performed discharge medication reconciliation for this patient. Medication papers prepared, patient discharged when counseling was attempted. Medications reviewed. The patient's discharge medication list was reviewed for discrepancies and discrepancies were resolved. Medications at Discharge Home Medications ascorbic acid (vitamin C) 500 mg tablet 1,000 mg PO DAILY@0800 vitamin 05/04/13 ginseng 100 mg capsule 100 mg PO DAILY vitamin 05/04/13 alendronate 70 mg tablet 70 mg PO Q7D@0700 bones 03/01/20 alpha lipoic acid 200 mg capsule 600 mg PO DAILY vitamin 01/01/21 gabapentin 300 mg capsule 900 mg PO TID nerve pain 02/11/23 GI102 Immunotherapy 09/08/23 L.acidophil,salivari-Bifido bifidum-Strep thermoph 175 mg capsule 1 cap PO DAILY Probiotic #1 cap 09/24/23 calcium 500 mg (as carbonate)-vitamin D3 5 mcg (200 unit) tablet (Oyster Shell Calcium-Vitamin D3) 1 tab PO DAILYCM Supplement #1 TAB 09/24/23 multivitamin 1 tab PO DAILYCM Supplement #1 TAB 09/24/23 dofetilide 500 mcg capsule 500 mcg PO BID #180 caps 12/16/23 atorvastatin 10 mg tablet 10 mg PO QHS cholesterol #90 tabs 04/26/24 metoprolol succinate 25 mg tablet,extended release 24 hr 12.5 mg (1/2 x 25 mg) PO DAILY bp #45 TABLETS 08/05/24 albuterol sulfate 90 mcg/actuation aerosol inhaler 2 puff inhalation Q4H PRN PRN wheezing 10/16/24 tamsulosin 0.4 mg capsule 0.4 mg PO QHS 10/16/24 cephalexin 500 mg capsule 500 mg PO BID MAINTENANCE 10/17/24 rivaroxaban 20 mg tablet (Xarelto) 20 mg PO QHS blood thinner 10/17/24 doxycycline hyclate 100 mg tablet 100 mg PO BID 14 days #28 tabs 10/19/24
== END 2024-10-19 13:35 | disposition home or self-care (01) | DRG 872 ==
LOC: ED 23:09 → MS3 10-17 00:40
PROVIDERS: Internal Medicine; Admitting Provider Family Medicine; Emergency Provider Emergency Medicine; PCP Family Medicine; Visit Provider Internal Medicine
DX: A41.9 Sepsis, unspecified organism (principal); C79.72 Secondary malignant neoplasm of left adrenal gland; L03.116 Cellulitis of left lower limb; M86.68 Other chronic osteomyelitis, other site; N13.8 Other obstructive and reflux uropathy; D69.6 Thrombocytopenia, unspecified; D64.9 Anemia, unspecified; C4A.9 Merkel cell carcinoma, unspecified; I48.0 Paroxysmal atrial fibrillation; G62.9 Polyneuropathy, unspecified; I10 Essential (primary) hypertension; E78.5 Hyperlipidemia, unspecified; I25.10 Atherosclerotic heart disease of native coronary artery without angina pectoris; I25.2 Old myocardial infarction; G89.29 Other chronic pain; N40.1 Benign prostatic hyperplasia with lower urinary tract symptoms; Z95.5 Presence of coronary angioplasty implant and graft; Z98.1 Arthrodesis status; Z79.01 Long term (current) use of anticoagulants; Z79.82 Long term (current) use of aspirin; Z79.899 Other long term (current) drug therapy; Z86.79 Personal history of other diseases of the circulatory system; Z87.891 Personal history of nicotine dependence
CPT/HCPCS: 36415; 71046; 80048; 80053; 80202; 81001; 83605; 83735; 84100; 85025; 85610; 85730; 87040; 87086; 87088; 87186; 93005; 99285; J2185; A4216; J0295

== ENCOUNTER 2024-10-21 09:56 | Outpatient (RCR) | payer MEDICARE, OTHER, SELFPAY ==
--- NOTE | 2024-10-25 08:04 | HP.OTEVAL_ITS ---
Patient's Visit Information Visit Information Visit Information: ARIANNE BOYER is a 84 year old M, referred to Occupational Therapy by Dr. Naveed Morton MD, with a diagnosis of LE lymphedema /cellulitis. Date of Evaluation: 10/21/24 Occupational Therapist: Nhi Connolly, SHONA/Francis, CHT Subjective Subjective: This 84 year old male was seen for OT eval with dx of left LE lymphedema. pt states he had sx 2018. 9 years ago dx. 14 lymph nodes removed Cellulitis was admitted to the hospital on October 16 and D/C October 19. pt ambulation with rollator pt states the last time he got a new compression garment the last 6 moths. Jobst compression thigh high 20-30mmHg using daily now since he arrived home from the hospital. pt is still on oral antibiotics. pt and would like to know what more they can do to get his leg swelling do wn. Lymphedema (Circumferential Measure) Mid-foot: right 24cm left 27cm Ankle: right 27 left 31cm Lower calf: right 26cm left 34cm Largest calf: right 38cm left 44cm Below knee: right 37cm left 43cm Above knee: right 46 left 55cm Goals Goal: Patient will demonstrate a 20% reduction in edema by discharge: Yes Goal: Patient will demonstrate adequate knowledge of self-massage by the end of the second week.: Yes Goal: Patient will demonstrate adequate knowledge of skin care and precautions by the end of the first week.: Yes Goal: Patient will demonstrate adequate knowledge of therapeutic exercises by discharge.: Yes Goal: Patient will select an appropriate compression garment and demonstrate adequate knowledge of correct donning technique, care and wearing schedule by discharge.: Yes Goal: Patient will voice understanding of need to replace compression garment every four to six months by discharge.: Yes Rehabilitation General Assessment: pt demo with left LE edema due to cellulitis flair. Pt has his compression sock on today. Pt would benefit from skilled OT services 3-4 visits to work with pt and family on decreasing limb size. Today therapist advised to get up and ambulate around his home every hour to increase circulation. Therapist also ed. pt on ex. to stimulate lymph circulation. pt demo understanding. Therapist advised pt to cont. with use of his compression sock. pt to return in 3-4 weeks following antibiotic to check swelling. pt demo understanding and agree to POC. Rehabilitation Potential: Good Anticipated Interventions Anticipated Interventions: Education re Life-long lymphedema Management, Education re Skin Care and Precautions and Education re Correct Donning Tech,Care&Wearing Sched Comp Garments Visit Plan TEXT: Thank you for the opportunity to evaluate your patient. For Medicare and Medicare HMO plans, please review the plan of care and approve it. It will need to be FAXED BACK to us at [phone] for Medicare purposes. Please let me know if there are questions or concerns regarding this plan of care. Physician Signature: Date:
--- NOTE | 2025-01-11 15:45 | HP.OT.NRP ---
Patient Information Patient Information: ARIANNE BOYER was seen in my office for initial evaluation on 10/21/24. The following Plan of Care was established for this patient: Anticipated Interventions Anticipated Interventions: Education re Life-long lymphedema Management, Education re Skin Care and Precautions and Education re Correct Donning Tech,Care&Wearing Sched Comp Garments Last Seen Last Seen: This patient was last seen in our office 10/21/24. Pertinent comments regarding their Occupational therapy will appear below: no further apts have been scheduled and due to time lapse in services pt is d/c at this time. At this point I will be discontinuing this patient from occupational therapy. I would be happy to see this patient again in the future if found appropriate by the physician. Thank you! Nhi Connolly, OTR/L, CHT
== END 2024-10-21 19:00 | disposition home or self-care (01) ==
LOC: OT 09:56
PROVIDERS: PCP Family Medicine; Referring Provider Family Medicine; Visit Provider Family Medicine
DX: I89.0 Lymphedema, not elsewhere classified (principal)
CPT/HCPCS: 97166